=== PATIENT | female | born 1960 | race Two or more races ===

== ENCOUNTER 2020-01-17 10:51 | Outpatient (REF) | payer OTHER, SELFPAY ==
[2020-01-17 12:31] LABS: Creatinine Urine 66.28 mg/dL; Microalbum/Creatinine Ratio Ur 120.7 ug/mg cr
== END 2020-01-17 10:52 | disposition home or self-care (01) ==
LOC: HO.LAB 10:51
PROVIDERS: PCP Internal Medicine; Visit Provider Nurse Practitioner Gerontology
DX: E11.42 Type 2 diabetes mellitus with diabetic polyneuropathy (principal)
CPT/HCPCS: 82043

== ENCOUNTER 2020-02-20 14:23 | Outpatient (REF) | payer OTHER, SELFPAY ==
[2020-02-21 09:47] LABS: BV Int Neg Control Negative (Negative); BV Int Pos Control Positive (Positive)
== END 2020-02-20 14:24 | disposition home or self-care (01) ==
LOC: HO.LAB 14:23
PROVIDERS: Visit Provider Obstetrics & Gynecology
DX: B37.3 Candidiasis of vulva and vagina (principal)
CPT/HCPCS: 87480; 87510; 87660; 99212

== ENCOUNTER → 2020-03-05 13:14 | Outpatient (BNVA) | payer OTHER, SELFPAY | PROVIDERS: PCP Internal Medicine; Visit Provider Nurse Practitioner Gerontology | DX: E11.65 Type 2 diabetes mellitus with hyperglycemia (principal); E11.21 Type 2 diabetes mellitus with diabetic nephropathy; E11.42 Type 2 diabetes mellitus with diabetic polyneuropathy; Z79.4 Long term (current) use of insulin; I10 Essential (primary) hypertension; E78.5 Hyperlipidemia, unspecified; E66.09 Other obesity due to excess calories; Z68.29 Body mass index [BMI] 29.0-29.9, adult | CPT/HCPCS: 82947 ==

== ENCOUNTER → 2020-03-08 14:39 | Outpatient (BNVA) | payer OTHER, SELFPAY | PROVIDERS: PCP Internal Medicine; Visit Provider Obstetrics & Gynecology | DX: B37.3 Candidiasis of vulva and vagina (principal) | CPT/HCPCS: 99212 ==

== ENCOUNTER → 2020-04-10 07:39 | Outpatient (BNVA) | payer OTHER, SELFPAY | PROVIDERS: PCP Internal Medicine; Visit Provider Nurse Practitioner Gerontology ==

== ENCOUNTER 2020-05-25 11:49 | Outpatient (REF) | payer OTHER, SELFPAY ==
--- NOTE | ~2020-05-25 | MM_ITS ---
EXAMINATION: MM SCREENING DIGITAL BREAST TOMOSYNTHESIS, BILATERAL CLINICAL INFORMATION: Screening. Asymptomatic. The lifetime risk of breast cancer based on the Tyrer-Cuzick Model is 4.9%. COMPARISON: Mammography: August 10, 2018 and studies dating back to June 05, 2014 TECHNIQUE: Digital breast tomosynthesis is performed in both the craniocaudal and mediolateral oblique views along with computer-aided detection (CAD). Synthesized 2D images are generated from the tomosynthesis. FINDINGS: There are scattered areas of fibroglandular density (ACR BI-RADS breast composition Category b). There are no significant masses, abnormal calcifications, or other abnormalities. MM/MM tomosynthesis screening BI IMPRESSION: There are no significant changes from prior study. ASSESSMENT: BI-RADS 1: Negative RECOMMENDATION: Routine annual mammography screening. This patient's information was entered into a reminder system with a target due date for their next mammogram.
== END 2020-05-25 11:50 | disposition home or self-care (01) ==
LOC: HO.MAMMO 11:49
PROVIDERS: PCP Internal Medicine; Visit Provider Internal Medicine
DX: Z12.31 Encounter for screening mammogram for malignant neoplasm of breast (principal)
CPT/HCPCS: 77063; 77067

== ENCOUNTER 2020-06-05 10:18 | Outpatient (REF) | payer OTHER, SELFPAY ==
[2020-06-05 10:54] LABS: MANUAL DIFF FLAG NO
[2020-06-05 10:57] LABS: Basophils Percent Auto 0.3 % (0-2); Eosinophils Absolute Auto 0.3 X10*3/uL (0.0-0.4); Eosinophils Percent Auto 2.8 % (0-4); Hematocrit 41.8 % (37-47); Hemoglobin 14.4 g/dl (12.0-16.0); Imm Gran Abs Auto 0.04 X10*3/uL (0.00-0.03); Imm Gran Pct Auto 0.4 % (0.0-0.4); Lymphocytes Absolute Auto 2.5 X10*3/uL (1.2-4.9); Lymphocytes Percent Auto 24.3 % (20-40); Mean Corpuscular HGB Conc 34.4 g/dl (31.0-35.0); Mean Corpuscular Hemoglobin 30.3 pg (27.0-33.0); Mean Platelet Volume 9.9 fL (9.4-12.3); Monocytes Absolute Auto 0.4 X10*3/uL (0.1-1.2); Monocytes Percent Auto 4.2 % (2-11); Neutrophils Absolute Auto 6.9 X10*3/uL (2.0-8.3); Platelet Count 228 X10*3/uL (160-400); Red Blood Count 4.75 X10*6/uL (4.20-5.50); Red Cell Distribution Width 13.3 % (11.0-16.0); White Blood Count 10.1 X10*3/uL (4.8-10.8)
[2020-06-05 11:37] LABS: Glucose Urine UA >=1000 MG/DL (NEG); Leukocyte Esterase Urine NEG (NEG); Nitrite Urine NEG (NEG); Urine Blood NEG (NEG); Urine Ketones NEG (NEG); Urine Protein NEG (NEG-TRACE)
[2020-06-05 11:41] LABS: Alanine Aminotransferase 19 U/L (0-31); Albumin Level 4.2 g/dL (3.5-5.0); Alkaline Phosphatase 93 U/L (39-117); Anion Gap 12 (12-20); Aspartate Amino Transferase 12 U/L (5-31); Bilirubin Total 0.4 mg/dL (0.0-1.0); Blood Urea Nitrogen 12 mg/dL (9-16); Carbon Dioxide 27 mmol/L (22-29); Chloride 106 mmol/L (96-108); Cholesterol 185 mg/dL; Estimated Glomerular Filt Rate > 60; Glucose Fasting 214 mg/dL (60-99); HDL Cholesterol 36 mg/dL; LDL Cholesterol Calculated 85 mg/dl; Potassium 4.1 mmol/L (3.3-5.1); Sodium 141 mmol/L (135-145); Total Protein 7.3 g/dL (6.5-8.0); Triglycerides 321 mg/dL
[2020-06-05 11:44] LABS: Appearance Urine CLEAR; Color Urine YELLOW
[2020-06-05 11:49] LABS: Free T4 (Free Thyroxine) 0.91 ng/dL (0.71-1.85); Thyroid Stimulating Hormone 1.25 uIU/mL (0.32-4.0)
[2020-06-05 12:06] LABS: Creatinine Urine 65.57 mg/dL; Microalbum/Creatinine Ratio Ur 45.7 ug/mg cr
[2020-06-05 12:21] LABS: Bacteria Urine TRACE /LPF; RBC Urine 0 /HPF (0); Squamous Epithelial Cell Urine 2+ /LPF
== END 2020-06-05 10:19 | disposition home or self-care (01) ==
LOC: HO.LAB 10:18
PROVIDERS: PCP Internal Medicine; Visit Provider Internal Medicine
DX: Z00.00 Encounter for general adult medical examination without abnormal findings (principal); E78.5 Hyperlipidemia, unspecified; E11.42 Type 2 diabetes mellitus with diabetic polyneuropathy; I10 Essential (primary) hypertension; K21.9 Gastro-esophageal reflux disease without esophagitis; E03.9 Hypothyroidism, unspecified; E66.9 Obesity, unspecified; E78.00 Pure hypercholesterolemia, unspecified
CPT/HCPCS: 36415; 80053; 80061; 81001; 81003; 82043; 84439; 84443; 85025

== ENCOUNTER 2020-06-11 10:38 | Outpatient (REF) | payer OTHER, SELFPAY ==
--- NOTE | ~2020-06-11 | XR_ITS ---
EXAMINATION: XR HAND, LEFT CLINICAL INFORMATION: Left hand ganglion. COMPARISON: None. TECHNIQUE: PA, lateral, and oblique views of the left hand. FINDINGS: No acute fracture or dislocation. Mild joint space narrowing with small marginal osteophytes at the radiocarpal, 1st carpometacarpal, and interphalangeal joints. No osseous erosion. No abnormal soft tissue calcification. XR/XR hand LT min 3V IMPRESSION: Mild scattered degenerative arthritis at the radiocarpal, 1st carpal metacarpal, and interphalangeal joints.
[2020-06-11 12:18] LABS: Glucose Urine UA >=1000 MG/DL (NEG); Leukocyte Esterase Urine NEG (NEG); Nitrite Urine NEG (NEG); PH 5.5 (5.0-8.0); Specific Gravity - Urine 1.015 (1.005-1.025); Urine Blood NEG (NEG); Urine Ketones NEG (NEG); Urine Protein NEG (NEG-TRACE)
[2020-06-11 12:23] LABS: Appearance Urine CLEAR; Color Urine STRAW
[2020-06-11 12:39] LABS: RBC Urine 0 /HPF (0); Renal Epithelial Cells Urine TRACE /LPF; Squamous Epithelial Cell Urine TRACE /LPF; WBC Urine 0-2 /HPF (0-4)
== END 2020-06-11 10:39 | disposition home or self-care (01) ==
LOC: HO.LAB 10:38
PROVIDERS: PCP Internal Medicine; Visit Provider Internal Medicine
DX: M79.642 Pain in left hand (principal); M67.442 Ganglion, left hand; I10 Essential (primary) hypertension; E11.42 Type 2 diabetes mellitus with diabetic polyneuropathy
CPT/HCPCS: 73130; 81001; 81003

== ENCOUNTER → 2020-07-26 12:56 | Outpatient (BNVA) | payer OTHER, SELFPAY | PROVIDERS: PCP Internal Medicine; Visit Provider Nurse Practitioner Gerontology | DX: E11.65 Type 2 diabetes mellitus with hyperglycemia (principal); E11.42 Type 2 diabetes mellitus with diabetic polyneuropathy; E11.21 Type 2 diabetes mellitus with diabetic nephropathy; I10 Essential (primary) hypertension; E78.5 Hyperlipidemia, unspecified; E66.09 Other obesity due to excess calories; Z68.32 Body mass index [BMI] 32.0-32.9, adult; Z79.4 Long term (current) use of insulin | CPT/HCPCS: 82947; 99212 ==

== ENCOUNTER → 2020-09-07 12:44 | Outpatient (BNVA) | payer OTHER, SELFPAY | PROVIDERS: PCP Internal Medicine; Visit Provider Nurse Practitioner Gerontology ==

== ENCOUNTER 2020-10-09 13:33 | Emergency (ER) | payer OTHER, SELFPAY | END 2020-10-09 18:42 | disposition left against medical advice (07) | PROVIDERS: Emergency Provider Emergency Medicine Emergency Medical Services; PCP Internal Medicine | DX: R42 Dizziness and giddiness (principal); R51.9 Headache, unspecified ==

== ENCOUNTER 2020-11-13 14:59 | Outpatient (REF) | payer OTHER, SELFPAY ==
[2020-11-14 08:50] LABS: BV Int Neg Control Negative (Negative); BV Int Pos Control Positive (Positive)
== END 2020-11-13 15:00 | disposition home or self-care (01) ==
LOC: HO.LAB 14:59
PROVIDERS: PCP Nurse Practitioner Family; Visit Provider Obstetrics & Gynecology
DX: L29.2 Pruritus vulvae (principal); N90.4 Leukoplakia of vulva
CPT/HCPCS: 87480; 87510; 87660; 99212

== ENCOUNTER 2020-12-26 13:03 | Outpatient (REF) | payer OTHER, SELFPAY | END 2020-12-26 13:04 | disposition home or self-care (01) | LOC: HO.LAB 13:03 | PROVIDERS: PCP Internal Medicine; Visit Provider Obstetrics & Gynecology | DX: N90.4 Leukoplakia of vulva (principal) | CPT/HCPCS: 56605; 88305; 88312; 99212 ==

== ENCOUNTER → 2021-01-09 14:48 | Outpatient (BNVA) | payer OTHER, SELFPAY | PROVIDERS: PCP Internal Medicine; Visit Provider Obstetrics & Gynecology | DX: N90.4 Leukoplakia of vulva (principal) | CPT/HCPCS: 99212 ==

== ENCOUNTER → 2021-02-27 13:12 | Outpatient (BNVA) | payer OTHER, SELFPAY | PROVIDERS: PCP Internal Medicine; Visit Provider Obstetrics & Gynecology | DX: N90.4 Leukoplakia of vulva (principal) | CPT/HCPCS: 99212 ==

== ENCOUNTER 2021-03-19 09:43 | Outpatient (REF) | payer OTHER, SELFPAY ==
--- NOTE | ~2021-03-19 | XR_ITS ---
EXAMINATION: XR LUMBOSACRAL SPINE CLINICAL INFORMATION: Lower back pain radiating to hips. COMPARISON: CT abdomen and pelvis noncontrast 08/10/2018 TECHNIQUE: Three views of the lumbosacral spine. FINDINGS: There are 5 nonrib-bearing lumbar vertebrae with normal lumbar lordosis. Mild superior endplate depression is present at L2, new finding from CT 08/10/2018. Again, there are degenerative disc changes L4-L5 with mild disc narrowing and anterior vertebral spurring. There is no lumbar vertebral spondylolisthesis or destructive process. There is old stable bone island left side vertebral body L3 and involving the medial and lower mid left ilium similar to CT study. The SI joints are unremarkable. PSA to call report. XR/XR lumbar spine 2-3V IMPRESSION: 1. Mild L2 superior endplate depression new from CT 08/10/2018. 2. Old degenerative disc changes L4-L5.
--- NOTE | ~2021-03-19 | XR_ITS ---
EXAMINATION: XR BILATERAL HIPS WITH AP PELVIS CLINICAL INFORMATION: Low back pain radiating to both hips. Pain right hip. COMPARISON: Lumbar spine 03/19/2021, CT abdomen and pelvis noncontrast 08/10/2018 TECHNIQUE: AP view of the pelvis is performed. Each hip is also imaged in AP and frog-lateral projections. There are total of 5 views. FINDINGS: There is no fracture or dislocation or destructive process. Mild L4-L5 degenerative disc changes with disc narrowing is again noted. There is mild narrowing bilateral superior medial hip joints without erosive change or subchondral sclerosis or visible chondrocalcinosis. There is bilateral whiskering from the lateral iliac crests and ischial tuberosities. Some minor whiskering also present at the greater trochanters. Finding may be related to mild diffuse idiopathic skeletal hyperostosis. There is old stable bone islands involving the medial and lower mid left ilium similar to CT 2019. XR/XR hips LAURIE min 3V IMPRESSION: 1. Borderline/mild narrowing bilateral superior medial hip joints. No erosive change or chondrocalcinosis. 2. Degenerative disc changes L4-L5. Old bone islands left pelvis.
== END 2021-03-19 09:44 | disposition home or self-care (01) ==
LOC: HO.XRAY 09:43
PROVIDERS: PCP Internal Medicine; Visit Provider Internal Medicine
DX: M25.551 Pain in right hip (principal); M25.552 Pain in left hip; M54.50 Low back pain, unspecified; Z91.81 History of falling
CPT/HCPCS: 72100; 73522

== ENCOUNTER 2021-05-10 08:34 | Outpatient (REF) | payer OTHER, SELFPAY ==
[2021-05-10 08:59] LABS: MANUAL DIFF FLAG NO
[2021-05-10 09:14] LABS: Basophils Percent Auto 0.5 % (0-2); Eosinophils Absolute Auto 0.3 X10*3/uL (0.0-0.4); Eosinophils Percent Auto 3.5 % (0-4); Hematocrit 42.5 % (37.0-47.0); Hemoglobin 13.8 g/dl (12.0-16.0); Imm Gran Abs Auto 0.02 X10*3/uL (0.00-0.03); Imm Gran Pct Auto 0.2 % (0.0-0.4); Lymphocytes Absolute Auto 2.2 X10*3/uL (1.2-4.9); Lymphocytes Percent Auto 27.4 % (20-40); Mean Corpuscular HGB Conc 32.5 g/dl (31.0-35.0); Mean Corpuscular Hemoglobin 28.9 pg (27.0-33.0); Mean Corpuscular Volume 89.1 fL (80.0-98.0); Mean Platelet Volume 9.9 fL (9.4-12.3); Monocytes Absolute Auto 0.4 X10*3/uL (0.1-1.2); Neutrophils Absolute Auto 5.2 x10*3/uL (2.0-8.3); Neutrophils Percent Auto 63.4 % (45-73); Platelet Count 235 X10*3/uL (160-400); Red Blood Count 4.77 X10*6/uL (4.20-5.50); Red Cell Distribution Width 13.5 % (11.0-16.0); White Blood Count 8.2 X10*3/uL (4.8-10.8)
[2021-05-10 09:23] LABS: Estimated Average Glucose 171 mg/dL; Hemoglobin A1c % 7.6 %
[2021-05-10 09:39] LABS: Alanine Aminotransferase 17 U/L (0-31); Albumin Level 4.2 g/dL (3.5-5.0); Alkaline Phosphatase 97 U/L (39-117); Anion Gap 12 (12-20); Aspartate Amino Transferase 11 U/L (5-31); Bilirubin Total 0.5 mg/dL (0.0-1.0); Blood Urea Nitrogen 16 mg/dL (9-16); Calcium 9.8 mg/dL (8.4-10.2); Carbon Dioxide 27 mmol/L (22-29); Chloride 103 mmol/L (96-108); Cholesterol 197 mg/dL; Estimated Glomerular Filt Rate > 60; Glucose Fasting 178 mg/dL (60-99); HDL Cholesterol 33 mg/dL; LDL Cholesterol Calculated 105 mg/dl; Potassium 4.2 mmol/L (3.3-5.1); Sodium 138 mmol/L (135-145); Total Protein 7.8 g/dL (6.5-8.0); Triglycerides 297 mg/dL
[2021-05-10 10:00] LABS: Free T4 (Free Thyroxine) 1.06 ng/dL (0.71-1.85); Thyroid Stimulating Hormone 2.75 uIU/mL (0.32-4.0); Vitamin D 25-OH Total 22.6 ng/mL (>30)
[2021-05-10 10:09] LABS: Appearance Urine CLEAR; Color Urine YELLOW; Glucose Urine UA >=1000 MG/DL (NEG); Leukocyte Esterase Urine NEG (NEG); Nitrite Urine NEG (NEG); Urine Blood NEG (NEG); Urine Ketones NEG (NEG); Urine Protein NEG (NEG-TRACE)
[2021-05-10 10:34] LABS: Creatinine Urine 62.78 mg/dL; Microalbum/Creatinine Ratio Ur 41.4 ug/mg cr
[2021-05-10 11:03] LABS: Squamous Epithelial Cell Urine 1+ /LPF
[2021-05-10 11:04] LABS: RBC Urine 0 /HPF (0); WBC Urine 0-2 /HPF (0-4)
== END 2021-05-10 08:35 | disposition home or self-care (01) ==
LOC: HO.LAB 08:34
PROVIDERS: PCP Internal Medicine; Visit Provider Internal Medicine
DX: E78.00 Pure hypercholesterolemia, unspecified (principal); E03.9 Hypothyroidism, unspecified; I10 Essential (primary) hypertension; E11.9 Type 2 diabetes mellitus without complications; E55.9 Vitamin D deficiency, unspecified
CPT/HCPCS: 36415; 80053; 80061; 81001; 81003; 82043; 82306; 83036; 84439; 84443; 85025

== ENCOUNTER 2021-05-28 13:18 | Outpatient (REF) | payer OTHER, SELFPAY ==
--- NOTE | ~2021-05-28 | MM_ITS ---
EXAMINATION: MM SCREENING DIGITAL BREAST TOMOSYNTHESIS, BILATERAL CLINICAL INFORMATION: Screening. Asymptomatic. The lifetime risk of breast cancer based on the Tyrer-Cuzick Model is 5%. COMPARISON: Mammography: 05/25/2020, 08/10/2018, 06/13/2015 TECHNIQUE: Digital breast tomosynthesis is performed in both the craniocaudal and mediolateral oblique views along with computer-aided detection (CAD). Synthesized 2D images are generated from the tomosynthesis. FINDINGS: There are scattered areas of fibroglandular density (ACR BI-RADS breast composition Category b). There are no significant masses, abnormal calcifications, or other abnormalities. Parenchymal pattern is similar to prior studies. There is no developing density or architectural abnormality. The axilla and skin contours are unremarkable. No significant changes. MM/MM tomosynthesis screening BI IMPRESSION: No mammographic evidence of malignancy. ASSESSMENT: BI-RADS 1: Negative RECOMMENDATION: Routine annual mammography screening. This patient's information was entered into a reminder system with a target due date for their next mammogram.
== END 2021-05-28 13:19 | disposition home or self-care (01) ==
LOC: HO.MAMMO 13:18
PROVIDERS: Visit Provider Internal Medicine
DX: Z12.31 Encounter for screening mammogram for malignant neoplasm of breast (principal)
CPT/HCPCS: 77063; 77067

== ENCOUNTER → 2021-06-06 14:03 | Outpatient (REF) | payer OTHER, SELFPAY ==
--- NOTE | 2021-06-06 14:13 | ECG_ITS ---
Test Reason : TACHYCARDIA Blood Pressure : / mmHG Vent. Rate : 094 BPM Atrial Rate : 094 BPM P-R Int : 136 ms QRS Dur : 080 ms QT Int : 342 ms P-R-T Axes : 053 000 022 degrees QTc Int : 427 ms Normal sinus rhythm Normal ECG When compared with ECG of 17-NOV-2017 09:54, No significant change was found Referred By: Genaro Chu Electronically Signed By:DONTAE PAINTER MD
== END ==
LOC: HO.CARD 14:03
PROVIDERS: PCP Internal Medicine; Visit Provider Internal Medicine
DX: R00.0 Tachycardia, unspecified (principal)
CPT/HCPCS: 93005

== ENCOUNTER → 2021-06-12 12:57 | Outpatient (BNVA) | payer OTHER, SELFPAY | PROVIDERS: PCP Internal Medicine; Visit Provider Orthopaedic Surgery | DX: M65.332 Trigger finger, left middle finger (principal); M65.341 Trigger finger, right ring finger; R20.0 Anesthesia of skin; R20.2 Paresthesia of skin | CPT/HCPCS: 99202; J1100 ==

== ENCOUNTER → 2021-06-13 13:53 | Outpatient (BNVA) | payer OTHER, SELFPAY | PROVIDERS: PCP Internal Medicine; Visit Provider Nurse Practitioner Gerontology | DX: E11.65 Type 2 diabetes mellitus with hyperglycemia (principal); E11.42 Type 2 diabetes mellitus with diabetic polyneuropathy; E11.21 Type 2 diabetes mellitus with diabetic nephropathy; I10 Essential (primary) hypertension; E78.5 Hyperlipidemia, unspecified; E66.09 Other obesity due to excess calories; Z68.32 Body mass index [BMI] 32.0-32.9, adult; E55.9 Vitamin D deficiency, unspecified; Z79.4 Long term (current) use of insulin; Z79.899 Other long term (current) drug therapy | CPT/HCPCS: 82947; 99212 ==

== ENCOUNTER 2021-06-20 10:46 | Day surgery (SDC) | payer OTHER, SELFPAY ==
--- NOTE | 2021-06-20 10:31 | W.PM.OPN ---
Operative Note Operative Note Date of Service: 06/20/21 Narrative: Operative Note Preop diagnosis: 1. left middle finger Trigger finger Postop diagnosis: 1. left middle finger Trigger finger Procedure: 1. left middle finger A1 celsa release Surgeon: Lea Mullins MD Anesthesia: local block using 1% lidocaine with epinephrine Findings: No locking or catching after A1 celsa release EBL: Less than 5 mL Tourniquet time: None Specimens: None Complications: None Disposition: Brought to recovery room in stable condition Plan: Follow-up for 10-14 days for wound check and suture removal Indications: The patient is 61 years old, with a left middle finger trigger finger that has been unresponsive to nonoperative management. The risks and benefits of operative treatment including but not limited to risk of damage to blood vessels, nerves, tendons, infection, persistent pain, persistent symptoms, recurrence or possible need for additional surgery were discussed with the patient and the patient wishes to proceed with surgery. Procedure: Once consent was obtained a local block was performed in the preop area using a combination of 1% lidocaine with epinephrine. The patient was then brought back to the operating suite and placed on the operative table in supine position. A tourniquet was applied to the proximal aspect of the left upper extremity and the limb was prepped and draped in a standard surgical fashion. Once assured that we had a good block, a 1.5 cm oblique incision was made centered over the A1 celsa of the left middle finger . The incision was made through the skin to the subcutaneous tissues using a #15 blade. Careful dissection was made down to the level of the A1 celsa using tenotomy scissors, with care being taken to protect the nearby neurovascular structures. A longitudinal incision was made in the A1 celsa 1st using a #15 blade, then using tenotomy scissors under direct visualization. The A1 celsa was noted to be thickened. Following our A1 celsa release, we no longer saw any locking or catching of the digit with flexion and extension. Once satisfied with our A1 celsa release the wound was copiously irrigated with normal saline and hemostasis was obtained with a brief period of local pressure. The skin edges were reapproximated with some 5.0 nylon suture material and a sterile dressing was applied. The patient appears to have tolerated the procedure well and with no complications. All digits were well vascularized at the conclusion of the case.
[2021-06-20 11:05] VITALS: BP 123/78; PULSE 90; RESP 16; TEMP 36.3; O2SAT 95
[2021-06-20 11:11] VITALS: BMI 29.4
[2021-06-20 14:50] VITALS: PULSE 98; RESP 18; TEMP 36.9; O2SAT 94
--- NOTE | 2021-06-20 14:55 | MHC.SHP ---
Pre-Procedural Eval Section A Date of Service: 06/20/21 The patient is an INPATIENT: No Changes since office visit: No Cold of Flu in the past 2 weeks, No New Medical Problems, No Changes in Medication and No Patient answered all questions The History & Physical has been completed within 30 days and I have reviewed it.: Yes Section B Chief Complaint: Trigger finger, left middle finger Allergies: Allergies Allergy/AdvReac Type Severity Reaction Status Date / Time Iodinated Contrast Media Allergy Intermediate RASH Verified 06/12/21 13:31 [IV CONTRAST] iopromide [From ULTRAVIST] Allergy Mild ITCHING Verified 06/12/21 13:31 Plan I have reviewed the history and physical and performed a pertinent physical examination on my patient. No changes have occurred unless specified.
== END 2021-06-20 15:21 | disposition home or self-care (01) ==
PROVIDERS: PCP Internal Medicine; Visit Provider Orthopaedic Surgery
PROC: (CPT 26055; principal; 2021-06-20 13:50)
DX: M65.332 Trigger finger, left middle finger (principal); R20.0 Anesthesia of skin; M72.0 Palmar fascial fibromatosis [Dupuytren]; F32.9 Major depressive disorder, single episode, unspecified; I10 Essential (primary) hypertension; E11.21 Type 2 diabetes mellitus with diabetic nephropathy; E11.42 Type 2 diabetes mellitus with diabetic polyneuropathy; E11.65 Type 2 diabetes mellitus with hyperglycemia; Z79.4 Long term (current) use of insulin; Z91.040 Latex allergy status
CPT/HCPCS: 26055; J0171

== ENCOUNTER 2021-06-24 08:53 | Outpatient (REF) | payer OTHER, SELFPAY ==
[2021-06-24 09:15] LABS: MANUAL DIFF FLAG NO
[2021-06-24 09:46] LABS: Basophils Percent Auto 0.4 % (0-2); Eosinophils Absolute Auto 0.3 X10*3/uL (0.0-0.4); Eosinophils Percent Auto 3.1 % (0-4); Hematocrit 42.4 % (37.0-47.0); Hemoglobin 14.5 g/dl (12.0-16.0); Imm Gran Abs Auto 0.04 X10*3/uL (0.00-0.03); Imm Gran Pct Auto 0.5 % (0.0-0.4); Lymphocytes Absolute Auto 2.3 X10*3/uL (1.2-4.9); Lymphocytes Percent Auto 28.1 % (20-40); Mean Corpuscular HGB Conc 34.2 g/dl (31.0-35.0); Mean Corpuscular Hemoglobin 29.8 pg (27.0-33.0); Mean Corpuscular Volume 87.1 fL (80.0-98.0); Mean Platelet Volume 9.9 fL (9.4-12.3); Monocytes Absolute Auto 0.4 X10*3/uL (0.1-1.2); Neutrophils Absolute Auto 5.1 x10*3/uL (2.0-8.3); Neutrophils Percent Auto 62.9 % (45-73); Platelet Count 216 X10*3/uL (160-400); Red Blood Count 4.87 X10*6/uL (4.20-5.50); Red Cell Distribution Width 13.2 % (11.0-16.0); White Blood Count 8.2 X10*3/uL (4.8-10.8)
[2021-06-24 10:03] LABS: Estimated Average Glucose 206 mg/dL; Hemoglobin A1c % 8.8 %
[2021-06-24 10:09] LABS: Alanine Aminotransferase 23 U/L (0-31); Albumin Level 4.2 g/dL (3.5-5.0); Alkaline Phosphatase 107 U/L (39-117); Anion Gap 13 (12-20); Aspartate Amino Transferase 18 U/L (5-31); Bilirubin Total 0.5 mg/dL (0.0-1.0); Blood Urea Nitrogen 16 mg/dL (9-16); Calcium 9.7 mg/dL (8.4-10.2); Carbon Dioxide 27 mmol/L (22-29); Chloride 102 mmol/L (96-108); Cholesterol 178 mg/dL; Estimated Glomerular Filt Rate > 60; Glucose Fasting 237 mg/dL (60-99); HDL Cholesterol 36 mg/dL; Potassium 4.2 mmol/L (3.3-5.1); Sodium 138 mmol/L (135-145); Total Protein 7.9 g/dL (6.5-8.0); Triglycerides 473 mg/dL
[2021-06-24 10:32] LABS: Free T4 (Free Thyroxine) 0.89 ng/dL (0.71-1.85); Thyroid Stimulating Hormone 2.06 uIU/mL (0.32-4.0)
[2021-06-24 11:09] LABS: Appearance Urine CLEAR; Color Urine YELLOW; Glucose Urine UA >=1000 MG/DL (NEG); Leukocyte Esterase Urine NEG (NEG); Nitrite Urine NEG (NEG); Urine Blood NEG (NEG); Urine Ketones NEG (NEG); Urine Protein NEG (NEG-TRACE)
[2021-06-24 11:23] LABS: Squamous Epithelial Cell Urine 3+ /LPF
[2021-06-24 11:26] LABS: Bacteria Urine TRACE /LPF; RBC Urine 0 /HPF (0)
== END 2021-06-24 08:54 | disposition home or self-care (01) ==
LOC: HO.LAB 08:53
PROVIDERS: PCP Internal Medicine; Visit Provider Internal Medicine
DX: E03.9 Hypothyroidism, unspecified (principal); E66.9 Obesity, unspecified; E78.5 Hyperlipidemia, unspecified; E11.42 Type 2 diabetes mellitus with diabetic polyneuropathy; I10 Essential (primary) hypertension; K21.9 Gastro-esophageal reflux disease without esophagitis
CPT/HCPCS: 36415; 80053; 80061; 81001; 83036; 84439; 84443; 85025

== ENCOUNTER → 2021-07-03 14:33 | Outpatient (BNVA) | payer OTHER, SELFPAY | PROVIDERS: PCP Internal Medicine; Visit Provider Orthopaedic Surgery | DX: Z09 Encounter for follow-up examination after completed treatment for conditions other than malignant neoplasm (principal); Z87.39 Personal history of other diseases of the musculoskeletal system and connective tissue | CPT/HCPCS: 99212 ==

== ENCOUNTER → 2021-08-07 12:38 | Outpatient (REF) | payer OTHER, SELFPAY ==
--- NOTE | 2021-08-07 12:41 | CA_ITS ---
Transthoracic Echocardiogram Patient (Last, First, Middle): Brielle Bella, Gender: Female Date of : 1960 Age: 61 Procedure Date: 08/07/2021 Procedure Type: Transthoracic Echocardiogram Location: OP Height: 157.48 cm Weight: 84.37 kg BSA: 1.85 m2 Heart Rate: bpm BP: 170 / 86 mmHg Partner Integration Planner: YR/TO Referring MD: Genaro Chu MD Symptoms: R06.00 - Dyspnea, unspecified Study Quality: Fair ECG Rhythm: Sinus Conclusions: - The left ventricular systolic function is normal. The calculated ejection fraction is 60% by biplane method. - No obvious valvular pathology seen on this study. Findings Left Ventricle Normal left ventricular cavity size. There is mildly increased left ventricular wall thickness. The left ventricular systolic function is normal. The calculated ejection fraction is 60% by biplane method. There is no evidence of regional wall motion abnormalities. Diastolic function is normal for age. Right Ventricle Normal right ventricular cavity size and systolic function. Atria Both atria are normal in size. Aortic Valve The aortic valve structure and function is likely normal. There is no aortic valve stenosis. There is no aortic valve regurgitation. Mitral Valve The mitral valve appears normal. There is no mitral valve regurgitation. There is no mitral valve stenosis. Pulmonic Valve The pulmonic valve is likely normal. Tricuspid Valve There is trace tricuspid valve regurgitation. The pulmonary artery systolic pressure is normal. Great Vessels The asc aorta is normal in size. Venous The inferior vena cava is normal in size and collapses greater than 50% with inspiration. Pericardium/Pleural There is no evidence of pericardial effusion. Prior Study Comparison No prior study available for comparison. Recommendations, Care & Conclusions No obvious valvular pathology seen on this study. Measurements 2D Linear Measurements IVSd: 1.25 0.6-0.9/0.6-1.0 cm LVIDd: 3.05 3.9-5.3/4.2-5.9 cm LVIDd Index: 1.65 2.4-3.2/2.2-3.1 cm/m2 LVIDs: 2.12 2.0-3.6 cm LVPWd: 1.11 0.7-1.1 cm LA Diam: 3.20 2.7-3.8/3.0-4.0 cm LAIDs Index: 1.73 1.5-2.3 cm/m2 LV Mass: 135.17 67-162/88-224 g LV Mass Index: 73.06 43-95/49-115 g/m2 LVOT Diam: 2.00 3.0+(-)1.3 cm 2D Systolic Function EF 4C: 56.80 >55% EF 2C: 63.40 >55% EF BiP: 59.70 >55% Mitral Valve MV Pk E: 0.64 MV PK A: 0.92 MV Decel Time: 135.00 E/A: 0.70 E'Lateral: 8.59 E'Medial: 9.57 E/E' Med: 6.70 E/E' Lat: 7.40 PHT: 40.00 MVA PHT: 5.50 Decel Dale: 4.73 Aortic Valve AoV Pk Maynor: 1.59 AoV Mn Maynor: 1.10 AoV VTI: 0.31 AoV Pk Grad: 10.00 Aov Mn Grad: 5.00 DARWIN Cont.VTI: 2.19 LVOT LVOT Pk Maynor: 1.07 LVOT Mn Maynor: 0.68 LVOT VTI: 0.21 LVOT Pk Grad: 5.00 LVOT Mn Grad: 2.00 LVOT Diam: 2.00 LVOT Area: 3.14 Diastolic Function MV Pk E: 0.64 MV Pk A: 0.92 E/A: 0.70 E'Medial: 9.57 E/E' Med: 6.70 E' Laterial: 8.59 E/E' Lat: 7.40 Right Ventricle TAPSE (mm): 24.30 TVS' Maynor: 12.20 Tricuspid Valve TR Pk Maynor: 2.50 TR Pk Grad: 25.00 RA Press: 8.00 RVSP: 33.00 Great Vessels Aorta Sinus of Valsalva: 2.58 2.0-3.[address] Ridge: 2.21 1.7-3.4 cm Ao Asc: 3.00 2.1-3.4 cm Ao Arch: 2.70 Updated in Other Vendor System with Status of Final Robinson Stearns MD electronically signed on 08/10/2021 11:44:08 AM with status of Final
== END ==
LOC: HO.CARD 12:38
PROVIDERS: PCP Internal Medicine; Visit Provider Internal Medicine
DX: R00.0 Tachycardia, unspecified (principal); R06.00 Dyspnea, unspecified
CPT/HCPCS: 93306

== ENCOUNTER 2021-08-13 10:11 | Outpatient (REF) | payer OTHER, SELFPAY ==
[2021-08-13 10:30] LABS: MANUAL DIFF FLAG NO
[2021-08-13 11:54] LABS: Basophils Percent Auto 0.4 % (0-2); Eosinophils Absolute Auto 0.3 X10*3/uL (0.0-0.4); Eosinophils Percent Auto 3.7 % (0-4); Hematocrit 42.2 % (37.0-47.0); Hemoglobin 14.2 g/dl (12.0-16.0); Imm Gran Abs Auto 0.04 X10*3/uL (0.00-0.03); Imm Gran Pct Auto 0.5 % (0.0-0.4); Lymphocytes Absolute Auto 2.3 X10*3/uL (1.2-4.9); Lymphocytes Percent Auto 26.7 % (20-40); Mean Corpuscular HGB Conc 33.6 g/dl (31.0-35.0); Mean Corpuscular Hemoglobin 29.6 pg (27.0-33.0); Mean Corpuscular Volume 87.9 fL (80.0-98.0); Mean Platelet Volume 10.3 fL (9.4-12.3); Monocytes Absolute Auto 0.5 X10*3/uL (0.1-1.2); Monocytes Percent Auto 5.4 % (2-11); Neutrophils Absolute Auto 5.4 x10*3/uL (2.0-8.3); Neutrophils Percent Auto 63.3 % (45-73); Platelet Count 229 X10*3/uL (160-400); Red Cell Distribution Width 13.7 % (11.0-16.0); White Blood Count 8.5 X10*3/uL (4.8-10.8)
[2021-08-13 12:03] LABS: Alanine Aminotransferase 20 U/L (0-31); Albumin Level 4.2 g/dL (3.5-5.0); Alkaline Phosphatase 98 U/L (39-117); Anion Gap 13 (12-20); Aspartate Amino Transferase 14 U/L (5-31); Bilirubin Total 0.5 mg/dL (0.0-1.0); Blood Urea Nitrogen 13 mg/dL (9-16); Calcium 9.5 mg/dL (8.4-10.2); Carbon Dioxide 25 mmol/L (22-29); Chloride 104 mmol/L (96-108); Cholesterol 165 mg/dL; Estimated Glomerular Filt Rate > 60; Glucose Fasting 186 mg/dL (60-99); HDL Cholesterol 35 mg/dL; LDL Cholesterol Calculated 53 mg/dl; Potassium 4.4 mmol/L (3.3-5.1); Sodium 138 mmol/L (135-145); Total Protein 7.9 g/dL (6.5-8.0); Triglycerides 385 mg/dL
[2021-08-13 12:15] LABS: Free T4 (Free Thyroxine) 0.94 ng/dL (0.71-1.85); Thyroid Stimulating Hormone 2.28 uIU/mL (0.32-4.0); Vitamin D 25-OH Total 21.8 ng/mL (>30)
[2021-08-13 12:16] LABS: Appearance Urine HAZY; Color Urine YELLOW; Glucose Urine UA >=1000 MG/DL (NEG); Leukocyte Esterase Urine NEG (NEG); Nitrite Urine NEG (NEG); Urine Blood NEG (NEG); Urine Ketones NEG (NEG); Urine Protein NEG (NEG-TRACE)
[2021-08-13 12:43] LABS: Creatinine Urine 79.49 mg/dL; Microalbum/Creatinine Ratio Ur 36.4 ug/mg cr
[2021-08-13 12:55] LABS: RBC Urine 0 /HPF (0); Renal Epithelial Cells Urine TRACE /LPF; Squamous Epithelial Cell Urine 1+ /LPF; WBC Urine 0-2 /HPF (0-4)
[2021-08-13 13:06] LABS: Estimated Average Glucose 197 mg/dL; Hemoglobin A1c % 8.5 %
== END 2021-08-13 10:12 | disposition home or self-care (01) ==
LOC: HO.LAB 10:11
PROVIDERS: PCP Internal Medicine; Visit Provider Internal Medicine
DX: E11.9 Type 2 diabetes mellitus without complications (principal); E78.00 Pure hypercholesterolemia, unspecified; E03.9 Hypothyroidism, unspecified; I10 Essential (primary) hypertension; E55.9 Vitamin D deficiency, unspecified
CPT/HCPCS: 36415; 80053; 80061; 81001; 81003; 82043; 82306; 83036; 84439; 84443; 85025

== ENCOUNTER → 2021-08-29 14:31 | Outpatient (BNVA) | payer OTHER, SELFPAY | PROVIDERS: PCP Internal Medicine; Visit Provider Physician Assistant | DX: K21.9 Gastro-esophageal reflux disease without esophagitis (principal); E11.42 Type 2 diabetes mellitus with diabetic polyneuropathy; R68.81 Early satiety; R10.13 Epigastric pain; Z78.9 Other specified health status; Z79.899 Other long term (current) drug therapy | CPT/HCPCS: 99202; 99212 ==

== ENCOUNTER 2021-10-17 10:05 | Emergency (ER) | payer OTHER, SELFPAY ==
--- NOTE | ~2021-10-17 | XR_ITS ---
EXAMINATION: XR CHEST CLINICAL INFORMATION: Cough COMPARISON: 03/29/2018 and selective priors TECHNIQUE: AP portable upright view of the chest was obtained. FINDINGS: Minimal streaky atelectasis at the left base. No effusion. No pneumothorax. Lung volumes within normal limits. Chronic mild central increase in reticular lung markings. Suspect chronic airways disease. Heart and mediastinum within normal limits. No edema. Gasless upper abdomen. Degenerative spine disease. XR/XR chest 1V IMPRESSION: Central increase in lung markings likely chronic airways disease. Cannot exclude acute on chronic airways disease.
[2021-10-17 10:53] VITALS: BP 163/82; PULSE 97; RESP 18; TEMP 36.9; O2SAT 97; BMI 33.1
[2021-10-17 11:38] LABS: IDNOW Serial# 16C4AD1C
[2021-10-17 11:39] LABS: COVID-19 Test Negative (Negative)
--- NOTE | 2021-10-17 12:22 | ED.URI ---
HPI - URI/Sore Throat General Chief Complaint: Upper Respiratory Symptoms Stated Complaint: Cough, Ear pain Time Seen by Provider: 10/17/21 11:44 Source: patient Mode of arrival: ambulatory History of Present Illness HPI Narrative: 61-year-old female with past medical history of anxiety, depression, diabetes, HTN, gastritis, GERD, hypothyroid, HLD, diabetes, presenting to the ED complaining of dry cough, subjective fever, sore throat, and right ear pain x6 days. Admits son recently tested positive for COVID-19. Admits took home test which was negative. Reports mild SOB. Denies CP, recent travel, pedal edema MD elicited complaint: fever, cough, sore throat, rhinorrhea and nasal congestion Onset (ago): day(s) Related Data Home Medications Medication Instructions Recorded Confirmed pen needle, diabetic 29 gauge x #100 ea 01/19/20 08/14/21 1/2 Previous Rx's Medication Instructions Recorded omeprazole 40 mg capsule,delayed 40 mg PO QAM 90 days #90 caps 03/11/20 release pen needle, diabetic 32 gauge x #125 ea 04/10/20 (BD Ultra-Fine Jordana Pen Needle) clotrimazole-betamethasone 1 1 appl topical BID 5 days #45 grams 11/13/20 %-0.05 % topical cream betamethasone valerate 0.1 % 1 appl topical BEDTIME #45 grams 02/27/21 topical cream lorazepam 0.5 mg tablet 0.5 mg PO DAILY PRN anxiety 30 04/25/21 days #21 tabs trazodone 50 mg tablet 50 mg PO BEDTIME PRN sleep 30 days 05/28/21 #30 tabs atorvastatin 80 mg tablet 80 mg PO BEDTIME #90 tabs 06/13/21 blood sugar diagnostic (FreeStyle #100 ea 06/13/21 Lite Strips) cholecalciferol (vitamin D3) 50 50 mcg PO DAILY #90 caps 06/13/21 mcg (2,000 unit) capsule lancets 28 gauge (FreeStyle #100 ea 06/13/21 Lancets) semaglutide 1 mg/dose (4 mg/3 mL) 1 mg (0.75 mL) subcut QWEEK #3 mL 06/13/21 subcutaneous pen injector (Ozempic) hydrocodone 5 mg-acetaminophen 325 1 tab PO Q4-6H PRN pain #5 tabs 06/20/21 mg tablet clonidine HCl 0.1 mg tablet 0.1 mg PO BID PRN for anxiety 30 07/30/21 days #60 tabs lisinopril 20 1 tab PO DAILY 90 days #90 tabs 07/30/21 mg-hydrochlorothiazide 12.5 mg tablet levothyroxine 50 mcg tablet 50 mcg PO QAM #30 tabs 08/05/21 nabumetone 500 mg tablet 500 mg PO BID PRN low back pain 15 08/05/21 days #30 tabs insulin glargine 100 unit/mL (3 40 unit (0.4 mL) subcut DAILY #15 08/14/21 mL) subcutaneous pen (Lantus mL Solostar U-100 Insulin) empagliflozin 25 mg tablet 25 mg PO DAILY #90 tabs 09/03/21 (Jardiance) pantoprazole 40 mg tablet,delayed 40 mg PO DAILY 30 days #30 tabs 09/03/21 release sertraline 50 mg tablet 50 mg PO DAILY 30 days #30 tabs 09/25/21 insulin lispro 100 unit/mL 6 - 8 unit (0.06 - 0.08 mL) subcut 10/03/21 subcutaneous pen (Humalog KwikPen DAILY 30 days #15 mL (U-100) Insulin) mirtazapine 7.5 mg tablet 7.5 mg PO BEDTIME 30 days #30 tabs 10/04/21 tizanidine 4 mg tablet 4 mg PO Q8H PRN low back pain 10 10/04/21 days #30 tabs albuterol sulfate 90 mcg/actuation 2 puff inhalation Q4-6H PRN 10/17/21 aerosol inhaler shortness of breath or wheezing #6.7 grams amoxicillin 875 mg-potassium 1 tab PO BID 7 days #14 tabs 10/17/21 clavulanate 125 mg tablet benzonatate 100 mg capsule 100 mg PO TID PRN cough #14 caps 10/17/21 fluticasone propionate 50 2 spray intranasal DAILY #16 grams 10/17/21 mcg/actuation nasal spray,suspension (Flonase Allergy Relief) Allergies Allergy/AdvReac Type Severity Reaction Status Date / Time Iodinated Contrast Media Allergy Intermediate RASH Verified 10/17/21 10:45 [IV CONTRAST] iopromide [From ULTRAVIST] Allergy Mild ITCHING Verified 10/17/21 10:45 Review of Systems Review of Systems: Constitutional: +subj Fever, No Chills ENT/Mouth: No Ear Pain, + Nasal Congestion, No Sinus Pain, No Hoarseness, + sore throat, + Rhinorrhea, No Swallowing Difficulty Cardiovascular: No Chest Pain, + SOB Respiratory: + Cough, No Sputum, No Wheezing Gastrointestinal: No Nausea, No Vomiting, No Diarrhea, No Constipation, No Abdominal pain Genitourinary: No Dysuria, No Urinary Frequency, No Hematuria, No Urgency, No Flank Pain Musculoskeletal: No joint pain, + Myalgias, No Joint Swelling Skin: No Skin Lesions, No rash Neuro: No Weakness, No Numbness, No Paresthesias Yes all other systems are reviewed and are negative Constitutional: Constitutional: Reports as per [facility] Past Medical History Attestation statement: The following information was validated with the patient. Medical History Gastritis GERD (gastroesophageal reflux disease) Surgical History History of herniated intervertebral disc Hx of tubal ligation Family History Family History Father Throat cancer Mother Diabetes mellitus CVD (cardiovascular disease) Social History Social History Household Members: None Housing: Apartment Alcohol intake: never Patient Tobacco Use Status: Former Tobacco user e-Cigarette/Vaping Use: Never Used Second Hand Smoke Exposure: No Advance Directives: No Advance Directives Information Provided: Yes service: No Current occupational status: disabled Sexual orientation: Straight/Heterosexual Gender identity: Female Cognitive needs: No Hearing needs: No Vision needs: Yes Physical Exam Vital Signs: Vital Signs: Last Vital Signs Temp 98.4 F 10/17/21 10:53 Pulse 97 10/17/21 10:53 Resp 18 10/17/21 10:53 BP 163/82 H 10/17/21 10:53 Pulse Ox 97 10/17/21 10:53 O2 Del Method 10/17/21 10:53 BMI result Body Mass Index 33.1 Const: General: cooperative, healthy appearing and no acute distress Orientation/consciousness: patient oriented x3 Limitations: no limitations HEENT: Head: Yes normal to inspection and Yes atraumatic Ears: hearing grossly normal bilaterally, TM's normal bilaterally and mastoids normal General nose exam: Normal external nose present Face and sinus: Yes normal facial exam Throat: No peritonsillar mass, Yes posterior oropharynx abnormal (+ bilateral tonsillar swelling/erythema and exudate), No uvula laterally displaced and No uvular edema Eyes: General: appearance normal, both eyes and all related structures EOM: EOMs intact bilaterally Neck: Neck: Yes normal visual inspection and Yes no meningeal signs Resp: Effort & Inspection: normal respiratory effort and no respiratory distress Auscultation: clear to auscultation bilaterally, no crackles, no rales and no rhonchi Cardio: Rate: regular rate Heart sounds: S1 normal heart sound present and S2 normal heart sound present Skin: Rashes: no rashes Wounds: no wounds Neuro: General: patient oriented x3, tone normal and no meningeal signs Gait exam (Neuro): Normal gait present Extrem: General: Yes normal to inspection Course Course Course Narrative: Will treat for strep pharyngitis due to clinical findings -COVID-19 negative XR chest 1V IMPRESSION: Central increase in lung markings likely chronic airways disease. Cannot exclude acute on chronic airways disease. ? Results discussed with patient With veterans' counselor including worrisome signs and symptoms and strict return precautions, and when to return to the emergency department. They verbalized understanding and feel safe for discharge at this time. MDM - URI/Sore Throat MDM Narrative Medical decision making narrative: 61-year-old female with past medical history of anxiety, depression, diabetes, HTN, gastritis, GERD, hypothyroid, HLD, diabetes, presenting to the ED complaining of dry cough, subjective fever, sore throat, and right ear pain x6 days. On exam vital signs stable, NAD, +appreciable nasal congestion on exam and tonsillar swelling with exudates consistent with strep pharyngitis. Concern for viral illness. No evidence of [employer]. Also concern for bronchitis versus pneumonia Plan: COVID-19 testing, CXR Differential Diagnosis Differential diagnosis: Likely upper respiratory infection, viral infection, bronchitis and pharyngitis Medical Records Attestation: I reviewed the patient's medical records. Lab Data Attestation: I reviewed the patient's lab results. Labs: Lab Results 10/17/21 Range/Units 11:09 COVID-19 ([facility]) Negative (Negative) COVID-19 Clin Com See Note Discharge Plan Discharge Clinical Impression: Acute streptococcal pharyngitis, Acute viral syndrome Patient Disposition: Home, Self-Care Instructions: Strep Throat (ED), Viral Syndrome (ED) Additional Instructions: Your x-ray shows chronic airway disease. You Clinically have strep throat, Augmentin is an antibiotic please take as prescribed. In addition use Flonase which is a nasal decongestion, take Tylenol and Motrin, Tessalon Perles for cough. Use albuterol inhaler as needed for shortness of breath/wheezing Follow-up with her doctor. If symptoms persist or worsen return to the emergency department. He tested negative for COVID-19 today Mixon radiograf?a muestra cesar enfermedad cr?nithin de las v?as respiratorias. Cl?nicamente tiene faringitis estreptoc?cica, Augmentin es un antibi?keri, t?hong seg?n lo prescrito. Adem?s use Flonase que es un descongestionante nasal, tome Tylenol y Motrin, Tessalon Perles para la tos. Use el inhalador de albuterol seg?n sea necesario para la dificultad para respirar/sibilancias Seguimiento con mixon m?dico. Si los s?ntomas persisten o empeoran, regrese al departamento de emergencias. Isac negativo a la prueba de COVID-19 [place] Prescriptions: New benzonatate 100 mg capsule 100 mg PO TID PRN (Reason: cough) Qty: 14 0RF albuterol sulfate 90 mcg/actuation HFA aerosol inhaler 2 puff inhalation Q4-6H PRN (Reason: shortness of breath or wheezing) Qty: 6.7 0RF fluticasone propionate [Flonase Allergy Relief] 50 mcg/actuation spray,suspension 2 spray intranasal DAILY Qty: 16 0RF Rx Instructions: administer into each nostril amoxicillin-pot clavulanate 875-125 mg tablet 1 tab PO BID 7 Days Qty: 14 0RF No Action lorazepam 0.5 mg tablet 0.5 mg PO DAILY PRN (Reason: anxiety) 30 Days Qty: 21 0RF Rx Instructions: Take only NEEDED trazodone 50 mg tablet 50 mg PO BEDTIME PRN (Reason: sleep) 30 Days Qty: 30 1RF clonidine HCl 0.1 mg tablet 0.1 mg PO BID PRN (Reason: for anxiety) 30 Days Qty: 60 5RF lisinopril-hydrochlorothiazide 20-12.5 mg tablet 1 tab PO DAILY 90 Days Qty: 90 3RF nabumetone 500 mg tablet 500 mg PO BID PRN (Reason: low back pain) 15 Days Qty: 30 1RF Rx Instructions: Take with food levothyroxine 50 mcg tablet 50 mcg PO QAM Qty: 30 3RF Jardiance 25 mg tablet 25 mg PO DAILY Qty: 90 2RF pantoprazole 40 mg tablet,delayed release (DR/EC) 40 mg PO DAILY 30 Days Qty: 30 11RF sertraline 50 mg tablet 50 mg PO DAILY 30 Days Qty: 30 2RF insulin lispro [Humalog KwikPen Insulin] 100 unit/mL insulin pen 6 - 8 unit subcut DAILY 30 Days Qty: 15 5RF Rx Instructions: with largest meal of day tizanidine 4 mg tablet 4 mg PO Q8H PRN (Reason: low back pain) 10 Days Qty: 30 1RF mirtazapine 7.5 mg tablet 7.5 mg PO BEDTIME 30 Days Qty: 30 3RF hydrocodone-acetaminophen 5-325 mg tablet 1 tab PO Q4-6H PRN (Reason: pain) Qty: 5 0RF omeprazole 40 mg capsule,delayed release(DR/EC) 40 mg PO QAM 90 Days Qty: 90 1RF Lantus Solostar U-100 Insulin 100 unit/mL (3 mL) insulin pen 40 unit subcut DAILY Qty: 15 8RF (DME) pen needle, diabetic [BD Ultra-Fine Jordana Pen Needle] 32 gauge x needle See Rx Instructions .ROUTE .MEDSUPPLY Qty: 125 6RF Rx Instructions: As directed four times a day clotrimazole-betamethasone 1-0.05 % cream 1 appl topical BID 5 Days Qty: 45 0RF (DME) pen needle, diabetic 29 gauge x 1/2 needle See Rx Instructions .ROUTE .MEDSUPPLY Qty: 100 Rx Instructions: As directed Ozempic 1 mg/dose (4 mg/3 mL) pen injector 1 mg subcut QWEEK Qty: 3 8RF cholecalciferol (vitamin D3) 50 mcg (2,000 unit) capsule 50 mcg PO DAILY Qty: 90 3RF atorvastatin 80 mg tablet 80 mg PO BEDTIME Qty: 90 3RF (DME) FreeStyle Lite Strips Strip See Rx Instructions .ROUTE .MEDSUPPLY Qty: 100 11RF Rx Instructions: As directed three times a day (DME) lancets [FreeStyle Lancets] 28 gauge misc See Rx Instructions .ROUTE .MEDSUPPLY Qty: 100 11RF Rx Instructions: Three times a day betamethasone valerate 0.1 % cream 1 appl topical BEDTIME Qty: 45 0RF Rx Instructions: Use daily twice a day for 5 days, then 2 to 3 times a week as needed Referrals: Genaro Chu MD [Primary Care Provider] - 3 days Print Language: Amharic
[2021-10-17 12:30] LABS: Strep A Nucleic Acid Negative (Negative)
== END 2021-10-17 12:53 | disposition home or self-care (01) ==
PROVIDERS: Physician Assistant; Emergency Provider Emergency Medicine Emergency Medical Services; PCP Internal Medicine
DX: B34.9 Viral infection, unspecified (principal); J02.0 Streptococcal pharyngitis; Z20.822 Contact with and (suspected) exposure to COVID-19; E11.9 Type 2 diabetes mellitus without complications; I10 Essential (primary) hypertension; E78.5 Hyperlipidemia, unspecified; Z79.4 Long term (current) use of insulin
CPT/HCPCS: 36415; 71045; 87635; 87651; 99283

== ENCOUNTER 2021-10-29 07:52 | Outpatient (REF) | payer OTHER, SELFPAY ==
--- NOTE | ~2021-10-29 | US_ITS ---
EXAMINATION: US ABDOMEN COMPLETE CLINICAL INFORMATION: Epigastric pain. COMPARISON: CT abdomen and pelvis 08/10/2018. MRI abdomen 12/09/2013. TECHNIQUE: Real-time imaging of the abdominal viscera. FINDINGS: PANCREAS: Normal. ABDOMINAL AORTA: The proximal, mid, and distal segments are normal in caliber. INFERIOR VENA CAVA: Visualized portions are normal. LIVER: The liver is enlarged. Liver echotexture is increased probably representing fatty infiltration. The liver contour is normal. No focal hepatic lesion. There is no intrahepatic biliary duct dilatation seen. GALLBLADDER: Surgically absent. COMMON BILE DUCT: Normal in caliber measuring 0.4 cm in diameter. RIGHT KIDNEY: Normal. No hydronephrosis. No renal calculi or focal parenchymal lesions. The kidney measures 14.1 cm in maximum dimension. LEFT KIDNEY: Normal. No hydronephrosis. No renal calculi or focal parenchymal lesions. The kidney measures 12.4 cm in maximum dimension. SPLEEN: Upper normal size. The spleen measures 13.4 cm in maximum dimension. FREE FLUID: None. US/US abdomen complete IMPRESSION: Enlarged echogenic liver probably representing fatty infiltration.
== END 2021-10-29 07:53 | disposition home or self-care (01) ==
LOC: HO.US 07:52
PROVIDERS: Visit Provider Physician Assistant
DX: R10.13 Epigastric pain (principal)
CPT/HCPCS: 76700

== ENCOUNTER 2021-12-05 09:48 | Outpatient (REF) | payer OTHER, SELFPAY ==
[2021-12-05 10:20] LABS: MANUAL DIFF FLAG NO
[2021-12-05 10:45] LABS: Basophils Percent Auto 0.4 % (0-2); Eosinophils Absolute Auto 0.3 X10*3/uL (0.0-0.4); Eosinophils Percent Auto 3.7 % (0-4); Hematocrit 42.3 % (37.0-47.0); Hemoglobin 14.5 g/dl (12.0-16.0); Imm Gran Abs Auto 0.04 X10*3/uL (0.00-0.03); Imm Gran Pct Auto 0.5 % (0.0-0.4); Lymphocytes Absolute Auto 2.5 X10*3/uL (1.2-4.9); Lymphocytes Percent Auto 32.7 % (20-40); Mean Corpuscular HGB Conc 34.3 g/dl (31.0-35.0); Mean Corpuscular Volume 87.4 fL (80.0-98.0); Monocytes Absolute Auto 0.4 X10*3/uL (0.1-1.2); Monocytes Percent Auto 4.7 % (2-11); Neutrophils Absolute Auto 4.4 x10*3/uL (2.0-8.3); Platelet Count 214 X10*3/uL (160-400); Red Blood Count 4.84 X10*6/uL (4.20-5.50); Red Cell Distribution Width 13.4 % (11.0-16.0); White Blood Count 7.5 X10*3/uL (4.8-10.8)
[2021-12-05 10:53] LABS: Estimated Average Glucose 272 mg/dL; Hemoglobin A1c % 11.1 %
[2021-12-05 11:21] LABS: Alanine Aminotransferase 20 U/L (0-31); Albumin Level 4.3 g/dL (3.5-5.0); Alkaline Phosphatase 135 U/L (39-117); Anion Gap 15 (12-20); Aspartate Amino Transferase 14 U/L (5-31); Bilirubin Total 0.3 mg/dL (0.0-1.0); Blood Urea Nitrogen 21 mg/dL (9-16); Calcium 9.8 mg/dL (8.4-10.2); Carbon Dioxide 25 mmol/L (22-29); Chloride 101 mmol/L (96-108); Cholesterol 249 mg/dL; Estimated Glomerular Filt Rate > 60; Glucose Fasting 323 mg/dL (60-99); HDL Cholesterol 29 mg/dL; Potassium 4.4 mmol/L (3.3-5.1); Sodium 137 mmol/L (135-145); Total Protein 8.7 g/dL (6.5-8.0)
[2021-12-05 11:43] LABS: Free T4 (Free Thyroxine) 1.05 ng/dL (0.71-1.85); Thyroid Stimulating Hormone 2.58 uIU/mL (0.32-4.0); Vitamin D 25-OH Total 16.5 ng/mL (>30)
[2021-12-05 11:47] LABS: Triglycerides 1567 mg/dL
[2021-12-05 13:05] LABS: Appearance Urine Clear; Color Urine Yellow; Glucose Urine UA >=1000 mg/dL (Negative); Leukocyte Esterase Urine Negative (Negative); Nitrite Urine Negative (Negative); PH 5.5 (5.0-9.0); UMIC TRIGGER UACC YES; Urine Blood Negative (Negative); Urine Ketones Trace mg/dL (Negative); Urine Protein Negative (Neg-Trace)
[2021-12-05 13:27] LABS: Bacteria Urine None Seen (None Seen); Hyaline Casts Urine 0-2 /LPF (0-2); RBC Urine 0-2 /HPF (0-2); Squamous Epithelial Cell Urine 0-2 /HPF (0-2); WBC Urine 0-5 /HPF (0-5)
[2021-12-05 13:29] LABS: Specific Gravity - Urine >= 1.030 (1.005-1.025)
[2021-12-05 13:37] LABS: Creatinine Urine 29.12 mg/dL; Microalbum/Creatinine Ratio Ur 65.2 ug/mg cr
== END 2021-12-05 09:49 | disposition home or self-care (01) ==
LOC: HO.LAB 09:48
PROVIDERS: PCP Internal Medicine; Visit Provider Internal Medicine
DX: E78.00 Pure hypercholesterolemia, unspecified (principal); E11.9 Type 2 diabetes mellitus without complications; E55.9 Vitamin D deficiency, unspecified; E03.9 Hypothyroidism, unspecified; I10 Essential (primary) hypertension
CPT/HCPCS: 36415; 80053; 80061; 81001; 81003; 82043; 82306; 83036; 84439; 84443; 85025

== ENCOUNTER → 2021-12-19 08:12 | Outpatient (REF) | payer OTHER, SELFPAY ==
--- NOTE | ~2021-12-19 | NM_ITS ---
EXAMINATION: AL RADIONUCLIDE SOLID FOOD GASTRIC EMPTYING 4-HOUR STUDY CLINICAL INFORMATION: Gastroesophageal reflux disease, without esophagitis. COMPARISON: None TECHNIQUE: A standard meal consisting of 4 oz of Egg Beaters brand tagged with 770 microcuries Tc-99m Sulfur Colloid, 8 oz water and 1/4 slice of toast (patient refused to eat standard 2 slices) with jelly was administered orally to the patient. Images were obtained using a dual head gamma camera in the anterior and posterior projections over of the stomach immediately post ingestion and at hourly intervals up to 4 hours post ingestion. The anterior and posterior counts at each time interval were averaged using the geometric mean and expressed as percentage of the immediate post ingestion counts. FINDINGS: There is good visualization of activity in the stomach immediately post ingestion. As the study progresses, there is good clearance of activity from the stomach and visualization of progressively increasing small bowel activity. By the end of the study, there is almost no retention noted in the stomach. Retention in the stomach at each time interval was: 1 hour 12% (normal 37%-90%) 2 hours 6% (normal 30%-60%) 3 hours 4% 4 hours images were not obtained since only 4% was left at 3 hours imaging. NM/NM gastric emptying study IMPRESSION: Rapid gastric emptying, of indeterminate significance. Study is slightly technically limited since the patient refused to a standard meal.
== END ==
LOC: HO.NUCMED 08:12
PROVIDERS: PCP Internal Medicine; Visit Provider Physician Assistant
DX: K21.9 Gastro-esophageal reflux disease without esophagitis (principal); E11.42 Type 2 diabetes mellitus with diabetic polyneuropathy; R68.81 Early satiety
CPT/HCPCS: 78264; A9541

== ENCOUNTER 2022-04-22 10:54 | Outpatient (REF) | payer OTHER, SELFPAY ==
[2022-04-22 11:18] LABS: MANUAL DIFF FLAG NO
[2022-04-22 11:47] LABS: Basophils Percent Auto 0.4 % (0-2); Eosinophils Absolute Auto 0.3 X10*3/uL (0.0-0.4); Hematocrit 42.5 % (37.0-47.0); Hemoglobin 14.3 g/dl (12.0-16.0); Imm Gran Abs Auto 0.03 X10*3/uL (0.00-0.03); Imm Gran Pct Auto 0.3 % (0.0-0.4); Lymphocytes Absolute Auto 2.3 X10*3/uL (1.2-4.9); Lymphocytes Percent Auto 21.5 % (20-40); Mean Corpuscular HGB Conc 33.6 g/dl (31.0-35.0); Mean Corpuscular Hemoglobin 29.5 pg (27.0-33.0); Mean Corpuscular Volume 87.6 fL (80.0-98.0); Mean Platelet Volume 9.7 fL (9.4-12.3); Monocytes Absolute Auto 0.5 X10*3/uL (0.1-1.2); Monocytes Percent Auto 4.8 % (2-11); Neutrophils Absolute Auto 7.5 x10*3/uL (2.0-8.3); Platelet Count 221 X10*3/uL (160-400); Red Blood Count 4.85 X10*6/uL (4.20-5.50); Red Cell Distribution Width 13.5 % (11.0-16.0); White Blood Count 10.7 X10*3/uL (4.8-10.8)
[2022-04-22 12:01] LABS: Appearance Urine Clear; Color Urine Yellow; Glucose Urine UA >=1000 mg/dL (Negative); Leukocyte Esterase Urine Negative (Negative); Nitrite Urine Negative (Negative); PH 5.5 (5.0-9.0); Specific Gravity - Urine >= 1.030 (1.005-1.025); UMIC TRIGGER UACC YES; Urine Blood Negative (Negative); Urine Ketones Negative (Negative); Urine Protein Negative (Neg-Trace)
[2022-04-22 12:06] LABS: Bacteria Urine None Seen (None Seen); Hyaline Casts Urine 0-2 /LPF (0-2); RBC Urine 0-2 /HPF (0-2); Squamous Epithelial Cell Urine 0-2 /HPF (0-2); WBC Urine 0-5 /HPF (0-5)
[2022-04-22 12:18] LABS: Estimated Average Glucose 243 mg/dL; Hemoglobin A1c % 10.1 %
[2022-04-22 12:33] LABS: Alanine Aminotransferase 21 U/L (0-31); Alkaline Phosphatase 84 U/L (39-117); Anion Gap 14 (12-20); Aspartate Amino Transferase 12 U/L (5-31); Bilirubin Total 0.5 mg/dL (0.0-1.0); Blood Urea Nitrogen 15 mg/dL (9-16); Calcium 9.2 mg/dL (8.4-10.2); Carbon Dioxide 23 mmol/L (22-29); Chloride 105 mmol/L (96-108); Cholesterol 175 mg/dL; Estimated Glomerular Filt Rate > 60; Glucose Fasting 187 mg/dL (60-99); HDL Cholesterol 32 mg/dL; Sodium 138 mmol/L (135-145); Total Protein 7.1 g/dL (6.5-8.0); Triglycerides 406 mg/dL
[2022-04-22 12:37] LABS: Creatinine Urine 60.99 mg/dL; Microalbum/Creatinine Ratio Ur 21.3 ug/mg cr
[2022-04-22 12:51] LABS: TSH reflex Free T4 1.59 uIU/mL (0.32-4.0); Vitamin D 25-OH Total 18.8 ng/mL (>30)
== END 2022-04-22 10:55 | disposition home or self-care (01) ==
LOC: HO.LAB 10:54
PROVIDERS: PCP Internal Medicine; Visit Provider Internal Medicine
DX: E11.9 Type 2 diabetes mellitus without complications (principal); R30.0 Dysuria; E55.9 Vitamin D deficiency, unspecified; E78.00 Pure hypercholesterolemia, unspecified; I10 Essential (primary) hypertension
CPT/HCPCS: 36415; 80053; 80061; 81001; 81003; 82043; 82306; 83036; 84443; 85025

== ENCOUNTER 2022-06-13 11:45 | Outpatient (REF) | payer OTHER, SELFPAY ==
--- NOTE | ~2022-06-13 | MM_ITS ---
EXAMINATION: MM SCREENING DIGITAL BREAST TOMOSYNTHESIS, BILATERAL CLINICAL INFORMATION: Screening. Asymptomatic. The lifetime risk of breast cancer based on the Tyrer-Cuzick Model is 6.8%. COMPARISON: Mammography: May 28, 2021 and studies dating back to June 05, 2014 TECHNIQUE: Digital breast tomosynthesis is performed in both the craniocaudal and mediolateral oblique views along with computer-aided detection (CAD). Synthesized 2D images are generated from the tomosynthesis. FINDINGS: There are scattered areas of fibroglandular density (ACR BI-RADS breast composition Category b). There are no significant masses, abnormal calcifications, or other abnormalities. MM/MM tomosynthesis screening BI IMPRESSION: No significant change in ASSESSMENT: BI-RADS 1: Negative RECOMMENDATION: Routine annual mammography screening. This patient's information was entered into a reminder system with a target due date for their next mammogram.
--- NOTE | ~2022-06-13 | XR_ITS ---
EXAMINATION: XR SHOULDER, LEFT CLINICAL INFORMATION: Reason for Exam M25.512 - Pain in left shoulder COMPARISON: Shoulder radiographs 04/12/2014 TECHNIQUE: Four views of the shoulder. FINDINGS: No acute fracture or dislocation. Advanced degenerative changes of the shoulder involving the acromioclavicular joint with complete loss of joint space and degenerative spurring, slightly progressed.. Soft tissues are unremarkable. XR/XR shoulder LT min 2V IMPRESSION: * Advanced degenerative changes of the shoulder, slightly progressed.
[2022-06-13 12:27] LABS: MANUAL DIFF FLAG NO
[2022-06-13 13:54] LABS: Basophils Absolute Auto 0.1 X10*3/uL (0.0-0.2); Basophils Percent Auto 0.6 % (0-2); Eosinophils Absolute Auto 0.4 X10*3/uL (0.0-0.4); Eosinophils Percent Auto 3.4 % (0-4); Hematocrit 43.9 % (37.0-47.0); Hemoglobin 14.9 g/dl (12.0-16.0); Imm Gran Abs Auto 0.05 X10*3/uL (0.00-0.03); Imm Gran Pct Auto 0.5 % (0.0-0.4); Lymphocytes Absolute Auto 2.7 X10*3/uL (1.2-4.9); Lymphocytes Percent Auto 26.6 % (20-40); Mean Corpuscular HGB Conc 33.9 g/dl (31.0-35.0); Mean Corpuscular Hemoglobin 29.5 pg (27.0-33.0); Mean Corpuscular Volume 86.9 fL (80.0-98.0); Monocytes Absolute Auto 0.5 X10*3/uL (0.1-1.2); Monocytes Percent Auto 4.7 % (2-11); Neutrophils Absolute Auto 6.6 x10*3/uL (2.0-8.3); Neutrophils Percent Auto 64.2 % (45-73); Platelet Count 237 X10*3/uL (160-400); Red Blood Count 5.05 X10*6/uL (4.20-5.50); Red Cell Distribution Width 13.4 % (11.0-16.0); White Blood Count 10.3 X10*3/uL (4.8-10.8)
[2022-06-13 14:32] LABS: Alanine Aminotransferase 17 U/L (0-31); Albumin Level 4.5 g/dL (3.5-5.0); Alkaline Phosphatase 112 U/L (39-117); Anion Gap 14 (12-20); Aspartate Amino Transferase 11 U/L (5-31); Bilirubin Total 0.4 mg/dL (0.0-1.0); Blood Urea Nitrogen 20 mg/dL (9-16); Calcium 10.1 mg/dL (8.4-10.2); Carbon Dioxide 27 mmol/L (22-29); Chloride 105 mmol/L (96-108); Estimated Glomerular Filt Rate > 60; Glucose Random 187 mg/dL (60-115); Lipase 103 U/L (8-78); Potassium 4.3 mmol/L (3.3-5.1); Sodium 142 mmol/L (135-145); Total Protein 7.9 g/dL (6.5-8.0)
== END 2022-06-13 11:46 | disposition home or self-care (01) ==
LOC: HO.MAMMO 11:45
PROVIDERS: PCP Internal Medicine; Visit Provider Internal Medicine
DX: Z12.31 Encounter for screening mammogram for malignant neoplasm of breast (principal); M25.512 Pain in left shoulder; K85.90 Acute pancreatitis without necrosis or infection, unspecified; I10 Essential (primary) hypertension
CPT/HCPCS: 36415; 73030; 77063; 77067; 80053; 83690; 85025

== ENCOUNTER → 2022-06-26 13:38 | Outpatient (BNVA) | payer OTHER, SELFPAY | PROVIDERS: PCP Internal Medicine; Visit Provider Internal Medicine Endocrinology, Diabetes & Metabolism | DX: E11.65 Type 2 diabetes mellitus with hyperglycemia (principal); Z79.4 Long term (current) use of insulin | CPT/HCPCS: 82947; 99212 ==

== ENCOUNTER 2022-08-04 09:37 | Outpatient (REF) | payer OTHER, SELFPAY ==
[2022-08-04 09:50] LABS: MANUAL DIFF FLAG NO
[2022-08-04 10:05] LABS: Basophils Percent Auto 0.5 % (0-2); Eosinophils Absolute Auto 0.2 X10*3/uL (0.0-0.4); Hematocrit 43.6 % (37.0-47.0); Hemoglobin 14.5 g/dl (12.0-16.0); Imm Gran Abs Auto 0.02 X10*3/uL (0.00-0.03); Imm Gran Pct Auto 0.2 % (0.0-0.4); Lymphocytes Absolute Auto 1.9 X10*3/uL (1.2-4.9); Lymphocytes Percent Auto 23.4 % (20-40); Mean Corpuscular HGB Conc 33.3 g/dl (31.0-35.0); Mean Corpuscular Hemoglobin 29.2 pg (27.0-33.0); Mean Corpuscular Volume 87.9 fL (80.0-98.0); Mean Platelet Volume 10.1 fL (9.4-12.3); Monocytes Absolute Auto 0.4 X10*3/uL (0.1-1.2); Monocytes Percent Auto 5.4 % (2-11); Neutrophils Absolute Auto 5.5 x10*3/uL (2.0-8.3); Neutrophils Percent Auto 67.5 % (45-73); Platelet Count 197 X10*3/uL (160-400); Red Blood Count 4.96 X10*6/uL (4.20-5.50); Red Cell Distribution Width 13.7 % (11.0-16.0); White Blood Count 8.1 X10*3/uL (4.8-10.8)
[2022-08-04 10:07] LABS: Appearance Urine Clear; Color Urine Yellow; Glucose Urine UA >=1000 mg/dL (Negative); Leukocyte Esterase Urine Negative (Negative); Nitrite Urine Negative (Negative); PH 5.5 (5.0-9.0); Specific Gravity - Urine >= 1.030 (1.005-1.025); UMIC TRIGGER UACC YES; Urine Blood Negative (Negative); Urine Ketones Negative (Negative); Urine Protein 30 (1+) mg/dL (Neg-Trace)
[2022-08-04 10:11] LABS: Bacteria Urine None Seen (None Seen); Hyaline Casts Urine 0-2 /LPF (0-2); RBC Urine 0-2 /HPF (0-2); Squamous Epithelial Cell Urine 0-2 /HPF (0-2); WBC Urine 0-5 /HPF (0-5)
[2022-08-04 10:13] LABS: Estimated Average Glucose 220 mg/dL; Hemoglobin A1c % 9.3 %
[2022-08-04 10:42] LABS: Microalbum/Creatinine Ratio Ur 226.7 ug/mg cr
[2022-08-04 10:51] LABS: Alanine Aminotransferase 20 U/L (0-31); Albumin Level 4.2 g/dL (3.5-5.0); Alkaline Phosphatase 96 U/L (39-117); Anion Gap 13 (12-20); Aspartate Amino Transferase 14 U/L (5-31); Bilirubin Total 0.6 mg/dL (0.0-1.0); Blood Urea Nitrogen 15 mg/dL (9-16); Calcium 9.6 mg/dL (8.4-10.2); Carbon Dioxide 27 mmol/L (22-29); Chloride 108 mmol/L (96-108); Cholesterol 167 mg/dL; Estimated Glomerular Filt Rate > 60; Glucose Fasting 252 mg/dL (60-99); HDL Cholesterol 32 mg/dL; LDL Cholesterol Calculated 61 mg/dl; Potassium 4.6 mmol/L (3.3-5.1); Sodium 143 mmol/L (135-145); Total Protein 7.6 g/dL (6.5-8.0); Triglycerides 373 mg/dL
[2022-08-04 11:07] LABS: Free T4 (Free Thyroxine) 0.98 ng/dL (0.71-1.85); Thyroid Stimulating Hormone 2.35 uIU/mL (0.32-4.0); Vitamin D 25-OH Total 26.6 ng/mL (>30)
== END 2022-08-04 09:38 | disposition home or self-care (01) ==
LOC: HO.LAB 09:37
PROVIDERS: PCP Internal Medicine; Visit Provider Internal Medicine
DX: E11.9 Type 2 diabetes mellitus without complications (principal); E55.9 Vitamin D deficiency, unspecified; E03.9 Hypothyroidism, unspecified; I10 Essential (primary) hypertension; E78.00 Pure hypercholesterolemia, unspecified
CPT/HCPCS: 36415; 80053; 80061; 81001; 81003; 82043; 82306; 83036; 84439; 84443; 85025

== ENCOUNTER 2022-08-10 17:54 | Emergency (ER) | payer OTHER, SELFPAY ==
[2022-08-10 17:57] VITALS: BP 148/58; PULSE 90; RESP 18; TEMP 36.7; O2SAT 99; BMI 30.6
--- NOTE | 2022-08-10 17:59 | ED_ITS ---
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 Patient also reports some pain around the eye and behind the eye. Patient has blurry vision bilaterally at baseline is supposed to wear corrective lenses. She does feel that her right eye may be more blurry than her left eye. She denies any itching, irritation of the eye. She denies any injury or trauma. Related Data Home Medications Medication Instructions Recorded Confirmed pen needle, diabetic 29 gauge x #100 ea 01/19/20 08/06/22 1/2 Previous Rx's Medication Instructions Recorded clotrimazole-betamethasone 1 1 appl topical BID 5 days #45 grams 11/13/20 %-0.05 % topical cream betamethasone valerate 0.1 % 1 appl topical BEDTIME #45 grams 02/27/21 topical cream lorazepam 0.5 mg tablet 0.5 mg PO DAILY PRN anxiety 30 04/25/21 days #21 tabs trazodone 50 mg tablet 50 mg PO BEDTIME PRN sleep 30 days 05/28/21 #30 tabs blood sugar diagnostic (FreeStyle #100 ea 06/13/21 Lite Strips) cholecalciferol (vitamin D3) 50 50 mcg PO DAILY #90 caps 06/13/21 mcg (2,000 unit) capsule lancets 28 gauge (FreeStyle #100 ea 06/13/21 Lancets) hydrocodone 5 mg-acetaminophen 325 1 tab PO Q4-6H PRN pain #5 tabs 06/20/21 mg tablet sertraline 50 mg tablet 50 mg PO DAILY 30 days #30 tabs 09/25/21 albuterol sulfate 90 mcg/actuation 2 puff inhalation Q4-6H PRN 10/17/21 aerosol inhaler shortness of breath or wheezing #6.7 grams fluticasone propionate 50 2 spray intranasal DAILY #16 grams 10/17/21 mcg/actuation nasal spray,suspension (Flonase Allergy Relief) tizanidine 4 mg tablet 4 mg PO Q8H PRN low back pain 10 12/02/21 days #30 tabs atorvastatin 80 mg tablet 80 mg PO BEDTIME #90 tabs 01/01/22 Ventolin HFA 90 mcg/actuation 2 puff inhalation Q6H PRN 01/27/22 aerosol inhaler (albuterol sulfate) shortness of breath or wheezing 30 days #18 grams pen needle, diabetic 32 gauge x #125 ea 01/27/22 (BD Ultra-Fine Jordana Pen Needle) clonidine HCl 0.1 mg tablet 0.1 mg PO BID PRN for anxiety 30 03/06/22 days #60 tabs lisinopril 20 1 tab PO DAILY 90 days #90 tabs 04/23/22 mg-hydrochlorothiazide 12.5 mg tablet mirtazapine 7.5 mg tablet 7.5 mg PO BEDTIME 30 days #30 tabs 05/02/22 empagliflozin 25 mg tablet 25 mg PO DAILY #90 tabs 06/03/22 (Jardiance) flash glucose scanning reader #1 ea 06/26/22 (FreeStyle Simón 2 [place]) flash glucose sensor (FreeStyle #2 ea 06/26/22 Simón 2 Sensor kit) levothyroxine 50 mcg tablet 50 mcg PO QAM #30 tabs 08/05/22 pantoprazole 40 mg tablet,delayed 40 mg PO DAILY 30 days #30 tabs 08/05/22 release fluconazole 100 mg tablet 100 mg PO DAILY 3 days #3 tabs 08/06/22 nabumetone 500 mg tablet 500 mg PO BID PRN low back pain 15 08/06/22 days #30 tabs ofloxacin 0.3 % eye drops (Ocuflox) 2 drp ophthalmic (eye) QID #10 mL 08/10/22 insulin lispro 100 unit/mL See Rx Instructions subcut DAILY 08/18/22 subcutaneous pen (Humalog KwikPen 30 days #3.6 mL (U-100) Insulin) Lantus Solostar U-100 Insulin 100 44 unit (0.44 mL) subcut DAILY 90 08/19/22 unit/mL (3 mL) subcutaneous pen days #40 mL (insulin glargine) Allergies Allergy/AdvReac Type Severity Reaction Status Date / Time Iodinated Contrast Media Allergy Intermediate RASH Verified 08/06/22 13:21 [IV CONTRAST] iopromide [From ULTRAVIST] Allergy Mild ITCHING Verified 08/06/22 13:21 Review of Systems Review of Systems: Yes all other systems are reviewed and are negative Constitutional: Constitutional: Reports no additional constitutional complaints, Denies body ache(s), Denies chills, Denies fever(s), Reports headache(s) and Denies weakness Eyes: Eyes: Reports no additional eye complaints, Reports blurry vision, Denies change in vision, Reports eye discharge, Denies irritation, Denies itchy eyes, Reports eye pain and Reports requires corrective lenses ENT: Reports system reviewed and no additional complaints, except as documented, Denies dizziness, Reports headache(s), Denies nasal congestion, Denies nasal discharge and Denies neck pain Cardiovascular: Cardiovascular: Reports no additional cardiovascular complaints, Denies chest pain, Denies leg edema and Denies dyspnea Respiratory: Respiratory: Reports no additional respiratory complaints, Denies cough and Denies dyspnea Gastrointestinal: Gastrointestinal: Reports no additional gastrointestinal complaints, Denies abdominal pain, Denies diarrhea, Denies nausea and Denies vomiting Genitourinary: Genitourinary: Reports no additional female genitourinary complaints and Denies urinary incontinence Musculoskeletal: Musculoskeletal: Reports no additional musculoskeletal complaints, Denies back pain, Denies arthralgias, Denies joint swelling, Denies neck pain, Denies numbness and Denies tingling Integumentary/Breasts: Skin/Breast: Reports system reviewed and no additional complaints, except as docu and Denies rash Neurologic: Reports system reviewed and no additional complaints, except as documented, Denies dizziness, Reports headache(s), Denies numbness, Denies tingling and Denies weakness Allergic/Immunologic: Allergic/Immunologic: Denies itchy eyes PMFSH Past Medical History Attestation statement: The following information was validated with the patient. Source: old records reviewed and nursing notes reviewed Medical History Acute right eye pain Anxiety Conjunctivitis, right eye Depression Diabetes mellitus Essential hypertension Ganglion cyst of tendon sheath of left hand Gastritis GERD (gastroesophageal reflux disease) GERD without esophagitis Hyperlipidemia LDL goal <100 Hypothyroidism Lumbar degenerative disc disease Obesity (BMI 30-39.9) Obesity due to excess calories Primary osteoarthritis of hips, bilateral Pure hypercholesterolemia Recurrent epigastric abdominal pain Type 2 diabetes mellitus with diabetic nephropathy Type 2 diabetes mellitus with diabetic polyneuropathy Type 2 diabetes mellitus with hyperglycemia, with long-term current use of insulin Surgical History History of herniated intervertebral disc Hx of tubal ligation Family History Family History Father Throat cancer Mother Diabetes mellitus CVD (cardiovascular disease) Social History Social History Household Members: None Housing: Apartment Alcohol intake: never Patient Tobacco Use Status: Former Tobacco user e-Cigarette/Vaping Use: Never Used Second Hand Smoke Exposure: No service: No Current occupational status: disabled Sexual orientation: Straight/Heterosexual Gender identity: Female Cognitive needs: No Hearing needs: No Vision needs: Yes Physical Exam ED Vital Signs: Vital Signs - 24 hr 08/10/22 17:57 Temperature 98.0 F Pulse Rate 90 Respiratory Rate 18 Blood Pressure 148/58 H Pulse Oximetry 99 Oxygen Delivery Method Room Air BMI result Body Mass Index 30.6 Const General: cooperative, healthy appearing, comfortable and no acute distress Orientation/consciousness: patient oriented x3 Limitations: no limitations HENMT Head: Yes normal to inspection Ears: hearing grossly normal bilaterally and TM's normal bilaterally Face and sinus: Yes normal facial exam Throat: Yes posterior oropharynx normal, Yes tonsils normal and Yes uvula mi dline Eyes Other: Right eye IOP 16 Left eye IOP 25 See charted visual acuity General: appearance normal, both eyes and all related structures Visual Mahmood: normal visual mahmood by confrontation Alignment and Position: alignment normal Periorbital: periorbital findings normal Eyelids: Yes eyelids normal Conjunctivae: conjunctival abnormal (injection right) Sclerae: scleral abnormal (scleral edema right ) Corneas: corneas normal and fluorescein used (no fb or abrasion ) Pupils: Equal, round and reactive pupils present EOM: EOMs intact bilaterally and no movement deficit Direct Ophthalmoscopy: normal light reflex and no photophobia Neck Neck: Yes normal visual inspection, Yes full ROM and Yes no lymphadenopathy Chest Chest palpation & inspection: normal inspection of the chest Resp Effort & Inspection: normal respiratory effort Auscultation: clear to auscultation bilaterally Cardio Rate: regular rate Rhythm: regular rhythm Peripheral pulses: Peripheral pulses 2+ throughout GI Inspection: Yes normal to inspection Palpation (GI): Soft to palpation and nontender Back/Spine/Pelvis Thoracic/Lumbar Spine: thoracic and lumbar spine normal to inspection Skin General skin exam: no rashes or lesions noted Neuro General: patient oriented x3 and moves all extremities Cranial nerves: Yes Equal, round and reactive pupils present, Yes Bilaterally intact EOM present and Yes Nystagmus not present Cognition (Neuro): normal cognition Gait exam (Neuro): Normal gait present Course Course Course Narrative: RME: 62 yold female presents to the ED Right eye redness, pain, clear liquid for couple of days. patient denies any recent trauma to the eyes. WIll be evaluated in [facility] Medications Administered Discontinued Medications Generic Name Dose Route Start Last Admin Trade Name Reginaldo PRN Reason Stop Dose Admin Fluorescein Sodium 1 strip 08/10/22 22:05 08/10/22 22:28 Fluorescein Sodium Strip EYE-RIGHT 08/10/22 22:06 1 strip ONCE ONE Administration Tetracaine HCl 1 drop 08/10/22 22:05 08/10/22 22:28 Tetracaine Hcl/Pf 0.5% Oph [place]ila 4 Ml Drops EYE-RIGHT 08/10/22 22:06 1 drop ONCE ONE Administration Medical Decision Making Medical Decision Making [facility] Narrative: 62-year-old female here with complaints of right eye redness, tearing, pain which began yesterday when she woke up. Patient is also concerned that she may have some worsened blurry vision on the right side. She is also complaining of pain around the eye and behind the eye. She denies any injury or trauma On exam patient has right conjunctival injection, scleral edema. Perrla. EOM is normal with no movement deficit. Visual acuity done by nursing is 20/30 the right eye, 20/40 left eye. Pressure right eye is normal, mildly elevated left. No temporal artery tenderness. Normal neuro exam. Likely conjunctivitis. Patient treated with ofloxacin drops. Recommend she follow-up with her galley cook Dr. Mccarty were Differential Diagnosis Differential Diagnoses: The differential diagnosis associated with the presentation includes No visual deficit, EOM pain or movement deficits, proctosis, pupillary deficit to suggest orbital cellulitis No temporal artery tenderness, neurological deficit to suggest GCA Also considered periorbital cellulitis, corneal foreign body, corneal abrasion, acute glaucoma Independent Historian Clinical information obtained from an independent historian. History obtained from or confirmed by: Other (Daughter) Discharge Plan Discharge Clinical Impression: Bacterial conjunctivitis Patient Disposition: Home, Self-Care Instructions: Conjunctivitis (ED) Prescriptions: New ofloxacin [Ocuflox] 0.3 % drops 2 drp ophthalmic (eye) QID Qty: 10 0RF No Action lorazepam 0.5 mg tablet 0.5 mg PO DAILY PRN (Reason: anxiety) 30 Days Qty: 21 0RF Rx Instructions: Take only NEEDED trazodone 50 mg tablet 50 mg PO BEDTIME PRN (Reason: sleep) 30 Days Qty: 30 1RF sertraline 50 mg tablet 50 mg PO DAILY 30 Days Qty: 30 2RF tizanidine 4 mg tablet 4 mg PO Q8H PRN (Reason: low back pain) 10 Days Qty: 30 1RF atorvastatin 80 mg tablet 80 mg PO BEDTIME Qty: 90 3RF clonidine HCl 0.1 mg tablet 0.1 mg PO BID PRN (Reason: for anxiety) 30 Days Qty: 60 5RF mirtazapine 7.5 mg tablet 7.5 mg PO BEDTIME 30 Days Qty: 30 3RF Jardiance 25 mg tablet 25 mg PO DAILY Qty: 90 2RF pantoprazole 40 mg tablet,delayed release (DR/EC) 40 mg PO DAILY 30 Days Qty: 30 11RF levothyroxine 50 mcg tablet 50 mcg PO QAM Qty: 30 3RF insulin lispro [Humalog KwikPen Insulin] 100 unit/mL insulin pen See Rx Instructions subcut DAILY 30 Days Qty: 3.6 5RF Rx Instructions: 12 units for breakfast , 16 u nits for lunch and dinner subcutaneously daily; with largest meal of day insulin glargine [Lantus Solostar U-100 Insulin] 100 unit/mL (3 mL) insulin pen 44 unit subcut DAILY 90 Days Qty: 40 1RF hydrocodone-acetaminophen 5-325 mg tablet 1 tab PO Q4-6H PRN (Reason: pain) Qty: 5 0RF albuterol sulfate 90 mcg/actuation HFA aerosol inhaler 2 puff inhalation Q4-6H PRN (Reason: shortness of breath or wheezing) Qty: 6.7 0RF fluticasone propionate [Flonase Allergy Relief] 50 mcg/actuation spray,suspension 2 spray intranasal DAILY Qty: 16 0RF Rx Instructions: administer into each nostril lisinopril-hydrochlorothiazide 20-12.5 mg tablet 1 tab PO DAILY 90 Days Qty: 90 3RF (DME) pen needle, diabetic [BD Ultra-Fine Jordana Pen Needle] 32 gauge x 5/32 needle See Rx Instructions .ROUTE .MEDSUPPLY Qty: 125 3RF Rx Instructions: As directed four times a day albuterol sulfate [Ventolin HFA] 90 mcg/actuation HFA aerosol inhaler 2 puff inhalation Q6H PRN (Reason: shortness of breath or wheezing) 30 Days Qty: 18 1RF nabumetone 500 mg tablet 500 mg PO BID PRN (Reason: low back pain) 15 Days Qty: 30 2RF Rx Instructions: Take with food fluconazole 100 mg tablet 100 mg PO DAILY 3 Days Qty: 3 0RF clotrimazole-betamethasone 1-0.05 % cream 1 appl topical BID 5 Days Qty: 45 0RF (DME) pen needle, diabetic 29 gauge x 1/2 needle See Rx Instructions .ROUTE .MEDSUPPLY Qty: 100 Rx Instructions: As directed cholecalciferol (vitamin D3) 50 mcg (2,000 unit) capsule 50 mcg PO DAILY Qty: 90 3RF (DME) FreeStyle Lite Strips Strip See Rx Instructions .ROUTE .MEDSUPPLY Qty: 100 11RF Rx Instructions: As directed three times a day (DME) lancets [FreeStyle Lancets] 28 gauge misc See Rx Instructions .ROUTE .MEDSUPPLY Qty: 100 11RF Rx Instructions: Three times a day (DME) FreeStyle Simón 2 Sensor Kit See Rx Instructions .Route Qty: 2 5RF Rx Instructions: As directed change every 14 days (DME) FreeStyle Simón 2 [place] Misc See Rx Instructions .Route Qty: 1 0RF Rx Instructions: As directed betamethasone valerate 0.1 % cream 1 appl topical BEDTIME Qty: 45 0RF Rx Instructions: Use daily twice a day for 5 days, then 2 to 3 times a week as needed Referrals: Genaro Chu MD [Primary Care Provider] - 1 week Ravin Bedoya [Physician] - 10 days Interventions: ED Discharge Assessment Last Done: 08/10/22 23:30 Discharge Date/Time: 08/10/22 23:30
[2022-08-10] MEDS: Tetracaine HCl/PF 0.5% Oph Sol 4 ML DROPS 1 DROP EYE-RIGHT (22:28)
[2022-08-10] MEDS: Fluorescein Sodium STRIP 1 STRIP EYE-RIGHT (22:28)
== END 2022-08-10 23:30 | disposition home or self-care (01) ==
PROVIDERS: Emergency Provider Internal Medicine; PCP Internal Medicine
DX: H10.31 Unspecified acute conjunctivitis, right eye (principal); I10 Essential (primary) hypertension; F41.1 Generalized anxiety disorder; Z79.899 Other long term (current) drug therapy
CPT/HCPCS: 99282; 99283

== ENCOUNTER → 2022-08-14 10:39 | Outpatient (BNVA) | payer OTHER, SELFPAY | PROVIDERS: PCP Internal Medicine; Visit Provider Registered Nurse Diabetes Educator | DX: E11.65 Type 2 diabetes mellitus with hyperglycemia (principal); Z79.4 Long term (current) use of insulin | CPT/HCPCS: 99211 ==

== ENCOUNTER 2022-09-04 09:04 | Emergency (ER) | payer OTHER, SELFPAY ==
[2022-09-04 09:12] VITALS: BP 146/70; PULSE 88; RESP 20; TEMP 36.9; O2SAT 95; BMI 31.4
--- NOTE | 2022-09-04 09:31 | ED.GENADULT ---
HPI - General Adult General Chief complaint: Skin/Abscess/Foreign Body Stated complaint: L side facial pain Time Seen by Provider: 09/04/22 09:20 History of Present Illness HPI narrative: patient complains on the left side of her face next to the nose and in left upper lip, pain began yesterday there was no injury, she denies a toothache, she denies any eye pain or vision change, she has had no runny nose, her nose was congested yesterday and a little bit today, she has no headache no fever no chills, she can open and close her mouth, no sore throat no headaches Related Data Home Medications Medication Instructions Recorded Confirmed pen needle, diabetic 29 gauge x #100 ea 01/19/20 11/12/22/ Previous Rx's Medication Instructions Recorded lorazepam 0.5 mg tablet 0.5 mg PO DAILY PRN anxiety 30 04/25/21 days #21 tabs trazodone 50 mg tablet 50 mg PO BEDTIME PRN sleep 30 days 05/28/21 #30 tabs blood sugar diagnostic (FreeStyle #100 ea 06/13/21 Lite Strips) cholecalciferol (vitamin D3) 50 50 mcg PO DAILY #90 caps 06/13/21 mcg (2,000 unit) capsule lancets 28 gauge (FreeStyle #100 ea 06/13/21 Lancets) sertraline 50 mg tablet 50 mg PO DAILY 30 days #30 tabs 09/25/21 albuterol sulfate 90 mcg/actuation 2 puff inhalation Q4-6H PRN 10/17/21 aerosol inhaler shortness of breath or wheezing #6.7 grams fluticasone propionate 50 2 spray intranasal DAILY #16 grams 10/17/21 mcg/actuation nasal spray,suspension (Flonase Allergy Relief) tizanidine 4 mg tablet 4 mg PO Q8H PRN low back pain 10 12/02/21 days #30 tabs atorvastatin 80 mg tablet 80 mg PO BEDTIME #90 tabs 01/01/22 Ventolin HFA 90 mcg/actuation 2 puff inhalation Q6H PRN 01/27/22 aerosol inhaler (albuterol sulfate) shortness of breath or wheezing 30 days #18 grams lisinopril 20 1 tab PO DAILY 90 days #90 tabs 04/23/22 mg-hydrochlorothiazide 12.5 mg tablet empagliflozin 25 mg tablet 25 mg PO DAILY #90 tabs 06/03/22 (Jardiance) flash glucose scanning reader #1 ea 06/26/22 (FreeStyle Simón 2 Williams) flash glucose sensor (FreeStyle #2 ea 06/26/22 Simón 2 Sensor kit) pantoprazole 40 mg tablet,delayed 40 mg PO DAILY 30 days #30 tabs 08/05/22 release fluconazole 100 mg tablet 100 mg PO DAILY 3 days #3 tabs 08/06/22 acetaminophen 300 mg-codeine 30 mg 1 tab PO Q6H PRN pain #14 tabs 09/04/22 tablet doxycycline hyclate 100 mg capsule 100 mg PO BID 7 days #14 caps 09/04/22 levothyroxine 50 mcg tablet 50 mcg PO QAM #90 tabs 10/02/22 mirtazapine 7.5 mg tablet 7.5 mg PO BEDTIME 30 days #30 tabs 10/03/22 methylcellulose (laxative) 500 mg 500 mg PO TID 30 days #90 tabs 10/23/22 tablet (Citrucel) peg-electrolyte solution 420 gram 240 ml PO ONCE PRN laxative effect 10/23/22 oral solution 1 day #4,000 mL Lantus Solostar U-100 Insulin 100 44 unit (0.44 mL) subcut DAILY 90 11/05/22 unit/mL (3 mL) subcutaneous pen days #40 mL (insulin glargine) insulin lispro 100 unit/mL See Rx Instructions subcut DAILY 11/05/22 subcutaneous pen (Humalog KwikPen 30 days #3.6 mL (U-100) Insulin) pen needle, diabetic 32 gauge x #125 ea 11/05/2232 (BD Ultra-Fine Jordana Pen Needle) clonidine HCl 0.1 mg tablet 0.1 mg PO BID PRN for anxiety 30 11/21/22 days #60 tabs Allergies Allergy/AdvReac Type Severity Reaction Status Date / Time Iodinated Contrast Media Allergy Intermediate RASH Verified 11/12/22 14:18 [IV CONTRAST] iopromide [From ULTRAVIST] Allergy Mild ITCHING Verified 11/12/22 14:18 [facility] Past Medical History Source: nursing notes reviewed Medical History Chest discomfort Primary osteoarthritis of hips, bilateral Lumbar degenerative disc disease Pure hypercholesterolemia Conjunctivitis, right eye Acute right eye pain Recurrent epigastric abdominal pain Anxiety Obesity (BMI 30-39.9) GERD without esophagitis Ganglion cyst of tendon sheath of left hand Obesity due to excess calories Gastritis GERD (gastroesophageal reflux disease) Depression Hypothyroidism Type 2 diabetes mellitus with hyperglycemia, with long-term current use of insulin Type 2 diabetes mellitus with diabetic polyneuropathy Type 2 diabetes mellitus with diabetic nephropathy Essential hypertension Hyperlipidemia LDL goal <100 Diabetes mellitus Surgical History Hx of tubal ligation History of herniated intervertebral disc Family History Family History Father Throat cancer Mother Diabetes mellitus CVD (cardiovascular disease) Maternal Aunt Breast cancer Social History Social History Household Members: None Housing: Apartment Alcohol intake: never Patient Tobacco Use Status: Former Tobacco user e-Cigarette/Vaping Use: Never Used Second Hand Smoke Exposure: No service: No Current occupational status: disabled Sexual orientation: Straight/Heterosexual Gender identity: Female Cognitive needs: No Hearing needs: No Vision needs: Yes Physical Exam ED Vital Signs: Vital Signs - 24 hr 09/04/22 09:12 Temperature 98.5 F Pulse Rate 88 Respiratory Rate 20 Blood Pressure 146/70 H Pulse Oximetry 95 Oxygen Delivery Method Room Air BMI result Body Mass Index 31.4 general appearance no acute distress The ears are clear without redness of tympanic membrane, no narrowing of canals Eyes pupils equal round reactive to light extraocular motions are intact The nose is not congested, there is no obvious abscess on the nose, no obvious cellulitis on the nose Facial exam lateral to the nose and just above the lip there is an area of redness and induration no fluctuance, mildly swollen that is tender to the touch Mandible is fully mobile, , there was no obvious dental abscess or decay in the area The pharynx is clear without redness swelling or exudate, no impairment of breathing or swallowing voice is normal Neck is supple Respiratory no distress Extremities full range of motion x4 Skin no other rash Course Course Course Narrative: patient with cellulitis of the face lateral to the nose and just above the left upper lip, it was indurated but no fluctuance is treated with Augmentin and doxycycline for cellulitis Medications Administered Discontinued Medications Generic Name Dose Route Start Last Admin Trade Name Freq PRN Reason Stop Dose Admin Acetaminophen/Codeine Phosphate 1 tab 09/04/22 09:31 09/04/22 09:40 Acetaminophen With Codeine # 3 Tablet PO 09/04/22 09:32 1 tab ONCE ONE Administration Amoxicillin/Clavulanate Potassium 875 mg 09/04/22 09:31 09/04/22 09:40 Amoxicillin/Potassium Clav 875 Mg Tablet PO 09/04/22 09:32 875 mg ONCE ONE Administration Ibuprofen 600 mg 09/04/22 09:31 09/04/22 09:40 Ibuprofen 600 Mg Tablet PO 09/04/22 09:32 600 mg ONCE ONE Administration Discharge Plan Discharge Clinical Impression: Cellulitis Patient Disposition: Home, Self-Care Additional Instructions: I believe you of an infection of the skin on her face We are treating with 2 antibiotics Augmentin and doxycycline Return to the ER in 2-3 days for recheck Most important for spreading redness, worse pain and swelling, fever, uncontrolled pain, any worse condition or any concerns return to the ER any time Prescriptions: New doxycycline hyclate 100 mg capsule 100 mg PO BID 7 Days Qty: 14 0RF acetaminophen-codeine 300-30 mg tablet 1 tab PO Q6H PRN (Reason: pain) Qty: 14 0RF No Action lorazepam 0.5 mg tablet 0.5 mg PO DAILY PRN (Reason: anxiety) 30 Days Qty: 21 0RF Rx Instructions: Take only NEEDED trazodone 50 mg tablet 50 mg PO BEDTIME PRN (Reason: sleep) 30 Days Qty: 30 1RF sertraline 50 mg tablet 50 mg PO DAILY 30 Days Qty: 30 2RF tizanidine 4 mg tablet 4 mg PO Q8H PRN (Reason: low back pain) 10 Days Qty: 30 1RF atorvastatin 80 mg tablet 80 mg PO BEDTIME Qty: 90 3RF Jardiance 25 mg tablet 25 mg PO DAILY Qty: 90 2RF pantoprazole 40 mg tablet,delayed release (DR/EC) 40 mg PO DAILY 30 Days Qty: 30 11RF levothyroxine 50 mcg tablet 50 mcg PO QAM Qty: 90 0RF mirtazapine 7.5 mg tablet 7.5 mg PO BEDTIME 30 Days Qty: 30 3RF (DME) pen needle, diabetic [BD Ultra-Fine Jordana Pen Needle] 32 gauge x 5/32 needle See Rx Instructions .ROUTE .MEDSUPPLY Qty: 125 3RF Rx Instructions: As directed four times a day insulin glargine [Lantus Solostar U-100 Insulin] 100 unit/mL (3 mL) insulin pen 44 unit subcut DAILY 90 Days Qty: 40 1RF insulin lispro [Humalog KwikPen Insulin] 100 unit/mL insulin pen See Rx Instructions subcut DAILY 30 Days Qty: 3.6 5RF Rx Instructions: 12 units for breakfast , 16 u nits for lunch and dinner subcutaneously daily; with largest meal of day clonidine HCl 0.1 mg tablet 0.1 mg PO BID PRN (Reason: for anxiety) 30 Days Qty: 60 5RF albuterol sulfate 90 mcg/actuation HFA aerosol inhaler 2 puff inhalation Q4-6H PRN (Reason: shortness of breath or wheezing) Qty: 6.7 0RF fluticasone propionate [Flonase Allergy Relief] 50 mcg/actuation spray,suspension 2 spray intranasal DAILY Qty: 16 0RF Rx Instructions: administer into each nostril lisinopril-hydrochlorothiazide 20-12.5 mg tablet 1 tab PO DAILY 90 Days Qty: 90 3RF albuterol sulfate [Ventolin HFA] 90 mcg/actuation HFA aerosol inhaler 2 puff inhalation Q6H PRN (Reason: shortness of breath or wheezing) 30 Days Qty: 18 1RF fluconazole 100 mg tablet 100 mg PO DAILY 3 Days Qty: 3 0RF (DME) pen needle, diabetic 29 gauge x 1/2 needle See Rx Instructions .ROUTE .MEDSUPPLY Qty: 100 Rx Instructions: As directed cholecalciferol (vitamin D3) 50 mcg (2,000 unit) capsule 50 mcg PO DAILY Qty: 90 3RF (DME) FreeStyle Lite Strips Strip See Rx Instructions .ROUTE .MEDSUPPLY Qty: 100 11RF Rx Instructions: As directed three times a day (DME) lancets [FreeStyle Lancets] 28 gauge misc See Rx Instructions .ROUTE .MEDSUPPLY Qty: 100 11RF Rx Instructions: Three times a day (DME) FreeStyle Simón 2 Sensor Kit See Rx Instructions .Route Qty: 2 5RF Rx Instructions: As directed change every 14 days (DME) FreeStyle Simón 2 Williams Misc See Rx Instructions .Route Qty: 1 0RF Rx Instructions: As directed peg-electrolyte soln 420 gram recon soln 240 ml PO ONCE PRN (Reason: laxative effect) 1 Days Qty: 4000 0RF Rx Instructions: Start at 6:00pm the evening before procedure, drink one 8oz glass every 15 minutes until complete Citrucel 500 mg tablet 500 mg PO TID 30 Days Qty: 90 5RF Interventions: ED Discharge Assessment Last Done: 09/04/22 09:56 Discharge Date/Time: 09/04/22 09:58
== END 2022-09-04 09:58 | disposition home or self-care (01) ==
PROVIDERS: Emergency Provider Emergency Medicine Emergency Medical Services; PCP Internal Medicine
DX: L03.211 Cellulitis of face (principal); R51.9 Headache, unspecified; E11.9 Type 2 diabetes mellitus without complications; I10 Essential (primary) hypertension; E78.00 Pure hypercholesterolemia, unspecified; Z87.891 Personal history of nicotine dependence
CPT/HCPCS: 99283

== ENCOUNTER 2022-09-24 14:03 | Outpatient (REF) | payer OTHER, SELFPAY ==
[2022-09-30 21:14] LABS: HPV mRNA E6/E7 rflx Not Detected (Not Detected)
== END 2022-09-24 14:04 | disposition home or self-care (01) ==
LOC: HO.LNP 14:03
PROVIDERS: PCP Internal Medicine; Visit Provider Obstetrics & Gynecology
DX: Z01.419 Encounter for gynecological examination (general) (routine) without abnormal findings (principal); Z11.51 Encounter for screening for human papillomavirus (HPV); N90.4 Leukoplakia of vulva
CPT/HCPCS: 87624; 88142

== ENCOUNTER 2022-09-24 14:03 | Outpatient (AMB) | payer OTHER, SELFPAY ==
[2022-09-24 14:08] VITALS: BP 160/72; BMI 30.5
--- NOTE | 2022-09-24 14:08 | MHC.OFFVIS ---
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 No complaints. Last Pap/HPV was in 06/14, negative Last Mammogram was BI-RADS 1 in 06/22 No previous screening Colonoscopy PFSH Medical History Acute right eye pain Anxiety Conjunctivitis, right eye Depression Diabetes mellitus Essential hypertension Ganglion cyst of tendon sheath of left hand Gastritis GERD (gastroesophageal reflux disease) GERD without esophagitis Hyperlipidemia LDL goal <100 Hypothyroidism Lumbar degenerative disc disease Obesity (BMI 30-39.9) Obesity due to excess calories Primary osteoarthritis of hips, bilateral Pure hypercholesterolemia Recurrent epigastric abdominal pain Type 2 diabetes mellitus with diabetic nephropathy Type 2 diabetes mellitus with diabetic polyneuropathy Type 2 diabetes mellitus with hyperglycemia, with long-term current use of insulin Surgical History History of herniated intervertebral disc Hx of tubal ligation Family History Father Throat cancer Mother Diabetes mellitus CVD (cardiovascular disease) Maternal Aunt Breast cancer Social History Household Members: None Housing: Apartment Alcohol intake: never Patient Tobacco Use Status: Former Tobacco user e-Cigarette/Vaping Use: Never Used Second Hand Smoke Exposure: No service: No Current occupational status: disabled Sexual orientation: Straight/Heterosexual Gender identity: Female Cognitive needs: No Hearing needs: No Vision needs: Yes Female Reproductive History Menstrual Age of Menarche: 12 control method: permanent sterilization Total pregnancies: 6 Full term: 4 Number of Living Children: 4 Date of last pap smear: 06/07/14 (negative) Date of Mammogram: 06/13/22 Review of Systems Const All systems reviewed & are unremarkable except as noted in HPI and below Card Reports as per HPI Resp Reports as per HPI GI Reports as per HPI and Reports no additional complaints Reports as per HPI Physical Exam Vital Signs: Last Vital Signs BP 160/72 H 09/24/22 14:08 BMI result Body Mass Index 30.5 Const General: cooperative, healthy appearing and comfortable Chest Chest palpation & inspection: normal inspection of the chest and normal palpation of entire chest wall Breast/axilla inspection: normal inspection of the breasts and normal inspection of the axillae Breast/axilla palpation: normal palpation of the breasts, normal palpation of the axillae and no axillary lymphadenopathy Resp Effort & Inspection: normal respiratory effort Auscultation: clear to auscultation bilaterally Percussion: percussion normal Cardio Palpation: normal PMI Rate: regular rate Rhythm: regular rhythm Heart sounds: no murmurs and no rubs Peripheral pulses: Peripheral pulses 2+ throughout GI Inspection: Yes normal to inspection Palpation (GI): Soft to palpation, nontender, no guarding, not rigid and No hepatosplenomegaly present Percussion: Yes normal to percussion Auscultation: normal bowel sounds Rectal Exam - Female: deferred General: Yes bladder normal to palpation External Female Exam: normal external appearance (Bilateral leukoplakia) and No lesion Speculum Exam - Vagina: normal appearance of the vagina, normal palpation, normal vaginal discharge and not erythematous Speculum Exam - Cervix: normal appearance of the cervix and normal palpation Bimanual exam- vagina & uterus: normal bimanual exam, normal palpation, uterine size normal, bladder normal to palpation, consistency normal and normal palpation Bimanual Exam- Adnexa, other: normal adnexae, no masses and no tenderness Assessment & Plan Assessment & Plan (1) Well woman exam: Code(s): Z01.419 - Encounter for gynecological examination (general) (routine) without abnormal findings Plan: Co testing done. Counseled the patient about the recommended dietary allowance of 1200 mg of Calcium & 600 IU of vitamin D. Instruction given to the patient to schedule next screening Mammogram in 06/23 , the patient was referred to GI for screening colonoscopy . The patient was instructed to perform monthly self-breast exams and schedule annual exam in a year; all questions answered and the patient verbalized understanding. 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 Instructions given the patient to schedule vulvar biopsy and all questions answered, the patient verbalized understanding Orders: Referrals Gastroenterology Referral Z12.11 - Encounter for screening for malignant neoplasm of colon Coding Level of Care Code Est Pt Prev Care 40-64y(26165) Diagnoses Well woman exam Z01.419 Vulvar leukoplakia N90.4
== END 2022-09-24 14:40 | disposition home or self-care (01) ==
LOC: HO.HWS 14:04
PROVIDERS: PCP Internal Medicine; Visit Provider Obstetrics & Gynecology
DX: Z01.419 Encounter for gynecological examination (general) (routine) without abnormal findings (principal); N90.4 Leukoplakia of vulva
CPT/HCPCS: 88142; 99396

== ENCOUNTER 2022-10-01 10:50 | Outpatient (AMB) | payer OTHER, SELFPAY ==
--- NOTE | 2022-10-01 10:56 | A.OFFVIS_ITS ---
Intake Vital Signs 10/01/22 10:58 Height 5 ft 3 in Weight 173 lb 1.006 oz BMI 30.7 BP 122/80 Blood Pressure Location Rt brachial Position Sitting Pulse 82 Intake Visit Reasons: f/u Type 2 DM Intake Note: Patient present today to follow up on Type 2 Diabetes Mellitus. Patient receives DME supplies through: Pharmacy Last Diabetic Eye exam: August 2022 Last Podiatry Visit: None Random Glucose: 272 mg/dl HgA1C: 9.3% 08/04/22 Energy Conservation Technician Required: Yes Energy Conservation Technician Language: Patent Prosecution Paralegal Name: Grace Coley, YOSELYN/BEN SCHWARZ Accompanied by: Self / Same As Patient Allergies Iodinated Contrast Media [IV CONTRAST] Allergy (Intermediate, Verified 10/01/22 11:02) RASH iopromide [From ULTRAVIST] Allergy (Mild, Verified 10/01/22 11:02) ITCHING HPI HPI Comments History of Present Illness Details Patient is 62 yo female with DM type 2 diagnosed around 2014 who presents for visit for management of diabetes. Past medical history: HTN, HLD, hypothyroidism, GERD Micro and macrovascular complications: +nephropathy, Diabetes medications:Lantus to 44 units, Humalog 12 units for breakfast and dinner and 16 units for lunch, + 2 units for blood sugars over 200. , Jardiance 25mg Symptoms reported: +numbness, tingling, in lower extremities at night Symptoms: tingling and numbness at night Hypoglycemia: denies Hyperglycemia: + urinary frequency, + nocturia (3-4x/night) , +polydypsia, Blood glucose monitoring: In the past 2 weeks she is checking 1 today. Average glucose is 294 with range of 249--354 100% hyperglycemia and 12% range with no hypoechoic Exercise: is active within her home keeping busy, walks doing errands Eye exam: last exam 1 mo ago Had an episode of pancreatitis Laboratory Tests 05/10/21 05/10/21 05/10/21 08:58 08:58 08:59 Creatinine 0.65 Estimated GFR > 60 Hemoglobin A1c % 7.6 Triglycerides 297 Cholesterol 197 LDL Cholesterol, C alc 105 HDL Cholesterol 33 25-OH Vitamin D To wendy 22.6 TSH 2.75 Free T4 1.06 Microalb/Creat Rat io 41.4 PFSH Medical History Acute right eye pain Anxiety Conjunctivitis, right eye Depression Diabetes mellitus Essential hypertension Ganglion cyst of tendon sheath of left hand Gastritis GERD (gastroesophageal reflux disease) GERD without esophagitis Hyperlipidemia LDL goal <100 Hypothyroidism Lumbar degenerative disc disease Obesity (BMI 30-39.9) Obesity due to excess calories Primary osteoarthritis of hips, bilateral Pure hypercholesterolemia Recurrent epigastric abdominal pain Type 2 diabetes mellitus with diabetic nephropathy Type 2 diabetes mellitus with diabetic polyneuropathy Type 2 diabetes mellitus with hyperglycemia, with long-term current use of insulin Surgical History History of herniated intervertebral disc Hx of tubal ligation Family History Father Throat cancer Mother Diabetes mellitus CVD (cardiovascular disease) Maternal Aunt Breast cancer Social History Household Members: None Housing: Apartment Alcohol intake: never Patient Tobacco Use Status: Former Tobacco user e-Cigarette/Vaping Use: Never Used Second Hand Smoke Exposure: No service: No Current occupational status: disabled Sexual orientation: Straight/Heterosexual Gender identity: Female Cognitive needs: No Hearing needs: No Vision needs: Yes Female Reproductive History Menstrual Age of Menarche: 12 Physical Exam Vital Signs: Last Vital Signs Pulse 82 10/01/22 10:58 BP 122/80 10/01/22 10:58 BMI result Body Mass Index 30.7 Absence of Cushingoid features. Absence of acromegalic features. Neck exam reveals nl size thyroid about 15 gms. No thyroid nodules palpable. No carotid bruits present. Lungs CTA. Heart S1 S2, Reg R/R. No M/R/ G. Skin exam reveals absence of vitiligo or acanthosis nigricans. Abdominal exam reveals Soft NT/ND with NA BS. No organomegaly present. Neck Other: . Extrem Other: Visual exam of foot performed. No ulcerations or open lesions. No onchomycosis, no callouses.Pulses 2 + distally Sensation decreased to monofilament exam. Vibratory sensation sensed is decreased with 128 Hz tuning fork Assessment & Plan Assessment & Plan (1) Type 2 diabetes mellitus with hyperglycemia, with long-term current use of insulin: Code(s): E11.65 - Type 2 diabetes mellitus with hyperglycemia; Z79.4 - long term care social worker (current) use of insulin Plan: This 62-year-old female with a history of type 2 diabetes being treated with Jardiance and basal-bolus insulin poor glycemic control and known microvascular complications namely neuropathy and CKD. Plan is that the patient check her point cares pre and post meals. She has Simón 2 and we will initiate the next couple of days Cannot make any changes to the insulin regimen because of limited data . With the use of an borderer, explained the relationship between poor glycemic control and development and progression of complication . I also took the liberty referring her to video network engineer Orders: Referrals Podiatry Referral E11.65 - Type 2 diabetes mellitus with hyperglycemia, Z79.4 - detention (current) use of insulin Coding Level of Care Code Est Pt Level 4 (68104) Diagnoses Type 2 diabetes mellitus with hyperglycemia, with long-term current use of insulin E11.65; Z79.4
[2022-10-01 10:58] VITALS: BP 122/80; PULSE 82; BMI 30.7
[2022-10-01 12:51] LABS: Glucose, Whole Blood 272 mg/dL (60-115)
== END 2022-10-01 11:16 | disposition home or self-care (01) ==
PROVIDERS: PCP Internal Medicine; Visit Provider Internal Medicine Endocrinology, Diabetes & Metabolism
DX: E11.65 Type 2 diabetes mellitus with hyperglycemia (principal); Z79.4 Long term (current) use of insulin
CPT/HCPCS: 99214

== ENCOUNTER → 2022-10-01 10:50 | Outpatient (BNVA) | payer OTHER, SELFPAY | PROVIDERS: Visit Provider Internal Medicine Endocrinology, Diabetes & Metabolism | DX: E11.65 Type 2 diabetes mellitus with hyperglycemia (principal); Z79.4 Long term (current) use of insulin | CPT/HCPCS: 82947; 99212 ==

== ENCOUNTER 2022-10-16 13:19 | Outpatient (AMB) | payer OTHER, SELFPAY ==
--- NOTE | 2022-10-16 13:22 | A.OFFVIS_ITS ---
Intake Intake Visit Reasons: Simón sensor Allergies Iodinated Contrast Media [IV CONTRAST] Allergy (Intermediate, Verified 10/01/22 11:02) RASH iopromide [From ULTRAVIST] Allergy (Mild, Verified 10/01/22 11:02) ITCHING HPI Comprehensive Diabetes Asmnt Most Recent Diabetes Results: Microalb/Creat Ratio 226.7 ug/mg cr 08/04/22 Cholesterol 167 mg/dL 08/04/22 HDL Cholesterol 32 mg/dL 08/04/22 Triglycerides 373 mg/dL 08/04/22 Creatinine 0.68 mg/dL (0.5-1.4) 08/04/22 Blood Urea Nitrogen 15 mg/dL (9-16) 08/04/22 Sodium 143 mmol/L (135-145) 08/04/22 Potassium 4.6 mmol/L (3.3-5.1) 08/04/22 Chloride 108 mmol/L (96-108) 08/04/22 Carbon Dioxide 27 mmol/L (22-29) 08/04/22 Calcium 9.6 mg/dL (8.4-10.2) 08/04/22 AST 14 U/L (5-31) 08/04/22 ALT 20 U/L (0-31) 08/04/22 Total Protein 7.6 g/dL (6.5-8.0) 08/04/22 Albumin 4.2 g/dL (3.5-5.0) 08/04/22 [facility] Medical History Acute right eye pain Anxiety Conjunctivitis, right eye Depression Diabetes mellitus Essential hypertension Ganglion cyst of tendon sheath of left hand Gastritis GERD (gastroesophageal reflux disease) GERD without esophagitis Hyperlipidemia LDL goal <100 Hypothyroidism Lumbar degenerative disc disease Obesity (BMI 30-39.9) Obesity due to excess calories Primary osteoarthritis of hips, bilateral Pure hypercholesterolemia Recurrent epigastric abdominal pain Type 2 diabetes mellitus with diabetic nephropathy Type 2 diabetes mellitus with diabetic polyneuropathy Type 2 diabetes mellitus with hyperglycemia, with long-term current use of insulin Surgical History History of herniated intervertebral disc Hx of tubal ligation Family History Father Throat cancer Mother Diabetes mellitus CVD (cardiovascular disease) Maternal Aunt Breast cancer Social History Household Members: None Housing: Apartment Alcohol intake: never Patient Tobacco Use Status: Former Tobacco user e-Cigarette/Vaping Use: Never Used Second Hand Smoke Exposure: No service: No Current occupational status: disabled Sexual orientation: Straight/Heterosexual Gender identity: Female Cognitive needs: No Hearing needs: No Vision needs: Yes Female Reproductive History Menstrual Age of Menarche: 12 Assessment & Plan Assessment & Plan (1) Type 2 diabetes mellitus with diabetic polyneuropathy: Code(s): E11.42 - Type 2 diabetes mellitus with diabetic polyneuropathy Qualifiers: Diabetes mellitus penitentiary insulin use: without penitentiary use Qualified Code(s): E11.42 - Type 2 diabetes mellitus with diabetic polyneuropathy Plan Patient has Marfan not compatible with Simón maryjane Called [facility] Pharmacy on [facility] to find out why they did not provide patient with reader Pharmacy is closed this time for lunch Patient Instructions: Reschedule appointment for next week after we find out why reader was not provided to patient Coding Level of Care Code Est Pt Level 1 (82005) Diagnoses Type 2 diabetes mellitus with diabetic polyneuropathy E11.42 Diabetes mellitus technician terminal and repeater insulin use: without technician terminal and repeater use
== END 2022-10-16 14:23 | disposition home or self-care (01) ==
PROVIDERS: PCP Internal Medicine; Visit Provider Registered Nurse Diabetes Educator
DX: E11.42 Type 2 diabetes mellitus with diabetic polyneuropathy (principal)

== ENCOUNTER → 2022-10-16 13:19 | Outpatient (BNVA) | payer OTHER, SELFPAY | PROVIDERS: PCP Internal Medicine; Visit Provider Registered Nurse Diabetes Educator | DX: E11.42 Type 2 diabetes mellitus with diabetic polyneuropathy (principal) | CPT/HCPCS: 99211 ==

== ENCOUNTER 2022-10-23 15:09 | Outpatient (AMB) | payer OTHER, SELFPAY ==
--- NOTE | 2022-10-23 15:17 | A.OFFVIS_ITS ---
Intake Intake Visit Reasons: Abdominal pain Allergies Iodinated Contrast Media [IV CONTRAST] Allergy (Intermediate, Verified 10/01/22 11:02) RASH iopromide [From ULTRAVIST] Allergy (Mild, Verified 10/01/22 11:02) ITCHING Medication List - Last Reconciled 10/23/22 by Aimee Mcnulty PA-C acetaminophen-codeine 300-30 mg 1 tab PO Q6H PRN albuterol sulfate 90 mcg/actuation 2 puffs inhalation Q4-6H PRN atorvastatin 80 mg PO BEDTIME blood sugar diagnostic (FreeStyle Lite Strips) As directed three times a day cholecalciferol (vitamin D3) 50 mcg PO DAILY clonidine HCl 0.1 mg PO BID PRN 30 days doxycycline hyclate 100 mg PO BID 7 days empagliflozin (Jardiance) 25 mg PO DAILY flash glucose scanning reader ([employer] Simón 2 [place]) As directed flash glucose sensor (FreeStyle Simón 2 Sensor kit) As directed change every 14 days fluconazole 100 mg PO DAILY 3 days fluticasone propionate 50 mcg/actuation (Flonase Allergy Relief) 2 sprays intranasal DAILY insulin lispro (Humalog KwikPen (U-100) Insulin) 12 units for breakfast , 16 u nits for lunch and dinner subcutaneously daily; with largest meal of day 30 days lancets (FreeStyle Lancets) Three times a day Lantus Solostar U-100 Insulin (insulin glargine) 44 units (0.44 mL) subcut DAILY 90 days NS levothyroxine 50 mcg PO QAM lisinopril-hydrochlorothiazide 20-12.5 mg 1 tab PO DAILY 90 days lorazepam 0.5 mg PO DAILY PRN 30 days mirtazapine 7.5 mg PO BEDTIME 30 days pantoprazole 40 mg PO DAILY 30 days pen needle, diabetic (BD Ultra-Fine Jordana Pen Needle) As directed four times a day pen needle, diabetic As directed sertraline 50 mg PO DAILY 30 days tizanidine 4 mg PO Q8H PRN 10 days trazodone 50 mg PO BEDTIME PRN 30 days Ventolin HFA 90 mcg/actuation (albuterol sulfate) 2 puffs inhalation Q6H PRN 30 days NS HPI HPI Comments History of Present Illness Details A 62 y/o female seen 1 year ago she was scheduled for EGD/ colonoscopy- she never followed through [facility]- [facility]- she says glucose is unstable-she has had difficulty managing her diabetes Appetite is good, early satiety some nausea no vomiting Bowel somewhat slow at times, other times loose No vomiting, hematemesis, hematochezia fever chills PFSH Medical History Acute right eye pain Anxiety Conjunctivitis, right eye Depression Diabetes mellitus Essential hypertension Ganglion cyst of tendon sheath of left hand Gastritis GERD (gastroesophageal reflux disease) GERD without esophagitis Hyperlipidemia LDL goal <100 Hypothyroidism Lumbar degenerative disc disease Obesity (BMI 30-39.9) Obesity due to excess calories Primary osteoarthritis of hips, bilateral Pure hypercholesterolemia Recurrent epigastric abdominal pain Type 2 diabetes mellitus with diabetic nephropathy Type 2 diabetes mellitus with diabetic polyneuropathy Type 2 diabetes mellitus with hyperglycemia, with long-term current use of insulin Surgical History History of herniated intervertebral disc Hx of tubal ligation Family History Father Throat cancer Mother Diabetes mellitus CVD (cardiovascular disease) Maternal Aunt Breast cancer Social History Household Members: None Housing: Apartment Alcohol intake: never Patient Tobacco Use Status: Former Tobacco user e-Cigarette/Vaping Use: Never Used Second Hand Smoke Exposure: No service: No Current occupational status: disabled Sexual orientation: Straight/Heterosexual Gender identity: Female Cognitive needs: No Hearing needs: No Vision needs: Yes Female Reproductive History Menstrual Age of Menarche: 12 Review of Systems Const All systems reviewed & are unremarkable except as noted in HPI and below Card Denies chest pain and Denies dyspnea Resp Denies dyspnea GI Reports abdominal pain, Reports heartburn, Reports loose stools, Reports nausea and Denies vomiting Physical Exam Const General: cooperative, comfortable and no acute distress Nutritional Appearance: overweight Orientation/consciousness: patient oriented x3 Limitations: language barrier Resp Effort & Inspection: normal respiratory effort Auscultation: clear to auscultation bilaterally, no rales, no rhonchi and no wheezes Cardio Rate: regular rate Rhythm: regular rhythm Heart sounds: S1 normal heart sound present and S2 normal heart sound present GI Palpation (GI): Soft to palpation and nontender Auscultation: normal bowel sounds Neuro General: patient oriented x3 Extrem General: Yes full ROM Psych Speech and movement: Clear speech present Affect: Labile affect present Attitude: cooperative Assessment & Plan Assessment & Plan (1) GERD without esophagitis: Comment: UGI series done in October 2019 revealed (+) mild reflux disease without hiatal hernia Code(s): K21.9 - Gastro-esophageal reflux disease without esophagitis (2) Early satiety: Comment: gastroparesis Code(s): R68.81 - Early satiety Plan: small portions (3) Loose stools: Comment: Diabetes not well controlled likely please role Code(s): R19.5 - Other fecal abnormalities Plan: Fiber supplement Plan small portions EGD/ colon citrucel Call with concerns Orders: Orders EGD/[place] [facility] - GI Use Only 10/23/22 R19.5 - Other fecal abnormalities, R68.81 - Early satiety Medications: New peg-electrolyte soln 420 gram Start at 6:00pm the evening before procedure, drink one 8oz glass every 15 minutes until complete 240 mL PO ONCE 1 day PRN 4,000 mL 0RF laxative effect methylcellulose (laxative) (Citrucel) 500 mg PO TID 30 days 90 tabs 5RF Patient Instructions: [age]-year-old diabetic female acid reflux, early satiety, consistent bowel routine due for screening colonoscopy- Discussed procedures, risks, need for escorted due to anesthesia Reviewed medications-half dose insulin evening before no medications and a of procedure Coding Level of Care Code Est Pt Level 3 (66531) Diagnoses GERD without esophagitis K21.9 Early satiety R68.81 Loose stools R19.5 Time Spent (min) 30 Comment educational sign language interpreter
== END 2022-10-23 15:58 | disposition home or self-care (01) ==
PROVIDERS: PCP Internal Medicine; Visit Provider Physician Assistant
DX: K21.9 Gastro-esophageal reflux disease without esophagitis (principal); R68.81 Early satiety; R19.5 Other fecal abnormalities
CPT/HCPCS: 99213

== ENCOUNTER → 2022-10-23 15:09 | Outpatient (BNVA) | payer OTHER, SELFPAY | PROVIDERS: PCP Internal Medicine; Visit Provider Physician Assistant | DX: K21.9 Gastro-esophageal reflux disease without esophagitis (principal); R68.81 Early satiety; R19.5 Other fecal abnormalities | CPT/HCPCS: 99212 ==

== ENCOUNTER 2022-11-12 08:49 | Outpatient (REF) | payer OTHER, SELFPAY ==
[2022-11-12 09:11] LABS: MANUAL DIFF FLAG NO
[2022-11-12 09:26] LABS: Basophils Percent Auto 0.4 % (0-2); Eosinophils Absolute Auto 0.3 X10*3/uL (0.0-0.4); Eosinophils Percent Auto 3.8 % (0-4); Hemoglobin 14.7 g/dl (12.0-16.0); Imm Gran Abs Auto 0.03 X10*3/uL (0.00-0.03); Imm Gran Pct Auto 0.4 % (0.0-0.4); Lymphocytes Absolute Auto 2.3 X10*3/uL (1.2-4.9); Lymphocytes Percent Auto 28.3 % (20-40); Mean Corpuscular HGB Conc 34.2 g/dl (31.0-35.0); Mean Corpuscular Hemoglobin 29.6 pg (27.0-33.0); Mean Corpuscular Volume 86.5 fL (80.0-98.0); Mean Platelet Volume 9.9 fL (9.4-12.3); Monocytes Absolute Auto 0.4 X10*3/uL (0.1-1.2); Monocytes Percent Auto 5.2 % (2-11); Neutrophils Absolute Auto 5.1 x10*3/uL (2.0-8.3); Neutrophils Percent Auto 61.9 % (45-73); Platelet Count 212 X10*3/uL (160-400); Red Blood Count 4.97 X10*6/uL (4.20-5.50); Red Cell Distribution Width 13.5 % (11.0-16.0); White Blood Count 8.2 X10*3/uL (4.8-10.8)
[2022-11-12 09:32] LABS: Estimated Average Glucose 240 mg/dL
[2022-11-12 10:02] LABS: Alanine Aminotransferase 16 U/L (0-31); Albumin Level 4.3 g/dL (3.5-5.0); Alkaline Phosphatase 103 U/L (39-117); Anion Gap 13 (12-20); Aspartate Amino Transferase 17 U/L (5-31); Bilirubin Total 0.2 mg/dL (0.0-1.0); Blood Urea Nitrogen 16 mg/dL (9-16); Carbon Dioxide 25 mmol/L (22-29); Chloride 105 mmol/L (96-108); Cholesterol 218 mg/dL (<200); Estimated Glomerular Filt Rate > 60; Glucose Fasting 293 mg/dL (60-99); HDL Cholesterol 32 mg/dL (>40); Lipase 53 U/L (8-78); Potassium 4.3 mmol/L (3.3-5.1); Sodium 139 mmol/L (135-145); Total Protein 8.5 g/dL (6.5-8.0); Triglycerides 1106 mg/dL (<150)
[2022-11-12 10:22] LABS: TSH reflex Free T4 4.89 uIU/mL (0.32-4.0); Vitamin D 25-OH Total 24.6 ng/mL (>30)
[2022-11-12 10:26] LABS: Folate 16.5 ng/mL (> or = 4.0); Vitamin B12 803 pg/mL (200-900)
[2022-11-12 10:28] LABS: Appearance Urine Clear; Color Urine Yellow; Glucose Urine UA >=1000 mg/dL (Negative); Leukocyte Esterase Urine Negative (Negative); Nitrite Urine Negative (Negative); PH 5.5 (5.0-9.0); Specific Gravity - Urine >= 1.030 (1.005-1.025); UMIC TRIGGER UACC YES; Urine Blood Negative (Negative); Urine Ketones Negative (Negative); Urine Protein Negative (Neg-Trace)
[2022-11-12 10:34] LABS: Bacteria Urine None Seen (None Seen); Hyaline Casts Urine 0-2 /LPF (0-2); RBC Urine 0-2 /HPF (0-2); Squamous Epithelial Cell Urine 0-2 /HPF (0-2); WBC Urine 0-5 /HPF (0-5)
[2022-11-12 11:06] LABS: Creatinine Urine 34.52 mg/dL; Microalbum/Creatinine Ratio Ur 78.2 ug/mg cr (<30)
== END 2022-11-12 08:50 | disposition home or self-care (01) ==
LOC: HO.LAB 08:49
PROVIDERS: PCP Internal Medicine; Visit Provider Internal Medicine
DX: E78.00 Pure hypercholesterolemia, unspecified (principal); E11.9 Type 2 diabetes mellitus without complications; R10.9 Unspecified abdominal pain; E53.8 Deficiency of other specified B group vitamins; E55.9 Vitamin D deficiency, unspecified; I10 Essential (primary) hypertension
CPT/HCPCS: 36415; 80053; 80061; 81001; 82043; 82306; 82570; 82607; 82746; 83036; 83690; 84439; 84443; 85025

== ENCOUNTER 2022-11-12 13:36 | Outpatient (AMB) | payer OTHER, SELFPAY ==
[2022-11-12 13:42] VITALS: BP 128/62; BMI 30.6
--- NOTE | 2022-11-12 13:42 | A.OFFPC_ITS ---
Vital Signs 11/12/22 13:42 Height 5 ft 3 in Weight 173 lb BMI 30.6 BP 128/62 Blood Pressure Location Lt brachial Position Sitting Intake Visit Reasons: DM, OA, hyperlipidemia Intake Note: Patient here for a follow up DM, OA, Hyperlipidemia Injection Molding Process Technician Required: Yes Injection Molding Process Technician Language: Danish Accompanied by: Self / Same As Patient Allergies Iodinated Contrast Media [IV CONTRAST] Allergy (Intermediate, Verified 11/12/22 14:18) RASH iopromide [From ULTRAVIST] Allergy (Mild, Verified 11/12/22 14:18) ITCHING Medication List - Last Reconciled 11/12/22 by Genaro Chu MD acetaminophen-codeine 300-30 mg 1 tab PO Q6H PRN albuterol sulfate 90 mcg/actuation 2 puffs inhalation Q4-6H PRN atorvastatin 80 mg PO BEDTIME blood sugar diagnostic (FreeStyle Lite Strips) As directed three times a day cholecalciferol (vitamin D3) 50 mcg PO DAILY clonidine HCl 0.1 mg PO BID PRN 30 days doxycycline hyclate 100 mg PO BID 7 days empagliflozin (Jardiance) 25 mg PO DAILY flash glucose scanning reader ([employer] Simón 2 [place]) As directed flash glucose sensor (FreeStyle Simón 2 Sensor kit) As directed change every 14 days fluconazole 100 mg PO DAILY 3 days fluticasone propionate 50 mcg/actuation (Flonase Allergy Relief) 2 sprays intranasal DAILY insulin lispro (Humalog KwikPen (U-100) Insulin) 12 units for breakfast , 16 u nits for lunch and dinner subcutaneously daily; with largest meal of day 30 days lancets (FreeStyle Lancets) Three times a day Lantus Solostar U-100 Insulin (insulin glargine) 44 units (0.44 mL) subcut DAILY 90 days NS levothyroxine 50 mcg PO QAM lisinopril-hydrochlorothiazide 20-12.5 mg 1 tab PO DAILY 90 days lorazepam 0.5 mg PO DAILY PRN 30 days methylcellulose (laxative) (Citrucel) 500 mg PO TID 30 days mirtazapine 7.5 mg PO BEDTIME 30 days pantoprazole 40 mg PO DAILY 30 days peg-electrolyte soln 420 gram 240 mL PO ONCE PRN 1 day pen needle, diabetic (BD Ultra-Fine Jordana Pen Needle) As directed four times a day pen needle, diabetic As directed sertraline 50 mg PO DAILY 30 days tizanidine 4 mg PO Q8H PRN 10 days trazodone 50 mg PO BEDTIME PRN 30 days Ventolin HFA 90 mcg/actuation (albuterol sulfate) 2 puffs inhalation Q6H PRN 30 days NS Tobacco use date assessed: 08/06/22 Dental Screening Dental Screen Date: 11/12/22 Did you have a dental visit in the last 12 months?: No Did you have a dental problem in the last 6 months where you did not have access to dental care?: No Was dental information given to patient?: Patient has dentist HPI DM, OA, hyperlipidemia HPI Details Patient comes in today for her follow up visit States that she has been experiencing on and off chest discomfort (describes it as a sensation of heaviness over her chest at times) lately Notes some chest congestion at times and is not sure if her chest abd breathing symptoms are related and she could be coming down with a cold Has tried using her Albuterol inhaler, which she feels helped somewhat but only briefly She relates (+) fatigue lately; denies any headaches or dizziness Denies any chest pains other that the aforementioned chest discomfort No nausea/vomiting, no abdominal pain No change in bowel habits noted Was seen by Dr. Ray last month for her diabetes follow up and plan was to start her on a CGM so she can monitor and track her pre and postprandial blood sugars better but states that she has not yet received her supplies States that they just recently sent her 2 boxes of the same items and she had to return them to get this corrected States that at this time, other than continuing on what she is currently taking for her meds, she does not really know what else she is supposed to do to help get her diabetes back under control Had her follow up labs done earlier today - to discuss her results [facility] Medical History Chest discomfort Primary osteoarthritis of hips, bilateral Lumbar degenerative disc disease Pure hypercholesterolemia Conjunctivitis, right eye Acute right eye pain Recurrent epigastric abdominal pain Anxiety Obesity (BMI 30-39.9) GERD without esophagitis Ganglion cyst of tendon sheath of left hand Obesity due to excess calories Gastritis GERD (gastroesophageal reflux disease) Depression Hypothyroidism Type 2 diabetes mellitus with hyperglycemia, with long-term current use of insulin Type 2 diabetes mellitus with diabetic polyneuropathy Type 2 diabetes mellitus with diabetic nephropathy Essential hypertension Hyperlipidemia LDL goal <100 Diabetes mellitus Surgical History Hx of tubal ligation History of herniated intervertebral disc Family History Father Throat cancer Mother Diabetes mellitus CVD (cardiovascular disease) Maternal Aunt Breast cancer Social History Household Members: None Housing: Apartment Alcohol intake: never Patient Tobacco Use Status: Former Tobacco user e-Cigarette/Vaping Use: Never Used Second Hand Smoke Exposure: No service: No Current occupational status: disabled Sexual orientation: Straight/Heterosexual Gender identity: Female Cognitive needs: No Hearing needs: No Vision needs: Yes Female Reproductive History Menstrual Age of Menarche: 12 Questionnaire Thrive Questionnaire Date Thrive assessed: 08/06/22 CARO-7 AMB Questionnaire CARO-7 Date CARO - 7 assessed: 08/06/22 Source: Developed by Drs. Teofilo Loredo, Radha Knight, Keagan Guzman and colleagues, with an educational alecia from [employer]. Review of Systems Const Reports fatigue, Denies fever(s) and Denies headache(s) ENT Denies dysphagia, Denies dizziness, Denies otalgia, Denies headache(s), Denies odynophagia and Denies sore throat Card Denies chest pain (but reports (+) chest pressure at times lately), Reports palpitations (when anxiety occurs) and Reports dyspnea on exertion (mild, lately) Resp Denies chest congestion, Denies cough, Reports dyspnea on exertion (mild, lately) and Denies wheezing GI Reports abdominal pain (on and off, mostly over epigastric and RUQ area), Denies constipation, Denies dysphagia, Denies heartburn, Denies diarrhea, Denies nausea, Denies odynophagia and Denies vomiting Denies difficulty voiding, Denies nocturia and Denies dysuria Musc Reports arthralgias (left shoulder) Neuro Denies dizziness and Denies headache(s) Psych Reports anxiety Endo Reports fatigue and Reports palpitations (when anxiety occurs) Aller/Immun Denies wheezing Physical exam (Primary Care) Vital Signs: Last Vital Signs BP 128/62 11/12/22 13:42 BMI result Body Mass Index 30.6 Tobacco/Smoking Status: Tobacco use Status Tobacco use date assessed 08/06/22 11/12/22 13:45 Patient Tobacco Use Status Former Tobacco user 11/12/22 13:45 e-Cigarette/Vaping Use Never Used 11/12/22 13:45 Thrive Assessment: Date of Thrive Assessment Date Thrive assessed 08/06/22 11/12/22 13:45 Const General: no acute distress and alert HENMT Ears: TM's normal bilaterally and EAC's normal Throat: Yes posterior oropharynx normal and Yes tonsils normal (no TP congestion) Neck Neck: Yes no lymphadenopathy and Yes supple Resp Auscultation: clear to auscultation bilaterally, no rales and no wheezes Cardio Rate: regular rate Rhythm: regular rhythm Heart sounds: no murmurs GI Palpation (GI): Soft to palpation and nontender Auscultation: normal bowel sounds Extrem General: Yes no clubbing, cyanosis or edema Left upper extremity: shoulder/upper arm Details: tenderness and normal ROM (with slight limitation raising her arm due to pain); no swelling Assessment and Plan Assessment & Plan (1) Chest discomfort: Code(s): R07.89 - Other chest pain Plan: Patient is cautioned that with her current uncontrolled diabetes, we are concerned about her chest symptoms and that they may indicate some underlying coronary issues Will send her for cardiac testing EDURADA for further evaluation Will also refer her to cardiology EDUARDA for further evaluation and management (2) Type 2 diabetes mellitus with hyperglycemia, with long-term current use of insulin: Code(s): E11.65 - Type 2 diabetes mellitus with hyperglycemia; 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 Ray She was supposed to get a CGM placed to help her trach her blood sugar better but she currently still does not have one in place As she appears completely lost when I asked her about her diet today, will go ahead and refer her to manager rfid to see if they can help her get some better insight on how to go about changing her diet to help her better control her diabetes (3) Pure hypercholesterolemia: Code(s): E78.00 - Pure hypercholesterolemia, unspecified Plan: Results of her labs done earlier today reviewed and discussed with patient - her serum triglyceride level has increased significantly from previous and is now again >1000 mg/dl, most likely in relation to her uncontroled DM Reinforced low cholesterol diet Continue Atorvastatin 80 mg QD for now; have considered starting her additionally on Fibrates but will have her get checked out by cardiology first for her recent chest symptoms Will recheck her labs and fasting lipids in 3 months for follow-up (4) Essential hypertension: Code(s): I10 - Essential (primary) hypertension Plan: Reinforced low-sodium diet -? goal is systolic BP of 120 mm or less Continue Lisinopril-Hydrochlorothiazide 20-12.5 mg QD (5) Hypothyroidism: Code(s): E03.9 - Hypothyroidism, unspecified Qualifiers: Hypothyroidism type: acquired Qualified Code(s): E03.9 - Hypothyroidism, unspecified Plan: Continue Levothyroxine 50 mcg QD although patient states that she has not taken her thyroid Rx in the past week - unclear as to WHY she is not taking it Have advised her to get BACK on her Levothyroxine daily Will recheck her TFTs in 3 months for follow up (6) Tachycardia: Code(s): R00.0 - Tachycardia, unspecified Plan: Occurring off and on - is most likely related to or triggered by her anxiety but with her uncontrolled DM, should still check these out further for possible cardiac issues - she will be sent for cardiac stress testing and cardiology dex luation EKG and echocardiogram done last year both came out normal (7) Dizziness: Code(s): R42 - Dizziness and giddiness Plan: Unknown etiology; may be possibly due to some inner ear issue She was referred to ENT previously for further evaluation and management - has not been seen yet (8) Dupuytren's contracture of both hands: Code(s): M72.0 - Palmar fascial fibromatosis [Dupuytren] Plan: S/P trigger finger release of the left middle finger a few months ago, with significant improvement of symptoms Follow up with orthopedics as scheduled (9) GERD without esophagitis: Comment: UGI series done in October 2019 revealed (+) mild reflux disease without hiatal hernia Code(s): K21.9 - Gastro-esophageal reflux disease without esophagitis Plan: Dietary restrictions reinforced Continue Pantoprazole 40 mg QD (10) Abdominal pain: Comment: Vague, somewhat difficult to assess Code(s): R10.9 - Unspecified abdominal pain Qualifiers: Abdominal location: epigastric Qualified Code(s): R10.13 - Epigastric pain Plan: Resolved lately Abdominal US done a few months ago and gastric emptying time done last month both came out grossly normal Patient reportedly had a bout of pancreatitis a few months ago Follow up with GI as scheduled (11) Lumbar degenerative disc disease: Code(s): M51.36 - Other intervertebral disc degeneration, lumbar region Plan: Lumbar spine x-rays done in March 2021 showed (+) old mild degenerative changes over L4-L5 and L5-S1; there is also a mild L2 superior endplate depression that appears to be new (when compared to views from abdominal and pelvic CT done on 08/10/2018) X-rays of the lumbar spine done back in 09/2013 revealed (+) mild degenerative osteoarthritis of the lumbosacral spine with minimal disc space narrowing seen at L4-L5 and L5-S1 Continue TIzanidine 4 mg TID PRN Reinforced activity in weightlifting restrictions If low back pain gets worse, will consider getting an MRI of the lumbar spine for further evaluation and/ or refer to neurosurgery (12) Primary osteoarthritis of hips, bilateral: Code(s): M16.0 - Bilateral primary osteoarthritis of hip Plan: X-rays of both hips done in March 2021 revealed (+) borderline/mild narrowing of bilateral superior medial hip joints. No erosive change or chondrocalcinosis are noted Previous hip x-rays done back on 10/20/2013 came out normal bilaterally Continue Nabumetone 500 mg BID PRN with food for pain Consider referral to physical therapy or orthopedics if her hip symptoms get worse (13) Primary osteoarthritis, left shoulder: Code(s): M19.012 - Primary osteoarthritis, left shoulder Plan: X-rays of the left shoulder done a couple of months ago revealed (+) advanced OA changes Follow up with orthopedics as scheduled Continue Nabumetone 500 mg BID with food PRN for severe pain (14) Anxiety: Code(s): F41.9 - Anxiety disorder, unspecified Plan: Continue Clonidine 0.1 mg BID PRN and Lorazepam PRN Is also on Sertraline 50 mg QD (15) Depression: Code(s): F32.9 - Major depressive disorder, single episode, unspecified Qualifiers: Depression Type: major depressive disorder Major depression recurrence: recurrent Active/Remission status: currently active Major depression episode severity: unspecified Qualified Code(s): F33.9 - Major depressive disorder, recurrent, unspecified Plan: Continue Sertraline 50 mg QD and Mirtazapine 7.5 mg Q HS Follow up with psychiatry as scheduled (16) Obesity (BMI 30-39.9): Code(s): E66.9 - Obesity, unspecified Plan: Reinforced diet/exercise as tolerated/lose weight Plan Follow up in 3 months Orders: Orders CA lexiscan stress w parth Today R07.89 - Other chest pain Complete Blood Count Auto Diff 3 Months I10 - Essential (primary) hypertension Lipid Panel 3 Months E78.00 - Pure hypercholesterolemia, unspecified UA CC w/rflx Micro + Cult 3 Months R30.0 - Dysuria Vitamin D 25-OH Total 3 Months E55.9 - Vitamin D deficiency, unspecified Comprehensive [place]. Panel Fast 3 Months E78.00 - Pure hypercholesterolemia, unspecified Hemoglobin A1c 3 Months E11.9 - Type 2 diabetes mellitus without complications Microalbumin, Random (w Creat) 3 Months E11.9 - Type 2 diabetes mellitus without complications Free T4 (Free Thyroxine) 3 Months E03.9 - Hypothyroidism, unspecified Vitamin B12 and Folate 3 Months E53.8 - Deficiency of other specified B group vitamins Thyroid Stimulating Hormone 3 Months E03.9 - Hypothyroidism, unspecified Referrals Cardiology Referral R07.89 - Other chest pain Nutrition/Dietitian Referral E11.65 - Type 2 diabetes mellitus with hyperglycemia, 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.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 Coding Level of Care Code Est Pt Level 4 (18109) Diagnoses Chest discomfort R07.89 Type 2 diabetes mellitus with hyperglycemia, with long-term current use of insulin E11.65; Z79.4 Pure hypercholesterolemia E78.00 Essential hypertension I10 Acquired hypothyroidism E03.9 Hypothyroidism type: acquired Tachycardia R00.0 Dizziness R42 Dupuytren's contracture of both hands M72.0 GERD without esophagitis K21.9 Epigastric pain R10.13 Abdominal location: epigastric Lumbar degenerative disc disease M51.36 Primary osteoarthritis of hips, bilateral M16.0 Primary osteoarthritis, left shoulder M19.012 Anxiety F41.9 Episode of recurrent major depressive disorder, unspecified depression episode severity F33.9 Depression Type: major depressive disorder Major depression recurrence: recurrent Active/Remission status: currently active Major depression episode severity: unspecified Obesity (BMI 30-39.9) E66.9
== END 2022-11-12 14:20 | disposition home or self-care (01) ==
PROVIDERS: PCP Internal Medicine; Visit Provider Internal Medicine
DX: E11.65 Type 2 diabetes mellitus with hyperglycemia (principal); Z79.4 Long term (current) use of insulin; I10 Essential (primary) hypertension; E03.9 Hypothyroidism, unspecified; K21.9 Gastro-esophageal reflux disease without esophagitis; R07.89 Other chest pain; E78.00 Pure hypercholesterolemia, unspecified; R00.0 Tachycardia, unspecified; R42 Dizziness and giddiness; M72.0 Palmar fascial fibromatosis [Dupuytren]; R10.13 Epigastric pain
CPT/HCPCS: 99214

== ENCOUNTER 2022-11-13 13:54 | Outpatient (REF) | payer OTHER, SELFPAY | END 2022-11-13 13:55 | disposition home or self-care (01) | LOC: HO.LNP 13:54 | PROVIDERS: PCP Internal Medicine; Visit Provider Obstetrics & Gynecology | DX: N90.4 Leukoplakia of vulva (principal) | CPT/HCPCS: 56605; 56606; 88305; 88312 ==

== ENCOUNTER 2022-11-13 13:54 | Outpatient (AMB) | payer OTHER, SELFPAY ==
--- NOTE | 2022-11-13 14:07 | A.OFFVIS_ITS ---
Intake Vital Signs 11/13/22 14:09 Height 5 ft 3 in Weight 173 lb BMI 30.6 BP 126/74 Intake Visit Reasons: Vulva BX Allergies Iodinated Contrast Media [IV CONTRAST] Allergy (Intermediate, Verified 11/12/22 14:18) RASH iopromide [From ULTRAVIST] Allergy (Mild, Verified 11/12/22 14:18) ITCHING PFSH Medical History Chest discomfort Primary osteoarthritis of hips, bilateral Lumbar degenerative disc disease Pure hypercholesterolemia Conjunctivitis, right eye Acute right eye pain Recurrent epigastric abdominal pain Anxiety Obesity (BMI 30-39.9) GERD without esophagitis Ganglion cyst of tendon sheath of left hand Obesity due to excess calories Gastritis GERD (gastroesophageal reflux disease) Depression Hypothyroidism Type 2 diabetes mellitus with hyperglycemia, with long-term current use of insulin Type 2 diabetes mellitus with diabetic polyneuropathy Type 2 diabetes mellitus with diabetic nephropathy Essential hypertension Hyperlipidemia LDL goal <100 Diabetes mellitus Surgical History Hx of tubal ligation History of herniated intervertebral disc Family History Father Throat cancer Mother Diabetes mellitus CVD (cardiovascular disease) Maternal Aunt Breast cancer Social History Household Members: None Housing: Apartment Alcohol intake: never Patient Tobacco Use Status: Former Tobacco user e-Cigarette/Vaping Use: Never Used Second Hand Smoke Exposure: No service: No Current occupational status: disabled Sexual orientation: Straight/Heterosexual Gender identity: Female Cognitive needs: No Hearing needs: No Vision needs: Yes Female Reproductive History Menstrual Age of Menarche: 12 Physical Exam Vital Signs: Last Vital Signs BP 126/74 11/13/22 14:09 BMI result Body Mass Index 30.6 Office Procedures [facility] Biopsy Before the procedure was started d/w patient the procedure, alternatives ( do nothing, medical rx), & all the risks associated with the procedure ( bleeding , infection, vulvar scarring, painful intercourse, injury to vessels, possible need for transfusion with all its risks) then patient signed the consent. 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 3 cc of lidocaine was used for anesthesia at the Right and left posterior fourchette leukoplakia areas ; using punch biopsy and pickup the Right and left posterior fourchette leukoplakia were biopsied. Pressure was used for hemostasis. The patient tolerated the procedure well. Discharge Instructions: The patient was instructed to schedule an appointment in 2 weeks for follow-up and to call if temp>100.4, area of the biopsy redness or pain, nausea/vomiting. This note was generated with a voice recognition program. Some errors may have been overlooked during the review of this note. Sometimes these errors may affect the content or meaning of a given sentence. 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
[2022-11-13 14:09] VITALS: BP 126/74; BMI 30.6
== END 2022-11-13 14:45 | disposition home or self-care (01) ==
LOC: HO.HWS 13:54
PROVIDERS: PCP Internal Medicine; Visit Provider Obstetrics & Gynecology
DX: N90.4 Leukoplakia of vulva (principal)
CPT/HCPCS: 56605; 56606

== ENCOUNTER 2022-12-23 10:47 | Outpatient (AMB) | payer OTHER, SELFPAY ==
[2022-12-23 11:10] VITALS: BMI 31.2
--- NOTE | 2022-12-23 11:10 | A.OFFVIS_ITS ---
Intake VS Expanded 12/23/22 11:10 12/30/22 21:28 Height 5 ft 3 in 5 ft 3 in Weight 176 lb 5.917 oz 176 lb BMI 31.2 31.2 Intake Visit Reasons: Type 2 diabetes mellitus with hyperglycemia Allergies Iodinated Contrast Media [IV CONTRAST] Allergy (Intermediate, Verified 11/12/22 14:18) RASH iopromide [From ULTRAVIST] Allergy (Mild, Verified 11/12/22 14:18) ITCHING HPI Nutrition Presentation Details Pt presents for MNT for T2DM with hyperglycemia. Pt was referred by PCP, Dr. 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 Pt expresses interest in making diet modifications and working towards BG control. ETOH/Smoking- denies fruits/d: 0-1/ has > 2 serving of fruit juices ve-1/d dairy: 2-3 serving/d starches > 20 serving/d protein : 6-12 oz/d fluids: water/juice/soda/coffee , > 40 oz/d pastries/: 2 + fried foods: 4-5 x/wks CLY-Ddffoki-Rz.Jeor Equation Height 5 ft 3 in Weight 176 lb Resting Metabolic Rate 1331.61 Calculated Activity Level Sedentary Calories Needed to Maintain Weight 1597.93 Diagnosis Nutrition problem #1 food nutri know defi As related to (etiology) #1 diagnosis and physical inactivity As evidenced by (sign/symptom) #1 knowledge deficit of diet Monitoring/Goals Nutrition problem monitoring HgbA1c (A1c at 10% on 10/2022), level of knowledge/skill and total CHO intake Nutrition goal/outcome list 3 CHO foods (Reduction of A1c by 1% in 3months) Learning/Education Readiness to learn good Stages of change contemplation Educational materials provided Yes (Low sugar beverages/snacks, healthy plate method ) Most Recent Diabetes Results: Microalb/Creat Ratio 78.2 ug/mg cr (<30) H 11/12/22 Cholesterol 218 mg/dL (<200) H 11/12/22 HDL Cholesterol 32 mg/dL (>40) L 11/12/22 Triglycerides 1106 mg/dL (<150) H 11/12/22 Creatinine 0.74 mg/dL (0.5-1.4) 11/12/22 Blood Urea Nitrogen 16 mg/dL (9-16) 11/12/22 Sodium 139 mmol/L (135-145) 11/12/22 Potassium 4.3 mmol/L (3.3-5.1) 11/12/22 Chloride 105 mmol/L (96-108) 11/12/22 Carbon Dioxide 25 mmol/L (22-29) 11/12/22 Calcium 10.0 mg/dL (8.4-10.2) 11/12/22 AST 17 U/L (5-31) 11/12/22 ALT 16 U/L (0-31) 11/12/22 Total Protein 8.5 g/dL (6.5-8.0) H 11/12/22 Albumin 4.3 g/dL (3.5-5.0) 11/12/22 [facility] Medical History Chest discomfort Primary osteoarthritis of hips, bilateral Lumbar degenerative disc disease Pure hypercholesterolemia Conjunctivitis, right eye Acute right eye pain Recurrent epigastric abdominal pain Anxiety Obesity (BMI 30-39.9) GERD without esophagitis Ganglion cyst of tendon sheath of left hand Obesity due to excess calories Gastritis GERD (gastroesophageal reflux disease) Depression Hypothyroidism Type 2 diabetes mellitus with hyperglycemia, with long-term current use of insulin Type 2 diabetes mellitus with diabetic polyneuropathy Type 2 diabetes mellitus with diabetic nephropathy Essential hypertension Hyperlipidemia LDL goal <100 Diabetes mellitus Surgical History Hx of tubal ligation History of herniated intervertebral disc Family History Father Throat cancer Mother Diabetes mellitus CVD (cardiovascular disease) Maternal Aunt Breast cancer Social History Household Members: None Housing: Apartment Alcohol intake: never Patient Tobacco Use Status: Former Tobacco user e-Cigarette/Vaping Use: Never Used Second Hand Smoke Exposure: No service: No Current occupational status: disabled Sexual orientation: Straight/Heterosexual Gender identity: Female Cognitive needs: No Hearing needs: No Vision needs: Yes Female Reproductive History Menstrual Age of Menarche: 12 Assessment & Plan Assessment & Plan (1) Type 2 diabetes mellitus with hyperglycemia, with long-term current use of insulin: Code(s): E11.65 - Type 2 diabetes mellitus with hyperglycemia; 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 Plan: wt: 80 kg Est kcal needs as per MSJ: 1600 (40% carb, 30% protein/fat) Est fluid needs as per 25-30 ml/d: 2000- 2400 Est prot per day as per 1 g/kg bw: 80 Recommend fiber intake : 8-10 g per day and gradually increase to 25-28 g per day for women and 35-38 g for men or as tolerated Recommend sodium intake per day : less than 2000 mg Educated patient on: ( R = reviewed V = verbalizes understanding N/R = needs review N/A = not applicable * Reviewed relationship of carbohydrate/sugars to blood sugar level: R * Food sources of carbohydrate, adequate serving sizes and its role in various health conditions: R * Differences between complex carbohydrates a simple carbohydrates, role of fiber in diet: R * Differences between types of fats and role in diet (mono on saturated fat fatty acids, saturated fatty acids, trans fats): NR * Food sources of sodium in salt and healthy modifications for heart health in kidney health: N R * Vitamins and minerals: NR * Healthy plate method concept: R V * Physical activity: Benefits a precaution: R * Hypoglycemia protocol (rule of 15): NR * Dietary prevention of Hyperglycemia: R * Hydration with water, no sugar added beverages: R, V Patient Instructions: Isabell agua con las comidas y meriendas, no consuma bebidas que contengan azucar- sydnee la lista de bebidas que puede consumir Escoja meriendas con 0-20 gramos de carbohidratos - siga la lista de meriendas que puede escoger, limite a 2 meriendas al berenice Drink water with meals/snacks, do not choose sugar containing beverages fo now - see list of no sugar containing options Choose snacks with 0-20 g of carbohydrates- see the list with possible optios. Limit to 2 snacks a day Coding Level of Care Code Nutr Indiv Intake (74529) Diagnoses Type 2 diabetes mellitus with hyperglycemia, with long-term current use of insulin E11.65; Z79.4 Time Spent (min) 30
[2022-12-30 21:28] VITALS: BMI 31.2
== END 2022-12-23 11:42 | disposition home or self-care (01) ==
PROVIDERS: PCP Internal Medicine; Visit Provider Dietitian, Registered
DX: E11.65 Type 2 diabetes mellitus with hyperglycemia (principal); Z79.4 Long term (current) use of insulin

== ENCOUNTER → 2022-12-23 10:47 | Outpatient (BNVA) | payer OTHER, SELFPAY | PROVIDERS: PCP Internal Medicine; Visit Provider Dietitian, Registered | DX: E11.65 Type 2 diabetes mellitus with hyperglycemia (principal); E11.42 Type 2 diabetes mellitus with diabetic polyneuropathy; E11.21 Type 2 diabetes mellitus with diabetic nephropathy; E66.9 Obesity, unspecified; Z68.31 Body mass index [BMI] 31.0-31.9, adult; Z79.4 Long term (current) use of insulin; Z91.118 Patient's noncompliance with dietary regimen for other reason; Z91.148 Patient's other noncompliance with medication regimen for other reason; Z71.3 Dietary counseling and surveillance | CPT/HCPCS: 97802 ==

== ENCOUNTER 2023-01-07 13:06 | Outpatient (AMB) | payer OTHER, SELFPAY ==
--- NOTE | 2023-01-07 13:06 | A.OFFVIS_ITS ---
Intake Intake Visit Reasons: Biopsy follow up/DO NOT RS Bioinformatics Analyst Required: Yes Bioinformatics Analyst Language: Funeral Service Manager Name: Kayleen TOPETE Information Interpreted: non-clinical & clinical Accompanied by: Self / Same As Patient Allergies Iodinated Contrast Media [IV CONTRAST] Allergy (Intermediate, Verified 01/07/23 13:07) RASH iopromide [From ULTRAVIST] Allergy (Mild, Verified 01/07/23 13:07) ITCHING Post menopausal: Yes HPI HPI Comments History of Present Illness Details The patient scheduled tele health visit up after vulvar biopsies. The pathology showed the following: A. Vulva, right posterior fourchette, biopsy: Superficial fragments of squamous mucosa with hyperplasia, parakeratosis and mild spongiotic dermatitis; negative for fungal organisms and dysplasia. B. Vulva, left posterior fourchette, biopsy: Squamous mucosa with mild subacute spongiotic dermatitis and mild chronic inflammation; negative for fungal organisms and dysplasia. COMMENT: The presence of mild spongiotic dermatitis is non-specific. This reaction pattern may be seen with chronic irritation, eczematous changes, topical irritants, occult/adjacent fungal infection, or other etiologies. Clinical correlation is suggested [facility] Medical History Chest discomfort Primary osteoarthritis of hips, bilateral Lumbar degenerative disc disease Pure hypercholesterolemia Conjunctivitis, right eye Acute right eye pain Recurrent epigastric abdominal pain Anxiety Obesity (BMI 30-39.9) GERD without esophagitis Ganglion cyst of tendon sheath of left hand Obesity due to excess calories Gastritis GERD (gastroesophageal reflux disease) Depression Hypothyroidism Type 2 diabetes mellitus with hyperglycemia, with long-term current use of insulin Type 2 diabetes mellitus with diabetic polyneuropathy Type 2 diabetes mellitus with diabetic nephropathy Essential hypertension Hyperlipidemia LDL goal <100 Diabetes mellitus Surgical History Hx of tubal ligation History of herniated intervertebral disc Family History Father Throat cancer Mother Diabetes mellitus CVD (cardiovascular disease) Maternal Aunt Breast cancer Social History Household Members: None Housing: Apartment Alcohol intake: never Patient Tobacco Use Status: Former Tobacco user e-Cigarette/Vaping Use: Never Used Second Hand Smoke Exposure: No service: No Current occupational status: disabled Sexual orientation: Straight/Heterosexual Gender identity: Female Cognitive needs: No Hearing needs: No Vision needs: Yes Female Reproductive History Menstrual Age of Menarche: 12 Review of Systems Const All systems reviewed & are unremarkable except as noted in HPI and below Reports as per HPI and Reports no additional complaints GI Reports no additional complaints Reports no additional complaints Assessment & Plan Assessment & Plan (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 Recommended hydrocortisone 1% [id number] as needed. Instructions given the patient to call in case of persistence of her symptoms, evidence of hard areas or open sores that are nonhealing. All questions answered, the patient verbalized understanding. I spent a total of 20 minutes reviewing the chart, talking to the patient via phone and documenting in the medical record. Telehealth Telehealth Location of provider rendering services: practice address Location of patient: address on file Patient Identification confirmed using: Name, : Yes Telehealth method: voice only Patient verbally consented to treatment: Yes Patient verbally consented to billing insurance company: Yes Patient informed of any privacy concerns related to visit: Yes Coding Level of Care Code Tele Est Pt Level 1 (35144) Diagnoses Vulvar leukoplakia N90.4
== END 2023-01-07 15:36 | disposition home or self-care (01) ==
LOC: HO.HWS 13:06
PROVIDERS: PCP Internal Medicine; Visit Provider Obstetrics & Gynecology
DX: N90.4 Leukoplakia of vulva (principal)
CPT/HCPCS: 99211

== ENCOUNTER → 2023-01-07 13:06 | Outpatient (BNVA) | payer OTHER, SELFPAY | PROVIDERS: PCP Internal Medicine; Visit Provider Obstetrics & Gynecology ==

== ENCOUNTER 2023-01-13 13:39 | Outpatient (AMB) | payer OTHER, SELFPAY ==
--- NOTE | 2023-01-13 13:59 | A.OFFVIS_ITS ---
Intake Intake Visit Reasons: Simón set up-CONFIRMED Allergies Iodinated Contrast Media [IV CONTRAST] Allergy (Intermediate, Verified 01/07/23 13:07) RASH iopromide [From ULTRAVIST] Allergy (Mild, Verified 01/07/23 13:07) ITCHING HPI Comprehensive Diabetes Asmnt Most Recent Diabetes Results: Microalb/Creat Ratio 78.2 ug/mg cr (<30) H 11/12/22 Cholesterol 218 mg/dL (<200) H 11/12/22 HDL Cholesterol 32 mg/dL (>40) L 11/12/22 Triglycerides 1106 mg/dL (<150) H 11/12/22 Creatinine 0.74 mg/dL (0.5-1.4) 11/12/22 Blood Urea Nitrogen 16 mg/dL (9-16) 11/12/22 Sodium 139 mmol/L (135-145) 11/12/22 Potassium 4.3 mmol/L (3.3-5.1) 11/12/22 Chloride 105 mmol/L (96-108) 11/12/22 Carbon Dioxide 25 mmol/L (22-29) 11/12/22 Calcium 10.0 mg/dL (8.4-10.2) 11/12/22 AST 17 U/L (5-31) 11/12/22 ALT 16 U/L (0-31) 11/12/22 Total Protein 8.5 g/dL (6.5-8.0) H 11/12/22 Albumin 4.3 g/dL (3.5-5.0) 11/12/22 [facility] Medical History Chest discomfort Primary osteoarthritis of hips, bilateral Lumbar degenerative disc disease Pure hypercholesterolemia Conjunctivitis, right eye Acute right eye pain Recurrent epigastric abdominal pain Anxiety Obesity (BMI 30-39.9) GERD without esophagitis Ganglion cyst of tendon sheath of left hand Obesity due to excess calories Gastritis GERD (gastroesophageal reflux disease) Depression Hypothyroidism Type 2 diabetes mellitus with hyperglycemia, with long-term current use of insulin Type 2 diabetes mellitus with diabetic polyneuropathy Type 2 diabetes mellitus with diabetic nephropathy Essential hypertension Hyperlipidemia LDL goal <100 Diabetes mellitus Surgical History Hx of tubal ligation History of herniated intervertebral disc Family History Father Throat cancer Mother Diabetes mellitus CVD (cardiovascular disease) Maternal Aunt Breast cancer Social History Household Members: None Housing: Apartment Alcohol intake: never Patient Tobacco Use Status: Former Tobacco user e-Cigarette/Vaping Use: Never Used Second Hand Smoke Exposure: No service: No Current occupational status: disabled Sexual orientation: Straight/Heterosexual Gender identity: Female Cognitive needs: No Hearing needs: No Vision needs: Yes Female Reproductive History Menstrual Age of Menarche: 12 Assessment & Plan Assessment & Plan (1) Type 2 diabetes mellitus with hyperglycemia, with long-term current use of insulin: Code(s): E11.65 - Type 2 diabetes mellitus with hyperglycemia; 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 Discussed lag time between finger stick and sensor data.? Instructed patient she should always keep blood glucometer for backup testing if needed Reviewed delay of CGM from fingersticks Reminded pt that if symptoms do not match sensor still needs to check fingersticks. Patient Instructions: Instrucciones para el paciente: CGM proporciona informaci?n sobre el control de la glucosa en symone a lo tamiko del d?a, incluidas la hiperglucemia y la hipoglucemia. Contin?e controlando la glucosa en symone seg?n las instrucciones. Siga las pautas de nutrici?n proporcionadas. Informe cualquier molestia de inmediato al proveedor de atenci?n m?dica. Mantente wicho hidratado. Puede ba?arse, ducharse, nadar y hacer ejercicio mientras usa el sensor de glucosa. No sumerja el sensor de glucosa en agua du rante m?s de 30 minutos. Retire el sensor para cesar resonancia magn?leatha o cesar tomograf?a computarizada. Evite la m?quina de meseret X en los aeropuertos: retire el sensor o solicite la varita Coding Level of Care Code Est Pt Level 1 (79482) Diagnoses Type 2 diabetes mellitus with hyperglycemia, with long-term current use of insulin E11.65; Z79.4
== END 2023-01-13 14:02 | disposition home or self-care (01) ==
PROVIDERS: PCP Internal Medicine; Visit Provider Registered Nurse Diabetes Educator
DX: E11.65 Type 2 diabetes mellitus with hyperglycemia (principal); Z79.4 Long term (current) use of insulin

== ENCOUNTER → 2023-01-13 13:39 | Outpatient (BNVA) | payer OTHER, SELFPAY | PROVIDERS: PCP Internal Medicine; Visit Provider Registered Nurse Diabetes Educator | DX: E11.65 Type 2 diabetes mellitus with hyperglycemia (principal); Z79.4 Long term (current) use of insulin | CPT/HCPCS: 99211 ==

== ENCOUNTER 2023-02-02 14:20 | Emergency (ER) | payer OTHER, SELFPAY ==
--- NOTE | 2023-02-02 14:41 | ED.GENADULT ---
HPI - General Adult General Chief complaint: Abdominal Pain Stated complaint: diarrhea vomiting Source: patient Mode of arrival: ambulatory Limitations: no limitations History of Present Illness HPI narrative: Patient is a 62 year old assigned female at with a history of DM, GERD, and depression presenting to the emergency department today with upper abdominal pain, nausea, vomiting, diarrhea, and intermittent dizziness. Patient states that starting this morning she began to have upper abdominal pain with nausea, vomiting, diarrhea, and intermittent dizziness. Patient denies any lightheadedness, fever, chills, blurry vision, double vision, loss of vision, chest pain, difficulty breathing, shortness of breath, back pain, night sweats, pain with urination, increased urinary frequency, increased urinary urgency, blood in her urine or stool, syncope or a near syncopal episode, recent trauma or falls, bowel incontinence, bladder incontinence, bowel retention, bladder retention, or any other complaints at this time. Onset (ago): hour(s) Location: abdomen Radiation: non-radiation Severity: mild Severity scale (1-10): 4 Quality: dull Pain Consistency: intermittent Relieving factors: none Exacerbating factors: none Associated symptoms: nausea/vomiting Treatments prior to arrival: none Related Data Home Medications Medication Instructions Recorded Confirmed pen needle, diabetic 29 gauge x #100 ea 01/19/20 11/12/2203/03 Previous Rx's Medication Instructions Recorded lorazepam 0.5 mg tablet 0.5 mg PO DAILY PRN anxiety 30 04/25/21 days #21 tabs trazodone 50 mg tablet 50 mg PO BEDTIME PRN sleep 30 days 05/28/21 #30 tabs blood sugar diagnostic (FreeStyle #100 ea 06/13/21 Lite Strips) cholecalciferol (vitamin D3) 50 50 mcg PO DAILY #90 caps 06/13/21 mcg (2,000 unit) capsule lancets 28 gauge (FreeStyle #100 ea 06/13/21 Lancets) sertraline 50 mg tablet 50 mg PO DAILY 30 days #30 tabs 09/25/21 albuterol sulfate 90 mcg/actuation 2 puff inhalation Q4-6H PRN 10/17/21 aerosol inhaler shortness of breath or wheezing #6.7 grams fluticasone propionate 50 2 spray intranasal DAILY #16 grams 10/17/21 mcg/actuation nasal spray,suspension (Flonase Allergy Relief) tizanidine 4 mg tablet 4 mg PO Q8H PRN low back pain 10 12/02/21 days #30 tabs Ventolin HFA 90 mcg/actuation 2 puff inhalation Q6H PRN 01/27/22 aerosol inhaler (albuterol sulfate) shortness of breath or wheezing 30 days #18 grams lisinopril 20 1 tab PO DAILY 90 days #90 tabs 04/23/22 mg-hydrochlorothiazide 12.5 mg tablet empagliflozin 25 mg tablet 25 mg PO DAILY #90 tabs 06/03/22 (Jardiance) flash glucose scanning reader #1 ea 06/26/22 (FreeStyle Simón 2 [place]) flash glucose sensor (FreeStyle #2 ea 06/26/22 Simón 2 Sensor kit) pantoprazole 40 mg tablet,delayed 40 mg PO DAILY 30 days #30 tabs 08/05/22 release fluconazole 100 mg tablet 100 mg PO DAILY 3 days #3 tabs 08/06/22 acetaminophen 300 mg-codeine 30 mg 1 tab PO Q6H PRN pain #14 tabs 09/04/22 tablet doxycycline hyclate 100 mg capsule 100 mg PO BID 7 days #14 caps 09/04/22 methylcellulose (laxative) 500 mg 500 mg PO TID 30 days #90 tabs 10/23/22 tablet (Citrucel) peg-electrolyte solution 420 gram 240 ml PO ONCE PRN laxative effect 10/23/22 oral solution 1 day #4,000 mL Lantus Solostar U-100 Insulin 100 44 unit (0.44 mL) subcut DAILY 90 11/05/22 unit/mL (3 mL) subcutaneous pen days #40 mL (insulin glargine) insulin lispro 100 unit/mL See Rx Instructions subcut DAILY 11/05/22 subcutaneous pen (Humalog KwikPen 30 days #3.6 mL (U-100) Insulin) pen needle, diabetic 32 gauge x #125 ea 11/05/22 (BD Ultra-Fine Jordana Pen Needle) clonidine HCl 0.1 mg tablet 0.1 mg PO BID PRN for anxiety 30 11/21/22 days #60 tabs atorvastatin 80 mg tablet 80 mg PO BEDTIME #90 tabs 01/01/23 levothyroxine 50 mcg tablet 50 mcg PO QAM #90 tabs 01/01/23 mirtazapine 7.5 mg tablet 7.5 mg PO BEDTIME 30 days #30 tabs 01/30/23 Allergies Allergy/AdvReac Type Severity Reaction Status Date / Time Iodinated Contrast Media Allergy Intermediate RASH Verified 02/02/23 14:42 [IV CONTRAST] iopromide [From ULTRAVIST] Allergy Mild ITCHING Verified 02/02/23 14:42 Review of Systems Constitutional: Constitutional: Reports no additional constitutional complaints, Denies chills, Denies fever(s) and Denies night sweats Eyes: Eyes: Reports no additional eye complaints, Denies blurry vision, Denies change in vision, Denies diplopia, Denies eye discharge, Denies loss of vision and Denies eye pain ENT: Reports dizziness Cardiovascular: Cardiovascular: Reports no additional cardiovascular complaints, Denies chest pain, Denies lightheadedness, Denies Loss of Consciousness and Denies dyspnea Respiratory: Respiratory: Reports no additional respiratory complaints and Denies dyspnea Gastrointestinal: Gastrointestinal: Reports no additional gastrointestinal complaints, Reports abdominal pain, Denies melena, Denies hematochezia, Denies change in bowel habits, Denies change in stool character, Reports diarrhea, Reports nausea and Reports vomiting Genitourinary: Genitourinary: Denies hematuria, Denies urinary frequency, Denies dysuria, Denies urinary incontinence, Denies urinary hesitancy and Denies urinary urgency Musculoskeletal: Musculoskeletal: Reports no additional musculoskeletal complaints, Denies numbness and Denies tingling Neurologic: Reports dizziness, Denies loss of vision, Denies numbness and Denies tingling Psychiatric: Psychiatric: Reports no additional psychiatric complaints Endocrine: Endocrine: Reports no additional endocrine complaints Hematologic/Lymphatic: Hematologic/Lymphatic: Reports no additional hematologic/lymphatic complaints Allergic/Immunologic: Allergic/Immunologic: Reports no additional allergic/immunologic complaints FOR[facility]LY [facility] Past Medical History Attestation statement: The following information was validated with the patient. Source: old records reviewed and nursing notes reviewed Medical History Chest discomfort Loose stools Well woman exam Vaginal irritation Left shoulder pain Pancreatitis Dizziness Hordeolum externum left lower eyelid Respiratory tract infection Cough Poor historian Tachycardia Abdominal pain Recurrent nonproductive cough Status post fall Hip pain, bilateral Low back pain Vulvar leukoplakia Vulvar itching Conjunctivitis, right eye Acute right eye pain Recurrent epigastric abdominal pain Obesity (BMI 30-39.9) Annual physical exam Screening mammogram, encounter for Vulvovaginitis juani albicans Obesity due to excess calories Type 2 diabetes mellitus with diabetic nephropathy Hyperlipidemia LDL goal <100 Diabetes mellitus Primary osteoarthritis of hips, bilateral Lumbar degenerative disc disease Pure hypercholesterolemia Anxiety GERD without esophagitis Ganglion cyst of tendon sheath of left hand Gastritis GERD (gastroesophageal reflux disease) Depression Hypothyroidism Type 2 diabetes mellitus with hyperglycemia, with long-term current use of insulin Type 2 diabetes mellitus with diabetic polyneuropathy Essential hypertension Surgical History Hx of tubal ligation History of herniated intervertebral disc Family History Family History Father Throat cancer Mother Diabetes mellitus CVD (cardiovascular disease) Maternal Aunt Breast cancer Social History Social History Household Members: None Housing: Apartment Alcohol intake: never Patient Tobacco Use Status: Former Tobacco user e-Cigarette/Vaping Use: Never Used Second Hand Smoke Exposure: No Advance Directives: No Advance Directives Information Provided: No service: No Current occupational status: disabled Sexual orientation: Straight/Heterosexual Gender identity: Female Cognitive needs: No Hearing needs: No Vision needs: Yes Physical Exam ED Vital Signs: Vital Signs - 24 hr 02/02/23 14:43 Temperature 97.2 F Pulse Rate 125 H Respiratory Rate 20 Blood Pressure 152/80 H Pulse Oximetry 95 Oxygen Delivery Method Room Air BMI result Body Mass Index 33.1 Const General: cooperative, no acute distress, alert and awake Nutritional Appearance: well nourished Orientation/consciousness: patient oriented x3 Limitations: no limitations HENMT Head: Yes normal to inspection and Yes atraumatic Ears: hearing grossly normal bilaterally and external ears normal General nose exam: Normal external nose present, no nasal discharge noted and no epistaxis Face and sinus: Yes normal facial exam, No abrasion and No laceration Mouth: Normal oral and palatal mucosa present, no drooling and no muffled voice Eyes General: appearance normal, both eyes and all related structures Periorbital: periorbital findings normal Eyelids: Yes eyelids normal Conjunctivae: conjunctivae normal Pupils: Equal, round and reactive pupils present EOM: EOMs intact bilaterally Neck Neck: Yes normal visual inspection, Yes full ROM and Yes no lymphadenopathy Chest Chest palpation & inspection: normal inspection of the chest Resp Effort & Inspection: normal respiratory effort and able to speak in complete sentences GI Inspection: Yes normal to inspection Neuro General: patient oriented x3 and moves all extremities Cranial nerves: Yes Equal, round and reactive pupils present Cognition (Neuro): normal cognition Motor exam (neuro): 5/5 motor strength present throughout Sensory Exam: Normal double simultaneous stimulation for sensation Coordination: [id number] test normal Extrem General: Yes normal to inspection, Yes full ROM and Yes capillary refill normal Psych Appearance: grossly normal Mental Status: mental status grossly normal Affect: normal affect Attitude: cooperative Thought process: Normal thought process present Thought content: Normal thought content present Insight: Good insight present (Psych) Course Course Course Narrative: RME performed by Conchita Schwarz PA-C. Patient is a 62 year old assigned female at presenting to the emergency department with nausea, vomiting, and diarrhea. Labs and swabs ordered. Patient placed back in the waiting room pending room availability and results. Medical Decision Making Medical Decision Making MDM Narrative: Patient is a 62 year old assigned female at with a history of depression, GERD, and DM presenting to the emergency department today with abdominal pain, nausea, vomiting, diarrhea, and intermittent dizziness. Patient's limited physical exam performed in triage was unremarkable. Patient's blood work showed an elevated WBC count of 16.5 but was otherwise unremarkable. Patient left the department before completing treatment. Patient left the department before myself or any of the other emergency department clinicians could review or explain physical exam findings, lab results, need or lack there of for further testing or imaging, treatment plans, or treatment options. Differential Diagnosis Differential Diagnoses: The differential diagnosis associated with the presentation includes URI Viral illness Gastroenteritis Enteritis Admission/Observation Consideration of admission/observation: Escalation of care including admission/observation considered Patient left the department before completing treatment and before an admission decision could be made. Lab Data My interpretation of these results are in the MDM Rationale portion of this note. 02/02/23 16:13 02/02/23 16:13 Labs: Lab Results 02/02/23 Range/Units 16:13 WBC 16.5 H (4.8-10.8) X10*3/uL RBC 5.80 H (4.20-5.50) X10*6/uL Hgb 17.0 H (12.0-16.0) g/dl Hct 51.5 H (37.0-47.0) % MCV 88.8 (80.0-98.0) fL MCH 29.3 (27.0-33.0) pg MCHC 33.0 (31.0-35.0) g/dl RDW 13.9 (11.0-16.0) % Plt Count 256 (160-400) X10*3/uL MPV 9.8 (9.4-12.3) fL Immature Gran % (Auto) 0.5 H (0.0-0.4) % Neut % (Auto) 93.8 H (45-73) % Lymph % (Auto) 2.9 L (20-40) % [place] % (Auto) 2.4 (2-11) % Eos % (Auto) 0.2 (0-4) % Baso % (Auto) 0.2 (0-2) % Lymph # (Auto) 0.5 L (1.2-4.9) X10*3/uL [place] # (Auto) 0.4 (0.1-1.2) X10*3/uL Eos # (Auto) 0.0 (0.0-0.4) X10*3/uL Baso # (Auto) 0.0 (0.0-0.2) X10*3/uL Abs Immat Gran (auto) 0.08 H (0.00-0.03) X10*3/uL Absolute Neuts (auto) 15.4 H (2.0-8.3) x10*3/uL Absolute Nucleated RBC 0.000 (0.0-0.012) X10*3/uL Nucleated RBC % (auto) 0.0 (0.0-0.2) /100WBC Smear Tech's Comments VERIFIED Sodium 145 (135-145) mmol/L Potassium 4.4 (3.3-5.1) mmol/L Chloride 109 H (96-108) mmol/L Carbon Dioxide 24 (22-29) mmol/L Anion Gap 16 (12-20) BUN 27 H (9-16) mg/dL Creatinine 0.81 (0.5-1.4) mg/dL Estim Creat Clear Calc 74.3 Estimated GFR > 60 Random Glucose 349 H (60-115) mg/dL Calcium 9.8 (8.4-10.2) mg/dL Magnesium 2.0 (1.6-2.6) mg/dL Total Bilirubin 0.5 (0.0-1.0) mg/dL AST 22 (5-31) U/L ALT 29 (0-31) U/L Alkaline Phosphatase 111 (39-117) U/L Troponin I High Sens < 2.7 (<3.5-17.0) ng/L Total Protein 8.9 H (6.5-8.0) g/dL Albumin 4.6 (3.5-5.0) g/dL Influenza Type A (PCR) NEGATIVE (Negative) Influenza Type B (PCR) NEGATIVE (Negative) RSV RNA Qual (PCR) NEGATIVE (Negative) SARS-CoV-2 RNA (RT-PCR) NEGATIVE (Negative) Discharge Plan Discharge Clinical Impression: Dizziness, Abdominal pain Patient Disposition: Left W/O Completing Treatment Prescriptions: No Action lorazepam 0.5 mg tablet 0.5 mg PO DAILY PRN (Reason: anxiety) 30 Days Qty: 21 0RF Rx Instructions: Take only NEEDED trazodone 50 mg tablet 50 mg PO BEDTIME PRN (Reason: sleep) 30 Days Qty: 30 1RF sertraline 50 mg tablet 50 mg PO DAILY 30 Days Qty: 30 2RF tizanidine 4 mg tablet 4 mg PO Q8H PRN (Reason: low back pain) 10 Days Qty: 30 1RF Jardiance 25 mg tablet 25 mg PO DAILY Qty: 90 2RF pantoprazole 40 mg tablet,delayed release (DR/EC) 40 mg PO DAILY 30 Days Qty: 30 11RF (DME) pen needle, diabetic [BD Ultra-Fine Jordana Pen Needle] 32 gauge x 5/32 needle See Rx Instructions .ROUTE .MEDSUPPLY Qty: 125 3RF Rx Instructions: As directed four times a day insulin glargine [Lantus Solostar U-100 Insulin] 100 unit/mL (3 mL) insulin pen 44 unit subcut DAILY 90 Days Qty: 40 1RF insulin lispro [Humalog KwikPen Insulin] 100 unit/mL insulin pen See Rx Instructions subcut DAILY 30 Days Qty: 3.6 5RF Rx Instructions: 12 units for breakfast , 16 u nits for lunch and dinner subcutaneously daily; with largest meal of day clonidine HCl 0.1 mg tablet 0.1 mg PO BID PRN (Reason: for anxiety) 30 Days Qty: 60 5RF levothyroxine 50 mcg tablet 50 mcg PO QAM Qty: 90 0RF atorvastatin 80 mg tablet 80 mg PO BEDTIME Qty: 90 3RF mirtazapine 7.5 mg tablet 7.5 mg PO BEDTIME 30 Days Qty: 30 3RF albuterol sulfate 90 mcg/actuation HFA aerosol inhaler 2 puff inhalation Q4-6H PRN (Reason: shortness of breath or wheezing) Qty: 6.7 0RF fluticasone propionate [Flonase Allergy Relief] 50 mcg/actuation spray,suspension 2 spray intranasal DAILY Qty: 16 0RF Rx Instructions: administer into each nostril doxycycline hyclate 100 mg capsule 100 mg PO BID 7 Days Qty: 14 0RF acetaminophen-codeine 300-30 mg tablet 1 tab PO Q6H PRN (Reason: pain) Qty: 14 0RF lisinopril-hydrochlorothiazide 20-12.5 mg tablet 1 tab PO DAILY 90 Days Qty: 90 3RF albuterol sulfate [Ventolin HFA] 90 mcg/actuation HFA aerosol inhaler 2 puff inhalation Q6H PRN (Reason: shortness of breath or wheezing) 30 Days Qty: 18 1RF fluconazole 100 mg tablet 100 mg PO DAILY 3 Days Qty: 3 0RF (DME) pen needle, diabetic 29 gauge x 1/2 needle See Rx Instructions .ROUTE .MEDSUPPLY Qty: 100 Rx Instructions: As directed cholecalciferol (vitamin D3) 50 mcg (2,000 unit) capsule 50 mcg PO DAILY Qty: 90 3RF (DME) FreeStyle Lite Strips Strip See Rx Instructions .ROUTE .MEDSUPPLY Qty: 100 11RF Rx Instructions: As directed three times a day (DME) lancets [FreeStyle Lancets] 28 gauge misc See Rx Instructions .ROUTE .MEDSUPPLY Qty: 100 11RF Rx Instructions: Three times a day (DME) FreeStyle Simón 2 Sensor Kit See Rx Instructions .Route Qty: 2 5RF Rx Instructions: As directed change every 14 days (DME) FreeStyle Simón 2 [place] Misc See Rx Instructions .Route Qty: 1 0RF Rx Instructions: As directed peg-electrolyte soln 420 gram recon soln 240 ml PO ONCE PRN (Reason: laxative effect) 1 Days Qty: 4000 0RF Rx Instructions: Start at 6:00pm the evening before procedure, drink one 8oz glass every 15 minutes until complete Citrucel 500 mg tablet 500 mg PO TID 30 Days Qty: 90 5RF Discharge Date/Time: 02/02/23 19:59
[2023-02-02 14:43] VITALS: BP 152/80; PULSE 125; RESP 20; TEMP 36.2; O2SAT 95; BMI 33.1
[2023-02-02 16:35] LABS: Basophils Percent Auto 0.2 % (0-2); Eosinophils Percent Auto 0.2 % (0-4); Hematocrit 51.5 % (37.0-47.0); Imm Gran Abs Auto 0.08 X10*3/uL (0.00-0.03); Imm Gran Pct Auto 0.5 % (0.0-0.4); Lymphocytes Absolute Auto 0.5 X10*3/uL (1.2-4.9); Lymphocytes Percent Auto 2.9 % (20-40); MANUAL DIFF FLAG SCAN; Mean Corpuscular Hemoglobin 29.3 pg (27.0-33.0); Mean Corpuscular Volume 88.8 fL (80.0-98.0); Mean Platelet Volume 9.8 fL (9.4-12.3); Monocytes Absolute Auto 0.4 X10*3/uL (0.1-1.2); Monocytes Percent Auto 2.4 % (2-11); Neutrophils Absolute Auto 15.4 x10*3/uL (2.0-8.3); Neutrophils Percent Auto 93.8 % (45-73); Platelet Count 256 X10*3/uL (160-400); Red Cell Distribution Width 13.9 % (11.0-16.0); SCAN SMEAR FLAG 1; White Blood Count 16.5 X10*3/uL (4.8-10.8)
[2023-02-02 16:41] LABS: Alanine Aminotransferase 29 U/L (0-31); Albumin Level 4.6 g/dL (3.5-5.0); Alkaline Phosphatase 111 U/L (39-117); Anion Gap 16 (12-20); Aspartate Amino Transferase 22 U/L (5-31); Bilirubin Total 0.5 mg/dL (0.0-1.0); Blood Urea Nitrogen 27 mg/dL (9-16); Calcium 9.8 mg/dL (8.4-10.2); Carbon Dioxide 24 mmol/L (22-29); Chloride 109 mmol/L (96-108); Creatinine Clr Calc Pharmacy 74.3; Estimated Glomerular Filt Rate > 60; Glucose Random 349 mg/dL (60-115); Potassium 4.4 mmol/L (3.3-5.1); Sodium 145 mmol/L (135-145); Total Protein 8.9 g/dL (6.5-8.0)
[2023-02-02 16:55] LABS: Troponin-I High Sensitivity < 2.7 ng/L (<3.5-17.0)
[2023-02-02 16:59] LABS: SLIDE REVIEW VERIFIED
[2023-02-02 17:33] LABS: Influenza A PCR NEGATIVE (Negative); Influenza B PCR NEGATIVE (Negative); Resp Syncy Virus RNA Qual PCR NEGATIVE (Negative); SARS COV2 PCR INHOUSE NEGATIVE (Negative)
== END 2023-02-02 19:59 | disposition left against medical advice (07) ==
LOC: HO.ED 19:54
PROVIDERS: Physician Assistant Medical; Emergency Provider Emergency Medicine; PCP Internal Medicine
DX: R42 Dizziness and giddiness (principal); R10.2 Pelvic and perineal pain; R11.2 Nausea with vomiting, unspecified; Z20.822 Contact with and (suspected) exposure to COVID-19; Z20.828 Contact with and (suspected) exposure to other viral communicable diseases; Z79.899 Other long term (current) drug therapy
CPT/HCPCS: 0241U; 80053; 83735; 84484; 85025; 99281; 99283

== ENCOUNTER 2023-02-12 12:22 | Outpatient (AMB) | payer OTHER, SELFPAY ==
--- NOTE | 2023-02-12 12:43 | A.OFFVIS_ITS ---
Intake Intake Visit Reasons: DM-CONFIRMED Marketing Development Representative Required: Yes Marketing Development Representative Language: Director Of Regulatory Affairs Name: [facility] Information Interpreted: non-clinical & clinical Allergies Iodinated Contrast Media [IV CONTRAST] Allergy (Intermediate, Verified 02/02/23 14:42) RASH iopromide [From ULTRAVIST] Allergy (Mild, Verified 02/02/23 14:42) ITCHING HPI Comprehensive Diabetes Asmnt Most Recent Diabetes Results: Creatinine 0.81 mg/dL (0.5-1.4) 02/02/23 Blood Urea Nitrogen 27 mg/dL (9-16) H 02/02/23 Sodium 145 mmol/L (135-145) 02/02/23 Potassium 4.4 mmol/L (3.3-5.1) 02/02/23 Chloride 109 mmol/L (96-108) H 02/02/23 Carbon Dioxide 24 mmol/L (22-29) 02/02/23 Calcium 9.8 mg/dL (8.4-10.2) 02/02/23 AST 22 U/L (5-31) 02/02/23 ALT 29 U/L (0-31) 02/02/23 Total Protein 8.9 g/dL (6.5-8.0) H 02/02/23 Albumin 4.6 g/dL (3.5-5.0) 02/02/23 [facility] Medical History Chest discomfort Loose stools Well woman exam Vaginal irritation Left shoulder pain Pancreatitis Dizziness Hordeolum externum left lower eyelid Respiratory tract infection Cough Poor historian Tachycardia Abdominal pain Recurrent nonproductive cough Status post fall Hip pain, bilateral Low back pain Vulvar leukoplakia Vulvar itching Conjunctivitis, right eye Acute right eye pain Recurrent epigastric abdominal pain Obesity (BMI 30-39.9) Annual physical exam Screening mammogram, encounter for Vulvovaginitis juani albicans Obesity due to excess calories Type 2 diabetes mellitus with diabetic nephropathy Hyperlipidemia LDL goal <100 Diabetes mellitus Primary osteoarthritis of hips, bilateral Lumbar degenerative disc disease Pure hypercholesterolemia Anxiety GERD without esophagitis Ganglion cyst of tendon sheath of left hand Gastritis GERD (gastroesophageal reflux disease) Depression Hypothyroidism Type 2 diabetes mellitus with hyperglycemia, with long-term current use of insulin Type 2 diabetes mellitus with diabetic polyneuropathy Essential hypertension Surgical History Hx of tubal ligation History of herniated intervertebral disc Family History Father Throat cancer Mother Diabetes mellitus CVD (cardiovascular disease) Maternal Aunt Breast cancer Social History Household Members: None Housing: Apartment Alcohol intake: never Patient Tobacco Use Status: Former Tobacco user e-Cigarette/Vaping Use: Never Used Second Hand Smoke Exposure: No service: No Current occupational status: disabled Sexual orientation: Straight/Heterosexual Gender identity: Female Cognitive needs: No Hearing needs: No Vision needs: Yes Female Reproductive History Menstrual Age of Menarche: 12 Assessment & Plan Assessment & Plan (1) Type 2 diabetes mellitus with hyperglycemia, with long-term current use of insulin: Code(s): E11.65 - Type 2 diabetes mellitus with hyperglycemia; 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 She tried to put in the 2nd Simón sensor that she received but she said that she did it incorrectly. 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
== END 2023-02-12 12:45 | disposition home or self-care (01) ==
PROVIDERS: PCP Internal Medicine; Visit Provider Registered Nurse Diabetes Educator
DX: E11.65 Type 2 diabetes mellitus with hyperglycemia (principal); Z79.4 Long term (current) use of insulin

== ENCOUNTER → 2023-02-12 12:22 | Outpatient (BNVA) | payer OTHER, SELFPAY | PROVIDERS: PCP Internal Medicine; Visit Provider Registered Nurse Diabetes Educator | DX: E11.65 Type 2 diabetes mellitus with hyperglycemia (principal); Z79.4 Long term (current) use of insulin | CPT/HCPCS: 99211 ==

== ENCOUNTER 2023-02-17 13:48 | Outpatient (AMB) | payer OTHER, SELFPAY ==
--- NOTE | 2023-02-17 14:02 | MHC.OFFVIS ---
Intake Vital Signs 02/17/23 14:03 Height 5 ft 3 in Weight 187 lb 6.287 oz BMI 33.2 BP 132/74 Blood Pressure Location Lt brachial Position Sitting Pulse 110 H Intake Visit Reasons: Wx-[id number] pain Intake Note: New patient c/o palpitations and fatigue Redeye Gunner Required: Yes Redeye Gunner Name: Mitch nova Allergies Iodinated Contrast Media [IV CONTRAST] Allergy (Intermediate, Verified 02/02/23 14:42) RASH iopromide [From ULTRAVIST] Allergy (Mild, Verified 02/02/23 14:42) ITCHING Medication List - Last Reconciled 02/17/23 by Albaro Miller MD acetaminophen-codeine 300-30 mg 1 tab PO Q6H PRN atorvastatin 80 mg PO BEDTIME blood sugar diagnostic (FreeStyle Lite Strips) As directed three times a day cholecalciferol (vitamin D3) 50 mcg PO DAILY clonidine HCl 0.1 mg PO BID PRN 30 days doxycycline hyclate 100 mg PO BID empagliflozin (Jardiance) 25 mg PO DAILY flash glucose scanning reader (TrialBeeStyle Simón 2 Moro) As directed flash glucose sensor (FreeStyle Simón 2 Sensor kit) As directed change every 14 days fluconazole 100 mg PO DAILY 3 days insulin lispro (Humalog KwikPen (U-100) Insulin) 12 units for breakfast , 16 u nits for lunch and dinner subcutaneously daily; with largest meal of day 30 days lancets (FreeStyle Lancets) Three times a day Lantus Solostar U-100 Insulin (insulin glargine) 44 units (0.44 mL) subcut DAILY 90 days NS levothyroxine 50 mcg PO QAM lisinopril-hydrochlorothiazide 20-12.5 mg 1 tab PO DAILY 90 days lorazepam 0.5 mg PO DAILY PRN 30 days methylcellulose (laxative) (Citrucel) 500 mg PO TID 30 days mirtazapine 7.5 mg PO BEDTIME 30 days pantoprazole 40 mg PO DAILY 30 days peg-electrolyte soln 420 gram 240 mL PO ONCE PRN 1 day pen needle, diabetic (BD Ultra-Fine Jordana Pen Needle) As directed four times a day pen needle, diabetic As directed sertraline 50 mg PO DAILY 30 days tizanidine 4 mg PO Q8H PRN 10 days HPI HPI Comments History of Present Illness Details Brielle was referred here for chest pain and tachycardia. Patient speaks mostly Vietnamese in history was obtained with help of cnc milling machine operator in the room via iPad. Patient for the last few weeks been having right-sided parasternal chest discomfort which is worse with taking deep breath associated with shortness of breath. Symptoms can happen with exercise and can also happen with rest. Patient says symptoms can last for up to 30 minutes. Patient also has symptoms exertional shortness of breath. Also notices when she does anything around the house heart is racing. This has been going on for some time. She says she has multiple cardiovascular risk factors include uncontrolled diabetes, also has hypertension which is controlled and hyperlipidemia. She takes all her medications but does not exercise on a regular basis. She has never had any prior cardiac issues. Her last TSH was in fact elevated. She does not smoke or drink alcohol. Denies any drug abuse. Denies any ujrd-mhh-smremcp medications. Denies any lightheadedness, syncope. [facility] Medical History Chest discomfort Loose stools Well woman exam Vaginal irritation Left shoulder pain Pancreatitis Dizziness Hordeolum externum left lower eyelid Respiratory tract infection Cough Poor historian Tachycardia Abdominal pain Recurrent nonproductive cough Status post fall Hip pain, bilateral Low back pain Vulvar leukoplakia Vulvar itching Conjunctivitis, right eye Acute right eye pain Recurrent epigastric abdominal pain Obesity (BMI 30-39.9) Annual physical exam Screening mammogram, encounter for Vulvovaginitis juani albicans Obesity due to excess calories Type 2 diabetes mellitus with diabetic nephropathy Hyperlipidemia LDL goal <100 Diabetes mellitus Primary osteoarthritis of hips, bilateral Lumbar degenerative disc disease Pure hypercholesterolemia Anxiety GERD without esophagitis Ganglion cyst of tendon sheath of left hand Gastritis GERD (gastroesophageal reflux disease) Depression Hypothyroidism Type 2 diabetes mellitus with hyperglycemia, with long-term current use of insulin Type 2 diabetes mellitus with diabetic polyneuropathy Essential hypertension Surgical History Hx of tubal ligation History of herniated intervertebral disc Family History Father Throat cancer Mother Diabetes mellitus CVD (cardiovascular disease) Maternal Aunt Breast cancer Social History Household Members: None Housing: Apartment Alcohol intake: never Patient Tobacco Use Status: Former Tobacco user e-Cigarette/Vaping Use: Never Used Second Hand Smoke Exposure: No service: No Current occupational status: disabled Sexual orientation: Straight/Heterosexual Gender identity: Female Cognitive needs: No Hearing needs: No Vision needs: Yes Female Reproductive History Menstrual Age of Menarche: 12 Review of Systems Const Denies chills, Denies fatigue, Denies fever(s), Denies frequent falls, Denies weakness, Denies weight gain and Denies weight loss Eyes Denies loss of vision ENT Denies dizziness Card Denies chest pain, Denies leg edema, Denies lightheadedness, Denies palpitations, Denies dyspnea, Denies dyspnea on exertion, Denies orthopnea and Denies other (loss of consciousness) Resp Denies cough, Denies dyspnea, Denies dyspnea on exertion and Denies wheezing GI Denies hematochezia and Denies change in stool character Denies urinary frequency and Denies dysuria Musc Denies abnormal gait, Denies muscle weakness, Denies numbness, Denies radiating pain into limb and Denies tingling Skin/Breast Denies nail changes and Denies rash Neuro Denies abnormal gait, Denies dizziness, Denies frequent falls, Denies loss of vision, Denies memory loss, Denies numbness, Denies tingling and Denies weakness Psych Denies depression and Denies memory loss Endo Denies fatigue and Denies palpitations Gustabo/Lymph Reports easy bruising and Reports other (anemia) Aller/Immun Denies wheezing Physical Exam Vital Signs: Last Vital Signs Pulse 110 H 02/17/23 14:03 BP 132/74 02/17/23 14:03 BMI result Body Mass Index 33.2 Const General: cooperative, comfortable, no acute distress, alert and awake Nutritional Appearance: obese Orientation/consciousness: patient oriented x3 Limitations: no limitations HEENT Head: Yes normocephalic and Yes atraumatic Neck Neck: Yes trachea midline, Yes supple and Yes no JVD Resp Effort & Inspection: normal respiratory effort Auscultation: clear to auscultation bilaterally Cardio Jugular venous distension: no JVD Rate: tachycardic Rhythm: regular rhythm Heart sounds: S1 normal heart sound present, S2 normal heart sound present, no click, no gallops, no murmurs and no rubs GI Auscultation: normal bowel sounds Skin General skin exam: no rashes or lesions noted Neuro General: patient oriented x3 and no focal motor deficits Extrem General: Yes no clubbing, cyanosis or edema Office Procedures EKG Details: EKG shows sinus tachycardia with poor R-wave progression most likely due to lead placement otherwise no significant ST T wave abnormalities [id number], Complete Assessment & Plan Assessment & Plan (1) Atypical chest pain: Code(s): R07.89 - Other chest pain Plan: Patient with symptoms of parasternal chest discomfort with atypical features. She has multiple risk factors for obstructive coronary artery disease. Would suggest a vasodilating myocardial perfusion imaging to further assess for the same. Will also suggest echocardiogram to assess LV systolic and diastolic function to evaluate for valvular abnormality. This test will be scheduled in near future. (2) Sinus tachycardia: Code(s): R00.0 - Tachycardia, unspecified Plan: EKG today shows sinus tachycardia. She has no evidence of hypertensive Cardizem are anemia to explain her sinus tachycardia. Could be related to anxiety, or inappropriate sinus tachycardia related to autonomic dysfunction from diabetes. Also relative hypovolemia can contribute to her sinus tachycardia. Advised to increase her water intake to at least 2 L a day. Will obtain Holter monitor to further assess for sinus tachycardia. If she remains persistently tachycardic will consider addition of beta-blockers to her regimen. Will follow up in the clinic in 4-6 weeks time, sooner p.r.n.. Thank you for allowing me to partake in the care Medications: Changed From doxycycline hyclate 100 mg PO BID 7 days 14 caps 0RF To doxycycline hyclate 100 mg PO BID Coding Level of Care Code New Pt Level 4 (74751) Diagnoses Atypical chest pain R07.89 Sinus tachycardia R00.0 CPT Codes EKG - CPT: 79029-[id number], Complete ([id number])
[2023-02-17 14:03] VITALS: BP 132/74; PULSE 110; BMI 33.2
== END 2023-02-17 14:33 | disposition home or self-care (01) ==
PROVIDERS: PCP Internal Medicine; Visit Provider Internal Medicine Cardiovascular Disease
DX: R07.89 Other chest pain (principal); R00.0 Tachycardia, unspecified
CPT/HCPCS: 93010; 99204

== ENCOUNTER → 2023-02-17 13:48 | Outpatient (BNVA) | payer OTHER, SELFPAY | PROVIDERS: PCP Internal Medicine; Visit Provider Internal Medicine Cardiovascular Disease | DX: R07.89 Other chest pain (principal); R00.0 Tachycardia, unspecified | CPT/HCPCS: 93005; 99202 ==

== ENCOUNTER → 2023-03-10 13:03 | Outpatient (REF) | payer OTHER, SELFPAY ==
--- NOTE | 2023-03-10 13:06 | CA_ITS ---
Transthoracic Echocardiogram Patient (Last, First, Middle): Brielle Bella, Gender: Female Date of : 1960 Age: 62 Procedure Date: 03/10/2023 Procedure Type: Transthoracic Echocardiogram Location: OP Height: 157.48 cm Weight: 84.37 kg BSA: 1.85 m2 Heart Rate: 87 bpm BP: 122 / 66 mmHg Supply Chain Specialist: Referring MD: Albaro Miller MD Letter Sorting Machine Operator: Albaro Miller MD Symptoms: R07.89 - Other chest pain Study Quality: Adequate ECG Rhythm: Sinus Conclusions: - 1. Normal LV ejection fraction of 60 65% 2. Normal cardiac valvular Dopplers 3. Normal RV systolic pressure 4. No gross pericardial effusion Findings Left Ventricle Normal left ventricular size, thickness, and systolic function. The visually estimated ejection fraction is between 60-65%. Spectral Doppler is indicative of an impaired relaxation filling pattern. E/E prime ratio is between 8 and 15 consistent with indeterminate filling pressures. Right Ventricle Normal right ventricular cavity size and systolic function. Atria The left atrium is normal in size. There is no evidence of interatrial shunt. The right atrium is normal in size. Aortic Valve The aortic valve structure and function is likely normal. There is no aortic valve stenosis. There is no aortic valve regurgitation. Mitral Valve Likely normal mitral valve structure and function. There is trace mitral valve regurgitation. There is no mitral valve stenosis. Pulmonic Valve The pulmonic valve is likely normal. There is trace pulmonic valve regurgitation. Tricuspid Valve Normal tricuspid valve structure. There is trace tricuspid valve regurgitation. The right ventricular systolic pressure is normal. The right ventricular systolic pressure is 22 mmHg. Normal right atrial pressure. There is no evidence of pulmonary hypertension. Great Vessels All visible segments of the aorta are normal in size. The pulmonary artery was not well visualized. There is no dilatation of the ascending aorta measuring 2.90 cm. Venous The inferior vena cava is normal in size and collapses greater than 50% with inspiration. Pericardium/Pleural There is no evidence of pericardial effusion. Measurements 2D Linear Measurements IVSd: 1.12 0.6-0.9/0.6-1.0 cm LVIDd: 4.37 3.9-5.3/4.2-5.9 cm LVIDd Index: 2.36 2.4-3.2/2.2-3.1 cm/m2 LVIDs: 2.76 2.0-3.6 cm LVPWd: 1.11 0.7-1.1 cm Ao Root: 2.80 2.1-3.5 cm LA Diam: 3.30 2.7-3.8/3.0-4.0 cm LAIDs Index: 1.78 1.5-2.3 cm/m2 LV Mass: 212.20 67-162/88-224 g LV Mass Index: 114.70 43-95/49-115 g/m2 LVOT Diam: 1.90 3.0+(-)1.3 cm Mitral Valve MV Pk E: 0.63 MV PK A: 0.89 MV Decel Time: 154.00 E/A: 0.70 E'Lateral: 5.77 E'Medial: 5.87 E/E' Med: 10.70 E/E' Lat: 10.90 PHT: 45.00 MVA PHT: 4.89 Decel [place]: 4.08 Aortic Valve AoV Pk Maynor: 1.67 AoV Mn Maynor: 1.07 AoV VTI: 0.31 AoV Pk Grad: 11.00 Aov Mn Grad: 6.00 DARWIN Cont.VTI: 1.78 LVOT LVOT Pk Maynor: 0.95 LVOT Mn Maynor: 0.63 LVOT VTI: 0.19 LVOT Pk Grad: 4.00 LVOT Mn Grad: 2.00 LVOT Diam: 1.90 LVOT Area: 2.84 Diastolic Function MV Pk E: 0.63 MV Pk A: 0.89 E/A: 0.70 E'Medial: 5.87 E/E' Med: 10.70 E' Laterial: 5.77 E/E' Lat: 10.90 Right Ventricle TAPSE (mm): 25.00 TVS' Maynor: 13.00 Tricuspid Valve TR Pk Maynor: 2.16 TR Pk Grad: 19.00 RA Press: 3.00 RVSP: 22.00 Great Vessels Aorta Ao Root-2D: 2.80 2.0-3.7 cm Ao Asc: 2.90 2.1-3.4 cm Pulmonary Valve PV Pk Maynor: 1.02 Peak PV Grad: 4.00 Updated in Other Vendor System with Status of Final Albaro Miller MD electronically signed on 03/11/2023 4:40:13 PM with status of Final
--- NOTE | 2023-03-10 13:11 | HM_ITS ---
* Total monitoring time 2 days. * Underlying rhythm is sinus with an average rate of 88/Min. Range 62 to 129/Min. * Sinus tachycardia seen 22% of the time. * No significant ectopy or tachyarrhythmias. * No significant pauses or AV blocks. * No patient markers or diary events. MTDD
== END ==
LOC: HO.CARD 13:03
PROVIDERS: PCP Internal Medicine; Visit Provider Internal Medicine Cardiovascular Disease
DX: R00.0 Tachycardia, unspecified (principal); R07.89 Other chest pain
CPT/HCPCS: 93225; 93306

== ENCOUNTER → 2023-03-10 13:06 | Outpatient (BNV) | payer OTHER, SELFPAY | PROVIDERS: PCP Internal Medicine; Visit Provider Internal Medicine Cardiovascular Disease | DX: R00.0 Tachycardia, unspecified (principal) | CPT/HCPCS: 93227; 93306 ==

== ENCOUNTER 2023-03-30 14:23 | Outpatient (AMB) | payer OTHER, SELFPAY ==
--- NOTE | 2023-03-30 14:49 | MHC.AMDMED ---
Intake Intake Visit Reasons: DM/CONFIRMED Allergies Iodinated Contrast Media [IV CONTRAST] Allergy (Intermediate, Verified 02/02/23 14:42) RASH iopromide [From ULTRAVIST] Allergy (Mild, Verified 02/02/23 14:42) ITCHING HPI Comprehensive Diabetes Asmnt Most Recent Diabetes Results: Creatinine 0.81 mg/dL (0.5-1.4) 02/02/23 Blood Urea Nitrogen 27 mg/dL (9-16) H 02/02/23 Sodium 145 mmol/L (135-145) 02/02/23 Potassium 4.4 mmol/L (3.3-5.1) 02/02/23 Chloride 109 mmol/L (96-108) H 02/02/23 Carbon Dioxide 24 mmol/L (22-29) 02/02/23 Calcium 9.8 mg/dL (8.4-10.2) 02/02/23 AST 22 U/L (5-31) 02/02/23 ALT 29 U/L (0-31) 02/02/23 Total Protein 8.9 g/dL (6.5-8.0) H 02/02/23 Albumin 4.6 g/dL (3.5-5.0) 02/02/23 [facility] Medical History Chest discomfort Loose stools Well woman exam Vaginal irritation Left shoulder pain Pancreatitis Dizziness Hordeolum externum left lower eyelid Respiratory tract infection Cough Poor historian Tachycardia Abdominal pain Recurrent nonproductive cough Status post fall Hip pain, bilateral Low back pain Vulvar leukoplakia Vulvar itching Conjunctivitis, right eye Acute right eye pain Recurrent epigastric abdominal pain Obesity (BMI 30-39.9) Annual physical exam Screening mammogram, encounter for Vulvovaginitis juani albicans Obesity due to excess calories Type 2 diabetes mellitus with diabetic nephropathy Hyperlipidemia LDL goal <100 Diabetes mellitus Primary osteoarthritis of hips, bilateral Lumbar degenerative disc disease Pure hypercholesterolemia Anxiety GERD without esophagitis Ganglion cyst of tendon sheath of left hand Gastritis GERD (gastroesophageal reflux disease) Depression Hypothyroidism Type 2 diabetes mellitus with hyperglycemia, with long-term current use of insulin Type 2 diabetes mellitus with diabetic polyneuropathy Essential hypertension Surgical History Hx of tubal ligation History of herniated intervertebral disc Family History Father Throat cancer Mother Diabetes mellitus CVD (cardiovascular disease) Maternal Aunt Breast cancer Social History Household Members: None Housing: Apartment Alcohol intake: never Patient Tobacco Use Status: Former Tobacco user e-Cigarette/Vaping Use: Never Used Second Hand Smoke Exposure: No service: No Current occupational status: disabled Sexual orientation: Straight/Heterosexual Gender identity: Female Cognitive needs: No Hearing needs: No Vision needs: Yes Female Reproductive History Menstrual Age of Menarche: 12 Assessment & Plan Assessment & Plan (1) Type 2 diabetes mellitus with hyperglycemia, with long-term current use of insulin: Code(s): E11.65 - Type 2 diabetes mellitus with hyperglycemia; Z79.4 - supervisor intermediates (current) use of insulin Plan: Patient at visit to set up an insert Simón 2 sensor Instructed patient sensors water proof you can shower, or swim do not submerge sensor in water for over 30 minutes Is sensor falls off cannot put back in you need to replace sensor, customer service number given to patient for sensor replacement Sensor placed on the back of left arm Patient left visit with sensor in warmup Reviewed how to interpret trend arrows Reminded patient that to check finger sticks if symptoms do not match sensor reading. Discussed lag time between finger stick and sensor data.? Instructed patient she should always keep blood glucometer for backup testing if needed Reviewed delay of CGM from fingersticks Reminded pt that if symptoms do not match sensor still needs to check fingersticks. Patient Instructions: Instrucciones para el paciente: CGM proporciona informaci?n sobre el control de la glucosa en symone a lo tamiko del d?a, incluidas la hiperglucemia y la hipoglucemia. Contin?e controlando la glucosa en symone seg?n las instrucciones. Siga las pautas de nutrici?n proporcionadas. Informe cualquier molestia de inmediato al proveedor de atenci?n m?dica. Mantente wicho hidratado. Puede ba?arse, ducharse, nadar y hacer ejercicio mientras usa el sensor de glucosa. No sumerja el sensor de glucosa en agua ariela m?s de 30 minutos. Retire el sensor para cesar resonancia magn?leatha o cesar tomograf?a computarizada. Evite la m?quina de meseret X en los aeropuertos: retire el sensor o solicite la varita Coding Level of Care Code Est Pt Level 1 (55834) Diagnoses Type 2 diabetes mellitus with hyperglycemia, with long-term current use of insulin E11.65; Z79.4
== END 2023-03-30 15:00 | disposition home or self-care (01) ==
PROVIDERS: PCP Internal Medicine; Visit Provider Registered Nurse Diabetes Educator
DX: E11.65 Type 2 diabetes mellitus with hyperglycemia (principal); Z79.4 Long term (current) use of insulin

== ENCOUNTER → 2023-03-30 14:23 | Outpatient (BNVA) | payer OTHER, SELFPAY | PROVIDERS: PCP Internal Medicine; Visit Provider Registered Nurse Diabetes Educator | DX: E11.65 Type 2 diabetes mellitus with hyperglycemia (principal); Z79.4 Long term (current) use of insulin | CPT/HCPCS: 99211 ==

== ENCOUNTER → 2023-04-08 08:12 | Outpatient (REF) | payer OTHER, SELFPAY ==
--- NOTE | ~2023-04-08 | NM_ITS ---
EXERCISE MYOCARDIAL PERFUSION STUDY INDICATION: Chest pain, assess for coronary disease and ischemia TECHNIQUE: The patient was brought in for an exercise perfusion study on 04/08/2023. Patient performed exercise as per Juan Antonio protocol and was injected 30 mCi of sestamibi once target heart rate was achieved. Images were obtained using the SPECT gamma camera interlaced with the gating device. Images were obtained in supine position. Resting perfusion study was performed on 04/09/2023. Patient was administered 30 mCi of sestamibi intravenously at rest. Images were then obtained in supine position. Images were processed with the software and compared side to side in short axis, horizontal long axis and vertical long axis views. Total DLP 110mGy-cm. FINDINGS: Raw images were reviewed. The stress perfusion study showed no significant perfusion abnormality. Both uncorrected as well as CT attenuation corrected images were reviewed. The gated study shows normal LV systolic function with calculated LVEF of 57%. LV cavity is normal in size. The gated study shows normal wall thickening and contraction of segments. Resting study shows no significant perfusion abnormality. Gating at rest reveals normal wall motion with ejection fraction at 46%, but visually appears normal The findings are consistent with no clear evidence of any ischemia or infarction. NM/NM parth perf SPECT rest & str IMPRESSION: 1. Myocardial perfusion imaging study shows normal myocardial perfusion. 2. Gated LVEF is 57% during stress and 46% during rest, but visually appears normal in both sets of images. 3. Transient ischemic dilatation not present. EKG component of the test reported separately.
--- NOTE | 2023-04-08 08:16 | CA_ITS ---
Acquisition Time: 2023-04-08 09:44:23 Total Exercise Time: 00:06:00 Test Indications: R07.89 - Other chest pain Medications: Protocol: LORI Max HR: 157 BPM 99% of Pred: 158 BPM Max BP: 142/082 mmHG Max Work Load: 6.4 METS Exericse stress test exercise 6 min of Lori protocol (stage 2 manually increased to 2.4 MPH, 11% grade) achieving 99% MPHR, with mild SOB, no chest discomfort, without arrhythmias, with normotensive resposne to exericse, without EKG changes. Nuclear images pending. Test reviewed with Dr. Mcnamara. Resting rate 93 bpm. Test was orginally started in lexiscan but switched due to a sip of coffee this morning Referred By: Albaro Miller Overread By: Maryann Zamora
== END ==
LOC: HO.CARD 08:12
PROVIDERS: PCP Internal Medicine; Visit Provider Internal Medicine Cardiovascular Disease
DX: R07.89 Other chest pain (principal)
CPT/HCPCS: 78452; 93017; A9500

== ENCOUNTER → 2023-04-08 08:16 | Outpatient (BNV) | payer OTHER, SELFPAY | PROVIDERS: PCP Internal Medicine; Visit Provider Nurse Practitioner | DX: R07.89 Other chest pain (principal); R06.02 Shortness of breath | CPT/HCPCS: 78452; 93016; 93018 ==

== ENCOUNTER 2023-04-17 13:33 | Outpatient (AMB) | payer OTHER, SELFPAY ==
[2023-04-17 13:35] VITALS: BP 124/72; PULSE 116; BMI 31.2
--- NOTE | 2023-04-17 13:35 | MHC.OFFVIS ---
Intake Vital Signs 04/17/23 13:35 Height 5 ft 3 in Weight 176 lb 5.917 oz BMI 31.2 BP 124/72 Blood Pressure Location Lt brachial Position Sitting Pulse 116 H Pulse Source Monitor Intake Visit Reasons: f/u after testing Retread Supervisor Required: Yes Retread Supervisor Language: Screen Cleaner Name: rohini an [id number] Oil Seal Assembler: Oil Seal Assembler Present Allergies Iodinated Contrast Media [IV CONTRAST] Allergy (Intermediate, Verified 04/17/23 13:37) RASH iopromide [From ULTRAVIST] Allergy (Mild, Verified 04/17/23 13:37) ITCHING Medication List - Last Reconciled 04/17/23 by WINIFRED Bravo acetaminophen-codeine 300-30 mg 1 tab PO Q6H PRN atorvastatin 80 mg PO BEDTIME blood sugar diagnostic (FreeStyle Lite Strips) As directed three times a day cholecalciferol (vitamin D3) 50 mcg PO DAILY clonidine HCl 0.1 mg PO BID PRN 30 days doxycycline hyclate 100 mg PO BID empagliflozin (Jardiance) 25 mg PO DAILY flash glucose scanning reader (MyWantsStyle Simón 2 [place]) As directed flash glucose sensor (FreeStyle Simón 2 Sensor kit) As directed change every 14 days insulin lispro (Humalog KwikPen (U-100) Insulin) 12 units for breakfast , 16 u nits for lunch and dinner subcutaneously daily; with largest meal of day 30 days lancets (FreeStyle Lancets) Three times a day Lantus Solostar U-100 Insulin (insulin glargine) 44 units (0.44 mL) subcut DAILY 90 days NS levothyroxine 50 mcg PO QAM lisinopril-hydrochlorothiazide 20-12.5 mg 1 tab PO DAILY 90 days lorazepam 0.5 mg PO DAILY PRN 30 days mirtazapine 7.5 mg PO BEDTIME 30 days pantoprazole 40 mg PO DAILY 30 days peg-electrolyte soln 420 gram 240 mL PO ONCE PRN 1 day pen needle, diabetic (BD Ultra-Fine Jordana Pen Needle) As directed four times a day pen needle, diabetic As directed sertraline 50 mg PO DAILY 30 days HPI f/u after testing HPI Details Brielle is a 62-year-old female past medical history of hypertension, hyperlipidemia, diabetes, with reports of palpitations, chest discomfort who recently underwent a nuclear stress test, echocardiogram and Holter monitor and now presents for follow-up. Today she reports that she continues to have issues with tachycardia. She can feel her heart beat fast most days. This can occur randomly without any known trigger. She admits to drinking at least 2 caffeinated beverages daily. She does get a localized area of chest discomfort just to the right of the lower sternal border. She describes it as a sharp pain which occurs randomly and with a deep breath. This discomfort is not worsened or brought on by physical activity. No shortness of breath, PND, orthopnea or edema. No lightheadedness, presyncope, syncope, falls. She says her diabetes is not well controlled. She maintains good hydration. Takes all meds as directed. Family member present. Certified reduction furnace operator used. [facility] Medical History Chest discomfort Loose stools Well woman exam Vaginal irritation Left shoulder pain Pancreatitis Dizziness Hordeolum externum left lower eyelid Respiratory tract infection Cough Poor historian Tachycardia Abdominal pain Recurrent nonproductive cough Status post fall Hip pain, bilateral Low back pain Vulvar leukoplakia Vulvar itching Conjunctivitis, right eye Acute right eye pain Recurrent epigastric abdominal pain Obesity (BMI 30-39.9) Annual physical exam Screening mammogram, encounter for Vulvovaginitis juani albicans Obesity due to excess calories Type 2 diabetes mellitus with diabetic nephropathy Hyperlipidemia LDL goal <100 Diabetes mellitus Primary osteoarthritis of hips, bilateral Lumbar degenerative disc disease Pure hypercholesterolemia Anxiety GERD without esophagitis Ganglion cyst of tendon sheath of left hand Gastritis GERD (gastroesophageal reflux disease) Depression Hypothyroidism Type 2 diabetes mellitus with hyperglycemia, with long-term current use of insulin Type 2 diabetes mellitus with diabetic polyneuropathy Essential hypertension Surgical History Hx of tubal ligation History of herniated intervertebral disc Family History Father Throat cancer Mother Diabetes mellitus CVD (cardiovascular disease) Maternal Aunt Breast cancer Social History Household Members: None Housing: Apartment Alcohol intake: never Patient Tobacco Use Status: Former Tobacco user e-Cigarette/Vaping Use: Never Used Second Hand Smoke Exposure: No service: No Current occupational status: disabled Sexual orientation: Straight/Heterosexual Gender identity: Female Cognitive needs: No Hearing needs: No Vision needs: Yes Female Reproductive History Menstrual Age of Menarche: 12 Review of Systems Const All systems reviewed & are unremarkable except as noted in HPI and below ENT Denies dizziness Card Reports chest pain, Denies chest pain at rest, Denies chest pain with activity, Reports rapid heart rate, Denies pedal edema, Denies edema, Denies leg edema, Denies lightheadedness, Reports palpitations, Denies dyspnea, Denies dyspnea on exertion and Denies orthopnea Resp Denies cough, Denies dyspnea and Denies dyspnea on exertion GI Denies hematochezia and Denies change in stool character Musc Denies abnormal gait, Denies limited range of motion, Denies muscle cramps, Denies muscle weakness, Denies numbness, Denies radiating pain into limb, Denies stiffness and Denies tingling Neuro Denies abnormal gait, Denies dizziness, Denies numbness and Denies tingling Endo Reports palpitations Physical Exam Vital Signs: Last Vital Signs Pulse 116 H 04/17/23 13:35 BP 124/72 04/17/23 13:35 BMI result Body Mass Index 31.2 Const General: cooperative, healthy appearing, comfortable and no acute distress Orientation/consciousness: patient oriented x3 Neck Neck: Yes normal visual inspection and Yes no JVD Resp Effort & Inspection: normal respiratory effort Auscultation: clear to auscultation bilaterally, no crackles, no rales, no rhonchi and no wheezes Cardio Jugular venous distension: no JVD Rate: regular rate Rhythm: regular rhythm Heart sounds: S1 normal heart sound present, S2 normal heart sound present, no gallops, no murmurs and no rubs Neuro General: patient oriented x3 Extrem General: Yes normal to inspection, No no pedal edema and No calf tenderness Psych Appearance: grossly normal Mental Status: mental status grossly normal Speech and movement: Normal speech and movement present Office Procedures EKG Details: Today, read by me, sinus tachycardia, nonspecific T-wave abnormality, rate 116, QTC 442 milliseconds [id number], Complete Assessment & Plan Assessment & Plan (1) Sinus tachycardia: Code(s): R00.0 - Tachycardia, unspecified Plan: Reports of rapid heart palpitations, occurring randomly. Holter monitor done 03/10/2023 for 2 days showing sinus rhythm with average heart rate 88, sinus tachycardia 22% of the time. Echocardiogram done 03/10/2023, EF 60-65%, no valve abnormalities. EKG done today showing sinus tachycardia, rate 116. She does admit to drinking caffeine beverages at least 2 times daily. She also tells me that her blood sugars are not well controlled. Instructed on reduction in stimulants, caffeine. The importance of good blood pressure control and maintaining good hydration reviewed with her. Reviewed benefits of good rest and routine exercise. Will start on metoprolol XL 25 mg daily to help reduce heart palpitations. Cardiology follow-up in 3 months, sooner if needed (2) Atypical chest pain: Code(s): R07.89 - Other chest pain Plan: Report of a localized pain in her anterior chest just right to the sternal border, worse with deep inspiration. Atypical for angina. Nuclear stress test done 04/08/2023 showed normal myocardial perfusion imaging. Echo showed normal EF and no regional wall motion abnormalities. Offered reassurance that this is noncardiac. Informed her she does have multiple cardiac risk factors and the need for good cardiac risk factor modification is essential. Signs and symptoms of angina reviewed. Emergency care if ever needed for symptoms. (3) Essential hypertension: Code(s): I10 - Essential (primary) hypertension Plan: Well controlled at this time. Adding low-dose metoprolol. If blood pressure becomes too low then the hydrochlorothiazide portion of her lisinopril/hydrochlorothiazide combination pill can be stopped. Plan Time spent on chart review, documentation, interview and assessment Medications: New metoprolol succinate ER 25 mg PO DAILY 30 tabs 5RF Coding Level of Care Code Est Pt Level 4 (39622) Diagnoses Sinus tachycardia R00.0 Atypical chest pain R07.89 Essential hypertension I10 CPT Codes EKG - CPT: 98488-[id number], Complete ([id number]) Time Spent (min) 28
== END 2023-04-17 14:15 | disposition home or self-care (01) ==
PROVIDERS: PCP Internal Medicine; Visit Provider Nurse Practitioner Family
DX: R00.0 Tachycardia, unspecified (principal); R07.89 Other chest pain; I10 Essential (primary) hypertension
CPT/HCPCS: 93010; 99214

== ENCOUNTER → 2023-04-17 13:33 | Outpatient (BNVA) | payer OTHER, SELFPAY | PROVIDERS: PCP Internal Medicine; Visit Provider Nurse Practitioner Family | DX: R00.0 Tachycardia, unspecified (principal); R07.89 Other chest pain; I10 Essential (primary) hypertension | CPT/HCPCS: 93005; 99212 ==

== ENCOUNTER 2023-06-19 11:26 | Outpatient (REF) | payer OTHER, SELFPAY | END 2023-06-19 11:27 | disposition home or self-care (01) | LOC: HO.MAMMO 11:26 | PROVIDERS: PCP Internal Medicine; Visit Provider Internal Medicine | DX: Z12.31 Encounter for screening mammogram for malignant neoplasm of breast (principal) | CPT/HCPCS: 77063; 77067 ==

== ENCOUNTER → 2023-06-19 11:30 | Outpatient (BNV) | payer OTHER, SELFPAY | PROVIDERS: PCP Internal Medicine; Visit Provider Radiology Diagnostic Radiology | DX: Z12.31 Encounter for screening mammogram for malignant neoplasm of breast (principal) | CPT/HCPCS: 77063; 77067 ==

== ENCOUNTER 2023-07-20 13:33 | Outpatient (AMB) | payer OTHER, SELFPAY ==
--- NOTE | 2023-07-20 13:36 | A.OFFVIS_ITS ---
Vital Signs 07/20/23 13:37 Height 5 ft 3 in Weight 174 lb 2.643 oz BMI 30.8 BP 134/72 Blood Pressure Location Lt brachial Position Sitting Pulse 116 H Pulse Source Monitor Intake Visit Reasons: 3 mth fu Sandwich Artist Required: Yes Sandwich Artist Language: Steam Pressure Chamber Operator Name: rohini schulz [id number] Allergies Iodinated Contrast Media [IV CONTRAST] Allergy (Intermediate, Verified 04/17/23 13:37) RASH iopromide [From ULTRAVIST] Allergy (Mild, Verified 04/17/23 13:37) ITCHING Medication List - Last Reconciled 07/20/23 by WINIFRED Bravo acetaminophen-codeine 300-30 mg 1 tab PO Q6H PRN atorvastatin 80 mg PO BEDTIME blood sugar diagnostic (FreeStyle Lite Strips) As directed three times a day cholecalciferol (vitamin D3) 50 mcg PO DAILY clonidine HCl 0.1 mg PO BID PRN 30 days doxycycline hyclate 100 mg PO BID empagliflozin (Jardiance) 25 mg PO DAILY flash glucose scanning reader (Media ChaperoneStyle Simón 2 [place]) As directed flash glucose sensor (FreeStyle Simón 2 Sensor kit) As directed change every 14 days insulin lispro (Humalog KwikPen (U-100) Insulin) 12 units for breakfast , 16 u nits for lunch and dinner subcutaneously daily; with largest meal of day 30 days lancets (FreeStyle Lancets) Three times a day Lantus Solostar U-100 Insulin (insulin glargine) 44 units (0.44 mL) subcut DAILY 90 days NS levothyroxine 50 mcg PO QAM lisinopril-hydrochlorothiazide 20-12.5 mg 1 tab PO DAILY 90 days lorazepam 0.5 mg PO DAILY PRN 30 days metoprolol succinate ER 25 mg PO DAILY mirtazapine 7.5 mg PO BEDTIME 30 days peg-electrolyte soln 420 gram 240 mL PO ONCE PRN 1 day pen needle, diabetic (BD Ultra-Fine Jordana Pen Needle) As directed four times a day pen needle, diabetic As directed sertraline 50 mg PO DAILY 30 days HPI HPI 3 mth fu: Details: Brielle is a 63-year-old female past medical history of hypertension, hyperlipidemia, diabetes, who has been evaluated for reports of palpitations, chest discomfort. On last visit low-dose metoprolol was added and she now presents for follow-up. Today she reports that she continues to have issues with tachycardia. She can feel her heart beat fast most days. She does not believe the metoprolol has helped. She still drinks at least 2 caffeinated beverages daily. She does get a localized area of chest discomfort just to the right of the lower sternal border. She describes it as a sharp pain which occurs randomly and with a deep breath. This discomfort is not worsened or brought on by physical activity. She has significant discomfort in her right shoulder with limited range of motion. She has not had any injury to this area. She has not had PCP or ortho evaluation. No shortness of breath, PND, orthopnea or edema. No lightheadedness, presyncope, syncope, falls. She says her diabetes is still not well controlled. She maintains good hydration. Takes all meds as directed. Daughter present. Certified manager of transportation used. [facility] Medical History Chest discomfort Loose stools Well woman exam Vaginal irritation Left shoulder pain Pancreatitis Dizziness Hordeolum externum left lower eyelid Respiratory tract infection Cough Poor historian Tachycardia Abdominal pain Recurrent nonproductive cough Status post fall Hip pain, bilateral Low back pain Vulvar leukoplakia Vulvar itching Conjunctivitis, right eye Acute right eye pain Recurrent epigastric abdominal pain Obesity (BMI 30-39.9) Annual physical exam Screening mammogram, encounter for Vulvovaginitis juani albicans Obesity due to excess calories Type 2 diabetes mellitus with diabetic nephropathy Hyperlipidemia LDL goal <100 Diabetes mellitus Primary osteoarthritis of hips, bilateral Lumbar degenerative disc disease Pure hypercholesterolemia Anxiety GERD without esophagitis Ganglion cyst of tendon sheath of left hand Gastritis GERD (gastroesophageal reflux disease) Depression Hypothyroidism Type 2 diabetes mellitus with hyperglycemia, with long-term current use of insulin Type 2 diabetes mellitus with diabetic polyneuropathy Essential hypertension Surgical History Hx of tubal ligation History of herniated intervertebral disc Family History Father Throat cancer Mother Diabetes mellitus CVD (cardiovascular disease) Maternal Aunt Breast cancer Social History Household Members: None Housing: Apartment Alcohol intake: never Patient Tobacco Use Status: Former Tobacco user e-Cigarette/Vaping Use: Never Used Second Hand Smoke Exposure: No service: No Current occupational status: disabled Sexual orientation: Straight/Heterosexual Gender identity: Female Cognitive needs: No Hearing needs: No Vision needs: Yes Female Reproductive History Menstrual Age of Menarche: 12 Review of Systems Const All systems reviewed & are unremarkable except as noted in HPI and below Reports fatigue ENT Denies dizziness Card Reports chest pain, Denies chest pain at rest, Denies chest pain with activity, Reports rapid heart rate, Denies pedal edema, Denies edema, Denies leg edema, Denies lightheadedness, Denies palpitations, Denies dyspnea, Reports dyspnea on exertion and Denies orthopnea Resp Denies cough, Denies dyspnea and Reports dyspnea on exertion GI Denies hematochezia and Denies change in stool character Musc Denies abnormal gait, Denies limited range of motion, Denies muscle cramps, Denies muscle weakness, Denies numbness, Denies radiating pain into limb, Denies stiffness and Denies tingling Neuro Denies abnormal gait, Denies dizziness, Denies numbness and Denies tingling Endo Reports fatigue and Denies palpitations Physical Exam Vital Signs: Last Vital Signs Pulse 116 H 07/20/23 13:37 BP 134/72 07/20/23 13:37 BMI result Body Mass Index 30.8 Const General: cooperative, healthy appearing, comfortable and no acute distress Orientation/consciousness: patient oriented x3 Neck Neck: Yes normal visual inspection and Yes no JVD Resp Effort & Inspection: normal respiratory effort Auscultation: clear to auscultation bilaterally, no crackles, no rales, no rhonchi and no wheezes Cardio Jugular venous distension: no JVD Rate: tachycardic Rhythm: regular rhythm Heart sounds: S1 normal heart sound present, S2 normal heart sound present, no gallops, no murmurs and no rubs Neuro General: patient oriented x3 Extrem General: Yes normal to inspection, No no pedal edema and No calf tenderness Psych Appearance: grossly normal Mental Status: mental status grossly normal Speech and movement: Normal speech and movement present Office Procedures EKG Details: today, read by me, Sinus tachycardia, can't exclude anterior infarct vs body habitus, rate 116 [id number], Complete Assessment & Plan Assessment & Plan (1) Sinus tachycardia: Code(s): R00.0 - Tachycardia, unspecified Category: Medical Plan: Reports of rapid heart palpitations, occurring randomly. Holter monitor done 03/10/2023 for 2 days showing sinus rhythm with average heart rate 88, sinus tachycardia 22% of the time. Echocardiogram done 03/10/2023, EF 60-65%, no valve abnormalities. EKG done on last visit showed sinus tachycardia, rate 116. She does admit to drinking caffeine beverages at least 2 times daily. She also tells me that her blood sugars are not well controlled. She was Instructed on reduction in stimulants, caffeine. On last visit metoprolol XL 25 mg daily was ordered. She tells me the metoprolol has not helped. EKG done today again showing sinus tachycardia, rate 116. Will increase metoprolol XL up to 50 mg daily. Reviewed benefits of good hydration, rest and routine exercise. Will recheck Holter monitor in a few weeks. Cardiology follow-up in 3 months, sooner if needed (2) Atypical chest pain: Code(s): R07.89 - Other chest pain Category: Medical Plan: Report of a localized pain in her anterior chest just right to the sternal border, worse with deep inspiration. Atypical for angina. She also has significant discomfort in her right shoulder which may contribute to her chest wall discomfort. Nuclear stress test done 04/08/2023 showed normal myocardial perfusion imaging. Echo showed normal EF and no regional wall motion abnormalities. Offered reassurance that this is noncardiac. Informed her she does have multiple cardiac risk factors and the need for good cardiac risk factor modification is essential. Signs and symptoms of angina reviewed. Emergency care if ever needed for symptoms. (3) Essential hypertension: Code(s): I10 - Essential (primary) hypertension Category: Medical Plan: Normal range at this visit. She tells me that home blood pressures have been elevated. She finds her systolic ranging 140-180. She used her home cuff in the office today and blood pressure came out to be 151/79. I rechecked with a manual blood pressure cuff and found her actual blood pressure to be 132/62. Informed her that her home blood pressure cuff is reading her blood pressure more elevated then it actually is. Will be increasing her metoprolol as above. Her current blood pressure readings will allow this. Plan Time spent on chart review, documentation, interview and assessment Orders: Orders ECG 3 day holter monitor 3 Weeks R00.0 - Tachycardia, unspecified Medications: New metoprolol succinate ER 50 mg PO DAILY 30 tabs 5RF Discontinued metoprolol succinate ER Discontinued Reason: Doctor's Order 25 mg PO DAILY 30 tabs 5RF Coding Level of Care Code Est Pt Level 4 (25715) Diagnoses Sinus tachycardia R00.0 Atypical chest pain R07.89 Essential hypertension I10 CPT Codes EKG - CPT: [id number], Complete ([id number]) Time Spent (min) 28
[2023-07-20 13:37] VITALS: BP 134/72; PULSE 116; BMI 30.8
== END 2023-07-20 14:25 | disposition home or self-care (01) ==
PROVIDERS: PCP Internal Medicine; Visit Provider Nurse Practitioner Family
DX: R00.0 Tachycardia, unspecified (principal); R07.89 Other chest pain; I10 Essential (primary) hypertension
CPT/HCPCS: 93010; 99214

== ENCOUNTER → 2023-07-20 13:33 | Outpatient (BNVA) | payer OTHER, SELFPAY | PROVIDERS: PCP Internal Medicine; Visit Provider Nurse Practitioner Family | DX: R00.0 Tachycardia, unspecified (principal); R07.89 Other chest pain; I10 Essential (primary) hypertension | CPT/HCPCS: 93005; 99212 ==

== ENCOUNTER → 2023-07-20 14:46 | Outpatient (BNV) | payer OTHER, SELFPAY ==
--- NOTE | 2023-07-20 14:46 | A.OFFVIS_ITS ---
Intake Intake Visit Reasons: Amb Documentation Nurse Practitioner Required: Yes Nurse Practitioner Language: Needle Felt Making Machine Operator Name: Catherine [facility] Accompanied by: Self / Same As Patient Allergies Iodinated Contrast Media [IV CONTRAST] Allergy (Intermediate, Verified 04/17/23 13:37) RASH iopromide [From ULTRAVIST] Allergy (Mild, Verified 04/17/23 13:37) ITCHING HPI Comprehensive Diabetes Asmnt Most Recent Diabetes Results: Hemoglobin A1c 8.2 % 06/17/19 Microalb/Creat Ratio 78.2 ug/mg cr (<30) H 11/12/22 Cholesterol 218 mg/dL (<200) H 11/12/22 HDL Cholesterol 32 mg/dL (>40) L 11/12/22 Triglycerides 1106 mg/dL (<150) H 11/12/22 Creatinine 0.81 mg/dL (0.5-1.4) 02/02/23 Blood Urea Nitrogen 27 mg/dL (9-16) H 02/02/23 Sodium 145 mmol/L (135-145) 02/02/23 Potassium 4.4 mmol/L (3.3-5.1) 02/02/23 Chloride 109 mmol/L (96-108) H 02/02/23 Carbon Dioxide 24 mmol/L (22-29) 02/02/23 Calcium 9.8 mg/dL (8.4-10.2) 02/02/23 AST 22 U/L (5-31) 02/02/23 ALT 29 U/L (0-31) 02/02/23 Total Protein 8.9 g/dL (6.5-8.0) H 02/02/23 Albumin 4.6 g/dL (3.5-5.0) 02/02/23 [facility] Medical History Chest discomfort Loose stools Well woman exam Vaginal irritation Left shoulder pain Pancreatitis Dizziness Hordeolum externum left lower eyelid Respiratory tract infection Cough Poor historian Tachycardia Abdominal pain Recurrent nonproductive cough Status post fall Hip pain, bilateral Low back pain Vulvar leukoplakia Vulvar itching Conjunctivitis, right eye Acute right eye pain Recurrent epigastric abdominal pain Obesity (BMI 30-39.9) Annual physical exam Screening mammogram, encounter for Vulvovaginitis juani albicans Obesity due to excess calories Type 2 diabetes mellitus with diabetic nephropathy Hyperlipidemia LDL goal <100 Diabetes mellitus Primary osteoarthritis of hips, bilateral Lumbar degenerative disc disease Pure hypercholesterolemia Anxiety GERD without esophagitis Ganglion cyst of tendon sheath of left hand Gastritis GERD (gastroesophageal reflux disease) Depression Hypothyroidism Type 2 diabetes mellitus with hyperglycemia, with long-term current use of insulin Type 2 diabetes mellitus with diabetic polyneuropathy Essential hypertension Surgical History Hx of tubal ligation History of herniated intervertebral disc Family History Father Throat cancer Mother Diabetes mellitus CVD (cardiovascular disease) Maternal Aunt Breast cancer Social History Household Members: None Housing: Apartment Alcohol intake: never Patient Tobacco Use Status: Former Tobacco user e-Cigarette/Vaping Use: Never Used Second Hand Smoke Exposure: No service: No Current occupational status: disabled Sexual orientation: Straight/Heterosexual Gender identity: Female Cognitive needs: No Hearing needs: No Vision needs: Yes Female Reproductive History Menstrual Age of Menarche: 12 Assessment & Plan Assessment & Plan (1) Type 2 diabetes mellitus with hyperglycemia, with long-term current use of insulin: Code(s): E11.65 - Type 2 diabetes mellitus with hyperglycemia; Z79.4 - termite renewal inspector (c urrent) use of insulin Plan: Learning objectives: The patient was provided with verbal and written education on the following topics as outlined below. Assess patient education level/literacy/barriers Patient questions/concerns, patient's last A1c in October 2022 10%, patient has not been [facility] since last September. Patient missed last appointment with early childhood special educator in May 2023. Patient did not bring meter or sensor to today's visit, she has been unable to orange picking supervisor Simón sensors at the pharmacy this may be related to she has not been seen at clinic for over 6 months. Requested refills for all patient's diabetes supplies and medications from Dr. Ray with the exception of Simón sensors patient will be seeing PA after that visit she will be eligible for Simón 2 sensors The patient met all learning objectives and was able to verbalize understanding and provide teach back of education topics discussed . The patient was provided with the opportunity to ask questions and all questions were answered. Topics covered in today?s session included: Insulin/Injectables (If applicable) * Storage/care of insulin?? * Injection sites? * Site rotation? * Onset, peak, duration * Drawing up insulin? * Injecting insulin/other injectables? * Sharps disposal Continuous blood glucose monitoring (if applicable) * Monitoring and knowing your A1C. * What can make blood glucose go up and down and preventing high and low blood glucose. * Review of blood sugar targets in expected goal range and outside of expected goal range. * Using blood sugar results in decision making process in managing diabetes. ?Patient was receptive to information provided and participated in the discussion. Asked?appropriate questions and demonstrated good understanding of the topics discussed.? ? Educational Materials: The patient was provided with the following written educational materials: Target Goal handout New Smart Goal: Patient will bring meter to every [facility] Patient Response to instructions: Comprehension of Instructions: fair Readiness to make changes:? Contemplation How confident they feel about making changes: Fair Patient Instructions: Patient instructed bring meter to every visit Patient will follow-up with Diabetes Education in 3 weeks Coding Level of Care Code Est Pt Level 1 (51091) Diagnoses Type 2 diabetes mellitus with hyperglycemia, with long-term current use of insulin E11.65; Z79.4
== END ==
PROVIDERS: PCP Internal Medicine; Visit Provider Registered Nurse Diabetes Educator
DX: E11.65 Type 2 diabetes mellitus with hyperglycemia (principal); Z79.4 Long term (current) use of insulin
CPT/HCPCS: 99211

== ENCOUNTER 2023-07-24 13:32 | Outpatient (AMB) | payer OTHER, SELFPAY ==
--- NOTE | 2023-07-24 13:33 | A.OFFVIS_ITS ---
Vital Signs 07/24/23 13:39 Height 5 ft 3 in Weight 176 lb 9.444 oz BMI 31.3 BP 138/68 Blood Pressure Location Rt brachial Position Sitting Pulse 85 Pulse Source Pulse Oximeter Intake Visit Reasons: Type 2 DM-confirmed Intake Note: Patient present today to follow up on Type 2 Diabetes Mellitus. Patient receives DME supplies through: Pharmacy, needs new script Last Diabetic Eye exam: More than 1 year Last Podiatry Visit: Does not see a Rn Clinical Documentation Random Glucose: 220 mg/dl HgA1C: 10.6% Paralegal Required: Yes Paralegal Language: Mechanic General Operational Test Name: Cecelia, Medical Staff Information Interpreted: non-clinical & clinical Accompanied by: Self / Same As Patient Allergies Iodinated Contrast Media [IV CONTRAST] Allergy (Intermediate, Verified 07/24/23 13:41) RASH iopromide [From ULTRAVIST] Allergy (Mild, Verified 07/24/23 13:41) ITCHING Medication List - Last Reconciled 07/24/23 by Sultana Williamson PA-C acetaminophen-codeine 300-30 mg 1 tab PO Q6H PRN atorvastatin 80 mg PO BEDTIME blood sugar diagnostic (FreeStyle Lite Strips) As directed three times a day cholecalciferol (vitamin D3) 50 mcg PO DAILY clonidine HCl 0.1 mg PO BID PRN 30 days empagliflozin (Jardiance) 25 mg PO DAILY flash glucose scanning reader (FreeStyle Simón 2 [place]) As directed flash glucose sensor (FreeStyle Simón 2 Sensor kit) As directed change every 14 days insulin lispro (Humalog KwikPen (U-100) Insulin) 12 units for breakfast , 16 u nits for lunch and dinner subcutaneously daily; with largest meal of day 30 days lancets (FreeStyle Lancets) Three times a day Lantus Solostar U-100 Insulin (insulin glargine) 44 units (0.44 mL) subcut DAILY 90 days NS levothyroxine 50 mcg PO QAM lisinopril-hydrochlorothiazide 20-12.5 mg 1 tab PO DAILY 90 days lorazepam 0.5 mg PO DAILY PRN 30 days metoprolol succinate ER 50 mg PO DAILY mirtazapine 7.5 mg PO BEDTIME 30 days peg-electrolyte soln 420 gram 240 mL PO ONCE PRN 1 day pen needle, diabetic (BD Ultra-Fine Jordana Pen Needle) As directed four times a day pen needle, diabetic As directed sertraline 50 mg PO DAILY 30 days HPI HPI Type 2 DM-confirmed: Details: Patient is a 63-year-old female with a significant past medical history of anxiety, depression, hypothyroidism, hyperlipidemia, hypertension and type 2 diabetes presenting today for diabetic follow-up. Endo: DM-her last A1c was 10.6. She is on Jardiance 25 mg, Humalog 12 units for breakfast, 16 units for lunch and dinner, Lantus 44 units. Her blood sugars in the morning are around 250. A few hours after lunch they are around 300. She has tried ozempic but caused pancreatitis. Metformin caused GI upset. Her last eye exam was. Last foot exam was over a year ago. She is supposed to be using her CGM but ran out of sensors. Hypoglycemic events- never, Hyperglycemic events- regularly. On an CARROLL-inhibitor. She does have peripheral neuropathy related to her diabetes worst in her right foot than her left. Does not follow with podiatry. Hypothyroid-she is on levothyroxine 50 mcg. Last TSH was WNL. CV: Blood pressure today in the office is 138/68. She is on hydrochlorothiazide/lisinopril, metoprolol. Remains on Lipitor 80 mg. [facility] Medical History Chest discomfort Loose stools Well woman exam Vaginal irritation Left shoulder pain Pancreatitis Dizziness Hordeolum externum left lower eyelid Respiratory tract infection Cough Poor historian Tachycardia Abdominal pain Recurrent nonproductive cough Status post fall Hip pain, bilateral Low back pain Vulvar leukoplakia Vulvar itching Conjunctivitis, right eye Acute right eye pain Recurrent epigastric abdominal pain Obesity (BMI 30-39.9) Annual physical exam Screening mammogram, encounter for Vulvovaginitis juani albicans Obesity due to excess calories Type 2 diabetes mellitus with diabetic nephropathy Hyperlipidemia LDL goal <100 Diabetes mellitus Primary osteoarthritis of hips, bilateral Lumbar degenerative disc disease Pure hypercholesterolemia Anxiety GERD without esophagitis Ganglion cyst of tendon sheath of left hand Gastritis GERD (gastroesophageal reflux disease) Depression Hypothyroidism Type 2 diabetes mellitus with hyperglycemia, with long-term current use of insulin Type 2 diabetes mellitus with diabetic polyneuropathy Essential hypertension Surgical History Hx of tubal ligation History of herniated intervertebral disc Family History Father Throat cancer Mother Diabetes mellitus CVD (cardiovascular disease) Maternal Aunt Breast cancer Social History Household Members: None Housing: Apartment Alcohol intake: never Patient Tobacco Use Status: Former Tobacco user e-Cigarette/Vaping Use: Never Used Second Hand Smoke Exposure: No service: No Current occupational status: disabled Sexual orientation: Straight/Heterosexual Gender identity: Female Cognitive needs: No Hearing needs: No Vision needs: Yes Female Reproductive History Menstrual Age of Menarche: 12 Physical Exam Vital Signs: Last Vital Signs Pulse 85 07/24/23 13:39 BP 138/68 07/24/23 13:39 BMI result Body Mass Index 31.3 Const Orientation/consciousness: patient oriented x3 HEENT Ears: hearing grossly normal bilaterally Neck Thyroid: Thyroid normal Lymphatic: no lymphadenopathy noted Resp Auscultation: clear to auscultation bilaterally Cardio Rate: regular rate Rhythm: regular rhythm Heart sounds: S1 normal heart sound present and S2 normal heart sound present Skin General skin exam: no rashes or lesions noted Neuro General: patient oriented x3, gait normal and no focal motor deficits Extrem Other: DP pulses 2+ bilaterally. Reports diminished sensation to light touch the right toes. Unable to feel vibratory sensation on the right until midfoot. Vibratory sensation diminished on the left as well but present. Skin intact. Results AMB Hemoglobin A1c AMB Hemoglobin A1c 10.6 % Last Edit by YOSELYN López on 07/24/23 13:56 Results Reviewed Results Reviewed: Laboratory Last Values Glucose (Clinic) 220 mg/dL (60-115) H 07/24/23 13:46 Hgb A1c (Clinic) 10.6 % (4.0-6.0) H 07/24/23 13:49 Laboratory Tests 08/04/22 08/04/22 08/04/22 09:48 09:48 09:48 WBC 8.1 Hgb 14.5 Hct 43.6 Plt Count 197 Sodium 143 Potassium 4.6 Creatinine 0.68 Estimated GFR > 60 Fasting Glucose 252 H Hemoglobin A1c % Calcium 9.6 AST 14 ALT 20 Triglycerides 373 Cholesterol 167 LDL Cholesterol, Calc 61 HDL Cholesterol 32 25-OH Vitamin D Total 26.6 TSH 2.35 Free T4 0.98 Urine pH 5.5 Ur Specific [place] >= 1.030 H Urine Protein 30 (1+) H Urine Glucose (UA) >=1000 H Urine Blood Negative Microalb/Creat Ratio 08/04/22 08/04/22 09:48 09:48 WBC Hgb Hct Plt Count Sodium Potassium Creatinine Estimated GFR Fasting Glucose Hemoglobin A1c % 9.3 Calcium AST ALT Triglycerides Cholesterol LDL Cholesterol, Calc HDL Cholesterol 25-OH Vitamin D Total TSH Free T4 Urine pH Ur Specific [place] Urine Protein Urine Glucose (UA) Urine Blood Microalb/Creat Ratio 226.7 Assessment & Plan Assessment & Plan (1) Essential hypertension: Code(s): I10 - Essential (primary) hypertension Category: Medical Plan: continue current treatment plan (2) Type 2 diabetes mellitus with diabetic polyneuropathy: Code(s): E11.42 - Type 2 diabetes mellitus with diabetic polyneuropathy Category: Medical Qualifiers: Diabetes mellitus rodent exterminator insulin use: without residential use Qualified Code(s): E11.42 - Type 2 diabetes mellitus with diabetic polyneuropathy Plan: will start gabapentin 300 mg. (3) Type 2 diabetes mellitus with hyperglycemia, with long-term current use of insulin: Code(s): E11.65 - Type 2 diabetes mellitus with hyperglycemia; Z79.4 - long term care phlebotomist (current) use of insulin Category: Medical Plan: increase lantus to 50 units. increased humalog to 14 units and 20 units for lunch and dinner. sensors refilled (4) Hypothyroidism: Code(s): E03.9 - Hypothyroidism, unspecified Category: Medical Qualifiers: Hypothyroidism type: acquired Qualified Code(s): E03.9 - Hypothyroidism, unspecified Plan: last tsh wnl. will recheck (5) Pure hypercholesterolemia: Code(s): E78.00 - Pure hypercholesterolemia, unspecified Category: Medical Plan: lipids and lfts ordered. continue atorvastatin. Orders: Orders AMB Hemoglobin A1c Today E11.65 - Type 2 diabetes mellitus with hyperglycemia, Z79.4 - shelter (current) use of insulin Hemoglobin A1c Today E03.9 - Hypothyroidism, unspecified, E11.42 - Type 2 diabetes mellitus with diabetic polyneuropathy, E11.65 - Type 2 diabetes mellitus with hyperglycemia, E78.00 - Pure hypercholesterolemia, unspecified, I10 - Essential (primary) hypertension, Z79.4 - long term care phlebotomist (current) use of insulin Thyroid Stimulating Hormone Today E03.9 - Hypothyroidism, unspecified, E11.42 - Type 2 diabetes mellitus with diabetic polyneuropathy, E11.65 - Type 2 diabetes mellitus with hyperglycemia, E78.00 - Pure hypercholesterolemia, unspecified, I10 - Essential (primary) hypertension, Z79.4 - long term care phlebotomist (current) use of insulin Comprehensive [place]. Panel Fast Today E03.9 - Hypothyroidism, unspecified, E11.42 - Type 2 diabetes mellitus with diabetic polyneuropathy, E11.65 - Type 2 diabetes mellitus with hyperglycemia, E78.00 - Pure hypercholesterolemia, unspecified, I10 - Essential (primary) hypertension, Z79.4 - shelter (current) use of insulin Lipid Panel Today E03.9 - Hypothyroidism, unspecified, E11.42 - Type 2 diabetes mellitus with diabetic polyneuropathy, E11.65 - Type 2 diabetes mellitus with hyperglycemia, E78.00 - Pure hypercholesterolemia, unspecified, I10 - Essential (primary) hypertension, Z79.4 - shelter (current) use of insulin Microalbumin, Random (w Creat) Today E03.9 - Hypothyroidism, unspecified, E11.42 - Type 2 diabetes mellitus with diabetic polyneuropathy, E11.65 - Type 2 diabetes mellitus with hyperglycemia, E78.00 - Pure hypercholesterolemia, unspecified, I10 - Essential (primary) hypertension, Z79.4 - shelter (current) use of insulin Medications: New gabapentin 300 mg PO BEDTIME 90 caps 3RF Changed From Lantus Solostar U-100 Insulin (insulin glargine) 44 units (0.44 mL) subcut DAILY 90 days 40 mL 1RF NS E11.65 - Type 2 diabetes mellitus with hyperglycemia, Z79.4 - shelter (current) use of insulin To Lantus Solostar U-100 Insulin (insulin glargine) 50 units (0.5 mL) subcut DAILY 45 mL 1RF 90 days NS E11.65 - Type 2 diabetes mellitus with hyperglycemia, Z79.4 - long term care phlebotomist (current) use of insulin From insulin lispro (Humalog KwikPen (U-100) Insulin) 12 units for breakfast , 16 u nits for lunch and dinner subcutaneously daily; with largest meal of day 30 days 3.6 mL 5RF E11.65 - Type 2 diabetes mellitus with hyperglycemia, Z79.4 - long term care phlebotomist (current) use of insulin To insulin lispro (Humalog KwikPen (U-100) Insulin) 14 units for breakfast , 20 units for lunch and dinner subcutaneously daily; with largest meal of day 3.6 mL 5RF 30 days E11.65 - Type 2 diabetes mellitus with hyperglycemia, Z79.4 - long term care phlebotomist (current) use of insulin Refilled flash glucose sensor (FreeStyle Simón 2 Sensor kit) As directed change every 14 days 2 ea 5RF Coding Level of Care Code Est Pt Level 4 (75606) Complex EM visit Add On G2211 Diagnoses Essential hypertension I10 Type 2 diabetes mellitus with diabetic polyneuropathy, without long-term current use of insulin E11.42 Diabetes mellitus residential insulin use: without rodent exterminator use Type 2 diabetes mellitus with hyperglycemia, with long-term current use of insulin E11.65; Z79.4 Acquired hypothyroidism E03.9 Hypothyroidism type: acquired Pure hypercholesterolemia E78.00
[2023-07-24 13:39] VITALS: BP 138/68; PULSE 85; BMI 31.3
[2023-07-24 13:50] LABS: Glucose, Whole Blood 220 mg/dL (60-115)
== END 2023-07-24 14:33 | disposition home or self-care (01) ==
PROVIDERS: PCP Internal Medicine; Visit Provider Physician Assistant
DX: I10 Essential (primary) hypertension (principal); E11.42 Type 2 diabetes mellitus with diabetic polyneuropathy; E11.65 Type 2 diabetes mellitus with hyperglycemia; Z79.4 Long term (current) use of insulin; E03.9 Hypothyroidism, unspecified; E78.00 Pure hypercholesterolemia, unspecified
CPT/HCPCS: 99214; G2211

== ENCOUNTER → 2023-07-24 13:32 | Outpatient (BNVA) | payer OTHER, SELFPAY | PROVIDERS: PCP Internal Medicine; Visit Provider Physician Assistant | DX: E11.42 Type 2 diabetes mellitus with diabetic polyneuropathy (principal); E11.65 Type 2 diabetes mellitus with hyperglycemia; E03.9 Hypothyroidism, unspecified; E78.00 Pure hypercholesterolemia, unspecified; I10 Essential (primary) hypertension; Z79.4 Long term (current) use of insulin | CPT/HCPCS: 82947; 83036; 99212 ==

== ENCOUNTER 2023-07-30 14:41 | Outpatient (AMB) | payer OTHER, SELFPAY ==
[2023-07-30 14:44] VITALS: BP 130/82; PULSE 104; O2SAT 94; BMI 31.2
--- NOTE | 2023-07-30 14:44 | A.OFFPC_ITS ---
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 per policy Accompanied by: Self / Same As Patient Allergies Iodinated Contrast Media [IV CONTRAST] Allergy (Intermediate, Verified 08/28/23 11:00) RASH iopromide [From ULTRAVIST] Allergy (Mild, Verified 08/28/23 11:00) ITCHING Medication List - Last Reconciled 07/30/23 by Genaro Chu MD acetaminophen-codeine 300-30 mg 1 tab PO Q6H PRN atorvastatin 80 mg PO BEDTIME blood sugar diagnostic (FreeStyle Lite Strips) As directed three times a day cholecalciferol (vitamin D3) 50 mcg PO DAILY clonidine HCl 0.1 mg PO BID PRN 30 days empagliflozin (Jardiance) 25 mg PO DAILY flash glucose scanning reader (GoldenSUNStyle Simón 2 [place]) As directed flash glucose sensor (FreeStyle Simón 2 Sensor kit) As directed change every 14 days gabapentin 300 mg PO BEDTIME insulin lispro (Humalog KwikPen (U-100) Insulin) 14 units for breakfast , 20 units for lunch and dinner subcutaneously daily; with largest meal of day 30 days lancets (FreeStyle Lancets) Three times a day Lantus Solostar U-100 Insulin (insulin glargine) 50 units (0.5 mL) subcut DAILY 90 days NS levothyroxine 50 mcg PO QAM lisinopril-hydrochlorothiazide 20-12.5 mg 1 tab PO DAILY 90 days lorazepam 0.5 mg PO DAILY PRN 30 days metoprolol succinate ER 50 mg PO DAILY mirtazapine 7.5 mg PO BEDTIME 30 days peg-electrolyte soln 420 gram 240 mL PO ONCE PRN 1 day pen needle, diabetic (BD Ultra-Fine Jordana Pen Needle) As directed four times a day pen needle, diabetic As directed sertraline 50 mg PO DAILY 30 days Tobacco use date assessed: 07/30/23 Dental Screening Dental Screen Date: 07/30/23 Did you have a dental visit in the last 12 months?: Yes Did you have a dental problem in the last 6 months where you did not have access to dental care?: No Was dental information given to patient?: Patient has dentist HPI Med Follow Up- NEEDS A1C HPI Details Patient comes in today for her follow up visit - has not been back since October 2022 States that she has been experiencing increasing pain and stiffness of the index fingers on both of her hands lately and that she sometimes has trouble extending her index fingers all the way She denies any recent injury or trauma to her fingers States that she feels okay otherwise She denies any headaches or dizziness Denies any chest pains, no shortness of breath No nausea / vomiting, no abdominal pain No change in bowel habits noted [facility] Medical History Chest discomfort Loose stools Well woman exam Vaginal irritation Left shoulder pain Pancreatitis Dizziness Hordeolum externum left lower eyelid Respiratory tract infection Cough Poor historian Tachycardia Abdominal pain Recurrent nonproductive cough Status post fall Hip pain, bilateral Low back pain Vulvar leukoplakia Vulvar itching Conjunctivitis, right eye Acute right eye pain Recurrent epigastric abdominal pain Obesity (BMI 30-39.9) Annual physical exam Screening mammogram, encounter for Vulvovaginitis juani albicans Obesity due to excess calories Type 2 diabetes mellitus with diabetic nephropathy Hyperlipidemia LDL goal <100 Diabetes mellitus Primary osteoarthritis of hips, bilateral Lumbar degenerative disc disease Pure hypercholesterolemia Anxiety GERD without esophagitis Ganglion cyst of tendon sheath of left hand Gastritis GERD (gastroesophageal reflux disease) Depression Hypothyroidism Type 2 diabetes mellitus with hyperglycemia, with long-term current use of insulin Type 2 diabetes mellitus with diabetic polyneuropathy Essential hypertension Surgical History Hx of tubal ligation History of herniated intervertebral disc Family History Father Throat cancer Mother Diabetes mellitus CVD (cardiovascular disease) Maternal Aunt Breast cancer Social History Household Members: None Housing: Apartment Alcohol intake: never Patient Tobacco Use Status: Former Tobacco user e-Cigarette/Vaping Use: Never Used Second Hand Smoke Exposure: No service: No Current occupational status: disabled Sexual orientation: Straight/Heterosexual Gender identity: Female Cognitive needs: No Hearing needs: No Vision needs: Yes Female Reproductive History Menstrual Age of Menarche: 12 Questionnaire PHQ-9 Over the last 2 weeks, how often have you been bothered by any of the following problems? 1. Little interest or pleasure in doing things: several days 2. Feeling down, depressed, or hopeless: several days 3. Trouble falling or staying asleep, or sleeping too much: several days 4. Feeling tired or having little energy: not at all 5. Poor appetite or overeating: not at all 6. Feeling bad about yourself - or that you are a failure or have let yourself or your family down: not at all 7. Trouble concentrating on things, such as reading the newspaper or watching television: not at all 8. Moving or speaking so slowly that other people could have noticed. Or the opposite - being so fidgety or restless that you have been moving around a lot more than usual: not at all 9. Thoughts that you would be better off or of hurting yourself in some way: not at all Total score: 3 Depression Screening Interpretation: Positive Depression Screening Follow-up: Existing condition and In treatment Depression Screening Done: Yes 53801 - PHQ-9 Billing: Yes Source: Developed by Drs. Teofilo Loredo, Radha Knight, Keagan Guzman and colleagues, with an educational alecia from [employer]. Thrive Questionnaire Date Thrive assessed: 07/30/23 I am a: Patient What is your living situation today?: I have a steady place to live Within the past 12 months, did the food you bought not last and you didn't have the money to get more?: Never true Within the past 12 months, did you worry whether your food would run out before you got money to buy more?: Never true Do you have trouble paying for medicines?: No Do you have trouble getting transportation to medical appointments?: No Do you have trouble paying your heating and electricity bill?: No Do you have trouble taking care of your child, family member or friend?: No Do you have trouble with day-to-day activities such as bathing, preparing meals, shopping, managing finances, etc.?: No Are you currently unemployed and looking for a job?: No Are you interested in more education?: No Please select the resources that you would like help with: None Currently or been in a relationship where the following occur: no concerns reported THRIVE Score: 0 AUDIT C Alcohol Use Questionnaire (AUDIT-C) 1. How often do you have a drink containing alcohol?: Never 3. How often do you have six or more drinks on one occasion?: Never Total Score: 0 Score Reviewed/Action Taken: Yes CARO-7 AMB Questionnaire CARO-7 Date CARO - 7 assessed: 07/30/23 Feeling nervous, anxious, or on edge: 0 = Not at all Not being able to stop or control worryin = Not at all Worrying too much about different things: 0 = Not at all Trouble relaxin = Not at all Being so restless that it is hard to sit still: 0 = Not at all Becoming easily annoyed or irritable: 0 = Not at all Feeling afraid as if something awful might happen: 0 = Not at all Total CARO-7 score (0-4 normal; 5-9 mild; 10-14 moderate; 15-21 severe): 0 Source: Developed by Drs. Teofilo Loredo, Radha Knight, Keagan Guzman and colleagues, with an educational alecia from [employer]. Review of Systems Const Reports fatigue, Denies fever(s) and Denies headache(s) ENT Denies dysphagia, Denies dizziness, Denies otalgia, Denies headache(s), Denies o dynophagia and Denies sore throat Card Denies chest pain, Reports palpitations (when anxiety occurs) and Reports dyspnea on exertion (mild, lately) Resp Denies chest congestion, Denies cough, Reports dyspnea on exertion (mild, lately) and Denies wheezing GI Denies abdominal pain, Denies constipation, Denies dysphagia, Denies heartburn, Denies diarrhea, Denies nausea, Denies odynophagia and Denies vomiting Denies difficulty voiding, Denies nocturia, Denies dysuria and Denies urinary urgency Musc Reports as per HPI and Reports arthralgias (left shoulder) Neuro Denies dizziness and Denies headache(s) Psych Reports anxiety Endo Reports fatigue and Reports palpitations (when anxiety occurs) Aller/Immun Denies wheezing Physical exam (Primary Care) Vital Signs: Last Vital Signs Pulse 104 H 07/30/23 14:44 BP 130/82 07/30/23 14:44 Pulse Ox 94 07/30/23 14:44 Oxygen Delivery Method Room Air 07/30/23 14:44 BMI result Body Mass Index 31.2 Tobacco/Smoking Status: Tobacco use Status Tobacco use date assessed 07/30/23 07/30/23 14:46 Patient Tobacco Use Status Former Tobacco user 07/30/23 14:46 e-Cigarette/Vaping Use Never Used 07/30/23 14:46 PHQ-9: PHQ-9 Score PHQ-9: Total score 3 07/31/23 00:41 Depression Screening Interpretation: Positive Depression Screening Follow-up: Existing condition and In treatment Thrive Assessment: Date of Thrive Assessment Date Thrive assessed 07/30/23 07/30/23 14:46 Currently or been in a relationship where the following occur: no concerns reported Const General: no acute distress and alert HENMT Ears: TM's normal bilaterally and EAC's normal Throat: Yes posterior oropharynx normal and Yes tonsils normal (no TP congestion) Neck Neck: Yes no lymphadenopathy and Yes supple Resp Auscultation: clear to auscultation bilaterally, no rales and no wheezes Cardio Rate: regular rate Rhythm: regular rhythm Heart sounds: no murmurs GI Palpation (GI): Soft to palpation and nontender Auscultation: normal bowel sounds General: Yes no CVA tenderness Back/Spine/Pelvis Back: no CVA tenderness Thoracic/Lumbar Spine: No lumbar spinal tenderness Skin Rashes: no rashes Extrem Other: (+) tenderness and stiffness of the index fingers on both of her hands; she is unable to fully extend her index fingers General: Yes no clubbing, cyanosis or edema Left upper extremity: shoulder/upper arm Details: tenderness and normal ROM (with slight limitation raising her arm due to pain); no swelling Assessment and Plan Assessment & Plan (1) Type 2 diabetes mellitus with hyperglycemia, with long-term current use of insulin: Code(s): E11.65 - Type 2 diabetes mellitus with hyperglycemia; 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 Ray (2) Pure hypercholesterolemia: Code(s): E78.00 - Pure hypercholesterolemia, unspecified Plan: She has not had any follow up labs done recently as she has not been back in a few months - will send her for some follow-up labs EDUARDA Reinforced low cholesterol diet Continue Atorvastatin 80 mg QD Will recheck her labs and fasting lipids in 3 months for follow-up (3) Essential hypertension: Code(s): I10 - Essential (primary) hypertension Plan: Reinforced low-sodium diet -? goal is systolic BP of 120 mm or less Continue Lisinopril-Hydrochlorothiazide 20-12.5 mg QD (4) Hypothyroidism: Code(s): E03.9 - Hypothyroidism, unspecified Qualifiers: Hypothyroidism type: acquired Qualified Code(s): E03.9 - Hypothyroidism, unspecified Plan: Continue Levothyroxine 50 mcg QD although patient states that she has not taken her thyroid Rx in the past week - unclear as to WHY she is not taking it Have advised her to get BACK on her Levothyroxine daily Will recheck her TFTs in 3 months for follow up (5) Tachycardia: Code(s): R00.0 - Tachycardia, unspecified Plan: Occurring off and on - is most likely related to or triggered by her anxiety but with her uncontrolled DM, should still check these out further for possible cardiac issues - she will be sent for cardiac stress testing and cardiology evaluation EKG and echocardiogram done last year both came out normal (6) Dizziness: Code(s): R42 - Dizziness and giddiness Plan: Unknown etiology; may be possibly due to some inner ear issue She was referred to ENT previously for further evaluation and management - has not been seen yet (7) Dupuytren's contracture of both hands: Code(s): M72.0 - Palmar fascial fibromatosis [Dupuytren] Plan: S/P trigger finger release of the left middle finger a few months ago, with significant improvement of symptoms Follow up with orthopedics as scheduled (8) Trigger finger of all digits of both hands: Code(s): M65.321 - Trigger finger, right index finger; M65.311 - Trigger thumb, right thumb; M65.312 - Trigger thumb, left thumb; M65.322 - Trigger finger, left index finger; M65.331 - Trigger finger, right middle finger Plan: Will patient to orthopedics for further evaluation and management (9) Arthralgia: Code(s): M25.50 - Pain in unspecified joint Qualifiers: Joint pain location: unspecified Qualified Code(s): M25.50 - Pain in unspecified joint Plan: Involving the left knee and right shoulder lately Discussed with patient that these are most likely due to osteoarthritis Will send her for x-rays of the left knee and of the right shoulder for further evaluation (10) GERD without esophagitis: Comment: UGI series done in October 2019 revealed (+) mild reflux disease without hiatal hernia Code(s): K21.9 - Gastro-esophageal reflux disease without esophagitis Plan: Dietary restrictions reinforced Continue Pantoprazole 40 mg QD (11) Abdominal pain: Comment: Vague, somewhat difficult to assess Code(s): R10.9 - Unspecified abdominal pain Qualifiers: Abdominal location: epigastric Qualified Code(s): R10.13 - Epigastric pain Plan: Resolved lately Abdominal US done a few months ago and gastric emptying time done last month both came out grossly normal Patient reportedly had a bout of pancreatitis last year Follow up with GI as scheduled (12) Lumbar degenerative disc disease: Code(s): M51.36 - Other intervertebral disc degeneration, lumbar region Plan: Lumbar spine x-rays done in March 2021 showed (+) old mild degenerative changes over L4-L5 and L5-S1; there is also a mild L2 superior endplate depression that appears to be new (when compared to views from abdominal and pelvic CT done on 08/10/2018) X-rays of the lumbar spine done back in 09/2013 revealed (+) mild degenerative osteoarthritis of the lumbosacral spine with minimal disc space narrowing seen at L4-L5 and L5-S1 Continue TIzanidine 4 mg TID PRN Reinforced activity in weightlifting restrictions If low back pain gets worse, will consider getting an MRI of the lumbar spine for further evaluation and/ or refer to neurosurgery (13) Primary osteoarthritis of hips, bilateral: Code(s): M16.0 - Bilateral primary osteoarthritis of hip Plan: X-rays of both hips done in March 2021 revealed (+) borderline/mild narrowing of bilateral superior medial hip joints. No erosive change or chondrocalcinosis are noted Previous hip x-rays done back on 10/20/2013 came out normal bilaterally Continue Nabumetone 500 mg BID PRN with food for pain Consider referral to physical therapy or orthopedics if her hip symptoms get worse (14) Primary osteoarthritis, left shoulder: Code(s): M19.012 - Primary osteoarthritis, left shoulder Plan: X-rays of the left shoulder done a couple of months ago revealed (+) advanced OA changes Follow up with orthopedics as scheduled Continue Nabumetone 500 mg BID with food PRN for severe pain (15) Anxiety: Code(s): F41.9 - Anxiety disorder, unspecified Plan: Continue Clonidine 0.1 mg BID PRN and Lorazepam PRN Is also on Sertraline 50 mg QD (16) Depression: Code(s): F32.9 - Major depressive disorder, single episode, unspecified Qualifiers: Depression Type: major depressive disorder Major depression recurrence: recurrent Active/Remission status: currently active Major depression episode severity: unspecified Qualified Code(s): F33.9 - Major depressive disorder, recurrent, unspecified Plan: Continue Sertraline 50 mg QD and Mirtazapine 7.5 mg Q HS Follow up with psychiatry as scheduled (17) Obesity (BMI 30-39.9): Code(s): E66.9 - Obesity, unspecified Plan: Reinforced diet/exercise as tolerated/lose weight Plan Follow up in 4 months Orders: Orders Microalbumin, Random (w Creat) 08/03/23 E11.9 - Type 2 diabetes mellitus without complications UA CC w/rflx Micro + Cult 08/03/23 R30.0 - Dysuria Vitamin D 25-OH Total 08/03/23 E55.9 - Vitamin D deficiency, unspecified XR shoulder RT min 2V 08/03/23 M25.511 - Pain in right shoulder Complete Blood Count Auto Diff 08/03/23 D64.9 - Anemia, unspecified Comprehensive [place]. Panel Fast 08/03/23 E78.00 - Pure hypercholesterolemia, unspecified Lipid Panel 08/03/23 E78.00 - Pure hypercholesterolemia, unspecified TSH reflex Free T4 08/03/23 E78.00 - Pure hypercholesterolemia, unspecified Vitamin B12 and Folate 08/03/23 E53.8 - Deficiency of other specified B group vitamins XR knee LT 4V 08/03/23 M25.562 - Pain in left knee Referrals Orthopedics Referral M65.321 - Trigger finger, right index finger, M65.311 - Trigger thumb, right thumb, M65.312 - Trigger thumb, left thumb, M65.322 - Trigger finger, left index finger, M65.331 - Trigger finger, right middle finger Coding Level of Care Code Est Pt Level 4 (68657) Diagnoses Type 2 diabetes mellitus with hyperglycemia, with long-term current use of insulin E11.65; Z79.4 Pure hypercholesterolemia E78.00 Essential hypertension I10 Acquired hypothyroidism E03.9 Hypothyroidism type: acquired Tachycardia R00.0 Dizziness R42 Dupuytren's contracture of both hands M72.0 Trigger finger of all digits of both hands M65.321; M65.311; M65.312; M65.322; M65.331 Arthralgia, unspecified joint M25.50 Joint pain location: unspecified GERD without esophagitis K21.9 Epigastric pain R10.13 Abdominal location: epigastric Lumbar degenerative disc disease M51.36 Primary osteoarthritis of hips, bilateral M16.0 Primary osteoarthritis, left shoulder M19.012 Anxiety F41.9 Episode of recurrent major depressive disorder, unspecified depression episode severity F33.9 Depression Type: major depressive disorder Major depression recurrence: recurrent Active/Remission status: currently active Major depression episode severity: unspecified Obesity (BMI 30-39.9) E66.9
== END 2023-07-30 15:21 | disposition home or self-care (01) ==
PROVIDERS: PCP Internal Medicine; Visit Provider Internal Medicine
DX: E11.65 Type 2 diabetes mellitus with hyperglycemia (principal); Z79.4 Long term (current) use of insulin; F33.9 Major depressive disorder, recurrent, unspecified; E78.00 Pure hypercholesterolemia, unspecified; I10 Essential (primary) hypertension; K21.9 Gastro-esophageal reflux disease without esophagitis; R00.0 Tachycardia, unspecified; R42 Dizziness and giddiness; M72.0 Palmar fascial fibromatosis [Dupuytren]; M65.321 Trigger finger, right index finger; M65.311 Trigger thumb, right thumb
CPT/HCPCS: 99214

== ENCOUNTER 2023-08-03 09:22 | Outpatient (REF) | payer OTHER, SELFPAY ==
--- NOTE | ~2023-08-03 | XR_ITS ---
EXAMINATION: XR SHOULDER, RIGHT CLINICAL INFORMATION: Pain in the right shoulder COMPARISON: None available. TECHNIQUE: AP external rotation, Grashey, scapular Y, and axillary views of the right shoulder. FINDINGS: There is moderate osteoarthritis of acromioclavicular joint. There is moderate osteoarthritis of glenohumeral joint. The surrounding bone and soft tissues are unremarkable. XR/XR shoulder RT min 2V IMPRESSION: Osteoarthritis of the right shoulder.
--- NOTE | ~2023-08-03 | XR_ITS ---
EXAMINATION: XR KNEE, LEFT CLINICAL INFORMATION: Pain in the left knee COMPARISON: None available. TECHNIQUE: Four views of the left knee. FINDINGS: Tiny marginal osteophytes about the medial compartment without joint space narrowing indicative of minimal osteoarthritis. The remaining bones and joints are unremarkable.. There is no effusion. Arterial calcification noted. XR/XR knee LT 4V IMPRESSION: 1. Minimal osteoarthritis of the left knee. 2. Calcific atherosclerotic disease.
[2023-08-03 09:45] LABS: MANUAL DIFF FLAG NO
[2023-08-03 10:10] LABS: Basophils Percent Auto 0.6 % (0-2); Eosinophils Absolute Auto 0.3 X10*3/uL (0.0-0.4); Eosinophils Percent Auto 3.8 % (0-4); Hematocrit 39.5 % (37.0-47.0); Hemoglobin 13.5 g/dl (12.0-16.0); Imm Gran Abs Auto 0.03 X10*3/uL (0.00-0.03); Imm Gran Pct Auto 0.4 % (0.0-0.4); Lymphocytes Absolute Auto 2.2 X10*3/uL (1.2-4.9); Lymphocytes Percent Auto 31.1 % (20-40); Mean Corpuscular HGB Conc 34.2 g/dl (31.0-35.0); Mean Corpuscular Volume 87.8 fL (80.0-98.0); Mean Platelet Volume 9.8 fL (9.4-12.3); Monocytes Absolute Auto 0.4 X10*3/uL (0.1-1.2); Monocytes Percent Auto 5.7 % (2-11); Neutrophils Absolute Auto 4.1 x10*3/uL (2.0-8.3); Neutrophils Percent Auto 58.4 % (45-73); Platelet Count 193 X10*3/uL (160-400); Red Cell Distribution Width 13.8 % (11.0-16.0); White Blood Count 7.1 X10*3/uL (4.8-10.8)
[2023-08-03 10:14] LABS: Estimated Average Glucose 255 mg/dL; Hemoglobin A1c % 10.5 % (<6.0)
[2023-08-03 10:20] LABS: Appearance Urine Clear; Color Urine Yellow; Glucose Urine UA >=1000 mg/dL (Negative); Leukocyte Esterase Urine Trace (Negative); Nitrite Urine Negative (Negative); PH 5.5 (5.0-9.0); Specific Gravity - Urine >= 1.030 (1.005-1.025); UMIC TRIGGER UACC YES; Urine Blood Negative (Negative); Urine Ketones Negative (Negative); Urine Protein Trace mg/dL (Neg-Trace)
[2023-08-03 10:48] LABS: Creatinine Urine 111.44 mg/dL; Microalbum/Creatinine Ratio Ur 68.1 ug/mg cr (<30)
[2023-08-03 11:03] LABS: Bacteria Urine None Seen (None Seen); Hyaline Casts Urine 0-2 /LPF (0-2); RBC Urine 0-2 /HPF (0-2); UACC Culture Trigger YES
[2023-08-03 11:15] LABS: Alanine Aminotransferase 17 U/L (0-31); Albumin Level 3.8 g/dL (3.5-5.0); Alkaline Phosphatase 79 U/L (39-117); Anion Gap 11 (12-20); Aspartate Amino Transferase 11 U/L (5-31); Bilirubin Total 0.4 mg/dL (0.0-1.0); Blood Urea Nitrogen 11 mg/dL (9-16); Calcium 9.2 mg/dL (8.4-10.2); Carbon Dioxide 25 mmol/L (22-29); Chloride 106 mmol/L (96-108); Cholesterol 148 mg/dL (<200); Estimated Glomerular Filt Rate > 60; Glucose Fasting 246 mg/dL (60-99); HDL Cholesterol 32 mg/dL (>40); LDL Cholesterol Calculated 59 mg/dL (<100); Potassium 4.1 mmol/L (3.3-5.1); Sodium 138 mmol/L (135-145); Total Protein 7.2 g/dL (6.5-8.0); Triglycerides 288 mg/dL (<150)
[2023-08-03 11:19] LABS: Free T4 (Free Thyroxine) 0.97 ng/dL (0.71-1.85); TSH reflex Free T4 1.99 uIU/mL (0.32-4.0); Thyroid Stimulating Hormone 1.99 uIU/mL (0.32-4.0); Vitamin D 25-OH Total 24.2 ng/mL (>30)
[2023-08-03 11:46] LABS: Folate 13.6 ng/mL (> or = 4.0); Vitamin B12 570 pg/mL (200-900)
== END 2023-08-03 09:23 | disposition home or self-care (01) ==
LOC: HO.XRAY 09:22
PROVIDERS: Absent Provider Physician Assistant; PCP Internal Medicine; Visit Provider Internal Medicine
DX: E78.00 Pure hypercholesterolemia, unspecified (principal); E55.9 Vitamin D deficiency, unspecified; E03.9 Hypothyroidism, unspecified; D64.9 Anemia, unspecified; E53.8 Deficiency of other specified B group vitamins; E11.9 Type 2 diabetes mellitus without complications; M25.511 Pain in right shoulder; M25.562 Pain in left knee
CPT/HCPCS: 36415; 73030; 73564; 80053; 80061; 81001; 81003; 82043; 82306; 82570; 82607; 82746; 83036; 84439; 84443; 85025; 87086

== ENCOUNTER → 2023-08-10 14:01 | Outpatient (BNVA) | payer OTHER, SELFPAY | PROVIDERS: PCP Internal Medicine; Visit Provider Registered Nurse Diabetes Educator | DX: E11.9 Type 2 diabetes mellitus without complications (principal); Z79.4 Long term (current) use of insulin | CPT/HCPCS: 99211 ==

== ENCOUNTER 2023-08-24 13:42 | Outpatient (AMB) | payer OTHER, SELFPAY ==
--- NOTE | 2023-08-24 14:11 | A.OFFVIS_ITS ---
Intake Intake Visit Reasons: 30 min/CONFIRMED Food Counter Worker Required: Yes Food Counter Worker Language: Caul Fat Puller Services: Food Counter Worker Present Food Counter Worker Name: Evon [facility] Information Interpreted: non-clinical & clinical Accompanied by: Self / Same As Patient Allergies Iodinated Contrast Media [IV CONTRAST] Allergy (Intermediate, Verified 07/30/23 15:09) RASH iopromide [From ULTRAVIST] Allergy (Mild, Verified 07/30/23 15:09) ITCHING HPI Comprehensive Diabetes Asmnt Most Recent Diabetes Results: Microalb/Creat Ratio 68.1 ug/mg cr (<30) H 08/03/23 Cholesterol 148 mg/dL (<200) 08/03/23 HDL Cholesterol 32 mg/dL (>40) L 08/03/23 Triglycerides 288 mg/dL (<150) H 08/03/23 Creatinine 0.65 mg/dL (0.5-1.4) 08/03/23 Blood Urea Nitrogen 11 mg/dL (9-16) 08/03/23 Sodium 138 mmol/L (135-145) 08/03/23 Potassium 4.1 mmol/L (3.3-5.1) 08/03/23 Chloride 106 mmol/L (96-108) 08/03/23 Carbon Dioxide 25 mmol/L (22-29) 08/03/23 Calcium 9.2 mg/dL (8.4-10.2) 08/03/23 AST 11 U/L (5-31) 08/03/23 ALT 17 U/L (0-31) 08/03/23 Total Protein 7.2 g/dL (6.5-8.0) 08/03/23 Albumin 3.8 g/dL (3.5-5.0) 08/03/23 [facility] Medical History Chest discomfort Loose stools Well woman exam Vaginal irritation Left shoulder pain Pancreatitis Dizziness Hordeolum externum left lower eyelid Respiratory tract infection Cough Poor historian Tachycardia Abdominal pain Recurrent nonproductive cough Status post fall Hip pain, bilateral Low back pain Vulvar leukoplakia Vulvar itching Conjunctivitis, right eye Acute right eye pain Recurrent epigastric abdominal pain Obesity (BMI 30-39.9) Annual physical exam Screening mammogram, encounter for Vulvovaginitis juani albicans Obesity due to excess calories Type 2 diabetes mellitus with diabetic nephropathy Hyperlipidemia LDL goal <100 Diabetes mellitus Primary osteoarthritis of hips, bilateral Lumbar degenerative disc disease Pure hypercholesterolemia Anxiety GERD without esophagitis Ganglion cyst of tendon sheath of left hand Gastritis GERD (gastroesophageal reflux disease) Depression Hypothyroidism Type 2 diabetes mellitus with hyperglycemia, with long-term current use of insulin Type 2 diabetes mellitus with diabetic polyneuropathy Essential hypertension Surgical History Hx of tubal ligation History of herniated intervertebral disc Family History Father Throat cancer Mother Diabetes mellitus CVD (cardiovascular disease) Maternal Aunt Breast cancer Social History Household Members: None Housing: Apartment Alcohol intake: never Patient Tobacco Use Status: Former Tobacco user e-Cigarette/Vaping Use: Never Used Second Hand Smoke Exposure: No service: No Current occupational status: disabled Sexual orientation: Straight/Heterosexual Gender identity: Female Cognitive needs: No Hearing needs: No Vision needs: Yes Female Reproductive History Menstrual Age of Menarche: 12 Assessment & Plan Assessment & Plan (1) Type 2 diabetes mellitus with hyperglycemia, with long-term current use of insulin: Code(s): E11.65 - Type 2 diabetes mellitus with hyperglycemia; Z79.4 - terminologist (current) use of insulin Plan: Learning objectives: The patient was provided with verbal and written education on the following topics as outlined below. The patient met all learning objectives and was able to verbalize understanding and provide teach back of education topics discussed . The patient was provided with the opportunity to ask questions and all questions were answered. Patient Assessment Assess patient education level/literacy/barriers, patient can identify foods from carb lists that contain carbohydrate Patient questions/concerns, patient's last A1c on 08/03 2023 10.5%. Patient has recently restarted using freestyle Simón 2 Patient currently on Lantus 50 units daily Humalog 16 units before breakfast, 20 units before lunch and supper Jardiance 25 mg daily Patient's glucose running well above target, patient denies missing medication has not had any new medications added recently Message sent to provider regarding switching to more concentrated basal insulin such as Toujeo, in increase Humalog doses before meals. Patient was on Ozempic in the past it is unclear why she is no longer, she has upcoming visit with provider on 08/28/2023 Recommended to patient to increase Lantus to 60 units daily Increase Humalog to 20 units before breakfast, 24 units before lunch and supper Brief overview of Diabetes Management Monitoring blood sugar Following a meal plan Regular exercise Maintaining a healthy weight Taking medication as needed Members of the care team (PCP, RN, MA, RD, CDE, glass cut off tender) Blood glucose monitoring When/how often to test Target blood sugar ranges Patient is using freestyle Simón 2 Patient's average glucose for the past 10 days 333 mg/dL Patient above target 100% of the time Introduction to Nutrition Importance of healthy diet in managing DM Diet is personalized to individual preference Review patient?s regular diet/food preferences Who prepares meals/does food shopping/ Dining out?/ Barriers? How diet effects glucose Eating 3 balanced meals a day with small, healthy snacks between meals Review food groups Carbohydrates: What is a carbohydrate/Which food/food groups are considered carbohydrates Effect of carbohydrates on blood glucose Portion sizes Reading food labels Basic carb counting (if applicable per nursing assessment) Plate method Meal planning Recommendations: Follow plate method, consistent carbs and read nutritional labels. Smart Goal: Patient will identify foods that she is eating that contain carbohy drates Educational Materials: The patient was provided with the following written educational materials: Planning Healthy Meals, common [place] foods with carbohydrates, handout Patient Response to instructions: Comprehension of Instructions: Fair Readiness to make changes: Contemplation How confident they feel about making changes: Fair Portions of this note were created using voice recognition software, please excuse any words or phrases that may have been misinterpreted. Patient Instructions: Incluir actividad diaria regular. ADA recomienda 30 minutos de ejercicio 5 d?as a la semana. P?rdida de peso, hable con el PCP o el cardi?logo antes de comenzar un nuevo plan. Mida el nivel de az?car en la symone seg?n las indicaciones; Ayuno y comida m?s shelbie de 2hpp. Observe las tendencias en los resultados. Utilice los resultados y eval?e c?mo los alimentos, la actividad f?larry y los medicamentos afectan los resultados de az?car en la symone. Lleve el gluc?metro o CGM a la pr?xima visita. Conocer los medicamentos para la diabetes, blair acci?n, los efectos secundarios, la eficacia, la toxicidad, la dosis prescrita, el momento y la frecuencia de administraci?n apropiados, el efecto de las dosis olvidadas y retrasadas y las instrucciones de almacenamiento, viaje y seguridad. T?cnicas de resoluci?n de problemas para el seguimiento de episodios de hipo/hiperglucemia y tratamientos. Reducir los comportamientos de reducci?n de riesgos, dejar de fumar, ex?menes regulares de ojos, pies y dentales Coding Level of Care Code Est Pt Level 1 (90544) Diagnoses Type 2 diabetes mellitus with hyperglycemia, with long-term current use of insulin E11.65; Z79.4
== END 2023-08-24 14:12 | disposition home or self-care (01) ==
PROVIDERS: PCP Internal Medicine; Visit Provider Registered Nurse Diabetes Educator
DX: E11.65 Type 2 diabetes mellitus with hyperglycemia (principal); Z79.4 Long term (current) use of insulin

== ENCOUNTER → 2023-08-24 13:42 | Outpatient (BNVA) | payer OTHER, SELFPAY | PROVIDERS: PCP Internal Medicine; Visit Provider Registered Nurse Diabetes Educator | DX: E11.65 Type 2 diabetes mellitus with hyperglycemia (principal); Z79.4 Long term (current) use of insulin | CPT/HCPCS: 99211 ==

== ENCOUNTER 2023-08-28 10:46 | Outpatient (AMB) | payer OTHER, SELFPAY ==
--- NOTE | 2023-08-28 10:55 | A.OFFVIS_ITS ---
Vital Signs 08/28/23 10:59 Height 5 ft 3 in Weight 175 lb 7.807 oz BMI 31.1 BP 128/64 Blood Pressure Location Rt brachial Position Sitting Pulse 89 Pulse Source Pulse Oximeter Intake Visit Reasons: [id number] Intake Note: Patient present today to follow up on Type 2 Diabetes Mellitus. Last seen by Dr. Ray on 10/01/2022. Patient receives DME supplies through: Pharmacy Last Diabetic Eye exam: More than 1 year, due for exam Last Podiatry Visit: [facility] snot see a Cashier Payments Received Random Glucose: 224 mg/dl HgA1C: 10.5% 08/03/2023 After School Program Director Required: Yes After School Program Director Language: Senior Manager Name: Cecelia, Medical Staff LM Information Interpreted: non-clinical & clinical Accompanied by: Self / Same As Patient Allergies Iodinated Contrast Media [IV CONTRAST] Allergy (Intermediate, Verified 08/28/23 11:00) RASH iopromide [From ULTRAVIST] Allergy (Mild, Verified 08/28/23 11:00) ITCHING Medication List - Last Reconciled 08/28/23 by Sultana Williamson PA-C acetaminophen-codeine 300-30 mg 1 tab PO Q6H PRN atorvastatin 80 mg PO BEDTIME blood sugar diagnostic (FreeStyle Lite Strips) As directed three times a day cholecalciferol (vitamin D3) 50 mcg PO DAILY clonidine HCl 0.1 mg PO BID PRN 30 days empagliflozin (Jardiance) 25 mg PO DAILY flash glucose scanning reader (FreeStyle Simón 2 [place]) As directed flash glucose sensor (FreeStyle Simón 2 Sensor kit) As directed change every 14 days gabapentin 300 mg PO BEDTIME insulin lispro (Humalog KwikPen (U-100) Insulin) 20 units for breakfast , 24 units for lunch, 30 units for dinner subcutaneously daily lancets (FreeStyle Lancets) Three times a day levothyroxine 50 mcg PO QAM lisinopril-hydrochlorothiazide 20-12.5 mg 1 tab PO DAILY 90 days lorazepam 0.5 mg PO DAILY PRN 30 days metoprolol succinate ER 50 mg PO DAILY mirtazapine 7.5 mg PO BEDTIME 30 days peg-electrolyte soln 420 gram 240 mL PO ONCE PRN 1 day pen needle, diabetic (BD Ultra-Fine Jordana Pen Needle) As directed four times a day pen needle, diabetic As directed sertraline 50 mg PO DAILY 30 days HPI HPI [id number]: Details: Patient is a 63-year-old female with a significant past medical history of anxiety, depression, hypothyroidism, hyperlipidemia, hypertension and type 2 diabetes presenting today for diabetic follow-up. Endo: DM-her last A1c was 10.5. Her blood sugar today is 224. She is on Jardiance 25 mg, Humalog 12 units for breakfast, 24 units for lunch and dinner, Lantus 60 units. Her blood sugars in the morning are around 250. A few hours after lunch they are around 300. S he has tried ozempic but caused pancreatitis. Metformin caused GI upset. Her last eye exam was over a year ago. Last foot exam was over a year ago. She does have peripheral neuropathy related to her diabetes worst in her right foot than her left. Does not follow with podiatry. Her CGM download shows that she is using it 52% of the time. Average blood sugars 333. Variability of 16.1%. She is very high at 92% of the time and high 8% of the time. No hypoglycemic events. Hypothyroid-she is on levothyroxine 50 mcg. Last TSH was WNL. CV: Blood pressure today in the office is 128/64 She is on hydrochlorothiazide/lisinopril, metoprolol. Remains on Lipitor 80 mg. [facility] Medical History Chest discomfort Loose stools Well woman exam Vaginal irritation Left shoulder pain Pancreatitis Dizziness Hordeolum externum left lower eyelid Respiratory tract infection Cough Poor historian Tachycardia Abdominal pain Recurrent nonproductive cough Status post fall Hip pain, bilateral Low back pain Vulvar leukoplakia Vulvar itching Conjunctivitis, right eye Acute right eye pain Recurrent epigastric abdominal pain Obesity (BMI 30-39.9) Annual physical exam Screening mammogram, encounter for Vulvovaginitis juani albicans Obesity due to excess calories Type 2 diabetes mellitus with diabetic nephropathy Hyperlipidemia LDL goal <100 Diabetes mellitus Primary osteoarthritis of hips, bilateral Lumbar degenerative disc disease Pure hypercholesterolemia Anxiety GERD without esophagitis Ganglion cyst of tendon sheath of left hand Gastritis GERD (gastroesophageal reflux disease) Depression Hypothyroidism Type 2 diabetes mellitus with hyperglycemia, with long-term current use of insulin Type 2 diabetes mellitus with diabetic polyneuropathy Essential hypertension Surgical History Hx of tubal ligation History of herniated intervertebral disc Family History Father Throat cancer Mother Diabetes mellitus CVD (cardiovascular disease) Maternal Aunt Breast cancer Social History Household Members: None Housing: Apartment Alcohol intake: never Patient Tobacco Use Status: Former Tobacco user e-Cigarette/Vaping Use: Never Used Second Hand Smoke Exposure: No service: No Current occupational status: disabled Sexual orientation: Straight/Heterosexual Gender identity: Female Cognitive needs: No Hearing needs: No Vision needs: Yes Female Reproductive History Menstrual Age of Menarche: 12 Physical Exam Vital Signs: Last Vital Signs Pulse 89 08/28/23 10:59 BP 128/64 08/28/23 10:59 BMI result Body Mass Index 31.1 Const Orientation/consciousness: patient oriented x3 HEENT Ears: hearing grossly normal bilaterally Neck Thyroid: Thyroid normal Lymphatic: no lymphadenopathy noted Resp Auscultation: clear to auscultation bilaterally Cardio Rate: regular rate Rhythm: regular rhythm Heart sounds: S1 normal heart sound present and S2 normal heart sound present Skin General skin exam: no rashes or lesions noted Neuro General: patient oriented x3, gait normal and no focal motor deficits Extrem Other: DP pulses 2+ bilaterally. Reports diminished sensation to light touch the right toes. Unable to feel vibratory sensation on the right until midfoot. Vibratory sensation diminished on the left as well but present. Skin intact. Results Reviewed Results Reviewed: Laboratory Last Values Glucose (Clinic) 224 mg/dL (60-115) H 08/28/23 11:05 Laboratory Tests 08/03/23 08/03/23 09:38 09:43 Sodium 138 Potassium 4.1 Chloride 106 Carbon Dioxide 25 Anion Gap 11 L BUN 11 Creatinine 0.65 Estimated GFR > 60 Fasting Glucose 246 H Estimat Average Glucose 255 Hemoglobin A1c % 10.5 H Calcium 9.2 D Total Bilirubin 0.4 AST 11 ALT 17 Alkaline Phosphatase 79 Total Protein 7.2 Albumin 3.8 Triglycerides 288 H Cholesterol 148 LDL Cholesterol, Calc 59 HDL Cholesterol 32 L Urine Creatinine 111.44 Urine Microalbumin 76.0 Microalb/Creat Ratio 68.1 H Assessment & Plan Assessment & Plan (1) Type 2 diabetes mellitus with hyperglycemia, with long-term current use of insulin: Code(s): E11.65 - Type 2 diabetes mellitus with hyperglycemia; Z79.4 - jail (current) use of insulin Category: Medical Plan: Reviewed notes from Ginette who recommends switching from Lantus to Toujeo. We will start on 60 units of Toujeo. Increase Humalog to 20 units with breakfast, 24 units with lunch and 30 units with supper. Signs symptoms of hyper and hypoglycemia require emergent medical treatment were discussed. Rule/15 discussed. Glucose tabs order to use if needed. Advised to make an eye exam and airport ramp attendant exam (2) Type 2 diabetes mellitus with diabetic polyneuropathy: Code(s): E11.42 - Type 2 diabetes mellitus with diabetic polyneuropathy Category: Medical Qualifiers: Diabetes mellitus intermediate card tender insulin use: without intermediate card tender use Qualified Code(s): E11.42 - Type 2 diabetes mellitus with diabetic polyneuropathy Plan: Stable and unchanged. (3) Essential hypertension: Code(s): I10 - Essential (primary) hypertension Category: Medical Plan: WNL continue current regimen Medications: New insulin lispro (Humalog KwikPen (U-100) Insulin) 20 units for breakfast , 24 units for lunch, 30 units for dinner subcutaneously daily 15 mL 6RF E11.65 - Type 2 diabetes mellitus with hyperglycemia, Z79.4 - director long term care (current) use of insulin insulin glargine U-300 conc (Toujeo Max U-300 SoloStar) 60 units (0.2 mL) subcut DAILY 6 mL 2RF glucose (Dex4 Glucose) until symptoms of low blood sugar are controlled 16 grams (4 x 4 gram) PO Q15M PRN 100 tabs 0RF hypoglycemia Coding Level of Care Code Est Pt Level 4 (83561) Complex EM visit Add On G2211 Diagnoses Type 2 diabetes mellitus with hyperglycemia, with long-term current use of insulin E11.65; Z79.4 Type 2 diabetes mellitus with diabetic polyneuropathy, without long-term current use of insulin E11.42 Diabetes mellitus intermediate card tender insulin use: without intermediate card tender use Essential hypertension I10
[2023-08-28 10:59] VITALS: BP 128/64; PULSE 89; BMI 31.1
[2023-08-28 11:09] LABS: Glucose, Whole Blood 224 mg/dL (60-115)
== END 2023-08-28 11:41 | disposition home or self-care (01) ==
PROVIDERS: PCP Internal Medicine; Visit Provider Physician Assistant
DX: E11.65 Type 2 diabetes mellitus with hyperglycemia (principal); Z79.4 Long term (current) use of insulin; E11.42 Type 2 diabetes mellitus with diabetic polyneuropathy; I10 Essential (primary) hypertension
CPT/HCPCS: 99214; G2211

== ENCOUNTER → 2023-08-28 10:46 | Outpatient (BNVA) | payer OTHER, SELFPAY | PROVIDERS: PCP Internal Medicine; Visit Provider Physician Assistant | DX: E11.65 Type 2 diabetes mellitus with hyperglycemia (principal); E11.42 Type 2 diabetes mellitus with diabetic polyneuropathy; Z79.4 Long term (current) use of insulin; I10 Essential (primary) hypertension | CPT/HCPCS: 82947; 99212 ==

== ENCOUNTER 2023-09-18 11:31 | Outpatient (AMB) | payer OTHER, SELFPAY ==
--- NOTE | 2023-09-18 11:33 | A.OFFVIS_ITS ---
Vital Signs 09/18/23 11:34 Height 5 ft 3 in Weight 174 lb 2.643 oz BMI 30.8 BP 130/66 Blood Pressure Location Rt brachial Position Sitting Pulse 103 H Pulse Source Pulse Oximeter Intake Visit Reasons: Insulin Check/CONFIRMED Intake Note: Patient presents today for a follow-up on Type 2 Diabetes Mellitus: Last diabetic eye exam was on: DUE Last Podiatry Exam was on: DUE Most recent HbA1c: 10.6%, 07/24/2023 Random Glucose- 265mg/dL, Today High Pressure Kettle Operator Required: Yes High Pressure Kettle Operator Language: Vietnamese Accompanied by: Self / Same As Patient Allergies Iodinated Contrast Media [IV CONTRAST] Allergy (Intermediate, Verified 09/18/23 11:38) RASH iopromide [From ULTRAVIST] Allergy (Mild, Verified 09/18/23 11:38) ITCHING Medication List - Last Reconciled 09/18/23 by Sultana Williamson PA-C acetaminophen-codeine 300-30 mg 1 tab PO Q6H PRN atorvastatin 80 mg PO BEDTIME blood sugar diagnostic (FreeStyle Lite Strips) As directed three times a day cholecalciferol (vitamin D3) 50 mcg PO DAILY clonidine HCl 0.1 mg PO BID PRN 30 days empagliflozin (Jardiance) 25 mg PO DAILY flash glucose scanning reader (FreeStyle Simón 2 [place]) As directed flash glucose sensor (FreeStyle Simón 2 Sensor kit) As directed change every 14 days gabapentin 300 mg PO BEDTIME glucose (Dex4 Glucose) 16 grams (4 x 4 gram) PO Q15M PRN insulin glargine U-300 conc (Toujeo Max U-300 SoloStar) 60 units (0.2 mL) subcut DAILY insulin lispro (Humalog KwikPen (U-100) Insulin) 20 units for breakfast , 24 units for lunch, 30 units for dinner subcutaneously daily lancets (FreeStyle Lancets) Three times a day levothyroxine 50 mcg PO QAM lisinopril-hydrochlorothiazide 20-12.5 mg 1 tab PO DAILY 90 days lorazepam 0.5 mg PO DAILY PRN 30 days metoprolol succinate ER 50 mg PO DAILY mirtazapine 7.5 mg PO BEDTIME 30 days peg-electrolyte soln 420 gram 240 mL PO ONCE PRN 1 day pen needle, diabetic (BD Ultra-Fine Jordana Pen Needle) As directed four times a day pen needle, diabetic As directed sertraline 50 mg PO DAILY 30 days HPI HPI Insulin Check/CONFIRMED: Details: Patient is a 63-year-old female with a significant past medical history of anxiety, depression, hypothyroidism, hyperlipidemia, hypertension and type 2 diabetes presenting today for diabetic follow-up. conference interpreter # [id number] Endo: DM-her last A1c was 10.5. Her blood sugar today is 256. At our last visit i switched from lantus to toujeo and increased humalog. She is on Jardiance 25 mg, 60 units of Toujeo, Humalog to 20 units with breakfast, 24 units with lunch and 30 units with supper. he has tried ozempic but caused pancreatitis. Metformin caused GI upset. Her last eye exam was over a year ago. Last foot exam was over a year ago. She does have peripheral neuropathy related to her diabetes worst in her right foot than her left. Does not follow with podiatry. Her CGM download shows data for the last 4 days. She had her lowest reading of 171 in her highest reading of 380. Her average blood sugars 256. Hypothyroid-she is on levothyroxine 50 mcg. Last TSH was WNL. CV: Blood pressure today in the office is 130/66. She is on hydrochlorothiazide/lisinopril, metoprolol. Remains on Lipitor 80 mg. [facility] Medical History Chest discomfort Loose stools Well woman exam Vaginal irritation Left shoulder pain Pancreatitis Dizziness Hordeolum externum left lower eyelid Respiratory tract infection Cough Poor historian Tachycardia Abdominal pain Recurrent nonproductive cough Status post fall Hip pain, bilateral Low back pain Vulvar leukoplakia Vulvar itching Conjunctivitis, right eye Acute right eye pain Recurrent epigastric abdominal pain Obesity (BMI 30-39.9) Annual physical exam Screening mammogram, encounter for Vulvovaginitis juani albicans Obesity due to excess calories Type 2 diabetes mellitus with diabetic nephropathy Hyperlipidemia LDL goal <100 Diabetes mellitus Primary osteoarthritis of hips, bilateral Lumbar degenerative disc disease Pure hypercholesterolemia Anxiety GERD without esophagitis Ganglion cyst of tendon sheath of left hand Gastritis GERD (gastroesophageal reflux disease) Depression Hypothyroidism Type 2 diabetes mellitus with hyperglycemia, with long-term current use of insulin Type 2 diabetes mellitus with diabetic polyneuropathy Essential hypertension Surgical History Hx of tubal ligation History of herniated intervertebral disc Family History Father Throat cancer Mother Diabetes mellitus CVD (cardiovascular disease) Maternal Aunt Breast cancer Social History Household Members: None Housing: Apartment Alcohol intake: never Patient Tobacco Use Status: Former Tobacco user e-Cigarette/Vaping Use: Never Used Second Hand Smoke Exposure: No service: No Current occupational status: disabled Sexual orientation: Straight/Heterosexual Gender identity: Female Cognitive needs: No Hearing needs: No Vision needs: Yes Female Reproductive History Menstrual Age of Menarche: 12 Physical Exam Vital Signs: Last Vital Signs Pulse 103 H 09/18/23 11:34 BP 130/66 09/18/23 11:34 BMI result Body Mass Index 30.8 Const Orientation/consciousness: patient oriented x3 HEENT Ears: hearing grossly normal bilaterally Neck Thyroid: Thyroid normal Lymphatic: no lymphadenopathy noted Resp Auscultation: clear to auscultation bilaterally Cardio Rate: regular rate Rhythm: regular rhythm Heart sounds: S1 normal heart sound present and S2 normal heart sound present Skin General skin exam: no rashes or lesions noted Neuro General: patient oriented x3, gait normal and no focal motor deficits Extrem Other: DP pulses 2+ bilaterally. Reports diminished sensation to light touch the right toes. Unable to feel vibratory sensation on the right until midfoot. Vibratory sensation diminished on the left as well but present. Skin intact. Results Reviewed Results Reviewed: reviewed cgm Assessment & Plan Assessment & Plan (1) Type 2 diabetes mellitus with hyperglycemia, with long-term current use of i nsulin: Code(s): E11.65 - Type 2 diabetes mellitus with hyperglycemia; Z79.4 - FDC (current) use of insulin Category: Medical Plan: toujeo appears ineffective as well. we will switch to tresiba u-200. increased dosage to 70 units. she is only scanning 1-2 x a day and so we will switch to a freestyle Simón 3. When she gets this she will bring into the office and set up an appointment to have this set up for her. Follow-up in 2-3 weeks or sooner if needed. (2) Type 2 diabetes mellitus with diabetic polyneuropathy: Code(s): E11.42 - Type 2 diabetes mellitus with diabetic polyneuropathy Category: Medical Qualifiers: Diabetes mellitus retirement insulin use: without supervisor intermediates use Qualified Code(s): E11.42 - Type 2 diabetes mellitus with diabetic polyneuropathy Plan: Stable Medications: New insulin degludec (Tresiba FlexTouch U-200 insulin) 70 units (0.35 mL) subcut BEDTIME 9 mL 6RF blood-glucose sensor (FreeStyle Simón 3 Sensor device) Apply every 14 days As directed 2 ea 11RF E11.9 - Type 2 diabetes mellitus without complications, Z79.4 - termite exterminator helper (current) use of insulin blood-glucose meter,continuous (FreeStyle Simón 3 [place]) use As directed daily to monitor blood glucose 1 ea 0RF E11.42 - Type 2 diabetes mellitus with diabetic polyneuropathy, E11.65 - Type 2 diabetes mellitus with hyperglycemia, Z79.4 - FDC (current) use of insulin Discontinued insulin glargine U-300 conc (Toujeo Max U-300 SoloStar) Discontinued Reason: Doctor's Order 60 units (0.2 mL) subcut DAILY 6 mL 2RF flash glucose scanning reader (FreeStyle Simón 2 [place]) Discontinued Reason: Doctor's Order As directed 1 ea 0RF flash glucose sensor (FreeStyle Simón 2 Sensor kit) Discontinued Reason: Doctor's Order As directed change every 14 days 2 ea 5RF Coding Level of Care Code Est Pt Level 4 (84482) Diagnoses Type 2 diabetes mellitus with hyperglycemia, with long-term current use of insulin E11.65; Z79.4 Type 2 diabetes mellitus with diabetic polyneuropathy, without long-term current use of insulin E11.42 Diabetes mellitus supervisor intermediates insulin use: without retirement use
[2023-09-18 11:34] VITALS: BP 130/66; PULSE 103; BMI 30.8
[2023-09-18 11:42] LABS: Glucose, Whole Blood 265 mg/dL (60-115)
== END 2023-09-18 12:08 | disposition home or self-care (01) ==
PROVIDERS: PCP Internal Medicine; Visit Provider Physician Assistant
DX: E11.65 Type 2 diabetes mellitus with hyperglycemia (principal); Z79.4 Long term (current) use of insulin; E11.42 Type 2 diabetes mellitus with diabetic polyneuropathy
CPT/HCPCS: 99214

== ENCOUNTER → 2023-09-18 11:31 | Outpatient (BNVA) | payer OTHER, SELFPAY | PROVIDERS: PCP Internal Medicine; Visit Provider Physician Assistant | DX: E11.65 Type 2 diabetes mellitus with hyperglycemia (principal); E11.42 Type 2 diabetes mellitus with diabetic polyneuropathy; Z79.4 Long term (current) use of insulin | CPT/HCPCS: 82947; 99212 ==

== ENCOUNTER 2023-10-09 12:40 | Outpatient (AMB) | payer OTHER, SELFPAY ==
[2023-10-09 12:47] VITALS: BP 112/62; PULSE 82; BMI 31.1
--- NOTE | 2023-10-09 12:47 | A.OFFVIS_ITS ---
Vital Signs 10/09/23 12:47 Height 5 ft 3 in Weight 175 lb 11.335 oz BMI 31.1 BP 112/62 Blood Pressure Location Lt brachial Position Sitting Pulse 82 Pulse Source Pulse Oximeter Intake Visit Reasons: Insulin/CONFIRMED Intake Note: Patient presents today for D2MT follow up visit. Last Diabetic Eye exam: 2022 Last Podiatry Visit: Doesn't have one Random Glucose: 222 mg/dl HgA1c: 10.5% 08/03/23 Instructor Pilot Required: Yes Instructor Pilot Language: Appellate Court Clerk Services: Instructor Pilot Present Instructor Pilot Name: Obed Information Interpreted: non-clinical & clinical Accompanied by: Self / Same As Patient Allergies Iodinated Contrast Media [IV CONTRAST] Allergy (Intermediate, Verified 10/09/23 12:51) RASH iopromide [From ULTRAVIST] Allergy (Mild, Verified 10/09/23 12:51) ITCHING Medication List - Last Reconciled 10/09/23 by Sultana Williamson PA-C acetaminophen-codeine 300-30 mg 1 tab PO Q6H PRN atorvastatin 80 mg PO BEDTIME blood sugar diagnostic (FreeStyle Lite Strips) As directed three times a day blood-glucose meter,continuous (FreeStyle Simón 3 [place]) use As directed daily to monitor blood glucose blood-glucose sensor (FreeStyle Simón 3 Sensor device) Apply every 14 days As directed cholecalciferol (vitamin D3) 50 mcg PO DAILY clonidine HCl 0.1 mg PO BID PRN 30 days empagliflozin (Jardiance) 25 mg PO DAILY gabapentin 300 mg PO BEDTIME glucose (Dex4 Glucose) 16 grams (4 x 4 gram) PO Q15M PRN insulin degludec (Tresiba FlexTouch U-200 insulin) 70 units (0.35 mL) subcut BEDTIME insulin lispro (Humalog KwikPen (U-100) Insulin) 20 units for breakfast , 24 units for lunch, 30 units for dinner subcutaneously daily lancets (FreeStyle Lancets) Three times a day levothyroxine 50 mcg PO QAM lisinopril-hydrochlorothiazide 20-12.5 mg 1 tab PO DAILY 90 days lorazepam 0.5 mg PO DAILY PRN 30 days metoprolol succinate ER 50 mg PO DAILY mirtazapine 7.5 mg PO BEDTIME 30 days peg-electrolyte soln 420 gram 240 mL PO ONCE PRN 1 day pen needle, diabetic (BD Ultra-Fine Jordana Pen Needle) As directed four times a day pen needle, diabetic As directed sertraline 50 mg PO DAILY 30 days HPI HPI Insulin/CONFIRMED: Details: Patient is a 63-year-old female with a significant past medical history of anxiety, depression, hypothyroidism, hyperlipidemia, hypertension and type 2 diabetes presenting today for diabetic follow-up. Endo: DM-her last A1c was 10.5. Her blood sugar today is 222. At our last visit i switched from toujeo to tresiba and increased humalog. She is on Jardiance 25 mg, 70 units of tresiba , Humalog to 20 units with breakfast, 24 units with lunch and 30 units with supper. -states she recently just picked up the tresiba. -the Lantus and toujeo kept wearing off by late afternoon. - has tried ozempic but caused pancreatitis. Metformin caused GI upset. -She has been unable to use the sensor. She brought it in today and has states at home she tried putting one on but it feel off. She is hesistant to do this herself. Her last eye exam was over a year ago. Last foot exam was over a year ago. She does have peripheral neuropathy related to her diabetes worst in her right foot than her left. Does not follow with podiatry. Her CGM download shows data for the last 4 days. She had her lowest reading of 171 in her highest reading of 380. Her average blood sugars 256. Hypothyroid-she is on levothyroxine 50 mcg. Last TSH was WNL. CV: Blood pressure today in the office is 130/66. She is on hydrochlorothiazide/lisinopril, metoprolol. Remains on Lipitor 80 mg. [facility] Medical History Chest discomfort Loose stools Well woman exam Vaginal irritation Left shoulder pain Pancreatitis Dizziness Hordeolum externum left lower eyelid Respiratory tract infection Cough Poor historian Tachycardia Abdominal pain Recurrent nonproductive cough Status post fall Hip pain, bilateral Low back pain Vulvar leukoplakia Vulvar itching Conjunctivitis, right eye Acute right eye pain Recurrent epigastric abdominal pain Obesity (BMI 30-39.9) Annual physical exam Screening mammogram, encounter for Vulvovaginitis juani albicans Obesity due to excess calories Type 2 diabetes mellitus with diabetic nephropathy Hyperlipidemia LDL goal <100 Diabetes mellitus Primary osteoarthritis of hips, bilateral Lumbar degenerative disc disease Pure hypercholesterolemia Anxiety GERD without esophagitis Ganglion cyst of tendon sheath of left hand Gastritis GERD (gastroesophageal reflux disease) Depression Hypothyroidism Type 2 diabetes mellitus with hyperglycemia, with long-term current use of insulin Type 2 diabetes mellitus with diabetic polyneuropathy Essential hypertension Surgical History Hx of tubal ligation History of herniated intervertebral disc Family History Father Throat cancer Mother Diabetes mellitus CVD (cardiovascular disease) Maternal Aunt Breast cancer Social History Household Members: None Housing: Apartment Alcohol intake: never Patient Tobacco Use Status: Former Tobacco user e-Cigarette/Vaping Use: Never Used Second Hand Smoke Exposure: No service: No Current occupational status: disabled Sexual orientation: Straight/Heterosexual Gender identity: Female Cognitive needs: No Hearing needs: No Vision needs: Yes Female Reproductive History Menstrual Age of Menarche: 12 Physical Exam Vital Signs: Last Vital Signs Pulse 82 10/09/23 12:47 BP 112/62 10/09/23 12:47 BMI result Body Mass Index 31.1 Const Orientation/consciousness: patient oriented x3 HEENT Ears: hearing grossly normal bilaterally Neck Thyroid: Thyroid normal Lymphatic: no lymphadenopathy noted Resp Auscultation: clear to auscultation bilaterally Cardio Rate: regular rate Rhythm: regular rhythm Heart sounds: S1 normal heart sound present and S2 normal heart sound present Skin General skin exam: no rashes or lesions noted Neuro General: patient oriented x3, gait normal and no focal motor deficits Extrem Other: DP pulses 2+ bilaterally. Reports diminished sensation to light touch the right toes. Unable to feel vibratory sensation on the right until midfoot. Vibratory sensation diminished on the left as well but present. Skin intact. Results Reviewed Results Reviewed: Laboratory Last Values Glucose (Clinic) 222 mg/dL (60-115) H 10/09/23 12:53 Laboratory Tests 09/18/23 11:39 Glucose (Clinic) 265 H Assessment & Plan Assessment & Plan (1) Type 2 diabetes mellitus with hyperglycemia, with long-term current use of insulin: Code(s): E11.65 - Type 2 diabetes mellitus with hyperglycemia; Z79.4 - intermediate designer (current) use of insulin Category: Medical Plan: refilled meds applied sensor with her today. spent time teaching how to use and apply sensor. we will do a short term follow up in one month or sooner prn. (2) Essential hypertension: Code(s): I10 - Essential (primary) hypertension Category: Medical Plan: bp wnl today. continue current plan Medications: Changed From insulin degludec (Tresiba FlexTouch U-200 insulin) 70 units (0.35 mL) subcut BEDTIME 9 mL 6RF To insulin degludec (Tresiba FlexTouch U-200 insulin) 70 units (0.35 mL) subcut BEDTIME 30 days 10.5 mL 6RF Refilled insulin degludec (Tresiba FlexTouch U-200 insulin) 70 units (0.35 mL) subcut BEDTIME 9 mL 6RF Coding Level of Care Code Est Pt Level 4 (01212) Diagnoses Type 2 diabetes mellitus with hyperglycemia, with long-term current use of insulin E11.65; Z79.4 Essential hypertension I10
[2023-10-09 12:57] LABS: Glucose, Whole Blood 222 mg/dL (60-115)
== END 2023-10-09 13:20 | disposition home or self-care (01) ==
PROVIDERS: PCP Internal Medicine; Visit Provider Physician Assistant
DX: E11.65 Type 2 diabetes mellitus with hyperglycemia (principal); Z79.4 Long term (current) use of insulin; I10 Essential (primary) hypertension
CPT/HCPCS: 99214

== ENCOUNTER 2023-10-28 10:59 | Outpatient (REF) | payer OTHER, SELFPAY ==
[2023-10-28 11:20] LABS: MANUAL DIFF FLAG NO
[2023-10-28 11:46] LABS: Basophils Percent Auto 0.4 % (0-2); Eosinophils Absolute Auto 0.3 X10*3/uL (0.0-0.4); Eosinophils Percent Auto 3.6 % (0-4); Hematocrit 41.5 % (37.0-47.0); Hemoglobin 14.1 g/dl (12.0-16.0); Imm Gran Abs Auto 0.04 X10*3/uL (0.00-0.03); Imm Gran Pct Auto 0.5 % (0.0-0.4); Lymphocytes Absolute Auto 2.2 X10*3/uL (1.2-4.9); Lymphocytes Percent Auto 29.7 % (20-40); Mean Corpuscular Hemoglobin 29.3 pg (27.0-33.0); Mean Corpuscular Volume 86.1 fL (80.0-98.0); Mean Platelet Volume 9.9 fL (9.4-12.3); Monocytes Absolute Auto 0.4 X10*3/uL (0.1-1.2); Monocytes Percent Auto 5.4 % (2-11); Neutrophils Absolute Auto 4.5 x10*3/uL (2.0-8.3); Neutrophils Percent Auto 60.4 % (45-73); Platelet Count 197 X10*3/uL (160-400); Red Blood Count 4.82 X10*6/uL (4.20-5.50); Red Cell Distribution Width 13.3 % (11.0-16.0); White Blood Count 7.4 X10*3/uL (4.8-10.8)
[2023-10-28 12:06] LABS: Estimated Average Glucose 226 mg/dL; Hemoglobin A1c % 9.5 % (<6.0)
[2023-10-28 12:31] LABS: Alanine Aminotransferase 22 U/L (0-31); Alkaline Phosphatase 89 U/L (39-117); Anion Gap 11 (12-20); Aspartate Amino Transferase 10 U/L (5-31); Bilirubin Total 0.4 mg/dL (0.0-1.0); Blood Urea Nitrogen 14 mg/dL (9-16); Carbon Dioxide 28 mmol/L (22-29); Chloride 103 mmol/L (96-108); Cholesterol 164 mg/dL (<200); Estimated Glomerular Filt Rate > 60; Glucose Fasting 252 mg/dL (60-99); HDL Cholesterol 30 mg/dL (>40); Potassium 4.2 mmol/L (3.3-5.1); Sodium 138 mmol/L (135-145); Total Protein 7.7 g/dL (6.5-8.0); Triglycerides 511 mg/dL (<150)
[2023-10-28 12:48] LABS: Free T4 (Free Thyroxine) 0.82 ng/dL (0.71-1.85); Thyroid Stimulating Hormone 3.48 uIU/mL (0.32-4.0); Vitamin D 25-OH Total 22.3 ng/mL (>30)
[2023-10-28 12:56] LABS: Folate 8.7 ng/mL (> or = 4.0); Vitamin B12 469 pg/mL (200-900)
[2023-10-28 14:56] LABS: Creatinine Urine 77.81 mg/dL; Microalbum/Creatinine Ratio Ur 210.7 ug/mg cr (<30)
== END 2023-10-28 11:00 | disposition home or self-care (01) ==
LOC: HO.LAB 10:59
PROVIDERS: PCP Internal Medicine; Visit Provider Internal Medicine
DX: E78.00 Pure hypercholesterolemia, unspecified (principal); E55.9 Vitamin D deficiency, unspecified; E11.9 Type 2 diabetes mellitus without complications; I10 Essential (primary) hypertension; E03.9 Hypothyroidism, unspecified; E53.8 Deficiency of other specified B group vitamins; D64.9 Anemia, unspecified; R30.0 Dysuria
CPT/HCPCS: 36415; 80053; 80061; 81003; 82043; 82306; 82570; 82607; 82746; 83036; 84439; 84443; 85025

== ENCOUNTER 2023-10-29 12:02 | Outpatient (AMB) | payer OTHER, SELFPAY ==
[2023-10-29 12:03] VITALS: BP 152/70; BMI 31.7
--- NOTE | 2023-10-29 12:03 | A.OFFPC_ITS ---
Vital Signs 10/29/23 12:03 Height 5 ft 3 in Weight 179 lb BMI 31.7 BP 152/70 H Blood Pressure Location Lt brachial Position Sitting Intake Visit Reasons: 3M Med Follow Up Intake Note: Patient here for a 3 month follow up [employer] Field Agent Required: Yes Accompanied by: Self / Same As Patient Allergies Iodinated Contrast Media [IV CONTRAST] Allergy (Intermediate, Verified 10/29/23 22:10) RASH iopromide [From ULTRAVIST] Allergy (Mild, Verified 10/29/23 22:10) ITCHING semaglutide [From Ozempic] Adverse Reaction (Severe, Verified 10/30/23 00:16) pancreatitis Medication List - Last Reconciled 10/29/23 by Genaro Chu MD atorvastatin 80 mg PO BEDTIME blood sugar diagnostic (FreeStyle Lite Strips) As directed three times a day blood-glucose meter,continuous (FreeStyle Simón 3 [place]) use As directed daily to monitor blood glucose blood-glucose sensor (FreeStyle Simón 3 Sensor device) Apply every 14 days As directed clonidine HCl 0.1 mg PO BID PRN 30 days empagliflozin (Jardiance) 25 mg PO DAILY gabapentin 300 mg PO BEDTIME glucose (Dex4 Glucose) 16 grams (4 x 4 gram) PO Q15M PRN insulin degludec (Tresiba FlexTouch U-200 insulin) 70 units (0.35 mL) subcut BEDTIME 30 days insulin lispro (Humalog KwikPen (U-100) Insulin) 20 units for breakfast , 24 units for lunch, 30 units for dinner subcutaneously daily lancets (FreeStyle Lancets) Three times a day levothyroxine 50 mcg PO QAM lisinopril-hydrochlorothiazide 20-12.5 mg 1 tab PO DAILY 90 days lorazepam 0.5 mg PO DAILY PRN 30 days metoprolol succinate ER 50 mg PO DAILY mirtazapine 7.5 mg PO BEDTIME 30 days pen needle, diabetic (BD Ultra-Fine Jordana Pen Needle) As directed four times a day pen needle, diabetic As directed sertraline 50 mg PO DAILY 30 days Tobacco use date assessed: 07/30/23 Dental Screening Dental Screen Date: 10/29/23 Did you have a dental visit in the last 12 months?: No Did you have a dental problem in the last 6 months where you did not have access to dental care?: No Was dental information given to patient?: Patient has dentist HPI 3M Med Follow Up HPI Details Patient comes in today for her follow up visit States that she feels okay She denies any headaches or dizziness Denies any increased SOB; still has occasional sharp chest pains but these are not associated with activity or exertion States that her palpitations/tachycardia have been much better controlled since her Metoprolol dose was increased by cardiology a few months ago No nausea/vomiting, no abdominal pain No change in bowel habits noted Needs a couple of her Rx refilled She had her follow up labs done yesterday - to discuss her results [facility] Medical History (Updated 10/30/23 @ 00:26 by Genaro Chu MD) Vitamin D deficiency Loose stools Pancreatitis Poor historian Vulvar leukoplakia Vulvar itching Recurrent epigastric abdominal pain Obesity (BMI 30-39.9) Vulvovaginitis juani albicans Type 2 diabetes mellitus with diabetic nephropathy Hyperlipidemia LDL goal <100 Diabetes mellitus Primary osteoarthritis of hips, bilateral Lumbar degenerative disc disease Pure hypercholesterolemia Anxiety GERD without esophagitis Ganglion cyst of tendon sheath of left hand Gastritis GERD (gastroesophageal reflux disease) Depression Hypothyroidism Type 2 diabetes mellitus with hyperglycemia, with long-term current use of insulin Type 2 diabetes mellitus with diabetic polyneuropathy Essential hypertension Surgical History Hx of tubal ligation History of herniated intervertebral disc Family History Father Throat cancer Mother Diabetes mellitus CVD (cardiovascular disease) Maternal Aunt Breast cancer Social History Household Members: None Housing: Apartment Alcohol intake: never Patient Tobacco Use Status: Former Tobacco user e-Cigarette/Vaping Use: Never Used Second Hand Smoke Exposure: No service: No Current occupational status: disabled Sexual orientation: Straight/Heterosexual Gender identity: Female Cognitive needs: No Hearing needs: No Vision needs: Yes Female Reproductive History Menstrual Age of Menarche: 12 Questionnaire Thrive Questionnaire Date Thrive assessed: 07/30/23 CARO-7 AMB Questionnaire CARO-7 Date CARO - 7 assessed: 07/30/23 Source: Developed by Drs. Teofilo Loredo, Radha Knight, Keagan Guzman and colleagues, with an educational alecia from [employer]. Review of Systems Const Reports fatigue, Denies fever(s) and Denies headache(s) ENT Denies dysphagia, Denies dizziness, Denies otalgia, Denies headache(s), Denies neck pain, Denies odynophagia and Denies sore throat Card Denies chest pain, Reports palpitations (mostly when anxiety flares up) and Reports dyspnea on exertion (mild) Resp Denies chest congestion, Denies cough, Reports dyspnea on exertion (mild) and Denies wheezing GI Denies abdominal pain, Denies constipation, Denies dysphagia, Denies heartburn, Denies diarrhea, Denies nausea, Denies odynophagia and Denies vomiting Denies difficulty voiding, Denies nocturia, Denies dysuria and Denies urinary urgency Musc Reports back pain (over the lower back), Reports arthralgias (over both hips) and Denies neck pain Skin/Breast Denies rash Neuro Denies dizziness and Denies headache(s) Psych Reports anxiety Endo Reports fatigue and Reports palpitations (mostly when anxiety flares up) Aller/Immun Denies wheezing Physical exam (Primary Care) Vital Signs: Last Vital Signs BP 152/70 H 10/29/23 12:03 BMI result Body Mass Index 31.7 Tobacco/Smoking Status: Tobacco use Status Tobacco use date assessed 07/30/23 10/29/23 12:03 Patient Tobacco Use Status Former Tobacco user 10/29/23 12:03 e-Cigarette/Vaping Use Never Used 10/29/23 12:03 Thrive Assessment: Date of Thrive Assessment Date Thrive assessed 07/30/23 10/29/23 12:03 Const General: no acute distress and alert HENMT Ears: TM's normal bilaterally and EAC's normal Throat: Yes posterior oropharynx normal and Yes tonsils normal (no TP congestion) Neck Neck: Yes no lymphadenopathy and Yes supple Resp Auscultation: clear to auscultation bilaterally, no rales and no wheezes Cardio Rate: regular rate Rhythm: regular rhythm Heart sounds: no murmurs GI Palpation (GI): Soft to palpation and nontender Auscultation: normal bowel sounds General: Yes no CVA tenderness Back/Spine/Pelvis Back: no CVA tenderness Thoracic/Lumbar Spine: lumbar spinal tenderness Skin Rashes: no rashes Extrem General: Yes no clubbing, cyanosis or edema Right lower extremity: hip/thigh Details: tenderness Location: of the hip Left lower extremity: hip/thigh Details: tenderness Location: of the hip Results Reviewed Results Reviewed: Laboratory Tests 10/28/23 10/28/23 11:14 11:19 WBC 7.4 Hgb 14.1 Hct 41.5 Plt Count 197 Sodium 138 Potassium 4.2 Creatinine 0.68 Estimated GFR > 60 Fasting Glucose 252 H Hemoglobin A1c % 9.5 H Calcium 10.0 D AST 10 ALT 22 Triglycerides 511 H Cholesterol 164 LDL Cholesterol, Calc TNP HDL Cholesterol 30 L Vitamin B12 469 25-OH Vitamin D Total 22.3 L TSH 3.48 Free T4 0.82 Microalb/Creat Ratio 210.7 H Assessment and Plan Assessment & Plan (1) Type 2 diabetes mellitus with hyperglycemia, with long-term current use of insulin: Code(s): E11.65 - Type 2 diabetes mellitus with hyperglycemia; Z79.4 - [facility] (current) use of insulin Plan: Her HgbA1c is at 9.5% on her labs done yesterday (in-office HgbA1c was at 10.4% when previously checked at the endocrinology office back on 07/24/2023) - goal is <7.0% Reinforced diabetic diet She was previously on Lantus 40 units Q PM but this was switched to Toujeo - was at 70 units recently but this was again switched over to Tresiba 70 units QD at her last visit with endocrinology a few weeks ago She continues on Humalog 20 units with breakfast, 24 units with lunch and 30 units with dinner and Jardiance 25 mg QD She was also started on Ozempic 1 mg SQ Q week a few months ago but developed pancreatitis on Ozempic [place] [facility] [place] as scheduled (2) Pure hypercholesterolemia: Code(s): E78.00 - Pure hypercholesterolemia, unspecified Plan: Results of her labs done yesterday reviewed and discussed with patient Reinforced low cholesterol diet Continue Atorvastatin 80 mg QD Will recheck her labs and fasting lipids in 3 months for follow-up (3) Essential hypertension: Code(s): I10 - Essential (primary) hypertension Plan: Reinforced low-sodium diet -? goal is systolic BP of 120 mm or less Continue Lisinopril-Hydrochlorothiazide 20-12.5 mg QD (4) Hypothyroidism: Code(s): E03.9 - Hypothyroidism, unspecified Qualifiers: Hypothyroidism type: acquired Qualified Code(s): E03.9 - Hypothyroidism, unspecified Plan: Her TFTs were normal on her recent labs done yesterday Continue Levothyroxine 50 mcg QD Will recheck her TFTs in 3 months for follow up (5) Tachycardia: Code(s): R00.0 - Tachycardia, unspecified Plan: Occurring off and on but states that her symptoms have been occurring much less often than previous with her Metoprolol, especially when it was increased to 50 mg QD by cardiology a few months ago Holter monitor (2 day) done on 03/10/2023 showed sinus rhythm with average heart rate of 88 bpm, with sinus tachycardia occurring around 22% of the time Echocardiogram done on 03/10/2023 revealed (+) normal EF of 60-65%, with no valvular abnormalities EKG done at last cardiology visit reportedly showed (+) sinus tachycardia, with rate of around 116 bpm Follow up with cardiology as scheduled - has appointment coming up later this afternoon (6) Atypical chest pain: Code(s): R07.89 - Other chest pain Plan: Patient has been reassured that her chest pains are likely non-cardiac Nuclear stress test done on 04/08/2023 showed normal myocardial perfusion imaging Echo showed normal EF and no regional wall motion abnormalities (7) GERD without esophagitis: Comment: UGI series done in October 2019 revealed (+) mild reflux disease without hiatal hernia Code(s): K21.9 - Gastro-esophageal reflux disease without esophagitis Plan: Dietary restrictions reinforced Continue Pantoprazole 40 mg QD (8) Vitamin D deficiency: Code(s): E55.9 - Vitamin D deficiency, unspecified Plan: She is advised that her Vitamin D level remains low on her recent labs Will start her on Vitamin D3 2000 units QD (9) Trigger finger of all digits of both hands: Code(s): M65.321 - Trigger finger, right index finger; M65.311 - Trigger thumb, right thumb; M65.312 - Trigger thumb, left thumb; M65.322 - Trigger finger, left index finger; M65.331 - Trigger finger, right middle finger Plan: S/P trigger finger release of the left middle finger a few months ago, with significant improvement of symptoms Follow up with orthopedics as scheduled (10) Lumbar degenerative disc disease: Code(s): M51.36 - Other intervertebral disc degeneration, lumbar region Plan: Lumbar spine x-rays done in March 2021 showed (+) old mild degenerative changes over L4-L5 and L5-S1; there was also a mild L2 superior endplate depression that appeared to be new (when compared to views from abdominal and pelvic CT done on 08/10/2018) X-rays of the lumbar spine done back in 09/2013 revealed (+) mild degenerative osteoarthritis of the lumbosacral spine with minimal disc space narrowing seen at L4-L5 and L5-S1 Continue TIzanidine 4 mg TID PRN Reinforced activity in weightlifting restrictions If her low back pain gets worse, will consider getting an MRI of the lumbar spine for further evaluation and/ or refer to neurosurgery (11) Primary osteoarthritis of hips, bilateral: Code(s): M16.0 - Bilateral primary osteoarthritis of hip Plan: X-rays of both hips done in March 2021 revealed (+) borderline/mild narrowing of bilateral superior medial hip joints. No erosive change or chondrocalcinosis are noted Previous hip x-rays done back on 10/20/2013 came out normal bilaterally Continue Nabumetone 500 mg BID PRN with food for pain Will consider referral to physical therapy or orthopedics if her hip symptoms get worse (12) Primary osteoarthritis, left shoulder: Code(s): M19.012 - Primary osteoarthritis, left shoulder Plan: X-rays of the left shoulder done a few months ago revealed (+) advanced OA changes Continue Nabumetone 500 mg BID with food PRN for severe pain Follow up with orthopedics as scheduled (13) Anxiety: Code(s): F41.9 - Anxiety disorder, unspecified Plan: Continue Clonidine 0.1 mg BID PRN and Lorazepam PRN Is also on Sertraline 50 mg QD (14) Depression: Code(s): F32.9 - Major depressive disorder, single episode, unspecified Qualifiers: Depression Type: major depressive disorder Major depression recurrence: recurrent Active/Remission status: currently active Major depression episode severity: unspecified Qualified Code(s): F33.9 - Major depressive disorder, recurrent, unspecified Plan: Continue Sertraline 50 mg QD and Mirtazapine 7.5 mg Q HS Follow up with psychiatry as scheduled (15) Obesity (BMI 30-39.9): Code(s): E66.9 - Obesity, unspecified Plan: Reinforced diet/exercise as tolerated/lose weight Plan Follow up as scheduled in January 2024 Orders: Orders Hemoglobin A1c 01/16/24 E11.9 - Type 2 diabetes mellitus without complications Complete Blood Count Auto Diff 01/16/24 D64.9 - Anemia, unspecified UA CC w/rflx Micro + Cult 01/16/24 R30.0 - Dysuria Vitamin D 25-OH Total 01/16/24 E55.9 - Vitamin D deficiency, unspecified Lipid Panel 01/16/24 E78.00 - Pure hypercholesterolemia, unspecified Comprehensive [place]. Panel Fast 01/16/24 E78.00 - Pure hypercholesterolemia, unspecified Microalbumin, Random (w Creat) 01/16/24 E11.9 - Type 2 diabetes mellitus without complications Thyroid Stimulating Hormone 01/16/24 E03.9 - Hypothyroidism, unspecified Free T4 (Free Thyroxine) 01/16/24 E03.9 - Hypothyroidism, unspecified Medications: New cholecalciferol (vitamin D3) 50 mcg PO DAILY 90 days 90 caps 3RF E55.9 - Vitamin D deficiency, unspecified Refilled metoprolol succinate ER 50 mg PO DAILY 30 tabs 5RF omeprazole 40 mg PO QAM 90 days 90 caps 1RF K21.9 - Gastro-esophageal reflux disease without esophagitis Coding Level of Care Code Est Pt Level 4 (65222) Complex EM visit Add On G2211 Diagnoses Type 2 diabetes mellitus with hyperglycemia, with long-term current use of insulin E11.65; Z79.4 Pure hypercholesterolemia E78.00 Essential hypertension I10 Acquired hypothyroidism E03.9 Hypothyroidism type: acquired Tachycardia R00.0 Atypical chest pain R07.89 GERD without esophagitis K21.9 Vitamin D deficiency E55.9 Trigger finger of all digits of both hands M65.321; M65.311; M65.312; M65.322; M65.331 Lumbar degenerative disc disease M51.36 Primary osteoarthritis of hips, bilateral M16.0 Primary osteoarthritis, left shoulder M19.012 Anxiety F41.9 Episode of recurrent major depressive disorder, unspecified depression episode severity F33.9 Depression Type: major depressive disorder Major depression recurrence: recurrent Active/Remission status: currently active Major depression episode severity: unspecified Obesity (BMI 30-39.9) E66.9
== END 2023-10-29 12:43 | disposition home or self-care (01) ==
PROVIDERS: PCP Internal Medicine; Visit Provider Internal Medicine
DX: E11.65 Type 2 diabetes mellitus with hyperglycemia (principal); F33.9 Major depressive disorder, recurrent, unspecified; Z79.4 Long term (current) use of insulin; E78.00 Pure hypercholesterolemia, unspecified; I10 Essential (primary) hypertension; E03.9 Hypothyroidism, unspecified; R00.0 Tachycardia, unspecified; R07.89 Other chest pain; K21.9 Gastro-esophageal reflux disease without esophagitis; E55.9 Vitamin D deficiency, unspecified; M65.321 Trigger finger, right index finger; M65.311 Trigger thumb, right thumb
CPT/HCPCS: 99214; G2211

== ENCOUNTER 2023-10-29 14:19 | Outpatient (AMB) | payer OTHER, SELFPAY ==
[2023-10-29 14:26] VITALS: BP 138/62; PULSE 100; BMI 31.9
--- NOTE | 2023-10-29 14:26 | MHC.OFFVIS ---
Vital Signs 10/29/23 14:26 Height 5 ft 3 in Weight 180 lb 5.41 oz BMI 31.9 BP 138/62 Blood Pressure Location Lt brachial Position Sitting Pulse 100 Pulse Source Pulse Oximeter Intake Visit Reasons: f/up Regional Sales Representative Required: Yes Regional Sales Representative Language: Tissue Technologist Name: rohini Allergies Iodinated Contrast Media [IV CONTRAST] Allergy (Intermediate, Verified 10/29/23 14:29) RASH iopromide [From ULTRAVIST] Allergy (Mild, Verified 10/29/23 14:29) ITCHING Medication List - Last Reconciled 10/29/23 by WINIFRED Bravo atorvastatin 80 mg PO BEDTIME blood sugar diagnostic (FreeStyle Lite Strips) As directed three times a day blood-glucose meter,continuous (FreeStyle Simón 3 [place]) use As directed daily to monitor blood glucose blood-glucose sensor (FreeStyle Simón 3 Sensor device) Apply every 14 days As directed cholecalciferol (vitamin D3) 50 mcg PO DAILY 90 days clonidine HCl 0.1 mg PO BID PRN 30 days empagliflozin (Jardiance) 25 mg PO DAILY gabapentin 300 mg PO BEDTIME glucose (Dex4 Glucose) 16 grams (4 x 4 gram) PO Q15M PRN insulin degludec (Tresiba FlexTouch U-200 insulin) 70 units (0.35 mL) subcut BEDTIME 30 days insulin lispro (Humalog KwikPen (U-100) Insulin) 20 units for breakfast , 24 units for lunch, 30 units for dinner subcutaneously daily lancets (FreeStyle Lancets) Three times a day levothyroxine 50 mcg PO QAM lisinopril-hydrochlorothiazide 20-12.5 mg 1 tab PO DAILY 90 days lorazepam 0.5 mg PO DAILY PRN 30 days lorazepam mg PO metoprolol succinate ER 75 mg (1.5 x 50 mg) PO DAILY 30 days mirtazapine 7.5 mg PO BEDTIME 30 days omeprazole 40 mg PO QAM 90 days pen needle, diabetic (BD Ultra-Fine Jordana Pen Needle) As directed four times a day pen needle, diabetic As directed sertraline 50 mg PO DAILY 30 days HPI HPI f/up: Details: Brielle is a 63-year-old female past medical history of hypertension, hyperlipidemia, diabetes, frequent sinus tachycardia who now presents for follow-up. Today she reports that she has been feeling better overall on the higher dose metoprolol. She can feel the fast heartbeat at times but not daily. She is now drinking decaffeinated beverages. No exertional chest discomfort. Occasional sharp random pains. No shortness of breath, PND, orthopnea or edema. No lightheadedness, presyncope, syncope, falls. She says her diabetes is still not well controlled. She maintains good hydration. Takes all meds as directed. Certified cnc laser operator used. [facility]LY [facility] Medical History Chest discomfort Loose stools Well woman exam Vaginal irritation Left shoulder pain Pancreatitis Dizziness Hordeolum externum left lower eyelid Respiratory tract infection Cough Poor historian Tachycardia Abdominal pain Recurrent nonproductive cough Status post fall Hip pain, bilateral Low back pain Vulvar leukoplakia Vulvar itching Conjunctivitis, right eye Acute right eye pain Recurrent epigastric abdominal pain Obesity (BMI 30-39.9) Annual physical exam Screening mammogram, encounter for Vulvovaginitis juani albicans Obesity due to excess calories Type 2 diabetes mellitus with diabetic nephropathy Hyperlipidemia LDL goal <100 Diabetes mellitus Primary osteoarthritis of hips, bilateral Lumbar degenerative disc disease Pure hypercholesterolemia Anxiety GERD without esophagitis Ganglion cyst of tendon sheath of left hand Gastritis GERD (gastroesophageal reflux disease) Depression Hypothyroidism Type 2 diabetes mellitus with hyperglycemia, with long-term current use of insulin Type 2 diabetes mellitus with diabetic polyneuropathy Essential hypertension Surgical History Hx of tubal ligation History of herniated intervertebral disc Family History Father Throat cancer Mother Diabetes mellitus CVD (cardiovascular disease) Maternal Aunt Breast cancer Social History Household Members: None Housing: Apartment Alcohol intake: never Patient Tobacco Use Status: Former Tobacco user e-Cigarette/Vaping Use: Never Used Second Hand Smoke Exposure: No service: No Current occupational status: disabled Sexual orientation: Straight/Heterosexual Gender identity: Female Cognitive needs: No Hearing needs: No Vision needs: Yes Female Reproductive History Menstrual Age of Menarche: 12 Review of Systems Const All systems reviewed & are unremarkable except as noted in HPI and below ENT Reports dizziness Card Denies chest pain, Denies chest pain at rest, Denies chest pain with activity, Reports rapid heart rate, Denies pedal edema, Denies edema, Denies leg edema, Denies lightheadedness, Denies palpitations, Denies dyspnea, Denies dyspnea on exertion and Denies orthopnea Resp Denies cough, Denies dyspnea and Denies dyspnea on exertion GI Denies hematochezia and Denies change in stool character Musc Denies abnormal gait, Denies limited range of motion, Denies muscle cramps, Denies muscle weakness, Denies numbness, Denies radiating pain into limb, Denies stiffness and Denies tingling Neuro Denies abnormal gait, Reports dizziness, Denies numbness and Denies tingling Endo Denies palpitations Physical Exam Vital Signs: Last Vital Signs Pulse 100 10/29/23 14:26 BP 138/62 10/29/23 14:26 BMI result Body Mass Index 31.9 Const General: cooperative, healthy appearing, comfortable and no acute distress Orientation/consciousness: patient oriented x3 Neck Neck: Yes normal visual inspection and Yes no JVD Resp Effort & Inspection: normal respiratory effort Auscultation: clear to auscultation bilaterally, no crackles, no rales, no rhonchi and no wheezes Cardio Jugular venous distension: no JVD Rate: regular rate Rhythm: regular rhythm Heart sounds: S1 normal heart sound present, S2 normal heart sound present, no murmurs and no rubs Peripheral pulses: Peripheral pulses 2+ throughout Neuro General: patient oriented x3 Psych Appearance: grossly normal Mental Status: mental status grossly normal Speech and movement: Normal speech and movement present Assessment & Plan Assessment & Plan (1) Sinus tachycardia: Code(s): R00.0 - Tachycardia, unspecified Category: Medical Plan: Reports of rapid heart palpitations, occurring randomly. Holter monitor done 03/10/2023 for 2 days showing sinus rhythm with average heart rate 88, sinus tachycardia 22% of the time. Echocardiogram done 03/10/2023, EF 60-65%, no valve abnormalities. She was put on metoprolol XL 25 mg daily however continue to have symptoms. EKG done last visit showed sinus tachycardia, rate 116. At that time her metoprolol was increased up to 50 mg daily. Today she reports she has been feeling better with less heart palpitations but heart rate does still tend to go fast. Pulse rate on exam today initially 100, recheck by me using sat monitor 107. She is drinking decaffeinated coffee. Her blood sugars are reportedly not well controlled which can contribute to her sinus tachycardia. Recent labs show no anemia, normal white blood count and TSH. She reports good hydration. She has no signs of illness on exam. At this time I will further increase her metoprolol up to 75 mg daily. Will plan for an office blood pressure and pulse check in a few weeks. Will plan for Holter prior to next visit. Cardiology follow-up in 4 months, sooner if needed. (2) Atypical chest pain: Code(s): R07.89 - Other chest pain Category: Medical Plan: Atypical sounding chest discomfort. Overall improved since last visit. Nuclear stress test done 04/08/2023 showed normal myocardial perfusion imaging. Echo showed normal EF and no regional wall motion abnormalities. Again Offered reassurance that this is noncardiac. Informed her she does have multiple cardiac risk factors and the need for good cardiac risk factor modification is essential. Signs and symptoms of angina reviewed. Emergency care if ever needed for symptoms. (3) Essential hypertension: Code(s): I10 - Essential (primary) hypertension Category: Medical Plan: Blood pressure today 138/62. Her readings tend to be elevated. I will be increasing the metoprolol as above. Plan Time spent on chart review, documentation, interview and assessment Orders: Orders ECG 3 day holter monitor 3 Months R00.0 - Tachycardia, unspecified Medications: New metoprolol succinate ER dose increased 75 mg (1.5 x 50 mg) PO DAILY 30 days 45 tabs 5RF Discontinued metoprolol succinate ER Discontinued Reason: Doctor's Order 50 mg PO DAILY 30 tabs 5RF Coding Level of Care Code Est Pt Level 4 (30331) Diagnoses Sinus tachycardia R00.0 Atypical chest pain R07.89 Essential hypertension I10 Time Spent (min) 28
== END 2023-10-29 15:03 | disposition home or self-care (01) ==
PROVIDERS: PCP Internal Medicine; Visit Provider Nurse Practitioner Family
DX: R00.0 Tachycardia, unspecified (principal); R07.89 Other chest pain; I10 Essential (primary) hypertension
CPT/HCPCS: 99214

== ENCOUNTER → 2023-10-29 14:19 | Outpatient (BNVA) | payer OTHER, SELFPAY | PROVIDERS: PCP Internal Medicine; Visit Provider Nurse Practitioner Family | DX: R00.0 Tachycardia, unspecified (principal); R07.89 Other chest pain; I10 Essential (primary) hypertension | CPT/HCPCS: 99212 ==

== ENCOUNTER 2023-11-09 14:24 | Outpatient (AMB) | payer OTHER, SELFPAY ==
[2023-11-09 14:33] VITALS: BP 126/80; PULSE 104; BMI 31.2
--- NOTE | 2023-11-09 14:33 | A.OFFVIS_ITS ---
Vital Signs 11/09/23 14:33 Height 5 ft 3 in Weight 176 lb 5.917 oz BMI 31.2 BP 126/80 Blood Pressure Location Lt brachial Position Sitting Pulse 104 H Pulse Source Pulse Oximeter Intake Visit Reasons: DM/CONFIRMED Intake Note: Patient presents today for D2PA follow up visit. Last Diabetic Eye exam: Over one year ago. Last Podiatry Visit: Doesn't have one. Random Glucose: 270 mg/dl HgA1c: 9.5% 10/28/23 Mandarin Chinese Teacher Required: Yes Mandarin Chinese Teacher Language: Command And Control Services: Mandarin Chinese Teacher Present Mandarin Chinese Teacher Name: Melissa Information Interpreted: non-clinical & clinical Accompanied by: Self / Same As Patient Allergies Iodinated Contrast Media [IV CONTRAST] Allergy (Intermediate, Verified 11/09/23 14:38) RASH iopromide [From ULTRAVIST] Allergy (Mild, Verified 11/09/23 14:38) ITCHING semaglutide [From Ozempic] Adverse Reaction (Severe, Verified 11/09/23 14:38) pancreatitis Medication List - Last Reconciled 11/09/23 by Sultana Williamson PA-C atorvastatin 80 mg PO BEDTIME blood sugar diagnostic (FreeStyle Lite Strips) As directed three times a day blood-glucose meter,continuous (FreeStyle Simón 3 [place]) use As directed daily to monitor blood glucose blood-glucose sensor (FreeStyle Simón 3 Sensor device) Apply every 14 days As directed cholecalciferol (vitamin D3) 50 mcg PO DAILY 90 days clonidine HCl 0.1 mg PO BID PRN 30 days empagliflozin (Jardiance) 25 mg PO DAILY gabapentin 300 mg PO BEDTIME glucose (Dex4 Glucose) 16 grams (4 x 4 gram) PO Q15M PRN insulin degludec (Tresiba FlexTouch U-200 insulin) 70 units (0.35 mL) subcut BEDTIME 30 days insulin lispro (Humalog KwikPen (U-100) Insulin) 20 units for breakfast , 24 units for lunch, 30 units for dinner subcutaneously daily lancets (FreeStyle Lancets) Three times a day levothyroxine 50 mcg PO QAM lisinopril-hydrochlorothiazide 20-12.5 mg 1 tab PO DAILY 90 days lorazepam mg PO metoprolol succinate ER 75 mg (1.5 x 50 mg) PO DAILY 30 days mirtazapine 7.5 mg PO BEDTIME 30 days omeprazole 40 mg PO QAM 90 days pen needle, diabetic (BD Ultra-Fine Jordana Pen Needle) As directed four times a day pen needle, diabetic As directed sertraline 50 mg PO DAILY 30 days HPI HPI DM/CONFIRMED: Details: Patient is a 63-year-old female with a significant past medical history of anxiety, depression, hypothyroidism, hyperlipidemia, hypertension and type 2 diabetes presenting today for diabetic follow-up. Caro is here today to help with translation. She does complain today of chest pain that started around noon. She states that the chest pain lasted about an hour so and it resolved just prior to this visit. It has been going on and off for some time now that she is following with Cardiology. Can not tell me when her last stress test was. It was not worsened walking adhere but she did feel like she was going to follow over walking in h ere today. No headache. She does feel sob, lightheadeded, nauseous. She states she is concerned of the vision changes and dizziness. She states that she just feels off balance and overall unwell. These symptoms started the past week but in the last 24-48 hours have worsened. She wonders if it is related to her diabetes. Her blood sugars have been reading ?high?. Her blood sugar today in the office is 270. She states that when she is feeling these symptoms she just decided to lay down. She did call her dermatopathologist who increased her metoprolol recently because she noticed that her heart was racing with these symptoms as well and that her blood pressure was elevated. She does not know that it is helping her. She states that her son has been concerned because it seems like she is walking into things and easily losing her balance and falling over. She is often feeling faint as well as off balance. Endo: DM-her last A1c was 10.5 and is now 9.5. She is on Jardiance 25 mg, 70 units of tresiba , Humalog to 20 units with breakfast, 24 units with lunch and 30 units with supper. -states she recently just picked up the tresiba. -the Lantus and toujeo kept wearing off by late afternoon. - has tried ozempic but caused pancreatitis. Metformin caused GI upset. -Her sensor fell of yesterday and she did not bring in the reader or register it with us to see the glucose. Her last eye exam was over a year ago. Last foot exam was over a year ago. She does have peripheral neuropathy related to her diabetes worst in her right foot than her left. Does not follow with podiatry. Hypothyroid-she is on levothyroxine 50 mcg. Last TSH was WNL. CV: Blood pressure today in the office is 126/80. She is on hydrochlorothiazide/lisinopril, metoprolol. Remains on Lipitor 80 mg. [facility] Medical History (Updated 10/30/23 @ 00:26 by Genaro Chu MD) Vitamin D deficiency Loose stools Pancreatitis Poor historian Vulvar leukoplakia Vulvar itching Recurrent epigastric abdominal pain Obesity (BMI 30-39.9) Vulvovaginitis juani albicans Type 2 diabetes mellitus with diabetic nephropathy Hyperlipidemia LDL goal <100 Diabetes mellitus Primary osteoarthritis of hips, bilateral Lumbar degenerative disc disease Pure hypercholesterolemia Anxiety GERD without esophagitis Ganglion cyst of tendon sheath of left hand Gastritis GERD (gastroesophageal reflux disease) Depression Hypothyroidism Type 2 diabetes mellitus with hyperglycemia, with long-term current use of insulin Type 2 diabetes mellitus with diabetic polyneuropathy Essential hypertension Surgical History Hx of tubal ligation History of herniated intervertebral disc Family History Father Throat cancer Mother Diabetes mellitus CVD (cardiovascular disease) Maternal Aunt Breast cancer Social History Household Members: None Housing: Apartment Alcohol intake: never Patient Tobacco Use Status: Former Tobacco user e-Cigarette/Vaping Use: Never Used Second Hand Smoke Exposure: No service: No Current occupational status: disabled Sexual orientation: Straight/Heterosexual Gender identity: Female Cognitive needs: No Hearing needs: No Vision needs: Yes Female Reproductive History Menstrual Age of Menarche: 12 Physical Exam Vital Signs: Last Vital Signs Pulse 104 H 11/09/23 14:33 BP 126/80 11/09/23 14:33 BMI result Body Mass Index 31.2 Const Orientation/consciousness: patient oriented x3 HEENT Ears: hearing grossly normal bilaterally Neck Thyroid: Thyroid normal Lymphatic: no lymphadenopathy noted Resp Auscultation: clear to auscultation bilaterally Cardio Rate: regular rate Rhythm: regular rhythm Heart sounds: S1 normal heart sound present and S2 normal heart sound present Skin General skin exam: no rashes or lesions noted Neuro General: patient oriented x3, moves all extremities and CN's II-XI intact bilaterally Gait exam (Neuro): Staggering gait present Coordination: sways with eyes open Extrem Other: DP pulses 2+ bilaterally. Reports diminished sensation to light touch the right toes. Unable to feel vibratory sensation on the right until midfoot. Vibratory sensation diminished on the left as well but present. Skin intact. Results Reviewed Results Reviewed: Laboratory Last Values Glucose (Clinic) 270 mg/dL (60-115) H 11/09/23 14:41 Laboratory Tests 10/28/23 10/28/23 11:14 11:19 Sodium 138 Potassium 4.2 Chloride 103 Creatinine 0.68 Estimated GFR > 60 Fasting Glucose 252 H Estimat Average Glucose 226 Hemoglobin A1c % 9.5 H Urine Creatinine 77.81 Urine Microalbumin 164.0 Microalb/Creat Ratio 210.7 H Assessment & Plan Assessment & Plan (1) Type 2 diabetes mellitus with hyperglycemia, with long-term current use of insulin: Code(s): E11.65 - Type 2 diabetes mellitus with hyperglycemia; Z79.4 - senior living (current) use of insulin Category: Medical Plan: I did increase her Tresiba to 80 units and her Humalog. Reordered sensors. Advised that she can contact the company and get a replacement sensor overnight. We showed her where to do this. (2) Essential hypertension: Code(s): I10 - Essential (primary) hypertension Category: Medical Plan: Continue current regimen (3) Pure hypercholesterolemia: Code(s): E78.00 - Pure hypercholesterolemia, unspecified Category: Medical Plan: Continue current regimen (4) Dizziness: Code(s): R42 - Dizziness and giddiness Category: Medical Plan: Patient does appear to be off balance today in the office. I did discuss with her my concerns of her dizziness, recent chest pain that just resolved and recommended that she go to the emergency room for more emergent evaluation. Her son was outside waiting for walked her past the street to the ER. They did not want an ambulance. She was assisted outside by Caro as she had a hard time walking. She refused any other assistance. Medications: Changed From insulin degludec (Tresiba FlexTouch U-200 insulin) 70 units (0.35 mL) s ubcut BEDTIME 30 days 10.5 mL 6RF To insulin degludec (Tresiba FlexTouch U-200 insulin) 80 units (0.4 mL) subcut BEDTIME 12 mL 6RF 30 days From insulin lispro (Humalog KwikPen (U-100) Insulin) 20 units for breakfast , 24 units for lunch, 30 units for dinner subcutaneously daily 15 mL 6RF E11.65 - Type 2 diabetes mellitus with hyperglycemia, Z79.4 - senior living (current) use of insulin To insulin lispro (Humalog KwikPen (U-100) Insulin) 24 units for breakfast , 30 units for lunch, 30 units for dinner subcutaneously daily 15 mL 6RF E11.65 - Type 2 diabetes mellitus with hyperglycemia, Z79.4 - senior living (current) use of insulin Refilled blood-glucose sensor (FreeStyle Simón 3 Sensor device) Apply every 14 days As directed 2 ea 11RF E11.9 - Type 2 diabetes mellitus without complications, Z79.4 - 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) use of insulin Coding Level of Care Code Est Pt Level 4 (03563) Diagnoses Type 2 diabetes mellitus with hyperglycemia, with long-term current use of insulin E11.65; Z79.4 Essential hypertension I10 Pure hypercholesterolemia E78.00 Dizziness R42
[2023-11-09 14:46] LABS: Glucose, Whole Blood 270 mg/dL (60-115)
== END 2023-11-09 15:13 | disposition home or self-care (01) ==
PROVIDERS: PCP Internal Medicine; Visit Provider Physician Assistant
DX: E11.65 Type 2 diabetes mellitus with hyperglycemia (principal); Z79.4 Long term (current) use of insulin; I10 Essential (primary) hypertension; E78.00 Pure hypercholesterolemia, unspecified; R42 Dizziness and giddiness
CPT/HCPCS: 99214

== ENCOUNTER → 2023-11-09 14:24 | Outpatient (BNVA) | payer OTHER, SELFPAY | PROVIDERS: PCP Internal Medicine; Visit Provider Physician Assistant | DX: E11.65 Type 2 diabetes mellitus with hyperglycemia (principal); I10 Essential (primary) hypertension; E78.00 Pure hypercholesterolemia, unspecified; R42 Dizziness and giddiness; Z79.4 Long term (current) use of insulin | CPT/HCPCS: 82947; 99212 ==

== ENCOUNTER 2023-12-08 08:59 | Outpatient (REF) | payer OTHER, SELFPAY ==
[2023-12-08 09:15] LABS: MANUAL DIFF FLAG NO
[2023-12-08 09:46] LABS: Basophils Percent Auto 0.3 % (0-2); Eosinophils Absolute Auto 0.3 X10*3/uL (0.0-0.4); Eosinophils Percent Auto 3.3 % (0-4); Hematocrit 42.1 % (37.0-47.0); Hemoglobin 14.8 g/dl (12.0-16.0); Imm Gran Abs Auto 0.04 X10*3/uL (0.00-0.03); Imm Gran Pct Auto 0.4 % (0.0-0.4); Lymphocytes Absolute Auto 2.3 X10*3/uL (1.2-4.9); Lymphocytes Percent Auto 25.1 % (20-40); Mean Corpuscular HGB Conc 35.2 g/dl (31.0-35.0); Mean Corpuscular Hemoglobin 30.3 pg (27.0-33.0); Mean Corpuscular Volume 86.3 fL (80.0-98.0); Mean Platelet Volume 9.9 fL (9.4-12.3); Monocytes Absolute Auto 0.5 X10*3/uL (0.1-1.2); Monocytes Percent Auto 5.1 % (2-11); Neutrophils Percent Auto 65.8 % (45-73); Platelet Count 233 X10*3/uL (160-400); Red Blood Count 4.88 X10*6/uL (4.20-5.50); White Blood Count 9.1 X10*3/uL (4.8-10.8)
[2023-12-08 10:11] LABS: Creatinine Urine 40.24 mg/dL; Microalbum/Creatinine Ratio Ur 116.7 ug/mg cr (<30)
[2023-12-08 10:12] LABS: Appearance Urine Clear; Color Urine Yellow; Glucose Urine UA >=1000 mg/dL (Negative); Leukocyte Esterase Urine Negative (Negative); Nitrite Urine Negative (Negative); PH 5.5 (5.0-9.0); Specific Gravity - Urine >= 1.030 (1.005-1.025); UMIC TRIGGER UACC YES; Urine Blood Negative (Negative); Urine Ketones Negative (Negative); Urine Protein Negative (Neg-Trace)
[2023-12-08 10:17] LABS: Alanine Aminotransferase 30 U/L (0-31); Albumin Level 4.2 g/dL (3.5-5.0); Alkaline Phosphatase 101 U/L (39-117); Anion Gap 17 (12-20); Aspartate Amino Transferase 10 U/L (5-31); Bilirubin Total 0.3 mg/dL (0.0-1.0); Blood Urea Nitrogen 22 mg/dL (9-16); Calcium 9.6 mg/dL (8.4-10.2); Carbon Dioxide 19 mmol/L (22-29); Chloride 109 mmol/L (96-108); Cholesterol 245 mg/dL (<200); Estimated Glomerular Filt Rate > 60; Glucose Fasting 224 mg/dL (60-99); HDL Cholesterol 31 mg/dL (>40); Potassium 3.8 mmol/L (3.3-5.1); Sodium 141 mmol/L (135-145); Total Protein 8.2 g/dL (6.5-8.0); Triglycerides 1175 mg/dL (<150)
[2023-12-08 10:18] LABS: Bacteria Urine None Seen (None Seen); Hyaline Casts Urine 0-2 /LPF (0-2); RBC Urine 0-2 /HPF (0-2); Squamous Epithelial Cell Urine 0-2 /HPF (0-2); UACC Culture Trigger YES
[2023-12-08 10:33] LABS: Vitamin D 25-OH Total 25.8 ng/mL (>30)
== END 2023-12-08 09:00 | disposition home or self-care (01) ==
LOC: HO.LAB 08:59
PROVIDERS: PCP Internal Medicine; Visit Provider Internal Medicine
DX: E11.9 Type 2 diabetes mellitus without complications (principal); E78.00 Pure hypercholesterolemia, unspecified; E55.9 Vitamin D deficiency, unspecified; D64.9 Anemia, unspecified
CPT/HCPCS: 36415; 80053; 80061; 81001; 81003; 82043; 82306; 82570; 85025; 87086

== ENCOUNTER 2023-12-09 12:54 | Outpatient (AMB) | payer OTHER, SELFPAY ==
[2023-12-09 13:07] VITALS: BP 126/64; PULSE 87; O2SAT 95; BMI 31.1
--- NOTE | 2023-12-09 13:07 | A.OFFPC_ITS ---
Vital Signs 12/09/23 13:07 Height 5 ft 3 in Weight 175 lb 6 oz BMI 31.1 BP 126/64 Blood Pressure Location Lt brachial Position Sitting Pulse 87 Pulse Source Pulse Oximeter Pulse Oximetry (%) 95 Oxygen Delivery Method Room Air Intake Visit Reasons: DM Economic Research Assistant Required: No Accompanied by: Self / Same As Patient Allergies Iodinated Contrast Media [IV CONTRAST] Allergy (Intermediate, Verified 12/09/23 13:58) RASH iopromide [From ULTRAVIST] Allergy (Mild, Verified 12/09/23 13:58) ITCHING semaglutide [From Ozempic] Adverse Reaction (Severe, Verified 12/09/23 13:58) pancreatitis Medication List - Last Reconciled 12/09/23 by Genaro Chu MD atorvastatin 80 mg PO BEDTIME blood sugar diagnostic (FreeStyle Lite Strips) As directed three times a day blood-glucose meter,continuous (FreeStyle Simón 3 [place]) use As directed daily to monitor blood glucose blood-glucose sensor (FreeStyle Simón 3 Sensor device) Apply every 14 days As directed cholecalciferol (vitamin D3) 50 mcg PO DAILY 90 days clonidine HCl 0.1 mg PO BID PRN 30 days empagliflozin (Jardiance) 25 mg PO DAILY fenofibrate 160 mg PO DAILY 30 days gabapentin 300 mg PO BEDTIME glucose (Dex4 Glucose) 16 grams (4 x 4 gram) PO Q15M PRN insulin degludec (Tresiba FlexTouch U-200 insulin) 80 units (0.4 mL) subcut BEDTIME 30 days insulin lispro (Humalog KwikPen (U-100) Insulin) 24 units for breakfast , 30 units for lunch, 30 units for dinner subcutaneously daily lancets (FreeStyle Lancets) Three times a day levothyroxine 50 mcg PO QAM lisinopril-hydrochlorothiazide 20-12.5 mg 1 tab PO DAILY 90 days lorazepam mg PO metoprolol succinate ER 75 mg (1.5 x 50 mg) PO DAILY 30 days mirtazapine 7.5 mg PO BEDTIME 30 days omeprazole 40 mg PO QAM 90 days pen needle, diabetic (BD Ultra-Fine Jordana Pen Needle) As directed four times a day pen needle, diabetic As directed sertraline 50 mg PO DAILY 30 days Tobacco use date assessed: 12/09/23 Dental Screening Dental Screen Date: 12/09/23 Did you have a dental visit in the last 12 months?: No Did you have a dental problem in the last 6 months where you did not have access to dental care?: No Was dental information given to patient?: No HPI DM HPI Details Patient comes in today for her follow up visit States that she has been experiencing increasing abdominal pain for the past 3 days, especially over the epigastric and RUQ areas She denies any nausea or vomiting and has no change in bowel habits lately She was seen by endocrinolgy for follow up of her DM last month and had her diabetes meds dosage adjusted She was also seen by cardiology a few weeks ago for her tachycardia - had her Metoprolol dosage increased and is currently awaiting scheduling of her 3 day Holter monitor - looks like this is scheduled for some time next month Patient currently denies any headaches but continues to report on and off dizziness Denies any exertional chest pains and no increased SOB noted She had some follow up labs done yesterday - to discuss her results [facility] Medical History (Updated 12/14/23 @ 01:14 by Genaro Chu MD) Obesity (BMI 30-39.9) Tachycardia Mixed hyperlipidemia Hypertriglyceridemia Vitamin D deficiency Loose stools Pancreatitis Poor historian Vulvar leukoplakia Vulvar itching Recurrent epigastric abdominal pain Vulvovaginitis juani albicans Type 2 diabetes mellitus with diabetic nephropathy Hyperlipidemia LDL goal <100 Diabetes mellitus Primary osteoarthritis of hips, bilateral Lumbar degenerative disc disease Pure hypercholesterolemia Anxiety GERD without esophagitis Ganglion cyst of tendon sheath of left hand Gastritis GERD (gastroesophageal reflux disease) Depression Hypothyroidism Type 2 diabetes mellitus with hyperglycemia, with long-term current use of insulin Type 2 diabetes mellitus with diabetic polyneuropathy Essential hypertension Surgical History Hx of tubal ligation History of herniated intervertebral disc Family History Father Throat cancer Mother Diabetes mellitus CVD (cardiovascular disease) Maternal Aunt Breast cancer Social History Household Members: None Housing: Apartment Alcohol intake: never Patient Tobacco Use Status: Former Tobacco user e-Cigarette/Vaping Use: Never Used Second Hand Smoke Exposure: No service: No Current occupational status: disabled Sexual orientation: Straight/Heterosexual Gender identity: Female Cognitive needs: No Hearing needs: No Vision needs: Yes Female Reproductive History Menstrual Age of Menarche: 12 Questionnaire PHQ-9 Over the last 2 weeks, how often have you been bothered by any of the following problems? 1. Little interest or pleasure in doing things: several days 2. Feeling down, depressed, or hopeless: several days 3. Trouble falling or staying asleep, or sleeping too much: several days 4. Feeling tired or having little energy: not at all 5. Poor appetite or overeating: not at all 6. Feeling bad about yourself - or that you are a failure or have let yourself or your family down: not at all 7. Trouble concentrating on things, such as reading the newspaper or watching television: not at all 8. Moving or speaking so slowly that other people could have noticed. Or the opposite - being so fidgety or restless that you have been moving around a lot more than usual: not at all 9. Thoughts that you would be better off or of hurting yourself in some way: not at all Total score: 3 Depression Screening Interpretation: Positive Depression Screening Follow-up: Existing condition and In treatment Depression Screening Done: Yes 90414 - PHQ-9 Billing: Yes Source: Developed by Drs. Teofilo Loredo, Radha Knight, Keagan Guzman and colleagues, with an educational alecia from [employer]. Thrive Questionnaire Date Thrive assessed: 12/09/23 I am a: Patient What is your living situation today?: I have a steady place to live Within the past 12 months, did the food you bought not last and you didn't have the money to get more?: Never true Within the past 12 months, did you worry whether your food would run out before you got money to buy more?: Never true Do you have trouble paying for medicines?: No Do you have trouble getting transportation to medical appointments?: No Do you have trouble paying your heating and electricity bill?: No Do you have trouble taking care of your child, family member or friend?: No Do you have trouble with day-to-day activities such as bathing, preparing meals, shopping, managing finances, etc.?: No Are you currently unemployed and looking for a job?: No Are you interested in more education?: No Please select the resources that you would like help with: None Currently or been in a relationship where the following occur: No concerns reported THRIVE Score: 0 AUDIT C Alcohol Use Questionnaire (AUDIT-C) 1. How often do you have a drink containing alcohol?: Never 3. How often do you have six or more drinks on one occasion?: Never Total Score: 0 Score Reviewed/Action Taken: Yes CARO-7 AMB Questionnaire CARO-7 Date CARO - 7 assessed: 12/09/23 Feeling nervous, anxious, or on edge: 0 = Not at all Not being able to stop or control worryin = Not at all Worrying too much about different things: 0 = Not at all Trouble relaxin = Not at all Being so restless that it is hard to sit still: 0 = Not at all Becoming easily annoyed or irritable: 0 = Not at all Feeling afraid as if something awful might happen: 0 = Not at all Total CARO-7 score (0-4 normal; 5-9 mild; 10-14 moderate; 15-21 severe): 0 Source: Developed by Drs. Teofilo Loredo, Radha Knight, Keagan Guzman and colleagues, with an educational alecia from [employer]. Review of Systems Const Denies chills, Reports fatigue, Denies fever(s) and Denies headache(s) ENT Denies dysphagia, Reports dizziness (on and off), Denies otalgia, Denies headache(s), Denies neck pain, Denies odynophagia and Denies sore throat Card Denies chest pain, Reports palpitations (on and off) and Reports dyspnea on exertion (mild) Resp Denies chest congestion, Denies cough, Reports dyspnea on exertion (mild) and Denies wheezing GI Reports abdominal pain (increased over the past few days - see HPI), Denies constipation, Denies dysphagia, Denies heartburn, Denies diarrhea, Denies nausea, Denies odynophagia and Denies vomiting Denies difficulty voiding, Denies nocturia, Denies dysuria and Denies urinary urgency Musc Reports back pain (over the lower back), Reports arthralgias (over both hips) and Denies neck pain Skin/Breast Denies rash Neuro Reports dizziness (on and off) and Denies headache(s) Psych Reports anxiety Endo Reports fatigue and Reports palpitations (on and off) Aller/Immun Denies wheezing Physical exam (Primary Care) Vital Signs: Last Vital Signs Pulse 87 12/09/23 13:07 BP 126/64 12/09/23 13:07 Pulse Ox 95 12/09/23 13:07 Oxygen Delivery Method Room Air 12/09/23 13:07 BMI result Body Mass Index 31.1 Tobacco/Smoking Status: Tobacco use Status Tobacco use date assessed 12/09/23 12/09/23 13:13 Patient Tobacco Use Status Former Tobacco user 12/09/23 13:13 e-Cigarette/Vaping Use Never Used 12/09/23 13:13 PHQ-9: PHQ-9 Score PHQ-9: Total score 3 12/09/23 15:41 Depression Screening Interpretation: Positive Depression Screening Follow-up: Existing condition and In treatment Thrive Assessment: Date of Thrive Assessment Date Thrive assessed 12/09/23 12/09/23 13:13 Currently or been in a relationship where the following occur: No concerns reported Const General: no acute distress and alert HENMT Ears: TM's normal bilaterally and EAC's normal Throat: Yes posterior oropharynx normal and Yes tonsils normal (no TP congestion) Neck Neck: Yes no lymphadenopathy and Yes supple Resp Auscultation: clear to auscultation bilaterally, no rales and no wheezes Cardio Rate: regular rate Rhythm: regular rhythm Heart sounds: no murmurs GI Palpation (GI): Soft to palpation and nontender Auscultation: normal bowel sounds General: Yes no CVA tenderness Back/Spine/Pelvis Back: no CVA tenderness Thoracic/Lumbar Spine: lumbar spinal tenderness Skin Rashes: no rashes Extrem General: Yes no clubbing, cyanosis or edema Right lower extremity: hip/thigh Details: tenderness Location: of the hip Left lower extremity: hip/thigh Details: tenderness Location: of the hip Results Reviewed Results Reviewed: Laboratory Tests 10/28/23 12/08/23 12/08/23 11:19 09:13 09:14 WBC 9.1 Hgb 14.8 Hct 42.1 Plt Count 233 Sodium 141 Potassium 3.8 Creatinine 0.66 Estimated GFR > 60 Fasting Glucose 224 H Hemoglobin A1c % 9.5 H Calcium 9.6 AST 10 ALT 30 Triglycerides 1175 H Cholesterol 245 H LDL Cholesterol, Calc TNP HDL Cholesterol 31 L Vitamin B12 469 25-OH Vitamin D Total 25.8 L TSH 3.48 Free T4 0.82 Ur Specific Holmes >= 1.030 H Urine Protein Negative Urine Glucose (UA) >=1000 H Urine Blood Negative Urine Nitrite Negative Ur Leukocyte Esterase Negative Microalb/Creat Ratio 116.7 H Coding Level of Care Code Est Pt Level 4 (19094) Diagnoses Epigastric pain R10.13 Abdominal location: epigastric Type 2 diabetes mellitus with hyperglycemia, with long-term current use of insulin E11.65; Z79.4 Mixed hyperlipidemia E78.2 Essential hypertension I10 Acquired hypothyroidism E03.9 Hypothyroidism type: acquired Tachycardia R00.0 GERD without esophagitis K21.9 Vitamin D deficiency E55.9 Obesity (BMI 30-39.9) E66.9 Assessment & Plan Assessment & Plan (1) Abdominal pain: Code(s): R10.9 - Unspecified abdominal pain Category: Medical Qualifiers: Abdominal location: epigastric Qualified Code(s): R10.13 - Epigastric pain Plan: Will send patient for some additional labs EDUARDA for further evaluation Will also send her for abdominal US for further evaluation of her recent abdominal symptoms (2) Type 2 diabetes mellitus with hyperglycemia, with long-term current use of insulin: Code(s): E11.65 - Type 2 diabetes mellitus with hyperglycemia; Z79.4 - longterm (current) use of insulin Category: Medical Plan: Her HgbA1c was at 9.6% on her labs done yesterday (was at 9.5% a few weeks ago in late October 2023) - goal is <7.0% Reinforced diabetic diet Continue Tresiba 80 units QD; continues on Humalog 24 units with breakfast, 30 units with lunch and 30 units with dinner and Jardiance 25 mg QD She was also started on Ozempic 1 mg SQ Q week a few months ago but developed pancreatitis on Ozempic Follow up with [facility] – [place], [place] Endocrinology as scheduled (3) Mixed hyperlipidemia: Code(s): E78.2 - Mixed hyperlipidemia Category: Medical Plan: Results of her labs done yesterday reviewed and discussed with patient -she is cautioned that her serum triglyceride level and her total cholesterol level both went up significantly, with TG level now at 1175 Reinforced low cholesterol diet Continue Atorvastatin 80 mg QD; will start her additionally on Fenofibrate 160 mg QD Will recheck his labs and fasting lipids as scheduled in a couple of months for follow up (4) Essential hypertension: Code(s): I10 - Essential (primary) hypertension Category: Medical Plan: Reinforced low-sodium diet -? goal is systolic BP of 120 mm or less Continue Lisinopril-Hydrochlorothiazide 20-12.5 mg QD (5) Hypothyroidism: Code(s): E03.9 - Hypothyroidism, unspecified Category: Medical Qualifiers: Hypothyroidism type: acquired Qualified Code(s): E03.9 - Hypothyroidism, unspecified Plan: Her TFTs were normal on her recent labs done yesterday Continue Levothyroxine 50 mcg QD (6) Tachycardia: Code(s): R00.0 - Tachycardia, unspecified Category: Medical Plan: Patient was seen by cardiology a few weeks ago and is now scheduled for repeat Holter monitoring next month She will also have a repeat echocardiogram for further evaluation Nuclear stress test done on 04/08/2023 showed normal myocardial perfusion imaging (7) GERD without esophagitis: Comment: UGI series done in October 2019 revealed (+) mild reflux disease without hiatal hernia Code(s): K21.9 - Gastro-esophageal reflux disease without esophagitis Category: Medical Plan: Dietary restrictions reinforced Continue Pantoprazole 40 mg QD (8) Vitamin D deficiency: Code(s): E55.9 - Vitamin D deficiency, unspecified Category: Medical Plan: Continue Vitamin D3 2000 units QD (9) Obesity (BMI 30-39.9): Code(s): E66.9 - Obesity, unspecified Category: Medical Plan: Reinforced diet/exercise as tolerated/lose weight Plan Follow up as scheduled on 01/27/2024 Orders: Orders C Reactive Protein 12/10/23 R10.9 - Unspecified abdominal pain US abdomen complete 12/09/23 R10.9 - Unspecified abdominal pain Lipase 12/10/23 R10.9 - Unspecified abdominal pain Erythrocyte Sedimentation Rate 12/10/23 M79.7 - Fibromyalgia, R10.9 - Unspec ified abdominal pain Medications: New fenofibrate 160 mg PO DAILY 30 days 30 tabs 3RF E78.1 - Pure hyperglyceridemia
== END 2023-12-09 14:06 | disposition home or self-care (01) ==
PROVIDERS: PCP Internal Medicine; Visit Provider Internal Medicine
DX: E11.65 Type 2 diabetes mellitus with hyperglycemia (principal); Z79.4 Long term (current) use of insulin; E66.811 Obesity, class 1; Z68.31 Body mass index [BMI] 31.0-31.9, adult; R10.13 Epigastric pain; E78.2 Mixed hyperlipidemia; I10 Essential (primary) hypertension; E03.9 Hypothyroidism, unspecified; R00.0 Tachycardia, unspecified; K21.9 Gastro-esophageal reflux disease without esophagitis; E55.9 Vitamin D deficiency, unspecified

== ENCOUNTER → 2023-12-09 12:54 | Outpatient (BNVA) | payer OTHER, SELFPAY | PROVIDERS: PCP Internal Medicine; Visit Provider Internal Medicine | DX: R10.13 Epigastric pain (principal); E11.65 Type 2 diabetes mellitus with hyperglycemia; Z79.4 Long term (current) use of insulin; E78.2 Mixed hyperlipidemia; I10 Essential (primary) hypertension; E03.9 Hypothyroidism, unspecified; K21.9 Gastro-esophageal reflux disease without esophagitis; R00.0 Tachycardia, unspecified; E66.9 Obesity, unspecified; E55.9 Vitamin D deficiency, unspecified | CPT/HCPCS: 96127; 99212 ==

== ENCOUNTER 2023-12-10 08:56 | Outpatient (REF) | payer OTHER, SELFPAY ==
[2023-12-10 10:44] LABS: Erythrocyte Sedimentation Rate 43 MM/HR (0-20)
[2023-12-10 11:01] LABS: C Reactive Protein 2.74 mg/dL (< or = 0.50); Lipase 50 U/L (8-78)
== END 2023-12-10 08:57 | disposition home or self-care (01) ==
LOC: HO.LAB 08:56
PROVIDERS: PCP Internal Medicine; Visit Provider Internal Medicine
DX: R10.9 Unspecified abdominal pain (principal); M79.7 Fibromyalgia
CPT/HCPCS: 36415; 83690; 85652; 86140

== ENCOUNTER 2023-12-22 08:13 | Outpatient (REF) | payer OTHER, SELFPAY | END 2023-12-22 08:14 | disposition home or self-care (01) | LOC: HO.US 08:13 | PROVIDERS: PCP Internal Medicine; Visit Provider Internal Medicine | DX: R10.9 Unspecified abdominal pain (principal) | CPT/HCPCS: 76700 ==

== ENCOUNTER → 2024-01-08 14:01 | Outpatient (BNVA) | payer OTHER, SELFPAY | PROVIDERS: PCP Internal Medicine; Visit Provider Physician Assistant | DX: E11.65 Type 2 diabetes mellitus with hyperglycemia (principal); Z79.4 Long term (current) use of insulin | CPT/HCPCS: 82947; 83036; 95250; 99212 ==

== ENCOUNTER 2024-01-08 14:05 | Outpatient (AMB) | payer OTHER, SELFPAY ==
[2024-01-08 14:02] VITALS: BP 140/70; PULSE 78; BMI 32.3
--- NOTE | 2024-01-08 14:02 | MHC.OFFVIS ---
Vital Signs 01/08/24 14:02 Height 5 ft 3 in Weight 182 lb 1.629 oz BMI 32.3 BP 140/70 H Blood Pressure Location Lt brachial Position Sitting Pulse 78 Pulse Source Pulse Oximeter Intake Visit Reasons: DM Intake Note: Patient presents today for D2NJ follow up visit. Last Diabetic Eye exam: Over 2 years Last Podiatry Visit: Doesn't have one Random Glucose: 176 mg/dl HgA1c: 10.3% Type Caster Required: Yes Type Caster Language: Geriatric Nurse Practitioner Services: Type Caster Present Type Caster Name: Toby Information Interpreted: non-clinical & clinical Accompanied by: Self / Same As Patient Allergies Iodinated Contrast Media [IV CONTRAST] Allergy (Intermediate, Verified 01/08/24 14:08) RASH iopromide [From ULTRAVIST] Allergy (Mild, Verified 01/08/24 14:08) ITCHING semaglutide [From Ozempic] Adverse Reaction (Severe, Verified 01/08/24 14:08) pancreatitis HPI HPI DM: Details: Patient is a 63-year-old female with a significant past medical history of hypertension, hyperlipidemia, hypothyroidism, type 2 diabetes uncontrolled with long-term insulin use, obesity presenting today for a diabetic follow-up. Type Caster: Maikel [id number] Endo: DM-her A1c today is back up to 10.3. She is on Jardiance 25 mg, 70 units of tresiba , Humalog to 24 units with breakfast, 30 units with lunch and 30 units with supper. -states she rarely uses dinner time insulin. States that she forgets and she is about 50 50 with this. -the Lantus and toujeo kept wearing off by late afternoon. - has tried ozempic but caused pancreatitis. Metformin caused GI upset. -she has been struggling to get the freestyle Simón and states that her glucose readings are anywhere from 120-350. Her last eye exam was over a year ago. Last foot exam was over a year ago. She does have peripheral neuropathy related to her diabetes worst in her right foot than her left. Does not follow with podiatry. Hypothyroid-she is on levothyroxine 50 mcg. Last TSH was WNL. CV: Blood pressure today in the office is 140/70. She is on hydrochlorothiazide/lisinopril, metoprolol. Remains on Lipitor 80 mg and fenofibrate. [facility] Medical History (Updated 12/14/23 @ 01:14 by Genaro Chu MD) Obesity (BMI 30-39.9) Tachycardia Mixed hyperlipidemia Hypertriglyceridemia Vitamin D deficiency Loose stools Pancreatitis Poor historian Vulvar leukoplakia Vulvar itching Recurrent epigastric abdominal pain Vulvovaginitis juani albicans Type 2 diabetes mellitus with diabetic nephropathy Hyperlipidemia LDL goal <100 Diabetes mellitus Primary osteoarthritis of hips, bilateral Lumbar degenerative disc disease Pure hypercholesterolemia Anxiety GERD without esophagitis Ganglion cyst of tendon sheath of left hand Gastritis GERD (gastroesophageal reflux disease) Depression Hypothyroidism Type 2 diabetes mellitus with hyperglycemia, with long-term current use of insulin Type 2 diabetes mellitus with diabetic polyneuropathy Essential hypertension Surgical History Hx of tubal ligation History of herniated intervertebral disc Family History Father Throat cancer Mother Diabetes mellitus CVD (cardiovascular disease) Maternal Aunt Breast cancer Social History Household Members: None Housing: Apartment Alcohol intake: never Patient Tobacco Use Status: Former Tobacco user e-Cigarette/Vaping Use: Never Used Second Hand Smoke Exposure: No service: No Current occupational status: disabled Sexual orientation: Straight/Heterosexual Gender identity: Female Cognitive needs: No Hearing needs: No Vision needs: Yes Female Reproductive History Menstrual Age of Menarche: 12 Physical Exam Vital Signs: Last Vital Signs Pulse 78 01/08/24 14:02 BP 140/70 H 01/08/24 14:02 BMI result Body Mass Index 32.3 Const Orientation/consciousness: patient oriented x3 HEENT Ears: hearing grossly normal bilaterally Neck Thyroid: Thyroid normal Lymphatic: no lymphadenopathy noted Resp Auscultation: clear to auscultation bilaterally Cardio Rate: regular rate Rhythm: regular rhythm Heart sounds: S1 normal heart sound present and S2 normal heart sound present Skin General skin exam: no rashes or lesions noted Neuro General: patient oriented x3 and moves all extremities Extrem Other: DP pulses 2+ bilaterally. Reports diminished sensation to light touch the right toes. Unable to feel vibratory sensation on the right until midfoot. Vibratory sensation diminished on the left as well but present. Skin intact. Office Procedures Glucose Monitoring Details Details: Dexcom G7 sensor provided today, placed on patient [place]. [address] - Glucose Monitoring, continuous Procedure code (CPT) selection complete Results AMB Hemoglobin A1c AMB Hemoglobin A1c 10.3 % Last Edit by YOSELYN Lara on 01/08/24 14:19 Results Reviewed Results Reviewed: Laboratory Last Values Glucose (Clinic) 176 mg/dL (60-115) H 01/08/24 14:10 Hgb A1c (Clinic) 10.3 % (4.0-6.0) H 01/08/24 14:13 Laboratory Tests 12/08/23 09:14 Sodium 141 Potassium 3.8 Chloride 109 H Carbon Dioxide 19 L Anion Gap 17 BUN 22 H Creatinine 0.66 Estimated GFR > 60 Fasting Glucose 224 H Cholesterol 245 H HDL Cholesterol 31 L Assessment & Plan Assessment & Plan (1) Type 2 diabetes mellitus with hyperglycemia, with long-term current use of insulin: Code(s): E11.65 - Type 2 diabetes mellitus with hyperglycemia; Z79.4 - long term care phlebotomist (current) use of insulin Category: Medical Plan: Dexcom G7 and reader provided today in the office. More than 45 minutes was spent in face time today reviewing the sensor, applying the sensor and paring the sensor. I have increased her Tresiba to 80 units. She is going to use an increase Humalog to 30 units 3 times a day with meals. She will continue with Jardiance. We did discuss the risks of frequent UTIs and yeast infections especially as her A1c is greater than 9. I will add glipizide. She does not recall being on this in the past. We will try 5 mg. Rule of 15 were discussed. Glucos tabs order to use as needed for hypoglycemia. We reviewed signs and symptoms of hyper and hypoglycemia that would require emergent medical treatment. One-week follow up. Sooner if needed. Patient understands and agrees with this plan. Orders: Orders AMB Hemoglobin A1c Today E11.65 - Type 2 diabetes mellitus with hyperglycemia, Z13.9 - Encounter for screening, unspecified, Z79.4 - alf (current) use of insulin Medications: New glipizide ER 5 mg PO DAILY 90 tabs 0RF blood-glucose sensor (Dexcom G7 Sensor device) Use daily As directed to monitor glucose. change q 10 days 3 ea 5RF E11.65 - Type 2 diabetes mellitus with hyperglycemia, Z79.4 - long term care phlebotomist (current) use of insulin Changed From insulin lispro (Humalog KwikPen (U-100) Insulin) 24 units for breakfast , 30 units for lunch, 30 units for dinner subcutaneously daily 15 mL 6RF E11.65 - Type 2 diabetes mellitus with hyperglycemia, Z79.4 - long term care phlebotomist (current) use of insulin To insulin lispro (Humalog KwikPen (U-100) Insulin) 30 units for breakfast , 30 units for lunch, 30 units for dinner subcutaneously daily 15 mL 6RF E11.65 - Type 2 diabetes mellitus with hyperglycemia, Z79.4 - long term care phlebotomist (current) use of insulin Discontinued blood-glucose sensor (FreeStyle Simón 3 Sensor device) Discontinued Reason: Doctor's Order As directed every 14 days 2 ea 11RF blood-glucose meter,continuous (FreeStyle Simón 3 [place]) Discontinued Reason: Doctor's Order use As directed daily to monitor blood glucose 1 ea 0RF E11.42 - Type 2 diabetes mellitus with diabetic polyneuropathy, E11.65 - Type 2 diabetes mellitus with hyperglycemia, Z79.4 - long term care phlebotomist (current) use of insulin Coding Level of Care Code Est Pt Level 5 (44453) Diagnoses Type 2 diabetes mellitus with hyperglycemia, with long-term current use of insulin E11.65; Z79.4 CPT Codes Details - CPT: 93764 - Glucose Monitoring, continuous ([id number])
[2024-01-08 14:14] LABS: Glucose, Whole Blood 176 mg/dL (60-115)
== END 2024-01-08 14:37 | disposition home or self-care (01) ==
PROVIDERS: PCP Internal Medicine; Visit Provider Physician Assistant
DX: E11.65 Type 2 diabetes mellitus with hyperglycemia (principal); Z79.4 Long term (current) use of insulin; Z13.9 Encounter for screening, unspecified

== ENCOUNTER 2024-01-13 14:25 | Outpatient (REF) | payer OTHER, SELFPAY ==
[2024-01-14 12:06] LABS: Bacterial Vaginosis PCR NEGATIVE (Negative); Candida Group PCR NOT DETECTED (Not Detect); Candida glab krusei PCR NOT DETECTED (Not Detect); Trichomonas vaginalis PCR NOT DETECTED (Not Detect)
== END 2024-01-13 14:26 | disposition home or self-care (01) ==
LOC: HO.LNP 14:25
PROVIDERS: PCP Internal Medicine; Visit Provider Obstetrics & Gynecology
DX: Z01.411 Encounter for gynecological examination (general) (routine) with abnormal findings (principal); N63.15 Unspecified lump in the right breast, overlapping quadrants; N89.8 Other specified noninflammatory disorders of vagina; B37.31 Acute candidiasis of vulva and vagina
CPT/HCPCS: 0352U; 99212; 99396

== ENCOUNTER 2024-01-13 14:25 | Outpatient (AMB) | payer OTHER, SELFPAY ==
--- NOTE | 2024-01-13 14:34 | A.OFFVIS_ITS ---
Vital Signs 01/13/24 14:39 Height 5 ft 3 in Weight 180 lb BMI 31.9 BP 120/60 Intake Visit Reasons: Annual/ Do Not RS Files Supervisor Required: Yes Files Supervisor Language: Database Management Specialist Services: Files Supervisor Present Files Supervisor Name: YOSELYN Perez Information Interpreted: non-clinical & clinical Accompanied by: Self / Same As Patient Allergies Iodinated Contrast Media [IV CONTRAST] Allergy (Intermediate, Verified 01/13/24 14:39) RASH iopromide [From ULTRAVIST] Allergy (Mild, Verified 01/13/24 14:39) ITCHING semaglutide [From Ozempic] Adverse Reaction (Severe, Verified 01/13/24 14:39) pancreatitis HPI Comments Details: Presenting for annual exam. Complaining of right breast tender lump in addition to vulvovaginal itching. The patient blood sugar has been elevated recently Last Pap/HPV was negative in 09/21 Last Mammogram was BI-RADS 1 in 06/23 No previous screening Colonoscopy PFSH Medical History (Updated 01/13/24 @ 15:02 by Jamison Blackwell MD) Vulvovaginitis juani albicans Obesity (BMI 30-39.9) Tachycardia Mixed hyperlipidemia Hypertriglyceridemia Vitamin D deficiency Loose stools Pancreatitis Poor historian Vulvar leukoplakia Vulvar itching Recurrent epigastric abdominal pain Type 2 diabetes mellitus with diabetic nephropathy Hyperlipidemia LDL goal <100 Diabetes mellitus Primary osteoarthritis of hips, bilateral Lumbar degenerative disc disease Pure hypercholesterolemia Anxiety GERD without esophagitis Ganglion cyst of tendon sheath of left hand Gastritis GERD (gastroesophageal reflux disease) Depression Hypothyroidism Type 2 diabetes mellitus with hyperglycemia, with long-term current use of insulin Type 2 diabetes mellitus with diabetic polyneuropathy Essential hypertension Surgical History Hx of tubal ligation History of herniated intervertebral disc Family History Father Throat cancer Mother Diabetes mellitus CVD (cardiovascular disease) Maternal Aunt Breast cancer Social History Household Members: None Housing: Apartment Alcohol intake: never Patient Tobacco Use Status: Former Tobacco user e-Cigarette/Vaping Use: Never Used Second Hand Smoke Exposure: No service: No Current occupational status: disabled Sexual orientation: Straight/Heterosexual Gender identity: Female Cognitive needs: No Hearing needs: No Vision needs: Yes Female Reproductive History Menstrual Age of Menarche: 12 Total pregnancies: 6 Full term: 4 Date of last pap smear: 09/24/22 (Negative pap smear, negative hpv) Date of Mammogram: 06/19/23 (bi-rad 1) Review of Systems Const All systems reviewed & are unremarkable except as noted in HPI and below Card Reports as per HPI Resp Reports as per HPI GI Reports as per HPI and Reports no additional complaints Reports as per HPI Physical Exam Vital Signs: Last Vital Signs BP 120/60 01/13/24 14:39 BMI result Body Mass Index 31.9 Const General: cooperative, healthy appearing and comfortable Chest Chest palpation & inspection: normal inspection of the chest and normal palpation of entire chest wall Breast/axilla inspection: normal inspection of the breasts and normal inspection of the axillae Breast/axilla palpation: normal palpation of the breasts (Left breast within normal, Rt breast 3 o'clock tender lump 0.5 from nipple), normal palpation of the axillae and no axillary lymphadenopathy Resp Effort & Inspection: normal respiratory effort Auscultation: clear to auscultation bilaterally Percussion: percussion normal Cardio Palpation: normal PMI Rate: regular rate Rhythm: regular rhythm Heart sounds: no murmurs and no rubs Peripheral pulses: Peripheral pulses 2+ throughout GI Inspection: Yes normal to inspection Palpation (GI): Soft to palpation, nontender, no guarding, not rigid and No hepatosplenomegaly present Percussion: Yes normal to percussion Auscultation: normal bowel sounds Rectal Exam - Female: deferred General: Yes bladder normal to palpation External Female Exam: lesion (Bilateral erythema with mild desquamation) Speculum Exam - Vagina: normal appearance of the vagina, normal palpation, normal vaginal discharge and not erythematous Speculum Exam - Cervix: normal appearance of the cervix and normal palpation Bimanual exam- vagina & uterus: normal bimanual exam, normal palpation, uterine size normal, bladder normal to palpation, consistency normal and normal palpation Bimanual Exam- Adnexa, other: normal adnexae, no masses and no tenderness Assessment & Plan Assessment & Plan (1) Well woman exam: Code(s): Z01.419 - Encounter for gynecological examination (general) (routine) without abnormal findings Category: Medical Plan: Cotesting not indicated this year. Counseled the patient about the recommended dietary allowance of 1000 mg of Calcium & 600 IU of vitamin D The patient was referred to GI for screening colonoscopy The patient was instructed to perform monthly self-breast exams and to schedule an annual exam in a year; All questions answered and the patient verbalized understanding. Instructed the patient to schedule annual exam in a year (2) Breast lump on right side at 3 o'clock position: Comment: Rt breast 3 o'clock tender lump 0.5 from nipple Code(s): N63.15 - Unspecified lump in the right breast, overlapping quadrants Category: Medical Plan: Discussed with the patient the finding on Breast exam (breast lump) .The differential diagnosis includes but not limited to lump/cyst/pre cancer/cancer or dense breast tissue. The work up includes breast US and diagnostic mammogram and referred the patient for surgical breast consult. (3) Vulvovaginitis juani albicans: Code(s): B37.3 - Candidiasis of vulva and vagina Category: Medical Plan: GC/CT, Bacterial Vaginosis panel taken, Terazol 0.8% q.h.s. for 3 days was sent to the patient's pharmacy. The patient was instructed to call if symptoms don't improve in 48 hours and to schedule a 2 week follow-up appointment for reinspection Orders: Orders MM tomosynthesis diagnostic BI Today N63.15 - Unspecified lump in the right breast, overlapping quadrants US breast RT complete Today N63.15 - Unspecified lump in the right breast, overlapping quadrants Bacterial Vaginosis Panel Today N63.15 - Unspecified lump in the right breast, overlapping quadrants, N89.8 - Other specified noninflammatory disorders of vagina Referrals General Surgery Referral N63.15 - Unspecified lump in the right breast, overlapping quadrants Gastroenterology Referral Z12.11 - Encounter for screening for malignant neoplasm of colon Medications: New terconazole 0.8% 1 appful vaginal BEDTIME 3 days 20 grams 0RF clotrimazole-betamethasone 1-0.05 % 1 appl topical BID 5 days 45 grams 0RF Coding Level of Care Code Est Pt Level 3 (99240) Est Pt Prev Care 40-64y(01858) Diagnoses Well woman exam Z01.419 Breast lump on right side at 3 o'clock position N63.15 Vulvovaginitis juani albicans B37.3
[2024-01-13 14:39] VITALS: BP 120/60; BMI 31.9
== END 2024-01-13 15:04 | disposition home or self-care (01) ==
LOC: HO.HWS 14:25
PROVIDERS: PCP Internal Medicine; Visit Provider Obstetrics & Gynecology
DX: Z01.411 Encounter for gynecological examination (general) (routine) with abnormal findings (principal); N63.15 Unspecified lump in the right breast, overlapping quadrants; B37.31 Acute candidiasis of vulva and vagina
CPT/HCPCS: 99213; 99396

== ENCOUNTER → 2024-01-20 10:47 | Outpatient (REF) | payer OTHER, SELFPAY ==
--- NOTE | 2024-01-20 10:51 | HM_ITS ---
* Total monitoring time 3 days. * Underlying rhythm is sinus with an average rate of 92/Min. About 32% of the time, rate > 100/Min. * No significant supraventricular or ventricular ectopy. * No significant pauses or high-grade AV blocks. * No patient markers or diary events. MTDD
== END ==
LOC: HO.CARD 10:47
PROVIDERS: PCP Internal Medicine; Visit Provider Nurse Practitioner Family
DX: R00.0 Tachycardia, unspecified (principal)
CPT/HCPCS: 93242

== ENCOUNTER → 2024-01-20 10:51 | Outpatient (BNV) | payer OTHER, SELFPAY | PROVIDERS: PCP Internal Medicine; Visit Provider Internal Medicine | DX: R00.0 Tachycardia, unspecified (principal) | CPT/HCPCS: 93244 ==

== ENCOUNTER 2024-01-21 07:45 | Outpatient (REF) | payer OTHER, SELFPAY ==
--- NOTE | ~2024-01-21 | MM_ITS ---
EXAMINATION: MM DIAGNOSTIC DIGITAL BREAST TOMOSYNTHESIS, RIGHT US BREAST LIMITED, RIGHT MAMMOGRAPHY: CLINICAL INFORMATION: Diagnostic exam; provider felt palpable small lump 3:00 axis right breast. Patient cannot feel this abnormality. COMPARISON: Mammography: 06/19/2023, 06/13/2022, 05/28/2021, 05/25/2020. TECHNIQUE: Digital right breast tomosynthesis is performed in both the craniocaudal and mediolateral oblique views along with computer-aided detection (CAD). Synthesized 2D images are generated from the tomosynthesis. This was followed by targeted right breast ultrasound. FINDINGS: There are scattered areas of fibroglandular density (ACR BI-RADS breast composition Category b). There are no suspicious masses, suspicious grouped calcifications, or areas of architectural distortion in the right breast. The parenchymal pattern is stable from prior exams. There is no skin or axillary abnormality. There is no correlate to the palpable focus in the 3:00 axis of the right breast mammographically. We will evaluate this region with ultrasound. ULTRASOUND: CLINICAL INFORMATION: As above. COMPARISON: None TECHNIQUE: Targeted sonographic evaluation was performed using a high frequency linear transducer. Attention was given to the 3:00 axis right breast in the region of palpable concern. Selected archived documentation. FINDINGS: RIGHT BREAST: There is a mixture of fatty and fibroglandular tissue. No suspicious mass is seen. There is no pathologic acoustic shadowing. There is no cystic or architectural abnormality. There is no sonographic correlate to the palpable focus of concern 3:00 axis right breast. MM/MM tomosynthesis diagnostic RT IMPRESSION: 1. There are no findings suspicious for malignancy in either breast. 2. Palpable abnormality at the 3:00 axis right breast shows no mammographic or sonographic correlate. Clinical management and follow-up recommended. Otherwise, recommend resuming routine screening mammography. OVERALL ASSESSMENT: Mammography: BI-RADS 1 - Negative Ultrasound: BI-RADS 1 - Negative RECOMMENDATION: 1. Patient should be managed based on the clinical impression. 2. Otherwise, routine annual screening mammography. This patient's information was entered into a reminder system with a target due date for their next mammogram. Electronically signed by: Arturo Zamora MD 01/21/2024 08:[address] [facility]
== END 2024-01-21 07:46 | disposition home or self-care (01) ==
LOC: HO.MAMMO 07:45
PROVIDERS: PCP Internal Medicine; Visit Provider Obstetrics & Gynecology
DX: N63.15 Unspecified lump in the right breast, overlapping quadrants (principal)
CPT/HCPCS: 76642; 77061; 77065

== ENCOUNTER → 2024-01-21 07:47 | Outpatient (BNV) | payer OTHER, SELFPAY | PROVIDERS: PCP Internal Medicine; Visit Provider Radiology Diagnostic Radiology | DX: R92.311 Mammographic fatty tissue density, right breast (principal); R92.321 Mammographic fibroglandular density, right breast; R92.2 Inconclusive mammogram | CPT/HCPCS: 76642; 77061; 77065 ==

== ENCOUNTER 2024-01-27 11:09 | Outpatient (AMB) | payer OTHER, SELFPAY ==
--- NOTE | 2024-01-27 11:20 | A.OFFVIS_ITS ---
Vital Signs 01/27/24 11:21 Height 5 ft 3 in Weight 181 lb BMI 32.1 Intake Visit Reasons: unspecified Right breast lump Intake Note: This patient presents for unspecified Right breast lump. Pt c/o; reports right breast lump, reports she was advised her DI was wnl. 01/21/24: MM DIAG 01/21/2024: Breast US Generating Plant Superintendent Required: Yes Generating Plant Superintendent Language: Research Biostatistician Services: Generating Plant Superintendent Present Generating Plant Superintendent Name: Leah Information Interpreted: non-clinical & clinical Accompanied by: Self / Same As Patient Allergies Iodinated Contrast Media [IV CONTRAST] Allergy (Intermediate, Verified 01/27/24 11:26) RASH iopromide [From ULTRAVIST] Allergy (Mild, Verified 01/27/24 11:26) ITCHING semaglutide [From Ozempic] Adverse Reaction (Severe, Verified 01/27/24 11:26) pancreatitis Medication List - Last Reconciled 01/27/24 by Navid Remy MD atorvastatin 80 mg PO BEDTIME blood sugar diagnostic (FreeStyle Lite Strips) As directed three times a day blood-glucose meter (FreeStyle Coleman Lite kit) As directed dispense as freestyle lite blood-glucose sensor (Dexcom G7 Sensor device) Use daily As directed to monitor glucose. change q 10 days cholecalciferol (vitamin D3) 50 mcg PO DAILY 90 days clonidine HCl 0.1 mg PO BID PRN 30 days clotrimazole-betamethasone 1-0.05 % 1 appl topical BID 5 days empagliflozin (Jardiance) 25 mg PO DAILY fenofibrate 160 mg PO DAILY 30 days gabapentin 300 mg PO BEDTIME glipizide ER 5 mg PO DAILY glucose (Dex4 Glucose) 16 grams (4 x 4 gram) PO Q15M PRN insulin degludec (Tresiba FlexTouch U-200 insulin) 80 units (0.4 mL) subcut BEDTIME 30 days insulin lispro (Humalog KwikPen (U-100) Insulin) 30 units for breakfast , 30 units for lunch, 30 units for dinner subcutaneously daily lancets (FreeStyle Lancets) Three times a day levothyroxine 50 mcg PO QAM lisinopril-hydrochlorothiazide 20-12.5 mg 1 tab PO DAILY 90 days lorazepam mg PO metoprolol succinate ER 75 mg (1.5 x 50 mg) PO DAILY 30 days mirtazapine 7.5 mg PO BEDTIME 30 days omeprazole 40 mg PO QAM 90 days pen needle, diabetic (BD Ultra-Fine Jordana Pen Needle) As directed four times a day pen needle, diabetic As directed sertraline 50 mg PO DAILY 30 days terconazole 0.8% 1 appful vaginal BEDTIME 3 days HPI HPI unspecified Right breast lump: Details: 63-year-old female referred for a question of a right breast mass. She apparently went to her sewer hand who thought that she may have a breast mass. She was sent for a mammogram and this did not reveal any mass. The patient does state that she has occasional sharp tingling pain on her right breast. Patient denies any palpable mass Her menarche was at age of 12. Her 1st was at the age of 26. She has 6 pregnancies. She had been was at age of 52. She denies any family history of breast cancer. [facility] Medical History (Updated 01/27/24 @ 11:31 by Navid Remy MD) Breast pain, right Vulvovaginitis juani albicans Obesity (BMI 30-39.9) Tachycardia Mixed hyperlipidemia Hypertriglyceridemia Vitamin D deficiency Loose stools Pancreatitis Poor historian Vulvar leukoplakia Vulvar itching Recurrent epigastric abdominal pain Type 2 diabetes mellitus with diabetic nephropathy Hyperlipidemia LDL goal <100 Diabetes mellitus Primary osteoarthritis of hips, bilateral Lumbar degenerative disc disease Pure hypercholesterolemia Anxiety GERD without esophagitis Ganglion cyst of tendon sheath of left hand Gastritis GERD (gastroesophageal reflux disease) Depression Hypothyroidism Type 2 diabetes mellitus with hyperglycemia, with long-term current use of insulin Type 2 diabetes mellitus with diabetic polyneuropathy Essential hypertension Surgical History Hx of tubal ligation History of herniated intervertebral disc Family History Father Throat cancer Mother Diabetes mellitus CVD (cardiovascular disease) Maternal Aunt Breast cancer Social History Household Members: None Housing: Apartment Alcohol intake: never Patient Tobacco Use Status: Former Tobacco user e-Cigarette/Vaping Use: Never Used Second Hand Smoke Exposure: No service: No Current occupational status: disabled Sexual orientation: Straight/Heterosexual Gender identity: Female Cognitive needs: No Hearing needs: No Vision needs: Yes Female Reproductive History Menstrual Age of Menarche: 12 Review of Systems Const Denies chills and Denies fever(s) Card Denies chest pain, Denies dyspnea and Denies dyspnea on exertion Resp Denies cough, Denies dyspnea and Denies dyspnea on exertion GI Denies hematochezia and Denies change in bowel habits Denies hematuria Musc Denies back pain and Denies limited range of motion Neuro Denies focal weakness and Denies convulsions Psych Denies depression and Denies mood swings Physical Exam Vital Signs: BMI result Body Mass Index 32.1 Const General: comfortable and no acute distress Orientation/consciousness: patient oriented x3 Neck Neck: Yes no lymphadenopathy Chest Other: Large pendulous breasts, no palpable breast mass, no nipple or skin changes, no axillary lymphadenopathy Resp Auscultation: clear to auscultation bilaterally Cardio Rhythm: regular rhythm GI Palpation (GI): Soft to palpation, nontender and no guarding Neuro General: patient oriented x3 Assessment & Plan Assessment & Plan (1) Breast pain, right: Code(s): N64.4 - Mastodynia Category: Medical Plan: She has no palpable breast mass. She has no axillary lymphadenopathy. Her mammogram from last week was unremarkable. I told her that there is no identifiable pathology for her breasts at this time. I recommended for her to continue doing yearly mammograms. She can follow up on a p.r.n. basis. Coding Level of Care Code New Pt Level 3 (50973) Diagnoses Breast pain, right N64.4
[2024-01-27 11:21] VITALS: BMI 32.1
== END 2024-01-27 11:35 | disposition home or self-care (01) ==
PROVIDERS: PCP Internal Medicine; Visit Provider Surgery
DX: N64.4 Mastodynia (principal)
CPT/HCPCS: 99203

== ENCOUNTER → 2024-01-27 11:09 | Outpatient (BNVA) | payer OTHER, SELFPAY | PROVIDERS: PCP Internal Medicine; Visit Provider Surgery | DX: E11.65 Type 2 diabetes mellitus with hyperglycemia (principal); E78.2 Mixed hyperlipidemia; I10 Essential (primary) hypertension; E03.9 Hypothyroidism, unspecified; R00.0 Tachycardia, unspecified; K21.9 Gastro-esophageal reflux disease without esophagitis; M51.360 Other intervertebral disc degeneration, lumbar region with discogenic back pain only; E55.9 Vitamin D deficiency, unspecified; E66.9 Obesity, unspecified; Z68.31 Body mass index [BMI] 31.0-31.9, adult; Z79.4 Long term (current) use of insulin; Z79.899 Other long term (current) drug therapy; N64.4 Mastodynia | CPT/HCPCS: 96127; 99202; 99212 ==

== ENCOUNTER 2024-01-27 14:14 | Outpatient (AMB) | payer OTHER, SELFPAY ==
[2024-01-27 14:15] VITALS: BP 122/76; PULSE 92; O2SAT 93; BMI 31.9
--- NOTE | 2024-01-27 14:15 | MHC.PC.OV ---
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: No Accompanied by: Self / Same As Patient Allergies Iodinated Contrast Media [IV CONTRAST] Allergy (Intermediate, Verified 01/27/24 14:25) RASH iopromide [From ULTRAVIST] Allergy (Mild, Verified 01/27/24 14:25) ITCHING semaglutide [From Ozempic] Adverse Reaction (Severe, Verified 01/27/24 14:25) pancreatitis Medication List - Last Reconciled 01/27/24 by Genaro Chu MD atorvastatin 80 mg PO BEDTIME blood sugar diagnostic (FreeStyle Lite Strips) As directed three times a day blood-glucose meter (FreeStyle [place] Lite kit) As directed dispense as freestyle lite blood-glucose sensor ([employer] G7 Sensor device) Use daily As directed to monitor glucose. change q 10 days cholecalciferol (vitamin D3) 50 mcg PO DAILY 90 days clonidine HCl 0.1 mg PO BID PRN 30 days clotrimazole-betamethasone 1-0.05 % 1 appl topical BID 5 days empagliflozin (Jardiance) 25 mg PO DAILY fenofibrate 160 mg PO DAILY 30 days gabapentin 300 mg PO BEDTIME glipizide ER 5 mg PO DAILY glucose (Dex4 Glucose) 16 grams (4 x 4 gram) PO Q15M PRN insulin degludec (Tresiba FlexTouch U-200 insulin) 80 units (0.4 mL) subcut BEDTIME 30 days insulin lispro (Humalog KwikPen (U-100) Insulin) 30 units for breakfast , 30 units for lunch, 30 units for dinner subcutaneously daily lancets (FreeStyle Lancets) Three times a day levothyroxine 50 mcg PO QAM lisinopril-hydrochlorothiazide 20-12.5 mg 1 tab PO DAILY 90 days lorazepam mg PO metoprolol succinate ER 75 mg (1.5 x 50 mg) PO DAILY 30 days mirtazapine 7.5 mg PO BEDTIME 30 days omeprazole 40 mg PO QAM 90 days pen needle, diabetic (BD Ultra-Fine Jordana Pen Needle) As directed four times a day pen needle, diabetic As directed sertraline 50 mg PO DAILY 30 days terconazole 0.8% 1 appful vaginal BEDTIME 3 days Tobacco use date assessed: 01/27/24 Dental Screening Dental Screen Date: 01/27/24 Did you have a dental visit in the last 12 months?: No Did you have a dental problem in the last 6 months where you did not have access to dental care?: No Was dental information given to patient?: No HPI [facility] Follow Up HPI Details Patient comes in today for her follow up visit States that she feels okay except for what she feels is significant worsening of her lower back pain lately She does not recall any recent injury or trauma to her lower back She denies any headaches or dizziness Denies any chest pains, no increased shortness of breath No nausea/vomiting, no abdominal pain No change in bowel habits noted She was not able to get her follow-up labs done prior to her appointment today [facility] Medical History Breast pain, right Vulvovaginitis juani albicans Obesity (BMI 30-39.9) Tachycardia Mixed hyperlipidemia Hypertriglyceridemia Vitamin D deficiency Loose stools Pancreatitis Poor historian Vulvar leukoplakia Vulvar itching Recurrent epigastric abdominal pain Type 2 diabetes mellitus with diabetic nephropathy Hyperlipidemia LDL goal <100 Diabetes mellitus Primary osteoarthritis of hips, bilateral Lumbar degenerative disc disease Pure hypercholesterolemia Anxiety GERD without esophagitis Ganglion cyst of tendon sheath of left hand Gastritis GERD (gastroesophageal reflux disease) Depression Hypothyroidism Type 2 diabetes mellitus with hyperglycemia, with long-term current use of insulin Type 2 diabetes mellitus with diabetic polyneuropathy Essential hypertension Surgical History Hx of tubal ligation History of herniated intervertebral disc Family History Father Throat cancer Mother Diabetes mellitus CVD (cardiovascular disease) Maternal Aunt Breast cancer Social History Household Members: None Housing: Apartment Alcohol intake: never Patient Tobacco Use Status: Former Tobacco user e-Cigarette/Vaping Use: Never Used Second Hand Smoke Exposure: No service: No Current occupational status: disabled Sexual orientation: Straight/Heterosexual Gender identity: Female Cognitive needs: No Hearing needs: No Vision needs: Yes Female Reproductive History Menstrual Age of Menarche: 12 Questionnaire PHQ-9 Over the last 2 weeks, how often have you been bothered by any of the following problems? 1. Little interest or pleasure in doing things: several days 2. Feeling down, depressed, or hopeless: several days 3. Trouble falling or staying asleep, or sleeping too much: several days 4. Feeling tired or having little energy: not at all 5. Poor appetite or overeating: not at all 6. Feeling bad about yourself - or that you are a failure or have let yourself or your family down: not at all 7. Trouble concentrating on things, such as reading the newspaper or watching television: not at all 8. Moving or speaking so slowly that other people could have noticed. Or the opposite - being so fidgety or restless that you have been moving around a lot more than usual: not at all 9. Thoughts that you would be better off or of hurting yourself in some way: not at all Total score: 3 Depression Screening Interpretation: Positive Depression Screening Follow-up: Existing condition and In treatment Depression Screening Done: Yes 19829 - PHQ-9 Billing: Yes Source: Developed by Drs. Teofilo Loredo, Radha Knight, Keagan Guzman and colleagues, with an educational alecia from [employer] Thrive Questionnaire Date Thrive assessed: 01/27/24 I am a: Patient What is your living situation today?: I have a steady place to live Within the past 12 months, did the food you bought not last and you didn't have the money to get more?: Never true Within the past 12 months, did you worry whether your food would run out before you got money to buy more?: Never true Do you have trouble paying for medicines?: No Do you have trouble getting transportation to medical appointments?: No Do you have trouble paying your heating and electricity bill?: No Do you have trouble taking care of your child, family member or friend?: No Do you have trouble with day-to-day activities such as bathing, preparing meals, shopping, managing finances, etc.?: No Are you currently unemployed and looking for a job?: No Are you interested in more education?: No Please select the resources that you would like help with: None Currently or been in a relationship where the following occur: No concerns reported THRIVE Score: 0 AUDIT C Alcohol Use Questionnaire (AUDIT-C) 1. How often do you have a drink containing alcohol?: Never 3. How often do you have six or more drinks on one occasion?: Never Total Score: 0 Score Reviewed/Action Taken: Yes CARO-7 AMB Questionnaire CARO-7 Date CARO - 7 assessed: 01/27/24 Feeling nervous, anxious, or on edge: 0 = Not at all Not being able to stop or control worryin = Not at all Worrying too much about different things: 0 = Not at all Trouble relaxin = Not at all Being so restless that it is hard to sit still: 0 = Not at all Becoming easily annoyed or irritable: 0 = Not at all Feeling afraid as if something awful might happen: 0 = Not at all Total CARO-7 score (0-4 normal; 5-9 mild; 10-14 moderate; 15-21 severe): 0 Source: Developed by Drs. Teofilo Loredo, Radha Knight, Keagan Guzman and colleagues, with an educational alecia from [employer] Review of Systems Const Denies chills, Reports fatigue, Denies fever(s) and Denies headache(s) ENT Denies dysphagia, Denies dizziness, Denies otalgia, Denies headache(s), Denies neck pain, Denies odynophagia and Denies sore throat Card Denies chest pain, Reports palpitations (occasionally) and Reports dyspnea on exertion (mild) Resp Denies chest congestion, Denies cough and Reports dyspnea on exertion (mild) GI Denies abdominal pain, Denies constipation, Denies dysphagia, Denies heartburn, Denies diarrhea, Denies nausea, Denies odynophagia and Denies vomiting Denies difficulty voiding, Denies nocturia, Denies dysuria and Denies urinary urgency Musc Reports back pain (over the lower back - increasing lately), Reports arthralgias (over both hips) and Denies neck pain Skin/Breast Denies rash Neuro Denies dizziness and Denies headache(s) Psych Reports anxiety Endo Reports fatigue and Reports palpitations (occasionally) Physical exam (Primary Care) Vital Signs: Last Vital Signs Pulse 92 01/27/24 14:15 BP 122/76 01/27/24 14:15 Pulse Ox 93 01/27/24 14:15 Oxygen Delivery Method Room Air 01/27/24 14:15 BMI result Body Mass Index 31.9 Tobacco/Smoking Status: Tobacco use Status Tobacco use date assessed 01/27/24 01/27/24 14:16 Patient Tobacco Use Status Former Tobacco user 01/27/24 14:16 e-Cigarette/Vaping Use Never Used 01/27/24 14:16 PHQ-9: PHQ-9 Score PHQ-9: Total score 3 01/27/24 21:23 Depression Screening Interpretation: Positive Depression Screening Follow-up: Existing condition and In treatment Thrive Assessment: Date of Thrive Assessment Date Thrive assessed 01/27/24 01/27/24 14:16 Currently or been in a relationship where the following occur: No concerns reported Const General: no acute distress and alert HENMT Ears: TM's normal bilaterally and EAC's normal Throat: Yes posterior oropharynx normal and Yes tonsils normal (no TP congestion) Neck Neck: Yes no lymphadenopathy and Yes supple Resp Auscultation: clear to auscultation bilaterally, no rales and no wheezes Cardio Rate: regular rate Rhythm: regular rhythm Heart sounds: no murmurs GI Palpation (GI): Soft to palpation and nontender Auscultation: normal bowel sounds General: Yes no CVA tenderness Back/Spine/Pelvis Back: no CVA tenderness Thoracic/Lumbar Spine: lumbar spinal tenderness Skin Rashes: no rashes Extrem General: Yes no clubbing, cyanosis or edema Right lower extremity: hip/thigh Details: tenderness Location: of the hip Left lower extremity: hip/thigh Details: tenderness Location: of the hip Coding Level of Care Code Est Pt Level 4 (81595) Diagnoses Type 2 diabetes mellitus with hyperglycemia, with long-term current use of insulin E11.65; Z79.4 Mixed hyperlipidemia E78.2 Essential hypertension I10 Acquired hypothyroidism E03.9 Hypothyroidism type: acquired Tachycardia R00.0 GERD without esophagitis K21.9 Degeneration of intervertebral disc of lumbar region with discogenic back pain M51.360 Disc-related pain type: discogenic back pain only Vitamin D deficiency E55.9 Obesity (BMI 30-39.9) E66.9 Additional Codes PHQ-9 - 55509 - PHQ-9 Billing: Yes ([id number]) Assessment & Plan Assessment & Plan (1) Type 2 diabetes mellitus with hyperglycemia, with long-term current use of insulin: Code(s): E11.65 - Type 2 diabetes mellitus with hyperglycemia; Z79.4 - penitentiary (current) use of insulin Category: Medical Plan: Her HgbA1c was most recently at 10.3% when checked at the endocrinology office about 3 week ago - goal is <7.0% Reinforced diabetic diet She is currently on Tresiba 80 units QD, Humalog 30 units TID and Jardiance 25 mg QD Glpizide ER 5 mg QD was added by endocrinology recently She is NOT a candidate for the GLP1s due to her Hx of pancreatitis and experiences GI upset with Metformin The effects of Lantus and Toujeo kept wearing off by late afternoon She continues to struggle with compliance with medications - states that she tends to forget taking mealtime insulin doses often Follow-up with endocrinology as scheduled (2) Mixed hyperlipidemia: Code(s): E78.2 - Mixed hyperlipidemia Category: Medical Plan: Patient was not able to get her follow-up labs done prior to her appointment today - states that she will try to get them done as soon as possible Reinforced low cholesterol diet Continue Atorvastatin 80 mg QD and Fenofibrate 160 mg QD (3) Essential hypertension: Code(s): I10 - Essential (primary) hypertension Category: Medical Plan: Reinforced low-sodium diet -? goal is systolic BP of 120 mm or less Continue Lisinopril-Hydrochlorothiazide 20-12.5 mg QD (4) Hypothyroidism: Code(s): E03.9 - Hypothyroidism, unspecified Category: Medical Qualifiers: Hypothyroidism type: acquired Qualified Code(s): E03.9 - Hypothyroidism, unspecified Plan: Continue Levothyroxine 50 mcg QD Her TFTs will also be rechecked when patient goes to get her previously ordered follow up labs done (5) Tachycardia: Code(s): R00.0 - Tachycardia, unspecified Category: Medical Plan: Patient recently underwent cardiac work ups, including Holter monitoring, all of which reportedly came back unrevealing Echocardiogram done in March 2023 also came out normal Nuclear stress test done earlier this year on 04/08/2023 showed normal myocardial perfusion imaging Follow up with cardiology as scheduled (6) GERD without esophagitis: Comment: UGI series done in October 2019 revealed (+) mild reflux disease without hiatal hernia Code(s): K21.9 - Gastro-esophageal reflux disease without esophagitis Category: Medical Plan: Dietary restrictions reinforced Continue Pantoprazole 40 mg QD (7) Lumbar degenerative disc disease: Code(s): M51.36 - Other intervertebral disc degeneration, lumbar region Category: Medical Qualifiers: Disc-related pain type: discogenic back pain only Qualified Code(s): M51.360 - Other intervertebral disc degeneration, lumbar region with discogenic back pain only Plan: Lumbar spine x-rays done in March 2021 revealed (+) mild L2 superior endplate depression new from CT 08/10/2018, and old degenerative disc changes at L4-L5 Reinforced activity and weight-lifting restrictions Due to her increasing low back pain lately, will send her for updated lumbar spine x-rays for further evaluation Have advised patient that depending on how her x-rays come out, she may need to get a lumbar spine MRI for further evaluation (8) Vitamin D deficiency: Code(s): E55.9 - Vitamin D deficiency, unspecified Category: Medical Plan: Continue Vitamin D3 2000 units QD (9) Obesity (BMI 30-39.9): Code(s): E66.9 - Obesity, unspecified Category: Medical Plan: Reinforced diet; exercise and weight loss are impractical currently due to her increaing low back pain Plan To return as scheduled in March 2024 for her annual physical examination Orders: Orders XR lumbar spine 2-3V 01/27/24 M54.50 - Low back pain, unspecified
== END 2024-01-27 14:28 | disposition home or self-care (01) ==
PROVIDERS: PCP Internal Medicine; Visit Provider Internal Medicine
DX: E11.65 Type 2 diabetes mellitus with hyperglycemia (principal); Z79.4 Long term (current) use of insulin; E66.9 Obesity, unspecified; Z68.31 Body mass index [BMI] 31.0-31.9, adult; E78.2 Mixed hyperlipidemia; I10 Essential (primary) hypertension; E03.9 Hypothyroidism, unspecified; R00.0 Tachycardia, unspecified; K21.9 Gastro-esophageal reflux disease without esophagitis; M51.360 Other intervertebral disc degeneration, lumbar region with discogenic back pain only; E55.9 Vitamin D deficiency, unspecified

== ENCOUNTER 2024-02-02 09:29 | Outpatient (REF) | payer OTHER, SELFPAY ==
[2024-02-02 09:44] LABS: MANUAL DIFF FLAG NO
[2024-02-02 10:59] LABS: Estimated Average Glucose 214 mg/dL; Hemoglobin A1C 280.6735 umol/L; Hemoglobin A1c % 9.1 % (<6.0); Total Hemoglobin (HGBA1C) 3721.1984 umol/L
[2024-02-02 11:01] LABS: Basophils Percent Auto 0.4 % (0-2); Eosinophils Absolute Auto 0.2 X10*3/uL (0.0-0.4); Eosinophils Percent Auto 3.1 % (0-4); Hematocrit 45.8 % (37.0-47.0); Hemoglobin 14.9 g/dl (12.0-16.0); Imm Gran Abs Auto 0.04 X10*3/uL (0.00-0.03); Imm Gran Pct Auto 0.5 % (0.0-0.4); Lymphocytes Absolute Auto 1.7 X10*3/uL (1.2-4.9); Lymphocytes Percent Auto 22.6 % (20-40); Mean Corpuscular HGB Conc 32.5 g/dl (31.0-35.0); Mean Corpuscular Volume 89.3 fL (80.0-98.0); Mean Platelet Volume 10.2 fL (9.4-12.3); Monocytes Absolute Auto 0.5 X10*3/uL (0.1-1.2); Monocytes Percent Auto 7.4 % (2-11); Neutrophils Absolute Auto 4.8 x10*3/uL (2.0-8.3); Platelet Count 218 X10*3/uL (160-400); Red Blood Count 5.13 X10*6/uL (4.20-5.50); Red Cell Distribution Width 13.6 % (11.0-16.0); White Blood Count 7.3 X10*3/uL (4.8-10.8)
[2024-02-02 11:27] LABS: Appearance Urine Clear; Color Urine Yellow; Glucose Urine UA >=1000 mg/dL (Negative); Leukocyte Esterase Urine Negative (Negative); Nitrite Urine Negative (Negative); PH 5.5 (5.0-9.0); Specific Gravity - Urine >= 1.030 (1.005-1.025); UMIC TRIGGER UACC YES; Urine Blood Negative (Negative); Urine Ketones Negative (Negative); Urine Protein 30 (1+) mg/dL (Neg-Trace)
[2024-02-02 11:50] LABS: Bacteria Urine None Seen (None Seen); Hyaline Casts Urine 0-2 /LPF (0-2); RBC Urine 0-2 /HPF (0-2); Squamous Epithelial Cell Urine 0-2 /HPF (0-2); WBC Urine 0-5 /HPF (0-5)
[2024-02-02 11:57] LABS: Albumin Level 4.1 g/dL (3.5-5.0); Alkaline Phosphatase 103 U/L (39-117); Anion Gap 13 (12-20); Aspartate Amino Transferase 30 U/L (5-31); Bilirubin Total 0.2 mg/dL (0.0-1.0); Blood Urea Nitrogen 17 mg/dL (9-16); Calcium 9.7 mg/dL (8.4-10.2); Carbon Dioxide 23 mmol/L (22-29); Chloride 108 mmol/L (96-108); Cholesterol 201 mg/dL (<200); Estimated Glomerular Filt Rate > 60; Free T4 (Free Thyroxine) 0.86 ng/dL (0.71-1.85); Glucose Fasting 307 mg/dL (60-99); HDL Cholesterol 25 mg/dL (>40); Potassium 4.2 mmol/L (3.3-5.1); Sodium 140 mmol/L (135-145); Thyroid Stimulating Hormone 3.69 uIU/mL (0.32-4.0); Triglycerides 678 mg/dL (<150); Vitamin D 25-OH Total 24.5 ng/mL (>30)
[2024-02-02 12:18] LABS: Creatinine Urine 55.43 mg/dL; Microalbum/Creatinine Ratio Ur 229.1 ug/mg cr (<30)
[2024-02-02 12:31] LABS: Alanine Aminotransferase 25 U/L (0-31)
== END 2024-02-02 09:30 | disposition home or self-care (01) ==
LOC: HO.XRAY 09:29
PROVIDERS: PCP Internal Medicine; Visit Provider Internal Medicine
DX: M54.50 Low back pain, unspecified (principal); E11.9 Type 2 diabetes mellitus without complications; E55.9 Vitamin D deficiency, unspecified; E78.00 Pure hypercholesterolemia, unspecified; E03.9 Hypothyroidism, unspecified; D64.9 Anemia, unspecified
CPT/HCPCS: 36415; 72100; 80053; 80061; 81001; 82043; 82306; 82570; 83036; 84439; 84443; 85025

== ENCOUNTER 2024-02-08 11:22 | Outpatient (AMB) | payer OTHER, SELFPAY ==
--- NOTE | 2024-02-08 11:52 | A.OFFVIS_ITS ---
Intake Visit Reasons: 2 weeks skin check Estimating Manager Required: Yes Estimating Manager Language: Plastic Joint Maker Services: Estimating Manager Present (in person) Estimating Manager Name: YOSELYN Perez Information Interpreted: non-clinical & clinical Appliance Line Assembler: Appliance Line Assembler Present (YOSELYN Perez) Accompanied by: Self / Same As Patient Allergies Iodinated Contrast Media [IV CONTRAST] Allergy (Intermediate, Verified 02/08/24 11:53) RASH iopromide [From ULTRAVIST] Allergy (Mild, Verified 02/08/24 11:53) ITCHING semaglutide [From Ozempic] Adverse Reaction (Severe, Verified 02/08/24 11:53) pancreatitis HPI Comments Details: Presenting for follow-up regarding vulvovaginal candidiasis, the patient took Terazol with Lotrisone b.i.d. for 5 days, her symptoms have completely resolved and feeling much better [facility] Medical History (Updated 02/08/24 @ 11:59 by Jamison Blackwell MD) Breast pain, right Vulvovaginitis juani albicans Obesity (BMI 30-39.9) Tachycardia Mixed hyperlipidemia Hypertriglyceridemia Vitamin D deficiency Loose stools Pancreatitis Poor historian Vulvar leukoplakia Vulvar itching Recurrent epigastric abdominal pain Type 2 diabetes mellitus with diabetic nephropathy Hyperlipidemia LDL goal <100 Diabetes mellitus Primary osteoarthritis of hips, bilateral Lumbar degenerative disc disease Pure hypercholesterolemia Anxiety GERD without esophagitis Ganglion cyst of tendon sheath of left hand Gastritis GERD (gastroesophageal reflux disease) Depression Hypothyroidism Type 2 diabetes mellitus with hyperglycemia, with long-term current use of insulin Type 2 diabetes mellitus with diabetic polyneuropathy Essential hypertension Surgical History Hx of tubal ligation History of herniated intervertebral disc Family History Father Throat cancer Mother Diabetes mellitus CVD (cardiovascular disease) Maternal Aunt Breast cancer Social History Household Members: None Housing: Apartment Alcohol intake: never Patient Tobacco Use Status: Former Tobacco user e-Cigarette/Vaping Use: Never Used Second Hand Smoke Exposure: No service: No Current occupational status: disabled Sexual orientation: Straight/Heterosexual Gender identity: Female Cognitive needs: No Hearing needs: No Vision needs: Yes Female Reproductive History Menstrual Age of Menarche: 12 Review of Systems Const All systems reviewed & are unremarkable except as noted in HPI and below Physical Exam General: Yes no CVA tenderness External Female Exam: normal external appearance and normal appearance of the urethra Speculum Exam - Vagina: normal appearance of the vagina, normal palpation, no lesions and no masses Speculum Exam - Cervix: normal appearance of the cervix, normal palpation, no lesions, no masses and nontender Bimanual exam- vagina & uterus: normal bimanual exam, normal palpation, uterine size normal, normal palpation, uterine shape normal, No Cervical tenderness present and non-tender Bimanual Exam- Adnexa, other: normal adnexae Back/Spine/Pelvis Back: no CVA tenderness Assessment & Plan Assessment & Plan (1) Vulvovaginitis juani albicans: Comment: Resolved Code(s): B37.3 - Candidiasis of vulva and vagina Category: Medical Plan: Discussed with the patient the finding on physical exam, normal perineal area with no evidence of any abnormality. Instructions given the patient to call in case of recurrence for her symptoms, unhealed ulcers or hard perineal areas. All questions answered, the patient verbalized understand Coding Level of Care Code Est Pt Level 3 (28572) Diagnoses Vulvovaginitis juani albicans B37.3
== END 2024-02-08 12:02 | disposition home or self-care (01) ==
LOC: HO.HWS 11:22
PROVIDERS: PCP Internal Medicine; Visit Provider Obstetrics & Gynecology
DX: B37.31 Acute candidiasis of vulva and vagina (principal)
CPT/HCPCS: 99213

== ENCOUNTER → 2024-02-08 11:22 | Outpatient (BNVA) | payer OTHER, SELFPAY | PROVIDERS: PCP Internal Medicine; Visit Provider Obstetrics & Gynecology | DX: B37.31 Acute candidiasis of vulva and vagina (principal) | CPT/HCPCS: 99212 ==

== ENCOUNTER 2024-03-25 12:45 | Outpatient (AMB) | payer OTHER, SELFPAY ==
[2024-03-25 13:01] VITALS: BP 136/70; PULSE 95; O2SAT 93; BMI 26.6
--- NOTE | 2024-03-25 13:01 | MHC.PC.OV ---
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: No Accompanied by: Daughter Allergies Iodinated Contrast Media [IV CONTRAST] Allergy (Intermediate, Verified 03/25/24 13:35) RASH iopromide [From ULTRAVIST] Allergy (Mild, Verified 03/25/24 13:35) ITCHING semaglutide [From Ozempic] Adverse Reaction (Severe, Verified 03/25/24 13:35) pancreatitis Medication List - Last Reconciled 03/25/24 by Genaro Chu MD atorvastatin 80 mg PO BEDTIME blood sugar diagnostic (FreeStyle Lite Strips) As directed three times a day blood-glucose meter (FreeStyle [place] Lite kit) As directed dispense as freestyle lite blood-glucose sensor ([employer] G7 Sensor device) Use daily As directed to monitor glucose. change q 10 days cholecalciferol (vitamin D3) 50 mcg PO DAILY 90 days clonidine HCl 0.1 mg PO BID PRN 30 days clotrimazole-betamethasone 1-0.05 % 1 appl topical BID 5 days empagliflozin (Jardiance) 25 mg PO DAILY fenofibrate 160 mg PO DAILY 90 days gabapentin 300 mg PO BEDTIME glipizide ER 5 mg PO DAILY glucose (Dex4 Glucose) 16 grams (4 x 4 gram) PO Q15M PRN insulin degludec (Tresiba FlexTouch U-200 insulin) 80 units (0.4 mL) subcut BEDTIME 30 days insulin lispro (Humalog KwikPen (U-100) Insulin) 30 units for breakfast , 30 units for lunch, 30 units for dinner subcutaneously daily lancets (FreeStyle Lancets) Three times a day levothyroxine 50 mcg PO QAM lisinopril-hydrochlorothiazide 20-12.5 mg 1 tab PO DAILY 90 days lorazepam mg PO metoprolol succinate ER 75 mg (1.5 x 50 mg) PO DAILY 30 days mirtazapine 7.5 mg PO BEDTIME 30 days omeprazole 40 mg PO QAM 90 days pen needle, diabetic (BD Ultra-Fine Jordana Pen Needle) As directed four times a day pen needle, diabetic As directed sertraline 50 mg PO DAILY 30 days terconazole 0.8% 1 appful vaginal BEDTIME 3 days Tobacco use date assessed: 03/25/24 Dental Screening Dental Screen Date: 03/25/24 Did you have a dental visit in the last 12 months?: No Did you have a dental problem in the last 6 months where you did not have access to dental care?: No Was dental information given to patient?: No HPI Annual PHYSICAL HPI Details Patient comes in today for her annual physical examination States that she currently feels okay She denies any headaches or dizziness Denies any chest pains, no increased shortness of breath No nausea/vomiting, no abdominal pain No change in bowel habits noted She denies any acute urinary symptoms She had her follow-up labs done last month - to discuss her results She had her mammogram and breast ultrasound done back in January 2024 - findings came out normal and she is recommended to get a repeat annual mammogram in December of this year She was last seen for her gynecology exam by Dr. Blackwell a couple of months ago in January 2024 and she is scheduled for her next gynecology exam and Pap smear in December of 2024 She has never had a screening colonoscopy done in the past She has also never had a bone density test done for osteoporosis screening before [facility] Medical History Early satiety Mixed hyperlipidemia Ganglion cyst of tendon sheath of left hand Pure hypercholesterolemia Numbness and tingling in both hands Trigger finger, left middle finger Trigger finger, right ring finger Vulvar leukoplakia Atypical chest pain Tachycardia Left knee pain Right shoulder pain Arthralgia Vulvovaginitis juani albicans Breast pain, right Obesity (BMI 30-39.9) Hypertriglyceridemia Vitamin D deficiency Loose stools Pancreatitis Poor historian Vulvar leukoplakia Vulvar itching Recurrent epigastric abdominal pain Type 2 diabetes mellitus with diabetic nephropathy Hyperlipidemia LDL goal <100 Diabetes mellitus Primary osteoarthritis of hips, bilateral Lumbar degenerative disc disease Anxiety GERD without esophagitis Gastritis GERD (gastroesophageal reflux disease) Depression Hypothyroidism Type 2 diabetes mellitus with hyperglycemia, with long-term current use of insulin Type 2 diabetes mellitus with diabetic polyneuropathy Essential hypertension Surgical History S/P cholecystectomy Hx of tubal ligation History of herniated intervertebral disc Family History Father Throat cancer Mother Diabetes mellitus CVD (cardiovascular disease) Maternal Aunt Breast cancer Social History Household Members: None Housing: Apartment Alcohol intake: never Patient Tobacco Use Status: Former Tobacco user e-Cigarette/Vaping Use: Never Used Second Hand Smoke Exposure: No service: No Current occupational status: disabled Sexual orientation: Straight/Heterosexual Gender identity: Female Cognitive needs: No Hearing needs: No Vision needs: Yes Female Reproductive History Menstrual Age of Menarche: 12 Questionnaire PHQ-9 Over the last 2 weeks, how often have you been bothered by any of the following problems? 1. Little interest or pleasure in doing things: several days 2. Feeling down, depressed, or hopeless: several days 3. Trouble falling or staying asleep, or sleeping too much: several days 4. Feeling tired or having little energy: several days 5. Poor appetite or overeating: several days 6. Feeling bad about yourself - or that you are a failure or have let yourself or your family down: not at all 7. Trouble concentrating on things, such as reading the newspaper or watching television: several days 8. Moving or speaking so slowly that other people could have noticed. Or the opposite - being so fidgety or restless that you have been moving around a lot more than usual: not at all 9. Thoughts that you would be better off or of hurting yourself in some way: not at all Total score: 6 Depression Screening Interpretation: Positive Depression Screening Follow-up: Existing condition and In treatment Depression Screening Done: Yes 72465 - PHQ-9 Billing: Yes Source: Developed by Drs. Teofilo Loredo, Radha Knight, Keagan Guzman and colleagues, with an educational alecia from [employer]. Thrive Questionnaire Date Thrive assessed: 03/25/24 I am a: Patient What is your living situation today?: I choose not to answer this question Within the past 12 months, did the food you bought not last and you didn't have the money to get more?: I choose not to answer this question Within the past 12 months, did you worry whether your food would run out before you got money to buy more?: I choose not to answer this question Do you have trouble paying for medicines?: No Do you have trouble getting transportation to medical appointments?: No Do you have trouble paying your heating and electricity bill?: No Do you have trouble taking care of your child, family member or friend?: No Do you have trouble with day-to-day activities such as bathing, preparing meals, shopping, managing finances, etc.?: No Are you currently unemployed and looking for a job?: No Are you interested in more education?: No Please select the resources that you would like help with: Food Currently or been in a relationship where the following occur: No concerns reported THRIVE Score: 0 AUDIT C Alcohol Use Questionnaire (AUDIT-C) 1. How often do you have a drink containing alcohol?: Never 3. How often do you have six or more drinks on one occasion?: Never Total Score: 0 Score Reviewed/Action Taken: Yes CARO-7 AMB Questionnaire CARO-7 Date CARO - 7 assessed: 03/25/24 Feeling nervous, anxious, or on edge: 0 = Not at all Not being able to stop or control worryin = Not at all Worrying too much about different things: 0 = Not at all Trouble relaxin = Not at all Being so restless that it is hard to sit still: 0 = Not at all Becoming easily annoyed or irritable: 0 = Not at all Feeling afraid as if something awful might happen: 0 = Not at all Total CARO-7 score (0-4 normal; 5-9 mild; 10-14 moderate; 15-21 severe): 0 Source: Developed by Drs. Teofilo Loredo, Radha Knight, Keagan Guzman and colleagues, with an educational alecia from [employer]. Review of Systems Const Denies chills, Denies fatigue, Denies fever(s), Denies headache(s) and Denies malaise Eyes Denies blurry vision, Denies change in vision, Denies irritation and Denies itchy eyes ENT Denies dysphagia, Denies dizziness, Denies otalgia, Denies headache(s), Denies nasal congestion, Denies neck pain, Denies odynophagia, Denies sinus pain and Denies sore throat Card Denies chest pain, Denies rapid heart rate, Denies irregular heart rhythm, Denies palpitations and Denies dyspnea Resp Denies chest congestion, Denies cough, Denies dyspnea and Denies wheezing GI Denies abdominal pain, Denies bloating, Denies constipation, Denies dysphagia, Denies heartburn, Denies diarrhea, Denies nausea, Denies odynophagia and Denies vomiting Denies hematuria, Denies urinary frequency, Denies dysuria, Denies urinary incontinence and Denies urinary urgency Musc Denies back pain, Denies arthralgias, Denies joint swelling, Denies muscle weakness and Denies neck pain Skin/Breast Denies breast pain, Denies breast mass, Denies change in pigmentation, Denies lesions, Denies rash and Denies unusual bruising Neuro Denies dizziness, Denies headache(s) and Denies paresthesias Psych Denies anxiety and Denies depression Endo Denies fatigue and Denies palpitations [place]/Lymph Denies easy bruising Aller/Immun Denies itchy eyes and Denies wheezing Physical exam (Primary Care) Vital Signs: Last Vital Signs Pulse 95 03/25/24 13:01 BP 136/70 03/25/24 13:01 Pulse Ox 93 03/25/24 13:01 Oxygen Delivery Method Room Air 03/25/24 13:01 BMI result Body Mass Index 26.6 Tobacco/Smoking Status: Tobacco use Status Tobacco use date assessed 03/25/24 03/25/24 13:07 Patient Tobacco Use Status Former Tobacco user 03/25/24 13:07 e-Cigarette/Vaping Use Never Used 03/25/24 13:07 PHQ-9: PHQ-9 Score PHQ-9: Total score 6 03/27/24 17:50 Depression Screening Interpretation: Positive Depression Screening Follow-up: Existing condition and In treatment Thrive Assessment: Date of Thrive Assessment Date Thrive assessed 03/25/24 03/25/24 13:07 Currently or been in a relationship where the following occur: No concerns reported Const General: no acute distress, alert and awake Orientation/consciousness: patient oriented x3 HENMT Head: Yes normocephalic and Yes atraumatic Ears: external ears normal, TM's normal bilaterally and EAC's normal General nose exam: No nasal discharge present Face and sinus: Yes normal facial exam and Yes sinuses nontender Teeth and gingiva: dentition normal Throat: Yes posterior oropharynx normal and Yes tonsils normal (no TP congestion) Eyes Eyelids: Yes eyelids normal Conjunctivae: conjunctivae normal Pupils: Equal, round and reactive pupils present EOM: EOMs intact bilaterally Neck Neck: Yes no lymphadenopathy and Yes supple Thyroid: Thyroid normal Resp Auscultation: clear to auscultation bilaterally, no rales and no wheezes Cardio Rate: regular rate Rhythm: regular rhythm Heart sounds: no murmurs GI Palpation (GI): Soft to palpation, nontender and No hepatosplenomegaly present Auscultation: normal bowel sounds General: Yes no CVA tenderness Back/Spine/Pelvis Back: no CVA tenderness Thoracic/Lumbar Spine: thoracic and lumbar spine normal to inspection Skin Lesions: no lesions Rashes: no rashes Neuro General: patient oriented x3, moves all extremities, no focal motor deficits and CN's II-XI intact bilaterally Cranial nerves: Yes Equal, round and reactive pupils present Cognition (Neuro): normal cognition Gait exam (Neuro): Normal gait present Extrem General: Yes no clubbing, cyanosis or edema Results Reviewed Results Reviewed: Laboratory Tests 02/02/24 02/02/24 09:40 09:44 WBC 7.3 Hgb 14.9 Hct 45.8 Plt Count 218 Sodium 140 Potassium 4.2 Creatinine 0.71 Estimated GFR > 60 Fasting Glucose 307 H Hemoglobin A1c % 9.1 H Calcium 9.7 AST 30 ALT 25 Triglycerides 678 H Cholesterol 201 H LDL Cholesterol, Calc TNP HDL Cholesterol 25 L 25-OH Vitamin D Total 24.5 L TSH 3.69 Free T4 0.86 Ur Specific [place] >= 1.030 H Urine Protein 30 (1+) H Urine Glucose (UA) >=1000 H Urine Blood Negative Urine Nitrite Negative Ur Leukocyte Esterase Negative Microalb/Creat Ratio 229.1 H Coding Level of Care Code Est Pt Prev Care 40-64y(54315) Diagnoses Annual physical exam Z00.00 Type 2 diabetes mellitus with hyperglycemia, with long-term current use of insulin E11.65; Z79.4 Mixed hyperlipidemia E78.2 Essential hypertension I10 Acquired hypothyroidism E03.9 Hypothyroidism type: acquired Tachycardia R00.0 GERD without esophagitis K21.9 Degeneration of intervertebral disc of lumbar region with discogenic back pain M51.360 Disc-related pain type: discogenic back pain only Vitamin D deficiency E55.9 Obesity (BMI 30-39.9) E66.9 Colon cancer screening Z12.11 Osteoporosis screening Z13.820 Additional Codes PHQ-9 - 35200 - PHQ-9 Billing: Yes ([id number]) Assessment & Plan Assessment & Plan (1) Annual physical exam: Code(s): Z00.00 - Encounter for general adult medical examination without abnormal findings Category: Medical Plan: Results of her labs done last month reviewed and discussed with patient She is up-to-date with her annual mammography and yearly gynecology exam/pap smear She has never had BMD for osteoporosis screening done in the past; she has also never undergone colonoscopy for colon cancer screening before (2) Type 2 diabetes mellitus with hyperglycemia, with long-term current use of insulin: Code(s): E11.65 - Type 2 diabetes mellitus with hyperglycemia; 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.4 - 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) use of insulin Category: Medical Plan: Her HgbA1c was at 9.1% on her labs done last month (was previously at 10.3% when checked at the endocrinology office back on 01/08/2024) - goal is <7.0% Reinforced diabetic diet She is currently on Tresiba 80 units QD, Humalog 30 units TID, Jardiance 25 mg QD and Glpizide ER 5 mg QD She is NOT a candidate for the GLP1s due to her Hx of pancreatitis and experiences GI upset with Metformin The effects of Lantus and Toujeo kept wearing off by late afternoon She continues to struggle with compliance with medications - states that she tends to forget taking mealtime insulin doses often Follow-up with endocrinology as scheduled (3) Mixed hyperlipidemia: Code(s): E78.2 - Mixed hyperlipidemia Category: Medical Plan: Results of her labs done last month reviewed and discussed with patient - she is advised that her total cholesterol and serum triglyceride level are still elevated but they have improved slightly from her previous numbers Reinforced low cholesterol diet Continue Atorvastatin 80 mg QD and Fenofibrate 160 mg QD Will recheck her labs and fasting lipids in 3 months for follow-up (4) Essential hypertension: Code(s): I10 - Essential (primary) hypertension Category: Medical Plan: Reinforced low-sodium diet -? goal is systolic BP of 120 mm or less Continue Lisinopril-Hydrochlorothiazide 20-12.5 mg QD (5) Hypothyroidism: Code(s): E03.9 - Hypothyroidism, unspecified Category: Medical Qualifiers: Hypothyroidism type: acquired Qualified Code(s): E03.9 - Hypothyroidism, unspecified Plan: Her TFTs were normal on her recent labs done last month Continue Levothyroxine 50 mcg QD (6) Tachycardia: Code(s): R00.0 - Tachycardia, unspecified Category: Medical Plan: Patient underwent cardiac work ups a few months ago, including Holter monitoring - all of her tests reportedly came back unrevealing Echocardiogram done in March 2023 also came out normal Nuclear stress test done earlier last year on 04/08/2023 showed normal myocardial perfusion imaging Follow up with cardiology as scheduled (7) GERD without esophagitis: Code(s): K21.9 - Gastro-esophageal reflux disease without esophagitis Category: Medical Plan: Dietary restrictions reinforced Continue Pantoprazole 40 mg QD (8) Lumbar degenerative disc disease: Code(s): M51.36 - Other intervertebral disc degeneration, lumbar region Category: Medical Qualifiers: Disc-related pain type: discogenic back pain only Qualified Code(s): M51.360 - Other intervertebral disc degeneration, lumbar region with discogenic back pain only Plan: Reinforced activity and weight-lifting restrictions Lumbar spine x-rays done in March 2021 revealed (+) mild L2 superior endplate depression new from CT 08/10/2018, and old degenerative disc changes at L4-L5 Due to her increasing low back pain lately, we sent her for updated lumbar spine x-rays, which she had done last month - x-rays revealed (+) Multilevel degenerative disc disease, similar compared to her prior examination. There is also a chronic L2 compression deformity that is also unchanged from previous Discussed with patient that if her low back pain continues to feel worse, can consider sending her for an MRI or refer her to pain management (9) Vitamin D deficiency: Code(s): E55.9 - Vitamin D deficiency, unspecified Category: Medical Plan: Continue Vitamin D3 2000 units QD (10) Obesity (BMI 30-39.9): Code(s): E66.9 - Obesity, unspecified Category: Medical Plan: Reinforced diet; exercise and weight loss are impractical currently due to her increasing low back pain (11) Colon cancer screening: Code(s): Z12.11 - Encounter for screening for malignant neoplasm of colon Category: Medical Plan: Will refer her for screening colonoscopy - this will be her index screen as she has never had a colonoscopy done in the past She is hoping to get EGD done at the same time as her colonoscopy - have advised patient that she will need to discuss that with GI when they see her for her appointment (12) Osteoporosis screening: Code(s): Z13.820 - Encounter for screening for osteoporosis Category: Medical Plan: Will also send patient for BMD for osteoporosis screening - this will also be her first BMD scan Plan Follow up in 3 months Orders: Orders XR DEXA axial skeleton 03/25/24 Z78.0 - Asymptomatic menopausal state Lipid Panel 3 Months E78.00 - Pure hypercholesterolemia, unspecified Microalbumin, Random (w Creat) 3 Months E11.9 - Type 2 diabetes mellitus without complications Hemoglobin A1c 3 Months E11.9 - Type 2 diabetes mellitus without complications Vitamin D 25-OH Total 3 Months E55.9 - Vitamin D deficiency, unspecified Complete Blood Count Auto Diff 3 Months D64.9 - Anemia, unspecified Comprehensive [place]. Panel Fast 3 Months E78.00 - Pure hypercholesterolemia, unspecified TSH reflex Free T4 3 Months E78.00 - Pure hypercholesterolemia, unspecified UA CC w/rflx Micro + Cult 3 Months R30.0 - Dysuria Vitamin B12 and Folate 3 Months E53.8 - Deficiency of other specified B group vitamins Referrals Gastroenterology Referral Z12.11 - Encounter for screening for malignant neoplasm of colon Gastroenterology Referral K21.9 - Gastro-esophageal reflux disease without esophagitis, Z12.11 - Encounter for screening for malignant neoplasm of colon
--- OUTSIDE RECORDS SUMMARY | 2024-03-25 14:37 | XMS_ITS | Encounter Summary ---
Author Organization [facility] Address [address] [place] [address] Care Team Providers Care Assistant Bookkeeper Name Role Phone Jad Guthrie MD Primary Care Provider [phone] [facility], Pcp Primary Care Provider iKrit jones Encounter Details Date Type Department Care Team Description 11/14/2015 Telephone Adult Medicine [address] [phone] Jad Guthrie MD [address] [place] [id number] [phone] Social History Tobacco Use Types Packs/Day Years Used Date Smoking Tobacco: Former Cigarettes Smokeless Tobacco: Former Comments:quit 3 years ago, 1 ppd Alcohol Use Standard Drinks/Week Comments No 0 (1 standard drink = 0.6 oz pur e alcohol) Sex Assigned at Date Recorded Not on file documented as of this encounter Plan of Treatment Not on file documented as of this encounter Visit Diagnoses Not on filedocumented in this encounter Care Teams Assistant Bookkeeper Relationship Specialty Start Date End Date Jad Guthrie MD [address] [place] [address] [phone] PCP - General Internal Medicine 08/22/14 [facility]18[facility] [address] [place], [place] [phone] PCP - General Internal Medicine 08/19/18 documented as of this encounter
--- OUTSIDE RECORDS SUMMARY | 2024-03-25 14:37 | XMS_ITS | Encounter Summary ---
Author Organization [facility] Address [address] [place] [address] Care Team Providers Care Manager Product Management Name Role Phone Jad Guthrie MD Primary Care Provider [phone] [facility], Pcp Primary Care Provider Unavailabl e Reason for Visit * Reason Onset Date Comments REFERRAL 04/14/2016 Podiatry Encounter Details Date Type Department Care Team Description 04/14/2016 Telephone Podiatry - [address] [address] [place] DPM REFERRAL (Podiatry) Social History Tobacco Use Types Packs/Day Years Used Date Smoking Tobacco: Former Cigarettes 1 15 0 1993 - 03/02/2011 Smokeless Tobacco: Never Comments:1 ppd Alcohol Use Standard Drinks/Week Comments No 0 (1 standard drink = 0.6 oz pur e alcohol) Sex Assigned at Date Recorded Not on file documented as of this encounter Miscellaneous Notes * Telephone Encounter - Maritza Godoy - 04/14/2016 9:52 AM EST All attempts exhausted to schedule a consult appt in Podiatry Department. Taking off from the referral report. documented in this encounter Plan of Treatment Not on file documented as of this encounter Visit Diagnoses Not on filedocumented in this encounter Care Teams Manager Product Management Relationship Specialty Start Date End Date Jad Guthrie MD [address] [place] [phone] PCP - General Internal Medicine 08/22/14 08/18/18 [facility], Pcp [address] [place] [address] PCP - General Internal Medicine 08/19/18 documented as of this encounter
--- OUTSIDE RECORDS SUMMARY | 2024-03-25 14:37 | XMS_ITS | Encounter Summary ---
Author Organization [facility] Address [address] [place] [address] Care Team Providers Care Polysomnographic Technologist Name Role Phone Jad Guthrie MD Primary Care Provider [phone] [facility], [facility], Pcp Primary Care Provider Kirit jones Encounter Details Date Type Department Care Team Description 09/09/2017 Telephone Adult Medicine [address] [phone] Pooja Granado NP Social History Tobacco Use Types Packs/Day Years Used Date Smoking Tobacco: Former Cigarettes 1 15 0 1993 - 03/02/2011 Smokeless Tobacco: Never Comments:1 ppd Alcohol Use Standard Drinks/Week Comments No 0 (1 standard drink = 0.6 oz pur e alcohol) Sex Assigned at Date Recorded Not on file documented as of this encounter Miscellaneous Notes * Telephone Encounter - Josefa Skinner M.A. - 09/21/2017 2:20 PM EDT Spoke with pk from [facility] who stated that this was approved from 09/09/17 until 09/09/2019. Pa #[id number] * Telephone Encounter - Tequila Mckeon M.A. - 09/09/2017 3:53 PM EDT Prior auth done by form to [facility] for victoza Dx diabetes 2 Has allergy to metformin causes gi discomfort Pt is also on glipizide 10mg bid Lantus 18 units nightly * Telephone Encounter - Pooja Granado NP - 09/09/2017 2:45 PM EDT I called [facility] about Victoza Patient needs a prior auth [facility] pharmacist states they are faxing forms over. Please obtain prior auth. Thank you Jeane VITALE documented in this encounter Plan of Treatment Not on file documented as of this encounter Visit Diagnoses Not on filedocumented in this encounter Care Teams Polysomnographic Technologist Relationship Specialty Start Date End Date Jad Guthrie MD [address] [place] [phone] PCP - General Internal Medicine 08/22/14 08/18/18 [facility], Pcp [address] [place] [id number] PCP - General Internal Medicine 08/19/18 documented as of this encounter
--- OUTSIDE RECORDS SUMMARY | 2024-03-25 14:37 | XMS_ITS | Encounter Summary ---
Author Organization [employer] [facility] Address [address] [place] [address] Care Team Providers Care Assistant County Attorney Name Role Phone Jad Guthrie MD Primary Care Provider [phone] Formerly [facility], [facility] Primary Care Provider Unavailabl e Reason for Visit * Reason Comments E-prescribe Rx Request Encounter Details Date Type Department Care Team Description 10/22/2015 Refill Adult Medicine [address] [address] Tushar Prince MD E-prescribe Rx Request Social History Tobacco Use Types Packs/Day Years Used Date Smoking Tobacco: Former Cigarettes Smokeless Tobacco: Former Comments:quit 3 years ago, 1 ppd Alcohol Use Standard Drinks/Week Comments No 0 (1 standard drink = 0.6 oz pur e alcohol) Sex Assigned at Date Recorded Not on file documented as of this encounter Miscellaneous Notes * Telephone Encounter - Skylar GordonJose F - 10/23/2015 8:53 AM EDT Patient would like script to be: E-PRESCRIBED/FAXED TO PHARMACY WHEN WAS THE PATIENT'S LAST APPOINTMENT IN ADULT MEDICINE? 05/15/15 WHEN WAS THE LAST TIME THE PATIENT SAW THEIR PCP? Same as above Does patient have an upcoming appointment? No-unable to reach left [facility] to call for appointment due to refill request. Appt due (THE MEDICATION REQUESTED IS ON THE MED LIST ABOVE) All of the medications requested were on the CURRENT MEDS list Did you check the Pharmacy information above?: YES Patient wants: 30 -day supply Is this a mail order prescription request ? NO Patients current insurance carrier is: Payor: [place] / Plan: MEDICAID PCC / Product Type: MEDICAID [id number] documented in this encounter Plan of Treatment Not on file documented as of this encounter Visit Diagnoses Not on filedocumented in this encounter Care Teams Assistant County Attorney Relationship Specialty Start Date End Date Jad Guthrie MD [address] [place] [address] [id number] PCP - General Internal Medicine 08/22/14 08/18/[address] [phone] PCP - General Internal Medicine 08/19/18 documented as of this encounter
--- OUTSIDE RECORDS SUMMARY | 2024-03-25 14:37 | XMS_ITS | Encounter Summary ---
Author Organization [facility] Address [address] [place] [address] Care Team Providers Care Hammer Shop Supervisor Name Role Phone Jad Guthrie MD Primary Care Provider [phone] [facility], Pcp Primary Care Provider Kirit jones Encounter Details Date Type Department Care Team Description 01/04/2015 Controlled Substance Contract with Plan Medical Records [address] [place] [address] Abstract, Provider Social History Tobacco Use Types Packs/Day Years Used Date Smoking Tobacco: Former Cigarettes Comments:quit 3 years ago, 1 ppd Alcohol Use Standard Drinks/Week Comments Not Asked 0 (1 standard drink = 0.6 oz pur e alcohol) Sex Assigned at Date Recorded Not on file documented as of this encounter Plan of Treatment Not on file documented as of this encounter Visit Diagnoses Not on filedocumented in this encounter Care Teams Hammer Shop Supervisor Relationship Specialty Start Date End Date Jad Guthrie MD [address] [place] [address] [id number] PCP - General Internal Medicine 08/22/14 08/18/18 [facility], Pcp [address] [place] [phone] PCP - General Internal Medicine 08/19/18 documented as of this encounter
--- OUTSIDE RECORDS SUMMARY | 2024-03-25 14:37 | XMS_ITS | Encounter Summary ---
Author Organization [employer] [facility] Address [address] [place] [address] Care Team Providers Care Torts Law Professor Name Role Phone Jad Guthrie MD Primary Care Provider [phone] [facility], Pcp Primary Care Provider Kirit jones Encounter Details Date Type Department Care Team Description 03/25/2016 Release of Information Medical Records [address] [place] [address] Abstract, Provider Social History Tobacco Use Types [...] on filedocumented in this encounter Care Teams Torts Law Professor Relationship Specialty Start Date End Date Jad Guthrie MD [address] [place], [place] [phone] PCP - General Internal Medicine 08/22/14 08/18/18 [facility], Pcp [address] [place] [phone] PCP - General Internal Medicine 08/19/18 documented as of this encounter
--- OUTSIDE RECORDS SUMMARY | 2024-03-25 14:37 | XMS_ITS | Clinical Summary ---
Author Organization [email or web address] [facility] Address [id number] [place] [id number] Care Team Providers Care Wild Life Manager Name Role Phone Unavailable Primary Care Provider Unavailabl e Surgical History Surgery Date Site/Laterality Comments CHOLECYSTECTOMY PROCEDURE: LAPAROSCOPIC CHOLECYSTECT OTHER SURGICAL HISTORY PROCEDURE: [place] EPISIOTOMY/VAG RPR OTH/THN ATTENDING ESOPHAGOGASTRODUODENOSCOPY 03/12/15 PROCEDURE: [place] ESOPHAGOGASTRODUODENOSCOPY TRANSORAL DIAGNOSTIC; COMMENT: normal, with nl duodenal biopsies COLONOSCOPY 10/26/14 PROCEDURE: HISTORICAL COLONOSCOPY; COMMENT: normal; repeat in 5 yrs Medical History Medical History Date Comments Family history of colon cancer 10/26/2014 D X:Family history of colon cancer; COMMENT: Brother in his 30s Family History Medical History Relation Name Comments Breast cancer Aunt over 60 years old Other cancer Father throat Diabetes Mother Heart failure Mother Hypertension Mother Colon cancer Uncle Breast cancer Neg Hx Relation Name Status Comments Aunt Father Mother Uncle Social History Tobacco Use Types Packs/Day Years Used Date Smoking Tobacco: Former Cigarettes 1 17.8 0 1993 - 03/02/2011 Smokeless Tobacco: Never Alcohol Use Standard Drinks/Week Comments No 0 (1 standard drink = 0.6 oz pur e alcohol) Sex and Gender Information Value Date Recorded Sex Assigned at Not on file Gender Identity Not on file Sexual Orientation Not on file Obstetrics History Plan of Treatment Health Maintenance Due Date Last Done Comments Cervical Cancer Screening: P ap Smear 1981 Zoster Vaccines (1 of 2) 2010 Breast Cancer Screening 05/02/2018 05/02/2016 COVID-19 Vaccine ( - 2023-2 5 season) 2023 Influenza Vaccine (#1) 2023 7, 11/19/2015 DTaP,Tdap,and Td Vaccines (2 - Td or Tdap) 03/31/2026 03/31/2016 RSV Immunization Patients 60 + Years Old (1 - 1-dose 75+ series) 05/27/2035 Pneumococcal Vaccine: Pediatrics (0 to 5 Years) and At-Risk Patients (6 to 64 Years) Aged Out 01/09/2017 No longer eligible b ased on patient's age to complete this topic HIB Vaccines Aged Out No longer eligi ble based on patient's age to complete this topic HPV Vaccines Aged Out No longer eligi ble based on patient's age to complete this topic Hepatitis A Vaccines Aged Out No long er eligible based on patient's age to complete this topic Hepatitis B Vaccines Aged Out No long er eligible based on patient's age to complete this topic IPV Vaccines Aged Out No longer eligi ble based on patient's age to complete this topic MMR Vaccines Aged Out No longer eligi ble based on patient's age to complete this topic Meningococcal ACWY Vaccine Aged Out N o longer eligible based on patient's age to complete this topic RSV Immunization Patients Under 20 months Aged Out No longer eligible b ased on patient's age to complete this topic Varicella Vaccines Aged Out No longer eligible based on patient's age to complete this topic Procedures Procedure Name Priority Date/Time Associated Diagnosis Comments SCR MAMMO BI INCL CAD Routine 05/02/2016 3:38 PM EST Encounter for screening mammogram for malignant neoplasm of breast from Last 3 Months or Most Recently Relevant to Health Maintenance Results * SCR MAMMO BI INCL CAD (05/02/2016 3:38 PM EST) Anatomical Region Laterality Modality Radiographic Padmini ging 04/15/2016 3:13 PM EST Narrative 05/04/2016 2:26 PM EST This is a summary report. The complete report is available in the patient's medical record. If you cannot access the medical record, please contact the sending organization for a detailed fax or copy. Full field digital screening mammography, reviewed with CAD and compared to previous. ??The breasts are composed of fatty and fibroglandular tissue. ??No suspicious mass, architectural distortion or suspicious calcifications are identified. IMPRESSION: : No mammographic evidence of malignancy. BIRADS 1-Negative; N. 5 year breast cancer risk assessment N/A Lifetime breast cancer risk assessment N/A Breast cancer risk category Breast cancer risk not assessed Procedure Note Dipika Hunter MD - 04/03/2023 This is a summary report. The complete report is available in thepatient's medical record. If you cannot access the medical record, pleasecontact the sending organization for a detailed fax or copy. Full field digital screening mammography, reviewed with CAD and comparedto previous. The breasts are composed of fatty and fibroglandular tissue.No suspicious mass, architectural distortion or suspicious calcificationsare identified. IMPRESSION: : No mammographic evidence of malignancy. BIRADS 1-Negative; N. 5 year breast cancer risk assessment N/A Lifetime breast cancer risk assessment N/A Breast cancer risk category Breast cancer risk not assessed Shauna VELASQUEZ IMG XR PROCEDURES from Last 3 Months or Most Recently Relevant to Health Maintenance
--- OUTSIDE RECORDS SUMMARY | 2024-03-25 14:37 | XMS_ITS | Encounter Summary ---
Author Organization [facility] Address [address] [place] [address] Care Team Providers Care Comb Tender Name Role Phone Jad Guthrie MD Primary Care Provider [phone] [facility], Pcp Primary Care Provider Unavailabl e Reason for Visit * Reason Onset Date Comments Faxed Order 09/23/2017 Encounter Details Date Type Department Care Team Description 09/23/2017 Telephone Adult Medicine [address] [phone] Jad Guthrie MD [address] [place] [address] [phone] Faxed Order Social History Tobacco Use Types Packs/Day Years Used Date Smoking Tobacco: Former Cigarettes 1 15 0 1993 - 03/02/2011 Smokeless Tobacco: Never Comments:1 ppd Alcohol Use Standard Drinks/Week Comments No 0 (1 standard drink = 0.6 oz pur e alcohol) Sex Assigned at Date Recorded Not on file documented as of this encounter Miscellaneous Notes * Telephone Encounter - Rosemary Sainz - 09/23/2017 7:41 PM EDT Physician's health status semi annual report for Dr Jad Guthrie's signature documented in this encounter Plan of Treatment Not on file documented as of this encounter Visit Diagnoses Not on filedocumented in this encounter Care Teams Comb Tender Relationship Specialty Start Date End Date Jad Guthrie MD [address] [place] [phone] PCP - General Internal Medicine 08/22/14 08/18/18 [facility], Pcp [address] [place] [phone] PCP - General Internal Medicine 08/19/18 documented as of this encounter
--- OUTSIDE RECORDS SUMMARY | 2024-03-25 14:37 | XMS_ITS | Encounter Summary ---
Author Organization [facility] Address [address] [place] [address] Care Team Providers Care Cinder Snapper Name Role Phone Jad Guthrie MD Primary Care Provider [phone] [facility], Pcp Primary Care Provider Kirit jones Encounter Details Date Type Department Care Team Description 05/20/2017 Release of Information Medical Records [address] [place] [address] Abstract, Provider Social History Tobacco Use Types [...] on filedocumented in this encounter Care Teams Cinder Snapper Relationship Specialty Start Date End Date Jad Guthrie MD [address] [place], [place] [phone] PCP - General Internal Medicine 08/22/14 08/18/18 [facility], Pcp [address] [place] [phone] PCP - General Internal Medicine 08/19/18 documented as of this encounter
--- OUTSIDE RECORDS SUMMARY | 2024-03-25 14:37 | XMS_ITS | Encounter Summary ---
Author Organization [facility] Address [address] [place] [address] Care Team Providers Care Carton Waxing Machine Operator Name Role Phone Jad Guthrie MD Primary Care Provider [phone] [facility], Pcp Primary Care Provider Kirit jones Encounter Details Date Type Department Care Team Description 04/15/2016 Hereditary Cancer Qu iz Results Medical Records [address] [place] [address] Abstract, Provider Social History Tobacco Use Types [...] on filedocumented in this encounter Care Teams Carton Waxing Machine Operator Relationship Specialty Start Date End Date Jad Guthrie MD [address] [place], [place] [phone] PCP - General Internal Medicine 08/22/14 08/18/18 [facility], Pcp [address] [place] [phone] PCP - General Internal Medicine 08/19/18 documented as of this encounter
--- OUTSIDE RECORDS SUMMARY | 2024-03-25 14:37 | XMS_ITS | Encounter Summary ---
Author Organization [email or web address] [facility] Address [address] [place] [address] Care Team Providers Care Pastry Sous Chef Name Role Phone Jad Guthrie MD Primary Care Provider [phone] [facility], Pcp Primary Care Provider Kirit jones Encounter Details Date Type Department Care Team Description 04/04/2015 Hospital Medical Records [address] [place] [address] Cal Greer MD Social History Tobacco Use Types Packs/Day Years [...] on filedocumented in this encounter Care Teams Pastry Sous Chef Relationship Specialty Start Date End Date Jad Guthrie MD [address] [place], [place] [phone] PCP - General Internal Medicine 08/22/14 08/18/18 [facility], Pcp [address] [place], [place] [phone] PCP - General Internal Medicine 08/19/18 documented as of this encounter
--- OUTSIDE RECORDS SUMMARY | 2024-03-25 14:37 | XMS_ITS | Encounter Summary ---
Author Organization [facility] [facility] Address [address] [place] [address] Care Team Providers Care Dietary Clerk Name Role Phone Jad Guthrie MD Primary Care Provider [phone] [facility], Pcp Primary Care Provider Kirit jones Encounter Details Date Type Department Care Team Description 10/12/2014 Natural Resources Specialist Report Medical Records [address] [place] [address] Pelon Connolly MD Social History Tobacco Use Types Packs/Day [...] on filedocumented in this encounter Care Teams Dietary Clerk Relationship Specialty Start Date End Date Jad Guthrie MD [address] [place] [address] [phone] PCP - General Internal Medicine 08/22/14 08/18/18 [facility], Pcp [address] [place] [phone] PCP - General Internal Medicine 08/19/18 documented as of this encounter
--- OUTSIDE RECORDS SUMMARY | 2024-03-25 14:37 | XMS_ITS | Encounter Summary ---
Author Organization [employer] [facility] Address [address] [place] [address] Care Team Providers Care Business Center Representative Name Role Phone Jad Guthrie MD Primary Care Provider [phone] [facility], Pcp Primary Care Provider Kirit jones Encounter Details Date Type Department Care Team Description 01/15/2015 Database Specialist Report Medical Records [address] [place] [address] Pelon Connolly MD Social History Tobacco Use [...] on filedocumented in this encounter Care Teams Business Center Representative Relationship Specialty Start Date End Date Jad Guthrie MD [address] [place] [address] [phone] PCP - General Internal Medicine 08/22/14 08/18/18 [facility], Pcp [address] [place] [address] PCP - General Internal Medicine 08/19/18 documented as of this encounter
--- OUTSIDE RECORDS SUMMARY | 2024-03-25 14:37 | XMS_ITS | Encounter Summary ---
Author Organization [facility] Address [address] [place] [address] Care Team Providers Care Channel Machine Operator Name Role Phone Jad Guthrie MD Primary Care Provider [phone] [facility], Pcp Primary Care Provider Kirit jones Encounter Details Date Type Department Care Team Description 05/02/2016 Transfer Records Medical Records [address] [place] [address] Abstract, Provider Social History Tobacco Use Types [...] on filedocumented in this encounter Care Teams Channel Machine Operator Relationship Specialty Start Date End Date Jad Guthrie MD [address] [place], [place] [phone] PCP - General Internal Medicine 08/22/14 08/18/18 [facility], Pcp [address] [place] [address] PCP - General Internal Medicine 08/19/18 documented as of this encounter
--- OUTSIDE RECORDS SUMMARY | 2024-03-25 14:37 | XMS_ITS | Encounter Summary ---
Author Organization [employer] [facility] Address [address] [place] [address] Care Team Providers Care Service Shop Foreman Name Role Phone Jad Guthrie MD Primary Care Provider [phone] [facility], Pcp Primary Care Provider Kirit jones Encounter Details Date Type Department Care Team Description 11/20/2017 Hospital Medical Records [address] [place] [address] Social History Tobacco Use Types Packs/Day Years [...] on filedocumented in this encounter Care Teams Service Shop Foreman Relationship Specialty Start Date End Date Jad Guthrie MD [address] [place], [place] [phone] PCP - General Internal Medicine 08/22/14 08/18/18 [facility], Pcp [address] [place] [address] PCP - General Internal Medicine 08/19/18 documented as of this encounter
--- OUTSIDE RECORDS SUMMARY | 2024-03-25 14:37 | XMS_ITS | Encounter Summary ---
Author Organization [facility] Address [address] [place] [address] Care Team Providers Care Tip Stitcher Name Role Phone Jad Guthrie MD Primary Care Provider [phone] [facility], Pcp Primary Care Provider Unavailabl e Reason for Visit * Reason Onset Date Comments Faxed Order 01/19/2017 Encounter Details Date Type Department Care Team Description 01/19/2017 Telephone Adult Medicine [facility] [address] [place] [address] [phone] Jad Guthrie MD [address] [place] [address] [phone] Faxed Order Social History Tobacco Use Types Packs/Day Years Used Date Smoking Tobacco: Former Cigarettes 1 15 0 1993 - 03/02/2011 Smokeless Tobacco: Never Comments:1 ppd Alcohol Use Standard Drinks/Week Comments No 0 (1 standard drink = 0.6 oz pur e alcohol) Sex Assigned at Date Recorded Not on file documented as of this encounter Miscellaneous Notes * Telephone Encounter - Rebeca Bowie - 01/19/2017 3:33 PM EST Faxed order requires pcp signature and placed in mail bin. documented in this encounter Plan of Treatment Not on file documented as of this encounter Visit Diagnoses Not on filedocumented in this encounter Care Teams Tip Stitcher Relationship Specialty Start Date End Date Jad Guthrie MD [address] [place] [phone] PCP - General Internal Medicine 08/22/14 08/18/18 [facility], Pcp [address] [place] [phone] PCP - General Internal Medicine 08/19/18 documented as of this encounter
== END 2024-03-25 13:48 | disposition home or self-care (01) ==
PROVIDERS: PCP Internal Medicine; Visit Provider Internal Medicine
DX: Z00.00 Encounter for general adult medical examination without abnormal findings (principal); E11.65 Type 2 diabetes mellitus with hyperglycemia; Z79.4 Long term (current) use of insulin; E66.9 Obesity, unspecified; Z68.26 Body mass index [BMI] 26.0-26.9, adult; E78.2 Mixed hyperlipidemia; I10 Essential (primary) hypertension; E03.9 Hypothyroidism, unspecified; R00.0 Tachycardia, unspecified; K21.9 Gastro-esophageal reflux disease without esophagitis; M51.360 Other intervertebral disc degeneration, lumbar region with discogenic back pain only; E55.9 Vitamin D deficiency, unspecified

== ENCOUNTER → 2024-03-25 12:45 | Outpatient (BNVA) | payer OTHER, SELFPAY | PROVIDERS: PCP Internal Medicine; Visit Provider Internal Medicine | DX: Z00.00 Encounter for general adult medical examination without abnormal findings (principal); E11.65 Type 2 diabetes mellitus with hyperglycemia; E78.2 Mixed hyperlipidemia; I10 Essential (primary) hypertension; E03.9 Hypothyroidism, unspecified; R00.0 Tachycardia, unspecified; K21.9 Gastro-esophageal reflux disease without esophagitis; M51.360 Other intervertebral disc degeneration, lumbar region with discogenic back pain only; E55.9 Vitamin D deficiency, unspecified; E66.9 Obesity, unspecified; Z79.4 Long term (current) use of insulin | CPT/HCPCS: 96127; 99396 ==

== ENCOUNTER 2024-04-28 09:43 | Outpatient (REF) | payer OTHER, SELFPAY ==
--- NOTE | ~2024-04-28 | MM_ITS ---
EXAMINATION: DXA BONE DENSITY AXIAL HISTORY: Estrogen deficiency TECHNIQUE: [employer] Dual energy absorptiometry (DEXA) of the lumbar spine, total left hip, and femoral neck was performed. COMPARISON: Comparison is made with the prior examination dated 08/08/2014. FINDINGS: The bone mineral density of the lumbar spine is 1.109 with a T-score of -0.5, and a Z-score of 0.2. This represents a BMD change of 14.3% compared to the prior exam. This is statistically significant. The bone mineral density of the left total hip is 0.705 with a T-score of -2.4, and a Z-score of -1.8. This represents BMD change of -17.7% compared to the prior exam. This is statistically significant. The bone mineral density of the left femoral neck is 0.614 with a T-score of -3.0, and a Z-score of -2.1. This represents BMD change of -20.1% compared to the prior exam. FRACTURE RISK: The FRAX index suggests a ten year probability of major osteoporotic fracture of 8.6%, and of hip fracture 2.3%. MM/XR DEXA axial skeleton IMPRESSION: Based on bone mineral density, and according to World Health Organization (WHO) criteria, the diagnosis is consistent with osteoporosis. All bone density values are in grams per centimeter squared (g/cm2). Statistically, 68% of repeat scans fall within 1 SD (+/- 0.010 g/cm2 for AP spine L1-L4) and 1 SD (+/- 0.012 g/cm2 for femur total) FRAX is a trademark of the [employer] [place] [employer] Metabolic Bone Disease, a World Health Organization (WHO) Collaborating Center. Electronically signed by: Teofilo Harrington MD 04/28/2024 10:36 AM [facility]
--- OUTSIDE RECORDS SUMMARY | 2024-04-28 11:08 | XMS_ITS | Clinical Summary ---
Author Organization [employer] [facility] Address [id number] [place] [phone] Care Team Providers Care Marionette Performer Name Role Phone Unavailable Primary Care Provider Unavailabl e Surgical History Surgery Date Site/Laterality Comments CHOLECYSTECTOMY PROCEDURE: LAPAROSCOPIC CHOLECYSTECT OTHER SURGICAL HISTORY PROCEDURE: [place] EPISIOTOMY/VAG RPR OTH/THN ATTENDING ESOPHAGOGASTRODUODENOSCOPY 03/12/15 PROCEDURE: [place] ESOPHAGOGASTRODUODENOSCOPY TRANSORAL DIAGNOSTIC; COMMENT: normal, with nl [...] drink = 0.6 oz pur e alcohol) Comments Unknown Sex and Gender Information Value Date Recorded Sex Assigned at Not on file Legal Sex Female 3:59 AM EST Gender Identity Not on file Sexual Orientation Not on file Obstetrics History Plan of Treatment Health Maintenance Due Date Last Done Comments Cervical Cancer Screening: P ap Smear 1981 Zoster Vaccines (1 of 2) 2010 Pneumococcal Vaccine: 50+ Years (2 of 2 - PCV) 01/09/2018 01/09/2017 Breast Cancer Screening 05/02/2018 05/02/2016 COVID-19 Vaccine [...] patient's age to complete this topic Meningococcal B Vacine Aged Out No lo nger eligible based on patient's age to complete [...] not assessed Shauna VELASQUEZ IMG XR PROCEDURES Final Resul t from Last 3 Months or Most Recently Relevant to Health Maintenance
== END 2024-04-28 09:44 | disposition home or self-care (01) ==
LOC: HO.MAMMO 09:43
PROVIDERS: PCP Internal Medicine; Visit Provider Internal Medicine
DX: Z13.820 Encounter for screening for osteoporosis (principal); Z78.0 Asymptomatic menopausal state
CPT/HCPCS: 77080

== ENCOUNTER → 2024-04-28 10:00 | Outpatient (BNV) | payer OTHER, SELFPAY | PROVIDERS: PCP Internal Medicine; Visit Provider Radiology Diagnostic Radiology | DX: E28.39 Other primary ovarian failure (principal) | CPT/HCPCS: 77085 ==

== ENCOUNTER 2024-05-03 12:39 | Outpatient (AMB) | payer OTHER, SELFPAY ==
--- NOTE | 2024-05-03 12:44 | MHC.PC.OV ---
Vital Signs 05/03/24 12:45 Height 5 ft 3 in Weight 182 lb 2 oz BMI 32.3 BP 124/82 Blood Pressure Location Lt brachial Position Sitting Pulse 74 Pulse Source Pulse Oximeter Pulse Oximetry (%) 96 Oxygen Delivery Method Room Air Intake Visit Reasons: 3 month f/u Tattoo Technician Required: No Accompanied by: Self / Same As Patient Allergies Iodinated Contrast Media [IV CONTRAST] Allergy (Intermediate, Verified 05/03/24 13:08) RASH iopromide [From ULTRAVIST] Allergy (Mild, Verified 05/03/24 13:08) ITCHING semaglutide [From Ozempic] Adverse Reaction (Severe, Verified 05/03/24 13:08) pancreatitis Medication List - Last Reconciled 05/03/24 by Genaro Chu MD atorvastatin 80 mg PO BEDTIME blood sugar diagnostic (FreeStyle Lite Strips) As directed three times a day blood-glucose meter (FreeStyle Stanton Lite kit) As directed dispense as freestyle lite blood-glucose sensor (E[employer] G7 Sensor device) Use daily As directed to monitor glucose. change q 10 days cholecalciferol (vitamin D3) 50 mcg PO DAILY 90 days clonidine HCl 0.1 mg PO BID PRN 30 days clotrimazole-betamethasone 1-0.05 % 1 appl topical BID 5 days empagliflozin (Jardiance) 25 mg PO DAILY fenofibrate 160 mg PO DAILY 90 days gabapentin 300 mg PO BEDTIME glipizide ER 5 mg PO DAILY glucose (Dex4 Glucose) 16 grams (4 x 4 gram) PO Q15M PRN insulin degludec (Tresiba FlexTouch U-200 insulin) 80 units (0.4 mL) subcut BEDTIME 30 days insulin lispro (Humalog KwikPen (U-100) Insulin) 30 units for breakfast , 30 units for lunch, 30 units for dinner subcutaneously daily lancets (FreeStyle Lancets) Three times a day levothyroxine 50 mcg PO QAM lisinopril-hydrochlorothiazide 20-12.5 mg 1 tab PO DAILY 90 days lorazepam mg PO metoprolol succinate ER 75 mg (1.5 x 50 mg) PO DAILY 30 days mirtazapine 7.5 mg PO BEDTIME 30 days omeprazole 40 mg PO QAM 90 days pen needle, diabetic (BD Ultra-Fine Jordana Pen Needle) As directed four times a day pen needle, diabetic As directed sertraline 50 mg PO DAILY 30 days terconazole 0.8% 1 appful vaginal BEDTIME 3 days Tobacco use date assessed: 05/03/24 Dental Screening Dental Screen Date: 05/03/24 Did you have a dental visit in the last 12 months?: No Did you have a dental problem in the last 6 months where you did not have access to dental care?: No Was dental information given to patient?: No HPI 3 month f/u HPI Details Patient comes in today for her follow up visit States that she continues to experience increased pain over her lower back Would like to know how her lumbar spine x-rays and bone density scan done over the past couple of months came out She denies any headaches or dizziness Denies any chest pains, no increased shortness of breath No nausea/vomiting but continues to experience recurrent diffuse abdominal pain and discomfort and bloating She ran out of her Omeprazole recently and needs her Rx refilled No change in bowel habits noted She is scheduled to be seen by GI next month on 06/17/2024 for further evaluation [facility] Medical History (Updated 05/03/24 @ 13:27 by Genaro Chu MD) Osteoporosis Early satiety Mixed hyperlipidemia Ganglion cyst of tendon sheath of left hand Pure hypercholesterolemia Numbness and tingling in both hands Trigger finger, left middle finger Trigger finger, right ring finger Vulvar leukoplakia Atypical chest pain Tachycardia Left knee pain Right shoulder pain Arthralgia Vulvovaginitis juani albicans Breast pain, right Obesity (BMI 30-39.9) Hypertriglyceridemia Vitamin D deficiency Loose stools Pancreatitis Poor historian Vulvar leukoplakia Vulvar itching Recurrent epigastric abdominal pain Type 2 diabetes mellitus with diabetic nephropathy Hyperlipidemia LDL goal <100 Diabetes mellitus Primary osteoarthritis of hips, bilateral Lumbar degenerative disc disease Anxiety GERD without esophagitis Gastritis GERD (gastroesophageal reflux disease) Depression Hypothyroidism Type 2 diabetes mellitus with hyperglycemia, with long-term current use of insulin Type 2 diabetes mellitus with diabetic polyneuropathy Essential hypertension Surgical History S/P cholecystectomy Hx of tubal ligation History of herniated intervertebral disc Family History Father Throat cancer Mother Diabetes mellitus CVD (cardiovascular disease) Maternal Aunt Breast cancer Social History Household Members: None Housing: Apartment Alcohol intake: never Patient Tobacco Use Status: Former Tobacco user e-Cigarette/Vaping Use: Never Used Second Hand Smoke Exposure: No service: No Current occupational status: disabled Sexual orientation: Straight/Heterosexual Gender identity: Female Cognitive needs: No Hearing needs: No Vision needs: Yes Female Reproductive History Menstrual Age of Menarche: 12 Questionnaire PHQ-9 Over the last 2 weeks, how often have you been bothered by any of the following problems? 1. Little interest or pleasure in doing things: several days 2. Feeling down, depressed, or hopeless: several days 3. Trouble falling or staying asleep, or sleeping too much: several days 4. Feeling tired or having little energy: several days 5. Poor appetite or overeating: several days 6. Feeling bad about yourself - or that you are a failure or have let yourself or your family down: not at all 7. Trouble concentrating on things, such as reading the newspaper or watching television: several days 8. Moving or speaking so slowly that other people could have noticed. Or the opposite - being so fidgety or restless that you have been moving around a lot more than usual: not at all 9. Thoughts that you would be better off or of hurting yourself in some way: not at all Total score: 6 Depression Screening Interpretation: Positive Depression Screening Follow-up: Existing condition and In treatment Depression Screening Done: Yes 67095 - PHQ-9 Billing: Yes Source: Developed by Drs. Teofilo Loredo, Radha Knight, Keagan Guzman and colleagues, with an educational alecia from [employer]. Thrive Questionnaire Date Thrive assessed: 05/03/24 I am a: Patient What is your living situation today?: I choose not to answer this question Within the past 12 months, did the food you bought not last and you didn't have the money to get more?: I choose not to answer this question Within the past 12 months, did you worry whether your food would run out before you got money to buy more?: I choose not to answer this question Do you have trouble paying for medicines?: No Do you have trouble getting transportation to medical appointments?: No Do you have trouble paying your heating and electricity bill?: No Do you have trouble taking care of your child, family member or friend?: No Do you have trouble with day-to-day activities such as bathing, preparing meals, shopping, managing finances, etc.?: No Are you currently unemployed and looking for a job?: No Are you interested in more education?: No Please select the resources that you would like help with: Food Currently or been in a relationship where the following occur: No concerns reported THRIVE Score: 0 AUDIT C Alcohol Use Questionnaire (AUDIT-C) 1. How often do you have a drink containing alcohol?: Never 3. How often do you have six or more drinks on one occasion?: Never Total Score: 0 Score Reviewed/Action Taken: Yes CARO-7 AMB Questionnaire CARO-7 Date CARO - 7 assessed: 05/03/24 Feeling nervous, anxious, or on edge: 0 = Not at all Not being able to stop or control worryin = Not at all Worrying too much about different things: 0 = Not at all Trouble relaxin = Not at all Being so restless that it is hard to sit still: 0 = Not at all Becoming easily annoyed or irritable: 0 = Not at all Feeling afraid as if something awful might happen: 0 = Not at all Total CARO-7 score (0-4 normal; 5-9 mild; 10-14 moderate; 15-21 severe): 0 Source: Developed by Drs. Teofilo Loredo, Radha Knight, Keagan Guzman and colleagues, with an educational alecia from [employer]. Review of Systems Const Denies chills, Reports fatigue, Denies fever(s) and Denies headache(s) ENT Denies dysphagia, Denies dizziness, Denies otalgia, Denies headache(s), Denies neck pain, Denies odynophagia and Denies sore throat Card Denies chest pain, Reports palpitations (occasionally) and Reports dyspnea on exertion (mild) Resp Denies chest congestion, Denies cough and Reports dyspnea on exertion (mild) GI Reports abdominal pain (diffuse pain, bloating and discomfort), Denies constipation, Denies dysphagia, Denies heartburn, Denies diarrhea, Denies nausea, Denies odynophagia and Denies vomiting Denies difficulty voiding, Denies nocturia, Denies dysuria and Denies urinary urgency Musc Reports back pain (over the lower back - increasing lately), Reports arthralgias (over both hips) and Denies neck pain Skin/Breast Denies rash Neuro Denies dizziness and Denies headache(s) Psych Reports anxiety Endo Reports fatigue and Reports palpitations (occasionally) Physical exam (Primary Care) Vital Signs: Last Vital Signs Pulse 74 05/03/24 12:45 BP 124/82 05/03/24 12:45 Pulse Ox 96 05/03/24 12:45 Oxygen Delivery Method Room Air 05/03/24 12:45 BMI result Body Mass Index 32.3 Tobacco/Smoking Status: Tobacco use Status Tobacco use date assessed 05/03/24 05/03/24 12:51 Patient Tobacco Use Status Former Tobacco user 05/03/24 12:51 e-Cigarette/Vaping Use Never Used 05/03/24 12:51 PHQ-9: PHQ-9 Score PHQ-9: Total score 6 05/03/24 12:51 Depression Screening Interpretation: Positive Depression Screening Follow-up: Existing condition and In treatment Thrive Assessment: Date of Thrive Assessment Date Thrive assessed 05/03/24 05/03/24 12:51 Currently or been in a relationship where the following occur: No concerns reported Const General: no acute distress and alert HENMT Ears: TM's normal bilaterally and EAC's normal Throat: Yes posterior oropharynx normal and Yes tonsils normal (no TP congestion) Neck Neck: Yes no lymphadenopathy and Yes supple Resp Auscultation: clear to auscultation bilaterally, no rales and no wheezes Cardio Rate: regular rate Rhythm: regular rhythm Heart sounds: no murmurs GI Palpation (GI): Soft to palpation and nontender Auscultation: normal bowel sounds General: Yes no CVA tenderness Back/Spine/Pelvis Back: no CVA tenderness Thoracic/Lumbar Spine: lumbar spinal tenderness Skin Rashes: no rashes Extrem General: Yes no clubbing, cyanosis or edema Right lower extremity: hip/thigh Details: tenderness Location: of the hip Left lower extremity: hip/thigh Details: tenderness Location: of the hip Coding Level of Care Code Est Pt Level 4 (35950) Diagnoses Degeneration of intervertebral disc of lumbar region with discogenic back pain M51.360 Disc-related pain type: discogenic back pain only Osteoporosis without current pathological fracture, unspecified osteoporosis type M81.0 Osteoporosis type: unspecified Presence of current pathological fracture: without current pathological fracture Type 2 diabetes mellitus with hyperglycemia, with long-term current use of insulin E11.65; Z79.4 Mixed hyperlipidemia E78.2 Essential hypertension I10 Acquired hypothyroidism E03.9 Hypothyroidism type: acquired Vitamin D deficiency E55.9 Obesity (BMI 30-39.9) E66.9 Additional Codes PHQ-9 - 33302 - PHQ-9 Billing: Yes ([id number]) Assessment & Plan Assessment & Plan (1) Lumbar degenerative disc disease: Code(s): M51.36 - Other intervertebral disc degeneration, lumbar region Category: Medical Qualifiers: Disc-related pain type: discogenic back pain only Qualified Code(s): M51.360 - Other intervertebral disc degeneration, lumbar region with discogenic back pain only Plan: Reinforced activity and weight-lifting restrictions Lumbar spine x-rays done in March 2021 revealed (+) mild L2 superior endplate depression, new from CT 08/10/2018, and old degenerative disc changes at L4-L5 Due to her increasing low back pain lately, we sent her for updated lumbar spine x-rays X-rays done in January 2024 revealed (+) multilevel degenerative disc disease, similar compared to her prior examination. There is also a chronic L2 compression deformity that is also unchanged from previous As patient states that she continues to be affected/impaired significantly by her increasing low back pain will refer her to [facility] for further recommendations (2) Osteoporosis: Code(s): M81.0 - Age-related osteoporosis without current pathological fracture Category: Medical Qualifiers: Osteoporosis type: unspecified Presence of current pathological fracture: without current pathological fracture Qualified Code(s): M81.0 - Age-related osteoporosis without current pathological fracture Plan: Her repeat BMD done last week (April 2024) revealed (+) osteoporosis, with the lowest T-score of -3.0 in the lft femoral neck consistent with osteoporosis Her BMD in the left hip has declined by -17.7% compared to previous and that in her left femur has declined by -20.1% Will check her urine NTx with her other scheduled labs next month for further evaluation and depending on how her results are, will likely recommend her for Tx of her osteoporosis (3) Type 2 diabetes mellitus with hyperglycemia, with long-term current use of insulin: Code(s): E11.65 - Type 2 diabetes mellitus with hyperglycemia; Z79.4 - facial operator (current) use of insulin Category: Medical Plan: Her HgbA1c was at 9.1% on her labs done a couple of months ago (was previously at 10.3% when checked at the endocrinology office back on 01/08/2024) - goal is <7.0% Reinforced diabetic diet She is currently on Tresiba 80 units QD, Humalog 30 units TID, Jardiance 25 mg QD and Glpizide ER 5 mg QD She is NOT a candidate for the GLP1s due to her Hx of pancreatitis and experience of GI upset with Metformin The effects of Lantus and Toujeo kept wearing off by late afternoon She continues to struggle with compliance with medications - states that she tends to forget taking mealtime insulin doses often Follow-up with endocrinology as scheduled (4) Mixed hyperlipidemia: Code(s): E78.2 - Mixed hyperlipidemia Category: Medical Plan: Results of her labs done a couple of months ago reviewed and discussed with patient - she is advised that her total cholesterol and serum triglyceride level are still elevated but they have improved slightly from her previous numbers Reinforced low cholesterol diet Continue Atorvastatin 80 mg QD and Fenofibrate 160 mg QD Will recheck her labs and fasting lipids as scheduled next month for follow-up (5) Essential hypertension: Code(s): I10 - Essential (primary) hypertension Category: Medical Plan: Reinforced low-sodium diet -? goal is systolic BP of 120 mm or less Continue Lisinopril-Hydrochlorothiazide 20-12.5 mg QD (6) Hypothyroidism: Code(s): E03.9 - Hypothyroidism, unspecified Category: Medical Qualifiers: Hypothyroidism type: acquired Qualified Code(s): E03.9 - Hypothyroidism, unspecified Plan: Her TFTs were normal on her recent labs done a couple of months ago Continue Levothyroxine 50 mcg QD (7) Vitamin D deficiency: Code(s): E55.9 - Vitamin D deficiency, unspecified Category: Medical Plan: Continue Vitamin D3 2000 units QD (8) Obesity (BMI 30-39.9): Code(s): E66.9 - Obesity, unspecified Category: Medical Plan: Reinforced diet; exercise and weight loss are impractical currently due to her increasing low back pain Plan Follow up as scheduled next month Orders: Orders Collagen Crosslinks NTX 06/23/24 M81.0 - Age-related osteoporosis without current pathological fracture Referrals Pain Management Referral M54.50 - Low back pain, unspecified Medications: Refilled omeprazole 40 mg PO QAM 90 days 90 caps 1RF K21.9 - Gastro-esophageal reflux disease without esophagitis
[2024-05-03 12:45] VITALS: BP 124/82; PULSE 74; O2SAT 96; BMI 32.3
--- OUTSIDE RECORDS SUMMARY | 2024-05-03 15:41 | XMS_ITS | Clinical Summary ---
Author Organization [facility] Address [id number] [place] [id number] Care Team Providers Care Pipeliner Name Role Phone Unavailable Primary Care Provider Unavailabl e Surgical History Surgery Date Site/Laterality Comments CHOLECYSTECTOMY PROCEDURE: LAPAROSCOPIC CHOLECYSTECT OTHER SURGICAL HISTORY PROCEDURE: ID EPISIOTOMY/VAG RPR OTH/THN ATTENDING ESOPHAGOGASTRODUODENOSCOPY 03/12/15 PROCEDURE: ID ESOPHAGOGASTRODUODENOSCOPY TRANSORAL DIAGNOSTIC; COMMENT: normal, with nl [...]
== END 2024-05-03 13:21 | disposition home or self-care (01) ==
PROVIDERS: PCP Internal Medicine; Visit Provider Internal Medicine
DX: E11.65 Type 2 diabetes mellitus with hyperglycemia (principal); Z79.4 Long term (current) use of insulin; E66.9 Obesity, unspecified; Z68.32 Body mass index [BMI] 32.0-32.9, adult; M51.360 Other intervertebral disc degeneration, lumbar region with discogenic back pain only; M81.0 Age-related osteoporosis without current pathological fracture; E78.2 Mixed hyperlipidemia; I10 Essential (primary) hypertension; E03.9 Hypothyroidism, unspecified; E55.9 Vitamin D deficiency, unspecified

== ENCOUNTER → 2024-05-03 12:39 | Outpatient (BNVA) | payer OTHER, SELFPAY | PROVIDERS: PCP Internal Medicine; Visit Provider Internal Medicine | DX: M51.360 Other intervertebral disc degeneration, lumbar region with discogenic back pain only (principal); M81.0 Age-related osteoporosis without current pathological fracture; E11.65 Type 2 diabetes mellitus with hyperglycemia; E78.2 Mixed hyperlipidemia; I10 Essential (primary) hypertension; E03.9 Hypothyroidism, unspecified; E55.9 Vitamin D deficiency, unspecified; E66.9 Obesity, unspecified; Z79.4 Long term (current) use of insulin | CPT/HCPCS: 96127; 99212 ==

== ENCOUNTER 2024-05-20 10:38 | Outpatient (AMB) | payer OTHER, SELFPAY ==
--- NOTE | 2024-05-20 11:00 | MHC.OFFVIS ---
Vital Signs 05/20/24 11:06 Height 5 ft Weight 185 lb 6 oz BMI 36.2 BP 137/74 Blood Pressure Location Rt brachial Position Sitting Pulse 96 Pulse Source Pulse Oximeter Pulse Oximetry (%) 97 Oxygen Delivery Method Room Air Intake Visit Reasons: Low back pain, unspecified Intake Note: Pain today 10/09 Animal Daycare Provider Required: Yes Animal Daycare Provider Language: Skid Road Man Name: Benjamin #[id number] Accompanied by: Self / Same As Patient Allergies Iodinated Contrast Media [IV CONTRAST] Allergy (Intermediate, Verified 05/20/24 11:07) RASH iopromide [From ULTRAVIST] Allergy (Mild, Verified 05/20/24 11:07) ITCHING semaglutide [From Ozempic] Adverse Reaction (Severe, Verified 05/20/24 11:07) pancreatitis HPI Comments Details: The patient is a 63-year-old female presenting with low back pain. The pain began two to three months ago and is described as aching and throbbing, similar to being hit, impacting her ability to perform activities such as sweeping, walking, standing. The pain necessitates sitting or lying down to alleviate discomfort, especially following prolonged periods of standing or walking. This condition is new, since post-surgical relief following her laminectomy in 2014. Radiographs performed post-onset revealed osteoporosis and an old compression fracture at L2. There is radiation of the pain into the legs, with fatigue and weakness noted during ambulation, though no sharp pain is felt during movement or twisting. The patient denies any recent injuries or falls that could have contributed to this exacerbation. She is a known diabetic with suboptimal control, managed on insulin, and has GERD. Her medical management has included omeprazole for gastric symptoms and has been guided away from oral anti-inflammatory medications due to gastrointestinal concerns. - Onset: 2-3 months ago, though patient has suffered from back pain for >5 years - Quality: Aching, throbbing, tightness, spasms - Location: Lower back - Radiation: no sharp shooting pain down the legs. no leg burning, numbness, electrical shooting pains. - Aggravating Factors: Prolonged standing, walking, activities like sweeping - Alleviating Factors: Sitting, lying down - Impact on Activities: Limits the ability to perform daily tasks - Affect: Pain impacts daily activities and causes significant discomfort - Analgesia: No use of pain medications such as ibuprofen or naproxen due to gastric concerns. No improvement with Tylenol, heat or ice. - Adverse Effects: History of GERD, taking omeprazole - Activities of Daily Living: Difficulty with tasks like sweeping; alleviated by sitting or lying down - Aberrant Drug Related Behaviors: None reported [facility] Medical History Osteoporosis Early satiety Mixed hyperlipidemia Ganglion cyst of tendon sheath of left hand Pure hypercholesterolemia Numbness and tingling in both hands Trigger finger, left middle finger Trigger finger, right ring finger Vulvar leukoplakia Atypical chest pain Tachycardia Left knee pain Right shoulder pain Arthralgia Vulvovaginitis juani albicans Breast pain, right Obesity (BMI 30-39.9) Hypertriglyceridemia Vitamin D deficiency Loose stools Pancreatitis Poor historian Vulvar leukoplakia Vulvar itching Recurrent epigastric abdominal pain Type 2 diabetes mellitus with diabetic nephropathy Hyperlipidemia LDL goal <100 Diabetes mellitus Primary osteoarthritis of hips, bilateral Lumbar degenerative disc disease Anxiety GERD without esophagitis Gastritis GERD (gastroesophageal reflux disease) Depression Hypothyroidism Type 2 diabetes mellitus with hyperglycemia, with long-term current use of insulin Type 2 diabetes mellitus with diabetic polyneuropathy Essential hypertension Surgical History S/P cholecystectomy Hx of tubal ligation History of herniated intervertebral disc Family History Father Throat cancer Mother Diabetes mellitus CVD (cardiovascular disease) Maternal Aunt Breast cancer Social History Household Members: None Housing: Apartment Alcohol intake: never Patient Tobacco Use Status: Former Tobacco user e-Cigarette/Vaping Use: Never Used Second Hand Smoke Exposure: No service: No Current occupational status: disabled Sexual orientation: Straight/Heterosexual Gender identity: Female Cognitive needs: No Hearing needs: No Vision needs: Yes Female Reproductive History Menstrual Age of Menarche: 12 Review of Systems Const Details: - Musculoskeletal: Reports aching, throbbing, and weakness in the legs - Gastrointestinal: Reports bloating, acid reflux Physical Exam Vital Signs: Last Vital Signs Pulse 96 05/20/24 11:06 BP 137/74 05/20/24 11:06 Pulse Ox 97 05/20/24 11:06 Oxygen Delivery Method Room Air 05/20/24 11:06 BMI result Body Mass Index 36.2 General: awake, alert, oriented. Answers questions appropriately. Fully engaged in examination. Skin: warm, dry, intact HEENT: Normocephalic. Hearing intact. Cardiac: External chest normal in appearance. Respiratory: No cough, audible wheezing or stridor. Abdomen: without gross distension. MS: No obvious swelling or deformities. Able to stand on bilateral tiptoes and bilateral heels.? Able to transition from sit to stand unassisted. Ambulates with bilaterally normal heel strike and toe off SLR negative bilaterally Minimally tender over midline lumbar vertebrae and lumbar paraspinal muscles Facet loading negative bilaterally Nontender over bilateral PSIS Well-healed surgical scar over midline lumbar Bilateral lower extremity strength 5/5 Negative footdrop, negative clonus Decreased lumbar range of motion Neurological: Oriented to person, place, time and situation. Thought process intact. No gait abnormalities appreciated. Psychiatric: Appropriate mood and affect. Good judgment and insight. Results Reviewed Results Reviewed: 02/02/2024 XR/XR lumbar spine 2-3V FINDINGS: Normal vertebral body alignment. Chronic loss of superior endplate height at L2, unchanged and consistent with a chronic compression deformity. No new loss of vertebral body height. Multilevel loss of intervertebral disc height with endplate osteophytes, similar when compared to the prior examination. No concerning lytic or blastic osseous lesion. Right upper quadrant surgical clips. No abnormal soft tissue calcification. IMPRESSION: 1. Multilevel degenerative disc disease, similar when compared to the prior examination. 2. Chronic L2 compression deformity, unchanged. Assessment & Plan Assessment & Plan (1) Lumbar degenerative disc disease: Code(s): M51.36 - Other intervertebral disc degeneration, lumbar region Category: Medical Qualifiers: Disc-related pain type: discogenic back pain only Qualified Code(s): M51.360 - Other intervertebral disc degeneration, lumbar region with discogenic back pain only (2) Osteoporosis: Code(s): M81.0 - Age-related osteoporosis without current pathological fracture Category: Medical Qualifiers: Osteoporosis type: unspecified Presence of current pathological fracture: without current pathological fracture Qualified Code(s): M81.0 - Age-related osteoporosis without current pathological fracture (3) Post laminectomy syndrome: Code(s): M96.1 - Postlaminectomy syndrome, not elsewhere classified Category: Medical Plan The patient will begin physical therapy to address her low back pain and any related functional impairments. A topical anti-inflammatory will be used to limit systemic side effects. If physical therapy is ineffective, an MRI will be ordered to assess for potential spinal canal stenosis. The patient's diabetes care will continue with her endocrinology provider. Follow-up will be necessary to evaluate the effectiveness of the initial treatment plan and reassess the need for further imaging. I discussed the current management plan for her low back pain, emphasizing the importance of physical therapy as a primary intervention. The decision for an MRI will depend on her response to therapy, considering her surgical history and the concern for spinal stenosis. We reviewed the use of a topical anti-inflammatory. I explained the risks and benefits of current treatments. There was consensus to continue her diabetic management with her health plan specialist due to her elevated A1c. - Begin physical therapy as scheduled; notify if not contacted within two weeks - Apply the prescribed topical anti-inflammatory as directed - Follow up with your endocrinology provider for diabetes management - Return to this office if physical therapy exacerbates symptoms or fails to provide relief for further evaluation and potential MRI Patient was informed and verbally consented to the use of an ambient scribe for clinic note documentation during this visit. Orders: Orders PT Evaluation and Treatment Today M54.50 - Low back pain, unspecified Medications: New diclofenac sodium 3% apply to most painful area twice daily as needed for pain 1 appl topical BID 100 grams 2RF Coding Level of Care Code New Pt Level 4 (50098) Complex EM visit Add On G2211 Diagnoses Degeneration of intervertebral disc of lumbar region with discogenic back pain M51.360 Disc-related pain type: discogenic back pain only Osteoporosis without current pathological fracture, unspecified osteoporosis type M81.0 Osteoporosis type: unspecified Presence of current pathological fracture: without current pathological fracture Post laminectomy syndrome M96.1
[2024-05-20 11:06] VITALS: BP 137/74; PULSE 96; O2SAT 97; BMI 36.2
--- OUTSIDE RECORDS SUMMARY | 2024-05-20 12:44 | XMS_ITS | Encounter Summary ---
Author Organization [facility] Address [address] [place] [address] Care Team Providers Care Supervisor Stave Cutting Name Role Phone Jad Guthrie MD Primary Care Provider [phone] [facility], Pcp Primary Care Provider Kirit jones Encounter Details Date Type Department Care Team Description 03/21/2015 LOADING UNIT OPERATOR SEATING/Mass[facility] Report Medical Records [address] [place] [id number] Abstract, Provider Social History Tobacco Use Types [...] on filedocumented in this encounter Care Teams Supervisor Stave Cutting Relationship Specialty Start Date End Date Jad Guthrie MD [address] [place] [address] PCP - General Internal Medicine 08/22/14 08/18/18 [facility], Pcp [address] [place] [address] PCP - General Internal Medicine 08/19/18 documented as of this encounter
--- OUTSIDE RECORDS SUMMARY | 2024-05-20 12:44 | XMS_ITS | Encounter Summary ---
Author Organization [facility] Address [address] [place] [address] Care Team Providers Care Wire Inspector Name Role Phone Jad Guthrie MD Primary Care Provider [phone] [facility], Pcp Primary Care Provider Kirit jones Encounter Details Date Type Department Care Team Description 04/04/2015 Hospital Medical Records [address] [place] [address] Cal Greer MD Social History Tobacco Use [...] on filedocumented in this encounter Care Teams Wire Inspector Relationship Specialty Start Date End Date Jad Guthrie MD [address] [place], [place] [phone] PCP - General Internal Medicine 08/22/14 08/18/18 [facility], Pcp [address] [place] [address] PCP - General Internal Medicine 08/19/18 documented as of this encounter
--- OUTSIDE RECORDS SUMMARY | 2024-05-20 12:44 | XMS_ITS | Encounter Summary ---
Author Organization [facility] Address [address] [place] [address] Care Team Providers Care Skidder Name Role Phone Jad Guthrie MD Primary Care Provider [phone] [facility], Pcp Primary Care Provider Kirit jones Encounter Details Date Type Department Care Team Description 04/04/2015 Hospital Medical Records [address] [place] [address] Avinash Whelan MD Social History Tobacco Use Types Packs/Day [...] on filedocumented in this encounter Care Teams Skidder Relationship Specialty Start Date End Date Jad Guthrie MD [address] [place], [place] [phone] PCP - General Internal Medicine 08/22/14 08/18/18 [facility], Pcp [address] [place] [phone] PCP - General Internal Medicine 08/19/18 documented as of this encounter
--- OUTSIDE RECORDS SUMMARY | 2024-05-20 12:45 | XMS_ITS | Encounter Summary ---
Author Organization [facility] Address [address] [place] [address] Care Team Providers Care Modern Greek Studies Professor Name Role Phone Jad Guthrie MD Primary Care Provider [phone] [facility], [facility] Primary Care Provider Kirit e Encounter Details Date Type Department Care Team Description 12/15/2017 Orders Only Adult Medicine [address] [id number] Shauna Mcnamara PA Uncontrolled type 2 diabetes with renal manifestation (HCC) (Primary Dx) Social History Tobacco Use Types Packs/Day Years [...] on file documented as of this encounter Results * (ABNORMAL) HEMOGLOBIN A1C (01/12/2018 3:01 PM EST) Glycosylated Hemoglobin A1C 8.3(H) 4.0 - 6.0 % 01/12/2018 3:55 PM EST [facility] Comment: HbA1C VALUES MAY NOT ACCURATELY REFLECT MEAN BLOOD GLUCOSE IN PATIENTS WITH HEMOGLOBIN VARIANTS SUCH HbF, HbS. 01/12/2018 3:01 PM EST 01/12/2018 3:02 PM EST [facility] [address] documented in this encounter Visit Diagnoses Diagnosis Uncontrolled type 2 diabetes with renal manifestation- Primary Type II or unspecified type diabetes mellitus with renal manifestations, uncontrolled documented in this encounter Care Teams Modern Greek Studies Professor Relationship Specialty Start Date End Date Jad Guthrie MD [address] [place] [address] PCP - General Internal Medicine 08/22/14 08/18/[address] [address] PCP - General Internal Medicine 08/19/18 documented as of this encounter
--- OUTSIDE RECORDS SUMMARY | 2024-05-20 12:45 | XMS_ITS | Encounter Summary ---
Author Organization [facility] Address [address] [place] [address] Care Team Providers Care Refrigeration Systems Installer Name Role Phone [facility], Pcp Primary Care Provider Unavailabl e Reason for Visit * Reason Onset Date Comments APPOINTMENT 10/06/2019 Encounter Details Date Type Department Care Team Description 10/06/2019 Telephone Internal Medicine - [address], [address] [place], [place] [phone] [facility], Pcp APPOINTMENT Social History Tobacco Use Types Packs/Day Years Used Date Smoking Tobacco: Former Cigarettes 1 15 0 1993 - 03/02/2011 Smokeless Tobacco: Never Comments:1 ppd Alcohol Use Standard Drinks/Week Comments No 0 (1 standard drink = 0.6 oz pur e alcohol) Sex Assigned at Date Recorded Not on file documented as of this encounter Miscellaneous Notes * Telephone Encounter - Honey Berkowitz - 10/06/2019 11:39 AM EDT This patient does not have a pcp listed and also does not have insurance. Patient needs to contact PCP to have them send us records and demogrpahic/insurance info. Please let them know. Tell them PCPcan fax it as [phone] * Telephone Encounter - Judith Phillips - 10/06/2019 11:36 AM EDT Follow up appointment not available. Please call patient to book-no open NON PUBLIC SLOTS. Appointment needed patient calling to book colonoscopy documented in this encounter Plan of Treatment Not on file documented as of this encounter Visit Diagnoses Not on filedocumented in this encounter Care Teams Refrigeration Systems Installer Relationship Specialty Start Date End Date [facility], Pcp PCP - General Internal Medicine 08/19/18 documented as of this encounter
--- OUTSIDE RECORDS SUMMARY | 2024-05-20 12:45 | XMS_ITS | Encounter Summary ---
Author Organization [facility] Address [address] [place] [address] Care Team Providers Care Senior Software Tester Name Role Phone Jad Guthrie MD Primary Care Provider [phone] [facility], Pcp Primary Care Provider Unavailabl e Reason for Visit * Reason Onset Date Comments REFERRAL 04/14/2016 Podiatry Encounter Details Date Type Department Care Team Description 04/14/2016 Telephone Podiatry - [address] [address] [place] DPM REFERRAL (Podiatry) [...] on filedocumented in this encounter Care Teams Senior Software Tester Relationship Specialty Start Date End Date Jad Guthrie MD [address] [place] [address] PCP - General Internal Medicine 08/22/14 08/18/18 [facility], Pcp [address] [place] [address] PCP - General Internal Medicine 08/19/18 documented as of this encounter
--- OUTSIDE RECORDS SUMMARY | 2024-05-20 12:45 | XMS_ITS | Encounter Summary ---
Author Organization [facility] Address [address] [place] [address] Care Team Providers Care Liner Reroll Tender Name Role Phone Jad Guthrie MD Primary Care Provider [phone] [facility], Pcp Primary Care Provider Kirit jones Encounter Details Date Type Department Care Team Description 04/15/2016 Hereditary Cancer Qu iz Results Medical Records [address] [place] [id number] Abstract, Provider Social History Tobacco Use Types [...] on filedocumented in this encounter Care Teams Liner Reroll Tender Relationship Specialty Start Date End Date Jad Guthrie MD [address] [place], [place] [phone] PCP - General Internal Medicine 08/22/14 08/18/18 [facility], Pcp [address] [place] [address] PCP - General Internal Medicine 08/19/18 documented as of this encounter
--- OUTSIDE RECORDS SUMMARY | 2024-05-20 12:45 | XMS_ITS | Encounter Summary ---
Author Organization [employer] [facility] Address [address] [place] [address] Care Team Providers Care Brazing Machine Operator Name Role Phone Jad Guthrie MD Primary Care Provider [phone] [facility], Pcp Primary Care Provider Kirit jones Encounter Details Date Type Department Care Team Description 02/22/2016 Wildlife Enforcement Major Report Medical Records [address] [place] [address] Jorgito Mills MD Social History Tobacco Use Types Packs/Day [...] on filedocumented in this encounter Care Teams Brazing Machine Operator Relationship Specialty Start Date End Date Jad Guhtrie MD [address] [place] [address] [phone] PCP - General Internal Medicine 08/22/14 08/18/18 [facility], Pcp [address] [place] [address] PCP - General Internal Medicine 08/19/18 documented as of this encounter
--- OUTSIDE RECORDS SUMMARY | 2024-05-20 12:45 | XMS_ITS | Encounter Summary ---
Author Organization [employer] [facility] Address [address] [place] [address] Care Team Providers Care Hide House Supervisor Name Role Phone Jad Guthrie MD Primary Care Provider [phone] [facility], Pcp Primary Care Provider Kirit jones Encounter Details Date Type Department Care Team Description 08/28/2014 Release of Information Medical Records [address] [place] [id number] Abstract, Provider Social History Tobacco Use Types [...] on filedocumented in this encounter Care Teams Hide House Supervisor Relationship Specialty Start Date End Date Jad Guthrie MD [address] [place] [phone] PCP - General Internal Medicine 08/22/14 08/18/18 [facility], Pcp [address] [place] [address] PCP - General Internal Medicine 08/19/18 documented as of this encounter
--- OUTSIDE RECORDS SUMMARY | 2024-05-20 12:45 | XMS_ITS | Encounter Summary ---
Author Organization [employer] [facility] Address [address] [place] [address] Care Team Providers Care Spray Foam Installer Name Role Phone Jad Guthrie MD Primary Care Provider [phone] [facility], Pcp Primary Care Provider Kirit jones Encounter Details Date Type Department Care Team Description 01/01/2015 Commissary Helper Report Medical Records [address] [place] [address] Pelon Connolly MD Social History Tobacco Use [...] on filedocumented in this encounter Care Teams Spray Foam Installer Relationship Specialty Start Date End Date Jad Guthrie MD [address] [place] [address] [phone] PCP - General Internal Medicine 08/22/14 08/18/18 [facility], Pcp [address] [place] [address] PCP - General Internal Medicine 08/19/18 documented as of this encounter
--- OUTSIDE RECORDS SUMMARY | 2024-05-20 12:45 | XMS_ITS | Encounter Summary ---
Author Organization [facility] Address [address] [place] [address] Care Team Providers Care Gas Usage Meter Clerk Name Role Phone Jad Guthrie MD Primary Care Provider [phone] [facility], Pcp Primary Care Provider Kirit jones Encounter Details Date Type Department Care Team Description 01/15/2015 Au Pair Report Medical Records [address] [place] [address] Pelon Connolly MD Social History Tobacco Use [...] on filedocumented in this encounter Care Teams Gas Usage Meter Clerk Relationship Specialty Start Date End Date Jad Guthrie MD [address] [place] [phone] PCP - General Internal Medicine 08/22/14 08/18/18 [facility], Pcp [address] [place] [address] PCP - General Internal Medicine 08/19/18 documented as of this encounter
--- OUTSIDE RECORDS SUMMARY | 2024-05-20 12:45 | XMS_ITS | Encounter Summary ---
Author Organization [facility] Address [address] [place] [address] Care Team Providers Care Sustainable Agriculture Faculty Name Role Phone Jad Guthrie MD Primary Care Provider [facility], Pcp Primary Care Provider Kirit jones Encounter Details Date Type Department Care Team Description 05/20/2017 Release of Information Medical Records [address] [place] [address] Abstract, Provider Social History Tobacco Use Types [...] on filedocumented in this encounter Care Teams Sustainable Agriculture Faculty Relationship Specialty Start Date End Date Jad Guthrie MD [address] [place], [place] [phone] PCP - General Internal Medicine 08/22/14 08/18/18 [facility], Pcp [address] [place] [address] PCP - General Internal Medicine 08/19/18 documented as of this encounter
--- OUTSIDE RECORDS SUMMARY | 2024-05-20 12:45 | XMS_ITS | Encounter Summary ---
Author Organization [facility] Address [address] [place] [address] Care Team Providers Care Moth Exterminator Name Role Phone Jad Guthrie MD Primary Care Provider [phone] [facility], Pcp Primary Care Provider Kirit jones Encounter Details Date Type Department Care Team Description 03/09/2018 Pattern Puncher Report Medical Records [address] [place] [address] Sam Gomez MD Social History Tobacco Use Types Packs/Day [...] on filedocumented in this encounter Care Teams Moth Exterminator Relationship Specialty Start Date End Date Jad Guthrie MD [address] [place], [place] [phone] PCP - General Internal Medicine 08/22/14 08/18/18 [facility], Pcp [address] [place] [address] PCP - General Internal Medicine 08/19/18 documented as of this encounter
--- OUTSIDE RECORDS SUMMARY | 2024-05-20 12:45 | XMS_ITS | Encounter Summary ---
Author Organization [facility] Address [address] [place] [address] Care Team Providers Care Child And Family Services Worker Name Role Phone Jad Guthrie MD Primary Care Provider [phone] [facility], [facility] Primary Care Provider Unavailabl e Reason for Visit * Reason Comments E-prescribe Rx Request Encounter Details Date Type Department Care Team Description 10/22/2015 Refill Adult Medicine [address] [address] Tushar Prince MD E-prescribe Rx Request Social [...] an upcoming appointment? No-unable to reach left [facility] to call for appointment due to refill request. Appt due (THE MEDICATION REQUESTED IS ON THE MED LIST ABOVE) All of the medications requested were on the CURRENT MEDS list Did you check the Pharmacy information above?: YES Patient wants: 30 -day supply Is this a mail order prescription request ? NO Patients current insurance carrier is: [place] / Plan: MEDICAID PCC / Product Type: MEDICAID [id number] documented in this encounter Plan of Treatment Not on file documented as of this encounter Visit Diagnoses Not on filedocumented in this encounter Care Teams Child And Family Services Worker Relationship Specialty Start Date End Date Jad Guthrie MD [address] [place] [address] [phone] PCP - General Internal Medicine 08/22/14 08/18/[address] [address] PCP - General Internal Medicine 08/19/18 documented as of this encounter
--- OUTSIDE RECORDS SUMMARY | 2024-05-20 12:45 | XMS_ITS | Encounter Summary ---
Author Organization [employer] [facility] Address [address] [place] [address] Care Team Providers Care Basting Machine Operator Name Role Phone Jad Guthrie MD Primary Care Provider [phone] [facility], Pcp Primary Care Provider Kirit jones Encounter Details Date Type Department Care Team Description 11/14/2015 Telephone Adult Medicine [address] [phone] Jad Guthrie MD [address] [place] [address] [phone] Social History Tobacco Use Types Packs/Day Years [...] on filedocumented in this encounter Care Teams Basting Machine Operator Relationship Specialty Start Date End Date Jad Guthrie MD [address] [place] [address] [phone] PCP - General Internal Medicine 08/22/14 08/18/18 [facility] [address] [place], [place] [phone] PCP - General Internal Medicine 08/19/18 documented as of this encounter
--- OUTSIDE RECORDS SUMMARY | 2024-05-20 12:45 | XMS_ITS | Encounter Summary ---
Author Organization [facility] Address [address] [place] [address] Care Team Providers Care Custodian Name Role Phone Jad Guthrie MD Primary Care Provider [phone] [facility], Pcp Primary Care Provider Kirit jones Encounter Details Date Type Department Care Team Description 05/02/2016 Transfer Records Medical Records [address] [place] [address] Abstract, Provider Social History Tobacco Use Types [...] on filedocumented in this encounter Care Teams Custodian Relationship Specialty Start Date End Date Jad Guthrie MD [address] [place], [place] [phone] PCP - General Internal Medicine 08/22/14 08/18/18 [facility], Pcp [address] [place] [address] PCP - General Internal Medicine 08/19/18 documented as of this encounter
--- OUTSIDE RECORDS SUMMARY | 2024-05-20 12:45 | XMS_ITS | Encounter Summary ---
Author Organization [employer] [facility] Address [address] [place] [address] Care Team Providers Care Keypunch Operators Supervisor Name Role Phone Jad Guthrie MD Primary Care Provider [phone] [facility], Pcp Primary Care Provider Kirit jones Encounter Details Date Type Department Care Team Description 01/04/2015 Controlled Substance Contract with Plan Medical Records [address] [place] [address] Abstract, Provider Social History Tobacco Use Types [...] on filedocumented in this encounter Care Teams Keypunch Operators Supervisor Relationship Specialty Start Date End Date Jad Guthrie MD [address] [place] [address] [phone] PCP - General Internal Medicine 08/22/14 08/18/18 [facility], Pcp [address] [place] [id number] PCP - General Internal Medicine 08/19/18 documented as of this encounter
--- OUTSIDE RECORDS SUMMARY | 2024-05-20 12:45 | XMS_ITS | Clinical Summary ---
Author Organization [employer] [facility] Address [id number] [place] [id number] Care Team Providers Care Speedometer Mechanic Name Role Phone Unavailable Primary Care Provider Unavailabl e Surgical History Surgery Date Site/Laterality Comments CHOLECYSTECTOMY PROCEDURE: LAPAROSCOPIC CHOLECYSTECT OTHER SURGICAL HISTORY PROCEDURE: [place] EPISIOTOMY/VAG RPR OTH/THN ATTENDING ESOPHAGOGASTRODUODENOSCOPY 03/12/15 PROCEDURE: [place] ESOPHAGOGASTRODUODENOSCOPY TRANSORAL DIAGNOSTIC; COMMENT: normal, with nl [...]
--- OUTSIDE RECORDS SUMMARY | 2024-05-20 12:45 | XMS_ITS | Encounter Summary ---
Author Organization [facility] Address [address] [place] [address] Care Team Providers Care Ticker Wirer Name Role Phone Jad Guthrie MD Primary Care Provider [phone] [facility], Pcp Primary Care Provider Kirit jones Encounter Details Date Type Department Care Team Description 10/12/2014 Converting Operator Report Medical Records [address] [place] [address] Pelon Connolly MD Social History Tobacco Use [...] on filedocumented in this encounter Care Teams Ticker Wirer Relationship Specialty Start Date End Date Jad Guthrie MD [address] [place] [address] [phone] PCP - General Internal Medicine 08/22/14 08/18/18 [facility], Pcp [address] [place] [id number] PCP - General Internal Medicine 08/19/18 documented as of this encounter
== END 2024-05-20 11:38 | disposition home or self-care (01) ==
LOC: HO.PMC 10:39
PROVIDERS: PCP Internal Medicine; Referring Provider Internal Medicine; Visit Provider Nurse Practitioner Family
DX: M51.360 Other intervertebral disc degeneration, lumbar region with discogenic back pain only (principal); M81.0 Age-related osteoporosis without current pathological fracture; M96.1 Postlaminectomy syndrome, not elsewhere classified
CPT/HCPCS: 99204; G2211

== ENCOUNTER → 2024-05-20 10:38 | Outpatient (BNVA) | payer OTHER, SELFPAY | PROVIDERS: PCP Internal Medicine; Referring Provider Internal Medicine; Visit Provider Nurse Practitioner Family | DX: M81.0 Age-related osteoporosis without current pathological fracture (principal); M96.1 Postlaminectomy syndrome, not elsewhere classified; M51.360 Other intervertebral disc degeneration, lumbar region with discogenic back pain only | CPT/HCPCS: 99202 ==

== ENCOUNTER 2024-06-17 10:17 | Outpatient (AMB) | payer OTHER, SELFPAY ==
--- NOTE | 2024-06-17 10:19 | A.OFFVIS_ITS ---
Vital Signs 06/17/24 10:23 Height 5 ft 2 in Weight 178 lb 9.191 oz BMI 32.7 BP 148/74 H Blood Pressure Location Lt brachial Position Sitting Pulse 104 H Intake Visit Reasons: early satiety/ Aimee pt Intake Note: Brielle presents in the office as a Aimee patient follow up for Early Satiety. CC: She states that she does have pains in the stomach. She states that there are some days with severe pains. Electrical Drafter Required: Yes Electrical Drafter Name: Valeria [id number] Allergies Iodinated Contrast Media [IV CONTRAST] Allergy (Intermediate, Verified 06/17/24 10:26) RASH iopromide [From ULTRAVIST] Allergy (Mild, Verified 06/17/24 10:26) ITCHING semaglutide [From Ozempic] Adverse Reaction (Severe, Verified 06/17/24 10:26) pancreatitis Medication List - Last Reconciled 06/17/24 by Norma Martinez CNP atorvastatin 80 mg PO BEDTIME blood sugar diagnostic (FreeStyle Lite Strips) As directed three times a day blood-glucose meter (FreeStyle [place] Lite kit) As directed dispense as freestyle lite blood-glucose sensor (Dex1st Choice Lawn Care G7 Sensor device) Use daily As directed to monitor glucose. change q 10 days cholecalciferol (vitamin D3) 50 mcg PO DAILY 90 days clonidine HCl 0.1 mg PO BID PRN 30 days empagliflozin (Jardiance) 25 mg PO DAILY gabapentin 300 mg PO BEDTIME PRN glipizide ER 5 mg PO DAILY glucose (Dex4 Glucose) 16 grams (4 x 4 gram) PO Q15M PRN insulin degludec (Tresiba FlexTouch U-200 insulin) 80 units (0.4 mL) subcut BEDTIME 30 days insulin lispro (Humalog KwikPen (U-100) Insulin) 30 units for breakfast , 30 units for lunch, 30 units for dinner subcutaneously daily lancets (FreeStyle Lancets) Three times a day levothyroxine 50 mcg PO QAM lisinopril-hydrochlorothiazide 20-12.5 mg 1 tab PO DAILY 90 days lorazepam mg PO metoprolol succinate ER 75 mg (1.5 x 50 mg) PO DAILY 30 days mirtazapine 7.5 mg PO BEDTIME 30 days omeprazole 40 mg PO QAM 90 days pen needle, diabetic (BD Ultra-Fine Jordana Pen Needle) As directed four times a day pen needle, diabetic As directed sertraline 50 mg PO DAILY 30 days terconazole 0.8% 1 appful vaginal BEDTIME 3 days HPI HPI early satiety/ Aimee pt: Details: Patient is a 64-year-old female with PMH of osteoporosis, hyperlipidemia, hypertension, hypothyroidism, diabetes, anxiety, depression and GERD. Last visit with RON Torres 10/23/2022 for abdominal pain/colonoscopy pre-screening. Pt is here today for colonoscopy pre-screening. She did not complete EGD or colonoscopy as ordered 2022 due to no scheduling call. She reports epigastric pain that radiates to RUQ X 1 year, with recent exacerbation in pain. She describes the pain as heartburn. She is currently rating her pain a 6/10. She reports taking omeprazole in the morning before breakfast Associated symptoms: nausea with vomiting 1-2x/week, intermittent type 7 stools 1-2x/week-otherwise type 4 Aggravating factors: fatty foods Alleviating attempts: avoiding triggers, omeprazole Patient denies: fevers/chills, appetite changes, regurgitation, unintentional wt loss, dysphasia, new cardiac symptoms, pulmonary symptoms, bladder changes or melena/hematochezia. consumes: fruits, beans, rice, meats minimal vegetables water, crystal light, occasional zero soda for hydration She is established with Cardiology, next appt scheduled for July 2024. Social hx: denies ETOH use denies recreational drug use former smoker, cessation 9-10 years ago Family hx: Father, ? throat CA Maternal Aunt, breast CA denies personal hx of CA PFSH Medical History Osteoporosis Early satiety Mixed hyperlipidemia Ganglion cyst of tendon sheath of left hand Pure hypercholesterolemia Numbness and tingling in both hands Trigger finger, left middle finger Trigger finger, right ring finger Vulvar leukoplakia Atypical chest pain Tachycardia Left knee pain Right shoulder pain Arthralgia Vulvovaginitis juani albicans Breast pain, right Obesity (BMI 30-39.9) Hypertriglyceridemia Vitamin D deficiency Loose stools Pancreatitis Poor historian Vulvar leukoplakia Vulvar itching Recurrent epigastric abdominal pain Type 2 diabetes mellitus with diabetic nephropathy Hyperlipidemia LDL goal <100 Diabetes mellitus Primary osteoarthritis of hips, bilateral Lumbar degenerative disc disease Anxiety GERD without esophagitis Gastritis GERD (gastroesophageal reflux disease) Depression Hypothyroidism Type 2 diabetes mellitus with hyperglycemia, with long-term current use of insulin Type 2 diabetes mellitus with diabetic polyneuropathy Essential hypertension Surgical History S/P cholecystectomy Hx of tubal ligation History of herniated intervertebral disc Family History Father Throat cancer Mother Diabetes mellitus CVD (cardiovascular disease) Maternal Aunt Breast cancer Social History Household Members: None Housing: Apartment Alcohol intake: never Patient Tobacco Use Status: Former Tobacco user e-Cigarette/Vaping Use: Never Used Second Hand Smoke Exposure: No service: No Current occupational status: disabled Sexual orientation: Straight/Heterosexual Gender identity: Female Cognitive needs: No Hearing needs: No Vision needs: Yes Female Reproductive History Menstrual Age of Menarche: 12 Review of Systems Const Reports as per HPI ENT Reports as per HPI Card Reports as per HPI Resp Reports as per HPI GI Reports as per HPI Reports as per HPI Physical Exam Vital Signs: Last Vital Signs Pulse 104 H 06/17/24 10:23 BP 148/74 H 06/17/24 10:23 BMI result Body Mass Index 32.7 Const General: healthy appearing, no acute distress and well developed Nutritional Appearance: well nourished Orientation/consciousness: patient oriented x3 HEENT Head: Yes normal to inspection, Yes normocephalic and Yes atraumatic Face and sinus: Yes normal facial exam Eyes General: appearance normal, both eyes and all related structures Neck Neck: Yes normal visual inspection Resp Effort & Inspection: normal respiratory effort, able to speak in complete sentences, no tracheal deviation and symmetric chest movement Auscultation: clear to auscultation bilaterally Cardio Jugular venous distension: no JVD Rate: regular rate Rhythm: regular rhythm Heart sounds: S1 normal heart sound present, S2 normal heart sound present, no gallops and no murmurs GI Inspection: Yes normal to inspection, No distended and Yes obesity Palpation (GI): Soft to palpation, not firm, nontender and No hepatosplenomegaly present Auscultation: normal bowel sounds Neuro General: patient oriented x3 Gait exam (Neuro): Normal gait present Psych Appearance: grossly normal Mental Status: mental status grossly normal Speech and movement: Normal speech and movement present Affect: normal affect Attitude: cooperative Thought process: Normal thought process present Thought content: Normal thought content present Insight: Good insight present (Psych) Judgement: Good judgement present (Psych) Results Reviewed Results Reviewed: Date of Service: 12/22/23 Procedure(s): US abdomen complete Accession Number(s): [id number] cc: Genaro Chu MD~ EXAMINATION: US ABDOMEN COMPLETE CLINICAL INFORMATION: Unspecified abdominal pain. COMPARISON: Ultrasound abdomen complete 10/29/2021. CT abdomen and pelvis 08/10/2018. TECHNIQUE: Real-time imaging of the abdominal viscera. FINDINGS: PANCREAS: The visualized pancreas appears unremarkable but the pancreatic tail is obscured by bowel gas. ABDOMINAL AORTA: The proximal, mid, and distal segments are normal in caliber. INFERIOR VENA CAVA: Visualized portions are normal. LIVER: The liver is enlarged measuring 20.5 cm in greatest dimension with increased echogenicity consistent with hepatic steatosis. The liver contour is normal. No focal hepatic lesion. There is no intrahepatic biliary duct dilatation seen. GALLBLADDER: Surgically absent. COMMON BILE DUCT: Normal in caliber measuring 0.5 cm in diameter. RIGHT KIDNEY: Normal. No hydronephrosis. No renal calculi or focal parenchymal lesions. The kidney measures 14.1 cm in maximum dimension. LEFT KIDNEY: Normal. No hydronephrosis. No renal calculi or focal parenchymal lesions. The kidney measures 12.5 cm in maximum dimension. SPLEEN: The spleen is enlarged measuring 13.4 cm in maximum dimension. FREE FLUID: None. US/US abdomen complete IMPRESSION: Enlarged fatty liver with mild splenomegaly. Assessment & Plan Assessment & Plan (1) Colon cancer screening: Code(s): Z12.11 - Encounter for screening for malignant neoplasm of colon Category: Medical Plan: Due for screening colonoscopy. We reviewed medication to hold and timing p/t procedure. Reviewed prep and procedure expectations. Prep Rx'd to preferred pharmacy. (2) Abdominal pain: Code(s): R10.9 - Unspecified abdominal pain Category: Medical Qualifiers: Abdominal location: epigastric Qualified Code(s): R10.13 - Epigastric pain Plan: Described as heartburn. Ab ultrasound 12/2023 with findings of Enlarged fatty liver with mild splenomegaly. She is s/p tejinder. We will trial change in PPI as below. EGD and screening colonoscopy also ordered. We will explore further workup with findings unyielding. (3) GERD without esophagitis: Code(s): K21.9 - Gastro-esophageal reflux disease without esophagitis Category: Medical Plan: will change PPI to pantoprazole 40 mg/day, she understands to discontinue the omeprazole. We will repeat EGD. Education on GERD prevention-Advised against heavy meals. Encouraged small frequent meals VS large meals, remaining upright after meals x 2-3 hours, avoid late night eating/spicy foods/caffeine/alcohol/known triggers and tight fitting clothes Plan Follow-up after EGD/colonoscopy are sooner as needed. Time: I spent a total of 45 minutes on the date of encounter which includes: Preparing to see the patient (reviewed previous documentation, test results and medical history) Performing a medically appropriate exam and/or evaluation Ordering medications, tests, and procedures Documenting clinical information in the health record Medications: New bisacodyl per colonoscopy instructions 5 mg PO ONCE 1 day 3 tabs 0RF Norma Sarpey, HOME COMPANION pantoprazole 40 mg PO DAILY 90 tabs 1RF Norma Sarpey, HOME COMPANION polyethylene glycol 3350 (Miralax) per colonoscopy prep instructions 238 grams PO ONCE 238 grams 0RF Norma Juan, HOME COMPANION Changed From gabapentin 300 mg PO BEDTIME 90 caps 3RF To gabapentin 300 mg PO BEDTIME PRN Sultana Williamson PA-C Discontinued omeprazole Discontinued Reason: No Longer Medically Relevant 40 mg PO QAM 90 days 90 caps 1RF K21.9 - Gastro-esophageal reflux disease without esophagitis Coding Level of Care Code Established Pt Est Pt Level 4 (48838) Patient Type Established Diagnoses Colon cancer screening Z12.11 Epigastric pain R10.13 Abdominal location: epigastric GERD without esophagitis K21.9
[2024-06-17 10:23] VITALS: BP 148/74; PULSE 104; BMI 32.7
--- OUTSIDE RECORDS SUMMARY | 2024-06-17 11:10 | XMS_ITS | Encounter Summary ---
Author Organization [facility] Address [address] [place] [address] Care Team Providers Care Loan Examiner Name Role Phone Jad Guthrie MD Primary Care Provider [phone] [facility], Pcp Primary Care Provider Unavailabl e Reason for Visit * Reason Onset Date Comments Faxed Order 09/23/2017 Encounter Details Date Type Department Care Team Description 09/23/2017 Telephone Adult Medicine [address] [phone] Jad Guthrie MD [address] [place] [address] [phone] Faxed Order Social History Tobacco Use Types [...] on filedocumented in this encounter Care Teams Loan Examiner Relationship Specialty Start Date End Date Jad Guthrie MD [address] [place] [phone] PCP - General Internal Medicine 08/22/14 08/18/18 [facility], Pcp [address] [place] [id number] PCP - General Internal Medicine 08/19/18 documented as of this encounter
--- OUTSIDE RECORDS SUMMARY | 2024-06-17 11:10 | XMS_ITS | Encounter Summary ---
Author Organization [facility] Address [address] [place] [address] Care Team Providers Care Material Processor Name Role Phone Jad Guthrie MD Primary Care Provider [phone] [facility], Pcp Primary Care Provider Kirit ojnes Encounter Details Date Type Department Care Team Description 11/14/2015 Telephone Adult Medicine [address] [phone] Jad Guthrie MD [address] [place] [address] [phone] Social History Tobacco Use Types Packs/Day Years [...] on filedocumented in this encounter Care Teams Material Processor Relationship Specialty Start Date End Date Jad Guthrie MD [address] [place] [address] [phone] PCP - General Internal Medicine 08/22/14 08/18/18 [facility] [address] [place], [place] [phone] PCP - General Internal Medicine 08/19/18 documented as of this encounter
--- OUTSIDE RECORDS SUMMARY | 2024-06-17 11:10 | XMS_ITS | Encounter Summary ---
Author Organization [facility] Address [address] [place] [address] Care Team Providers Care Poured Concrete Wall Technician Name Role Phone Jad Guthrie MD Primary Care Provider [facility], Pcp Primary Care Provider Kirit jones Encounter Details Date Type Department Care Team Description 03/09/2018 Jute Bag Clipper Report Medical Records [address] [place] [address] Sam Gomez MD Social History Tobacco Use [...] on filedocumented in this encounter Care Teams Poured Concrete Wall Technician Relationship Specialty Start Date End Date Jad Guthrie MD [address] [place], [place] [phone] PCP - General Internal Medicine 08/22/14 08/18/18 [facility], Pcp [address] [place] [id number] PCP - General Internal Medicine 08/19/18 documented as of this encounter
--- OUTSIDE RECORDS SUMMARY | 2024-06-17 11:10 | XMS_ITS | Encounter Summary ---
Author Organization [facility] Address [address] [place] [address] Care Team Providers Care Lean Sensei Name Role Phone Jad Guthrie MD Primary Care Provider [phone] [facility], Pcp Primary Care Provider Kirit jones Encounter Details Date Type Department Care Team Description 05/20/2017 Release of Information Medical Records [address] [place] [id number] Abstract, Provider Social History Tobacco Use Types [...] on filedocumented in this encounter Care Teams Lean Sensei Relationship Specialty Start Date End Date Jad Guthrie MD [address] [place], [place] [phone] PCP - General Internal Medicine 08/22/14 08/18/18 [facility], Pcp [address] [place] [address] PCP - General Internal Medicine 08/19/18 documented as of this encounter
--- OUTSIDE RECORDS SUMMARY | 2024-06-17 11:10 | XMS_ITS | Encounter Summary ---
Author Organization [facility] Address [address] [place] [address] Care Team Providers Care Broth Mixer Name Role Phone Jad Guthrie MD Primary Care Provider [phone] [facility] Primary Care Provider Unavailabl e Reason for Visit * Reason Onset Date Comments refill request 07/21/2016 Encounter Details Date Type Department Care Team Description 07/21/2016 Refill Gastroenterology - [address] [address] Eitan Chandra MD refill request Social History Tobacco Use Types Packs/Day Years Used Date Smoking Tobacco: Former Cigarettes 1 15 0 1993 - 03/02/2011 Smokeless Tobacco: Never Comments:1 ppd Alcohol Use Standard Drinks/Week Comments No 0 (1 standard drink = 0.6 oz pur e alcohol) Sex Assigned at Date Recorded Not on file documented as of this encounter Miscellaneous Notes * Telephone Encounter - Reyna Barriga - 07/21/2016 12:22 PM EDT Patient requesting refill on this medication * Telephone Encounter - Eitan Chandra MD - 07/21/2016 12:22 PM EDT Prescribed, but pt not actively following with GI. Please advise her that in the future karen wouldneed to be prescribed by her PCP. * Telephone Encounter - Reyna Barriga - 07/21/2016 12:22 PM EDT Message left. documented in this encounter Plan of Treatment Not on file documented as of this encounter Visit Diagnoses Not on filedocumented in this encounter Care Teams Broth Mixer Relationship Specialty Start Date End Date Jad Guthrie MD [address] [place] [address] PCP - General Internal Medicine 08/22/14 08/18/18 [place] [address] PCP - General Internal Medicine 08/19/18 documented as of this encounter
--- OUTSIDE RECORDS SUMMARY | 2024-06-17 11:10 | XMS_ITS | Encounter Summary ---
Author Organization [facility] Address [address] [place] [address] Care Team Providers Care Credit Risk Management Director Name Role Phone Jad Guthrie MD Primary Care Provider [phone] [facility], Pcp Primary Care Provider Kirit jones Encounter Details Date Type Department Care Team Description 03/21/2015 WEIGHT TESTER/MassPat Report Medical Records [address] [place] [id number] Abstract, Provider Social History Tobacco Use Types [...] on filedocumented in this encounter Care Teams Credit Risk Management Director Relationship Specialty Start Date End Date Jad Guthrie MD [address] [place] [phone] PCP - General Internal Medicine 08/22/14 08/18/18 [facility], [address] [address] PCP - General Internal Medicine 08/19/18 documented as of this encounter
--- OUTSIDE RECORDS SUMMARY | 2024-06-17 11:10 | XMS_ITS | Clinical Summary ---
Author Organization [facility] Address [id number] [place] [address] Care Team Providers Care River Pilot Name Role Phone Unavailable Primary Care Provider [...] Breast Cancer Screening 05/02/2018 05/02/2016 COVID-19 Vaccine (2023-2 5 season) 2023 Influenza Vaccine (Season Ended) 2024 01/09/2017, 11/19/2015 DTaP,Tdap,and Td Vaccines (2 - Td or Tdap) 03/31/2026 03/31/2016 RSV Immunization Adult Patients (1 - 1-dose 75+ series) 05/27/2035 Pneumococcal [...] age to complete this topic Meningococcal B Vaccine Aged Out No l onger eligible based on patient's age to complete [...]
--- OUTSIDE RECORDS SUMMARY | 2024-06-17 11:10 | XMS_ITS | Encounter Summary ---
Author Organization [facility] Address [address] [place] [address] Care Team Providers Care Program Host Name Role Phone Jad Guthrie MD Primary Care Provider [phone] [facility], Pcp Primary Care Provider Unavailabl e Reason for Visit * Reason Onset Date Comments Faxed Order 09/05/2016 Encounter Details Date Type Department Care Team Description 09/05/2016 Telephone Adult Medicine [address] [phone] Jad Guthrie MD [address] [place] [address] [phone] Faxed Order Social History Tobacco Use Types Packs/Day Years Used Date Smoking Tobacco: Former Cigarettes 1 15 0 1993 - 03/02/2011 Smokeless Tobacco: Never Comments:1 ppd Alcohol Use Standard Drinks/Week Comments No 0 (1 standard drink = 0.6 oz pur e alcohol) Sex Assigned at Date Recorded Not on file documented as of this encounter Miscellaneous Notes * Telephone Encounter - Robyn Aviles - 09/05/2016 11:40 AM EDT Faxed orders received from [facility], please sign and fax back to [phone]. documented in this encounter Plan of Treatment Not on file documented as of this encounter Visit Diagnoses Not on filedocumented in this encounter Care Teams Program Host Relationship Specialty Start Date End Date Jad Guthrie MD [address] [place] [address] [phone] PCP - General Internal Medicine 08/22/14 08/18/18 [facility], Pcp [address] [place] [phone] PCP - General Internal Medicine 08/19/18 documented as of this encounter
--- OUTSIDE RECORDS SUMMARY | 2024-06-17 11:10 | XMS_ITS | Encounter Summary ---
Author Organization [facility] Address [address] [place] [address] Care Team Providers Care Social Science Research Assistant Name Role Phone Jad Guthrie MD Primary Care Provider [phone] [facility], Pcp Primary Care Provider Kirit jones Encounter Details Date Type Department Care Team Description 02/22/2016 Rack Puncher Report Medical Records [address] [place] [id number] Jorgito Mills MD Social History Tobacco Use [...] on filedocumented in this encounter Care Teams Social Science Research Assistant Relationship Specialty Start Date End Date Jad Guthrie MD [address] [place] [address] [phone] PCP - General Internal Medicine 08/22/14 08/18/18 [facility], Pcp [address] [place] [phone] PCP - General Internal Medicine 08/19/18 documented as of this encounter
--- OUTSIDE RECORDS SUMMARY | 2024-06-17 11:10 | XMS_ITS | Encounter Summary ---
Author Organization [facility] Address [address] [place] [address] Care Team Providers Care Geological Aide Name Role Phone Jad Guthrie MD Primary Care Provider [phone] [facility], Pcp Primary Care Provider Kirit jones Encounter Details Date Type Department Care Team Description 01/13/2017 [facility] Controlled Substance Contract Medical Records [address] [place] [id number] Abstract, Provider Social History Tobacco Use Types [...] on filedocumented in this encounter Care Teams Geological Aide Relationship Specialty Start Date End Date Jad Guthrie MD [address] [place] [address] [phone] PCP - General Internal Medicine 08/22/14 08/18/18 [facility], Pcp [address] [place] [address] PCP - General Internal Medicine 08/19/18 documented as of this encounter
--- OUTSIDE RECORDS SUMMARY | 2024-06-17 11:10 | XMS_ITS | Encounter Summary ---
Author Organization [email or web address] Address [address] [place] [address] Care Team Providers Care Visitor Services Associate Name Role Phone Jad Guthrie MD Primary Care Provider [phone] [facility], Pcp Primary Care Provider Kirit jones Encounter Details Date Type Department Care Team Description 11/20/2017 Hospital Medical Records [address] [place] [address] Social History Tobacco Use Types Packs/Day Years [...] on filedocumented in this encounter Care Teams Visitor Services Associate Relationship Specialty Start Date End Date Jad Guthrie MD [address] [place], [place] [phone] PCP - General Internal Medicine 08/22/14 08/18/18 [facility], Pcp [address] [place] [address] PCP - General Internal Medicine 08/19/18 documented as of this encounter
--- OUTSIDE RECORDS SUMMARY | 2024-06-17 11:10 | XMS_ITS | Encounter Summary ---
Author Organization [facility] Address [address] [place] [address] Care Team Providers Care Crisis Intervention Specialist Name Role Phone Jad Guthrie MD Primary Care Provider [phone] [facility], [facility] Primary Care Provider Unavailabl e Reason for Visit * Reason Onset Date Comments Testing 01/08/2015 CT abdomen Encounter Details Date Type Department Care Team Description 01/08/2015 Telephone Adult Medicine [address] [phone] Jad Guthrie MD [address] [place] [address] [phone] Testing (CT abdomen ) Social History Tobacco Use Types Packs/Day Years Used Date Smoking Tobacco: Former Cigarettes Comments:quit 3 years ago, 1 ppd Alcohol Use Standard Drinks/Week Comments Not Asked 0 (1 standard drink = 0.6 oz pur e alcohol) Sex Assigned at Date Recorded Not on file documented as of this encounter Miscellaneous Notes * Telephone Encounter - Jhonatan Gardiner - 01/08/2015 8:44 AM EST Insurance denied CT abdomen. For peer to peer reconsideration, please call option #4. Case # is [id number], please advise. documented in this encounter Plan of Treatment Not on file documented as of this encounter Visit Diagnoses Not on filedocumented in this encounter Care Teams Crisis Intervention Specialist Relationship Specialty Start Date End Date Jad Guthrie MD [address] [place] [phone] PCP - General Internal Medicine 08/22/14 08/18/18 [facility], Pcp [address] [place] [address] MICHAEL Red [address] PCP - General Internal Medicine 08/19/18 documented as of this encounter
--- OUTSIDE RECORDS SUMMARY | 2024-06-17 11:10 | XMS_ITS | Encounter Summary ---
Author Organization [facility] Address [address] [place] [address] Care Team Providers Care Dry Sand Molder Name Role Phone Jad Guthrie MD Primary Care Provider [facility], Pcp Primary Care Provider Unavailabl e Reason for Visit * Reason Onset Date Comments Error 08/12/2017 Encounter Details Date Type Department Care Team Description 08/12/2017 Telephone Adult Medicine [address] [phone] Jad Guthrie MD [address] [place] [address] [phone] Error Social History Tobacco Use Types Packs/Day Years Used Date Smoking Tobacco: Former Cigarettes 1 15 0 1993 - 03/02/2011 Smokeless Tobacco: Never Comments:1 ppd Alcohol Use Standard Drinks/Week Comments No 0 (1 standard drink = 0.6 oz pur e alcohol) Sex Assigned at Date Recorded Not on file documented as of this encounter Miscellaneous Notes * Telephone Encounter - Javon South - 08/12/2017 9:53 AM EDT documented in this encounter Plan of Treatment Not on file documented as of this encounter Visit Diagnoses Not on filedocumented in this encounter Care Teams Dry Sand Molder Relationship Specialty Start Date End Date Jad Guthrie MD [address] [place] [address] [phone] PCP - General Internal Medicine 08/22/14 08/18/18 [facility], Pcp [address] [place] [address] PCP - General Internal Medicine 08/19/18 documented as of this encounter
--- OUTSIDE RECORDS SUMMARY | 2024-06-17 11:10 | XMS_ITS | Encounter Summary ---
Author [facility] Address [address] [place] [address] Care Team Providers Care Winder Operator Name Role Phone Jad Guthrie MD Primary Care Provider [phone] [facility], Pcp Primary Care Provider Unavailabl e Reason for Visit * Reason Onset Date Comments Faxed Order 01/19/2017 Encounter Details Date Type Department Care Team Description 01/19/2017 Telephone Adult Medicine [facility] [address] [place] [address] [phone] Jad Guthrie MD [address] [place] [address] [phone] Faxed Order Social History Tobacco Use Types [...] on filedocumented in this encounter Care Teams Winder Operator Relationship Specialty Start Date End Date Jad Guthrie MD [address] [place] [phone] PCP - General Internal Medicine 08/22/14 08/18/18 [facility], Pcp [address] [place] [id number] PCP - General Internal Medicine 08/19/18 documented as of this encounter
--- OUTSIDE RECORDS SUMMARY | 2024-06-17 11:10 | XMS_ITS | Encounter Summary ---
Author Organization [facility] Address [address] [place] [address] Care Team Providers Care Skeins Yarn Examiner Name Role Phone Jad Guthrie MD Primary Care Provider [phone] [facility], Pcp Primary Care Provider Unavailabl e Reason for Visit * Reason Onset Date Comments other 02/28/2016 stomach pain, na usea Encounter Details Date Type Department Care Team Description 02/28/2016 Telephone Cardiology - [address] [address] Eitan Chandra MD other (stomach pain, nausea) Social History Tobacco Use Types Packs/Day Years Used Date Smoking Tobacco: Former Cigarettes Smokeless Tobacco: Former Comments:quit 3 years ago, 1 ppd Alcohol Use Standard Drinks/Week Comments No 0 (1 standard drink = 0.6 oz pur e alcohol) Sex Assigned at Date Recorded Not on file documented as of this encounter Miscellaneous Notes * Telephone Encounter - Antonette Kohler - 02/29/2016 2:40 PM EST done * Telephone Encounter - Eitan Chandra MD - 02/29/2016 1:23 PM EST Please have her see me in the office on March 05 at 8:20 AM. She should bring a loss prevention lead, if possible. * Telephone Encounter - Antonette Kohler - 02/28/2016 1:36 PM EST Pt is calling because she has been having nausea now for about a week, she is also having stomach pain and is getting worse. Please advise, pt says she doesn't feel good at all. documented in this encounter Plan of Treatment Not on file documented as of this encounter Visit Diagnoses Not on filedocumented in this encounter Care Teams Skeins Yarn Examiner Relationship Specialty Start Date End Date Jad Guthrie MD [address] [place] [phone] PCP - General Internal Medicine 08/22/14 08/18/18 [place] [address] PCP - General Internal Medicine 08/19/18 documented as of this encounter
--- OUTSIDE RECORDS SUMMARY | 2024-06-17 11:11 | XMS_ITS | Encounter Summary ---
Author Organization [facility] Address [address] [place] [address] Care Team Providers Care Automatic Corn Grinder Operator Name Role Phone Jad Guthrie MD Primary Care Provider [phone] [facility], Pcp Primary Care Provider Unavailabl e Reason for Visit * Reason Comments E-prescribe Rx Request Encounter Details Date Type Department Care Team Description 04/24/2016 Refill Gastroenterology - [address] [address] Eitan Chandra MD E-prescribe Rx Request Social History Tobacco [...] * Telephone Encounter - Reyna Barriga - 04/24/2016 10:56 AM EST Message left for patient. When she calls, please give her message below. * Telephone Encounter - Eitan Chandra MD - 04/24/2016 10:45 AM EST Prescribed. Please inform her that in the future this would need to be prescribed by her PCP. * Telephone Encounter - Reyna Barriga - 04/24/2016 10:34 AM EST Requesting refill. documented in this encounter Plan of Treatment Not on file documented as of this encounter Visit Diagnoses Not on filedocumented in this encounter Care Teams Automatic Corn Grinder Operator Relationship Specialty Start Date End Date Jad Guthrie MD [address] [place] [phone] PCP - General Internal Medicine 08/22/14 08/18/18 [facility], [place] [address] PCP - General Internal Medicine 08/19/18 documented as of this encounter
--- OUTSIDE RECORDS SUMMARY | 2024-06-17 11:11 | XMS_ITS | Encounter Summary ---
[facility] Address [address] [place] [address] Care Team Providers Care Traffic Operations Engineer Name Role Phone [facility], Pcp Primary Care Provider Unavailabl e Reason for Visit * Reason Onset Date Comments APPOINTMENT 10/06/2019 Encounter Details Date Type Department Care Team Description 10/06/2019 Telephone Internal Medicine - [address], [address] [place], [place] [phone] [facility], Pcp APPOINTMENT Social History Tobacco Use [...] them know. Tell them PCPcan fax it ke [phone] * Telephone Encounter - Judith Phillips - 10/06/2019 11:36 AM EDT Follow up appointment not available. Please call patient to book-no open NON PUBLIC SLOTS. Appointment needed patient calling to book colonoscopy documented in this encounter Plan of Treatment Not on file documented as of this encounter Visit Diagnoses Not on filedocumented in this encounter Care Teams Traffic Operations Engineer Relationship Specialty Start Date End Date [facility], Pcp PCP - General Internal Medicine 08/19/18 documented as of this encounter
--- OUTSIDE RECORDS SUMMARY | 2024-06-17 11:11 | XMS_ITS | Encounter Summary ---
Author Organization [facility] Address [address] [place] [address] Care Team Providers Care Patient Access Specialist Name Role Phone Jad Guthrie MD Primary Care Provider [phone] [facility], Pcp Primary Care Provider Unavailabl e Reason for Visit * Reason Onset Date Comments REFERRAL 04/14/2016 Podiatry Encounter Details Date Type Department Care Team Description 04/14/2016 Telephone Podiatry - [address] [address] [place] DPM REFERRAL (Podiatry) [...] on filedocumented in this encounter Care Teams Patient Access Specialist Relationship Specialty Start Date End Date Jad Guthrie MD [address] [place] [phone] PCP - General Internal Medicine 08/22/14 08/18/18 [facility], Pcp [address] [place] [address] PCP - General Internal Medicine 08/19/18 documented as of this encounter
--- OUTSIDE RECORDS SUMMARY | 2024-06-17 11:11 | XMS_ITS | Encounter Summary ---
Author Organization [facility] Address [address] [place] [address] Care Team Providers Care Ribbon Blocker Name Role Phone Jad Guthrie MD Primary Care Provider [phone] [facility], Pcp Primary Care Provider Kirit jones Encounter Details Date Type Department Care Team Description 06/17/2016 Retort Cooler Report Medical Records [address] [place] [address] Jorgito Mills MD Social History Tobacco Use [...] on filedocumented in this encounter Care Teams Ribbon Blocker Relationship Specialty Start Date End Date Jad Guthrie MD [address] [place], [place] [phone] PCP - General Internal Medicine 08/22/14 08/18/18 [facility], Pcp [address] [place] [phone] PCP - General Internal Medicine 08/19/18 documented as of this encounter
== END 2024-06-17 14:13 | disposition home or self-care (01) ==
LOC: HO.HGI 10:18
PROVIDERS: PCP Internal Medicine; Visit Provider Nurse Practitioner Family
DX: Z01.818 Encounter for other preprocedural examination (principal); Z12.11 Encounter for screening for malignant neoplasm of colon; R68.81 Early satiety; K21.9 Gastro-esophageal reflux disease without esophagitis
CPT/HCPCS: 99213

== ENCOUNTER → 2024-06-17 10:17 | Outpatient (BNVA) | payer OTHER, SELFPAY | PROVIDERS: PCP Internal Medicine; Visit Provider Nurse Practitioner Family | DX: Z12.11 Encounter for screening for malignant neoplasm of colon (principal); K21.9 Gastro-esophageal reflux disease without esophagitis; R10.13 Epigastric pain | CPT/HCPCS: 99212 ==

== ENCOUNTER 2024-06-21 10:31 | Outpatient (REF) | payer OTHER, SELFPAY ==
[2024-06-21 10:57] LABS: MANUAL DIFF FLAG NO
[2024-06-21 11:21] LABS: Basophils Percent Auto 0.4 % (0-2); Eosinophils Absolute Auto 0.3 X10*3/uL (0.0-0.4); Eosinophils Percent Auto 2.9 % (0-4); Hematocrit 43.6 % (37.0-47.0); Hemoglobin 15.9 g/dl (12.0-16.0); Imm Gran Abs Auto 0.05 X10*3/uL (0.00-0.03); Imm Gran Pct Auto 0.5 % (0.0-0.4); Lymphocytes Absolute Auto 2.1 X10*3/uL (1.2-4.9); Lymphocytes Percent Auto 22.5 % (20-40); Mean Corpuscular HGB Conc 36.5 g/dl (31.0-35.0); Mean Corpuscular Hemoglobin 31.1 pg (27.0-33.0); Mean Corpuscular Volume 85.3 fL (80.0-98.0); Mean Platelet Volume 9.9 fL (9.4-12.3); Monocytes Absolute Auto 0.4 X10*3/uL (0.1-1.2); Monocytes Percent Auto 4.7 % (2-11); Neutrophils Absolute Auto 6.4 x10*3/uL (2.0-8.3); Platelet Count 220 X10*3/uL (160-400); Red Blood Count 5.11 X10*6/uL (4.20-5.50); Red Cell Distribution Width 13.4 % (11.0-16.0); White Blood Count 9.2 X10*3/uL (4.8-10.8)
[2024-06-21 11:30] LABS: Estimated Average Glucose 214 mg/dL; Hemoglobin A1c % 9.1 % (<6.0); Total Hemoglobin (HGBA1C) 4218.2403 umol/L
[2024-06-21 11:45] LABS: Appearance Urine Clear; Color Urine Yellow; Glucose Urine UA >=1000 mg/dL (Negative); Leukocyte Esterase Urine Small (1+) (Negative); Nitrite Urine Negative (Negative); PH 5.5 (5.0-9.0); Specific Gravity - Urine >= 1.030 (1.005-1.025); UMIC TRIGGER UACC YES; Urine Blood Negative (Negative); Urine Ketones Negative (Negative); Urine Protein Trace mg/dL (Neg-Trace)
--- OUTSIDE RECORDS SUMMARY | 2024-06-21 12:16 | XMS_ITS | Clinical Summary ---
Author Organization [facility] Address [id number] [place] [phone] Care Team Providers Care Grey Tender Name Role Phone Unavailable Primary Care Provider Unavailabl e Surgical History Surgery Date Site/Laterality Comments CHOLECYSTECTOMY PROCEDURE: LAPAROSCOPIC CHOLECYSTECT OTHER SURGICAL HISTORY PROCEDURE: NC EPISIOTOMY/VAG RPR OTH/THN ATTENDING ESOPHAGOGASTRODUODENOSCOPY 03/12/15 PROCEDURE: NC ESOPHAGOGASTRODUODENOSCOPY TRANSORAL DIAGNOSTIC; COMMENT: normal, with nl [...]
[2024-06-21 12:25] LABS: Folate 12.2 ng/mL (> or = 4.0); Vitamin B12 550 pg/mL (200-900)
[2024-06-21 12:30] LABS: Albumin Level 4.2 g/dL (3.5-5.0); Alkaline Phosphatase 117 U/L (39-117); Anion Gap 24 (12-20); Bilirubin Total 0.3 mg/dL (0.0-1.0); Blood Urea Nitrogen 20 mg/dL (9-16); Calcium 9.7 mg/dL (8.4-10.2); Carbon Dioxide 16 mmol/L (22-29); Chloride 102 mmol/L (96-108); Cholesterol 287 mg/dL (<200); Estimated Glomerular Filt Rate > 60; Glucose Fasting 268 mg/dL (60-99); HDL Cholesterol 26 mg/dL (>40); Sodium 138 mmol/L (135-145); TSH reflex Free T4 3.43 uIU/mL (0.32-4.0); Thyroid Stimulating Hormone 3.43 uIU/mL (0.32-4.0); Total Protein 9.5 g/dL (6.5-8.0); Triglycerides 3078 mg/dL (<150); Vitamin D 25-OH Total 17.6 ng/mL (>30)
[2024-06-21 12:35] LABS: Creatinine Urine 31.93 mg/dL; Microalbum/Creatinine Ratio Ur 360.1 ug/mg cr (<30)
[2024-06-21 13:39] LABS: Bacteria Urine None Seen (None Seen); Hyaline Casts Urine 0-2 /LPF (0-2); RBC Urine 0-2 /HPF (0-2); Squamous Epithelial Cell Urine 0-2 /HPF (0-2); UACC Culture Trigger YES
[2024-06-21 13:42] LABS: Alanine Aminotransferase 20 U/L (0-31); Aspartate Amino Transferase 16 U/L (5-31)
== END 2024-06-21 10:32 | disposition home or self-care (01) ==
LOC: HO.LAB 10:31
PROVIDERS: Visit Provider Internal Medicine
DX: E11.42 Type 2 diabetes mellitus with diabetic polyneuropathy (principal); E78.00 Pure hypercholesterolemia, unspecified; E55.9 Vitamin D deficiency, unspecified; D64.9 Anemia, unspecified; E53.8 Deficiency of other specified B group vitamins; E11.65 Type 2 diabetes mellitus with hyperglycemia; Z79.4 Long term (current) use of insulin; E03.9 Hypothyroidism, unspecified; I10 Essential (primary) hypertension
CPT/HCPCS: 36415; 80053; 80061; 81001; 82043; 82306; 82570; 82607; 82746; 83036; 84443; 85025; 87086

== ENCOUNTER 2024-06-23 11:35 | Outpatient (AMB) | payer OTHER, SELFPAY ==
[2024-06-23 11:48] VITALS: BP 150/72; PULSE 87; O2SAT 96; BMI 32.9
--- NOTE | 2024-06-23 11:48 | MHC.PC.OV ---
Vital Signs 06/23/24 11:48 Height 5 ft 2 in Weight 180 lb BMI 32.9 BP 150/72 H Blood Pressure Location Lt brachial Position Sitting Pulse 87 Pulse Source Pulse Oximeter Pulse Oximetry (%) 96 Oxygen Delivery Method Room Air Intake Visit Reasons: 3 Months f/u Museum Educator Required: Yes Museum Educator Language: Sinhala Accompanied by: Self / Same As Patient Allergies Iodinated Contrast Media [IV CONTRAST] Allergy (Intermediate, Verified 06/23/24 12:29) RASH iopromide [From ULTRAVIST] Allergy (Mild, Verified 06/23/24 12:29) ITCHING semaglutide [From Ozempic] Adverse Reaction (Severe, Verified 06/23/24 12:29) pancreatitis Medication List - Last Reconciled 06/23/24 by Genaro Chu MD atorvastatin 80 mg PO BEDTIME bisacodyl 5 mg PO ONCE 1 day blood sugar diagnostic (FreeStyle Lite Strips) As directed three times a day blood-glucose meter (FreeStyle Custer Lite kit) As directed dispense as freestyle lite blood-glucose sensor (Tasted Menu G7 Sensor device) Use daily As directed to monitor glucose. change q 10 days cholecalciferol (vitamin D3) 50 mcg PO DAILY 90 days clonidine HCl 0.1 mg PO BID PRN 30 days empagliflozin (Jardiance) 25 mg PO DAILY gabapentin 300 mg PO BEDTIME PRN glipizide ER 5 mg PO DAILY glucose (Dex4 Glucose) 16 grams (4 x 4 gram) PO Q15M PRN insulin degludec (Tresiba FlexTouch U-200 insulin) 80 units (0.4 mL) subcut BEDTIME 30 days insulin lispro (Humalog KwikPen (U-100) Insulin) 30 units for breakfast , 30 units for lunch, 30 units for dinner subcutaneously daily lancets (FreeStyle Lancets) Three times a day levothyroxine 50 mcg PO QAM lisinopril-hydrochlorothiazide 20-12.5 mg 1 tab PO DAILY 90 days lorazepam mg PO metoprolol succinate ER 75 mg (1.5 x 50 mg) PO DAILY 30 days mirtazapine 7.5 mg PO BEDTIME 30 days pantoprazole 40 mg PO DAILY pen needle, diabetic (BD Ultra-Fine Jordana Pen Needle) As directed four times a day pen needle, diabetic As directed polyethylene glycol 3350 (Miralax) 238 grams PO ONCE sertraline 50 mg PO DAILY 30 days terconazole 0.8% 1 appful vaginal BEDTIME 3 days Tobacco use date assessed: 06/23/24 Last assessed Fall Risk: 06/23/24 Dental Screening Dental Screen Date: 06/23/24 HPI 3 Months f/u HPI Details Patient comes in today for her follow up visit States that she feels okay but has noticed (+) blurring of vision, especially in her left eye and on the peripheral side, for a while now States that she has not seen an eye doctor in over a year She denies any headaches or dizziness Denies any chest pains, no increased shortness of breath No nausea/vomiting, no abdominal pain No change in bowel habits noted She had her follow up labs done a couple of days ago - to discuss her results [facility] Medical History Osteoporosis Early satiety Mixed hyperlipidemia Ganglion cyst of tendon sheath of left hand Pure hypercholesterolemia Numbness and tingling in both hands Trigger finger, left middle finger Trigger finger, right ring finger Vulvar leukoplakia Atypical chest pain Tachycardia Left knee pain Right shoulder pain Arthralgia Vulvovaginitis juani albicans Breast pain, right Obesity (BMI 30-39.9) Hypertriglyceridemia Vitamin D deficiency Loose stools Pancreatitis Poor historian Vulvar leukoplakia Vulvar itching Recurrent epigastric abdominal pain Type 2 diabetes mellitus with diabetic nephropathy Hyperlipidemia LDL goal <100 Diabetes mellitus Primary osteoarthritis of hips, bilateral Lumbar degenerative disc disease Anxiety GERD without esophagitis Gastritis GERD (gastroesophageal reflux disease) Depression Hypothyroidism Type 2 diabetes mellitus with hyperglycemia, with long-term current use of insulin Type 2 diabetes mellitus with diabetic polyneuropathy Essential hypertension Surgical History S/P cholecystectomy Hx of tubal ligation History of herniated intervertebral disc Family History Father Throat cancer Mother Diabetes mellitus CVD (cardiovascular disease) Maternal Aunt Breast cancer Social History Household Members: None Housing: Apartment Alcohol intake: never Patient Tobacco Use Status: Former Tobacco user e-Cigarette/Vaping Use: Never Used Second Hand Smoke Exposure: No service: No Current occupational status: disabled Sexual orientation: Straight/Heterosexual Gender identity: Female Cognitive needs: No Hearing needs: No Vision needs: Yes Female Reproductive History Menstrual Age of Menarche: 12 Questionnaire PHQ-9 Over the last 2 weeks, how often have you been bothered by any of the following problems? 1. Little interest or pleasure in doing things: several days 2. Feeling down, depressed, or hopeless: several days 3. Trouble falling or staying asleep, or sleeping too much: several days 4. Feeling tired or having little energy: several days 5. Poor appetite or overeating: several days 6. Feeling bad about yourself - or that you are a failure or have let yourself or your family down: not at all 7. Trouble concentrating on things, such as reading the newspaper or watching television: several days 8. Moving or speaking so slowly that other people could have noticed. Or the opposite - being so fidgety or restless that you have been moving around a lot more than usual: not at all 9. Thoughts that you would be better off or of hurting yourself in some way: not at all Total score: 6 Depression Screening Interpretation: Positive Depression Screening Follow-up: Existing condition and In treatment Depression Screening Done: Yes 79418 - PHQ-9 Billing: Yes Source: Developed by Drs. Teofilo Loredo, Radha Knight, Keagan Guzman and colleagues, with an educational alecia from [employer]. Thrive Questionnaire Date Thrive assessed: 06/23/24 I am a: Patient What is your living situation today?: I choose not to answer this question Within the past 12 months, did the food you bought not last and you didn't have the money to get more?: I choose not to answer this question Within the past 12 months, did you worry whether your food would run out before you got money to buy more?: I choose not to answer this question Do you have trouble paying for medicines?: No Do you have trouble getting transportation to medical appointments?: No Do you have trouble paying your heating and electricity bill?: No Do you have trouble taking care of your child, family member or friend?: No Do you have trouble with day-to-day activities such as bathing, preparing meals, shopping, managing finances, etc.?: No Are you currently unemployed and looking for a job?: No Are you interested in more education?: No Please select the resources that you would like help with: Food Currently or been in a relationship where the following occur: No concerns reported THRIVE Score: 0 AUDIT C Alcohol Use Questionnaire (AUDIT-C) 1. How often do you have a drink containing alcohol?: Never 3. How often do you have six or more drinks on one occasion?: Never Total Score: 0 Score Reviewed/Action Taken: Yes CARO-7 AMB Questionnaire CARO-7 Date CARO - 7 assessed: 06/23/24 Feeling nervous, anxious, or on edge: 0 = Not at all Not being able to stop or control worryin = Not at all Worrying too much about different things: 0 = Not at all Trouble relaxin = Not at all Being so restless that it is hard to sit still: 0 = Not at all Becoming easily annoyed or irritable: 0 = Not at all Feeling afraid as if something awful might happen: 0 = Not at all Total CARO-7 score (0-4 normal; 5-9 mild; 10-14 moderate; 15-21 severe): 0 Source: Developed by Drs. Teofilo Loredo, Radha Knight, Keagan Guzman and colleagues, with an educational alecia from [employer]. Review of Systems Const Denies chills, Reports fatigue, Denies fever(s) and Denies headache(s) ENT Denies dysphagia, Denies dizziness, Denies otalgia, Denies headache(s), Denies neck pain, Denies odynophagia and Denies sore throat Card Denies chest pain, Reports palpitations (occasionally) and Reports dyspnea on exertion (mild) Resp Denies chest congestion, Denies cough and Reports dyspnea on exertion (mild) GI Reports abdominal pain (diffuse pain, bloating and discomfort), Denies constipation, Denies dysphagia, Denies heartburn, Denies diarrhea, Denies nausea, Denies odynophagia and Denies vomiting Denies difficulty voiding, Denies nocturia, Denies dysuria and Denies urinary urgency Musc Reports back pain (over the lower back - increasing lately), Reports arthralgias (over both hips) and Denies neck pain Skin/Breast Denies rash Neuro Denies dizziness and Denies headache(s) Psych Reports anxiety Endo Reports fatigue and Reports palpitations (occasionally) Physical exam (Primary Care) Vital Signs: Last Vital Signs Pulse 87 06/23/24 11:48 BP 150/72 H 06/23/24 11:48 Pulse Ox 96 06/23/24 11:48 Oxygen Delivery Method Room Air 06/23/24 11:48 BMI result Body Mass Index 32.9 Tobacco/Smoking Status: Tobacco use Status Tobacco use date assessed 06/23/24 06/23/24 11:50 Patient Tobacco Use Status Former Tobacco user 06/23/24 11:50 e-Cigarette/Vaping Use Never Used 06/23/24 11:50 PHQ-9: PHQ-9 Score PHQ-9: Total score 6 06/23/24 12:32 Depression Screening Interpretation: Positive Depression Screening Follow-up: Existing condition and In treatment Thrive Assessment: Date of Thrive Assessment Date Thrive assessed 06/23/24 06/23/24 11:50 Currently or been in a relationship where the following occur: No concerns reported Const General: no acute distress and alert HENMT Ears: TM's normal bilaterally and EAC's normal Throat: Yes posterior oropharynx normal and Yes tonsils normal (no TP congestion) Neck Neck: Yes no lymphadenopathy and Yes supple Resp Auscultation: clear to auscultation bilaterally, no rales and no wheezes Cardio Rate: regular rate Rhythm: regular rhythm Heart sounds: no murmurs GI Palpation (GI): Soft to palpation and nontender Auscultation: normal bowel sounds General: Yes no CVA tenderness Back/Spine/Pelvis Back: no CVA tenderness Thoracic/Lumbar Spine: lumbar spinal tenderness Skin Rashes: no rashes Extrem General: Yes no clubbing, cyanosis or edema Right lower extremity: hip/thigh Details: tenderness Location: of the hip Left lower extremity: hip/thigh Details: tenderness Location: of the hip Results Reviewed Results Reviewed: Laboratory Tests 02/02/24 06/21/24 06/21/24 09:44 10:49 10:55 WBC 7.3 9.2 Hgb 15.9 Hct 43.6 Plt Count 220 Sodium 138 Potassium 4.0 Creatinine 0.70 Estimated GFR > 60 Fasting Glucose 268 H Hemoglobin A1c % 9.1 H Calcium 9.7 AST 16 ALT 20 Triglycerides 3078 H Cholesterol 287 H LDL Cholesterol, Calc TNP HDL Cholesterol 26 L 25-OH Vitamin D Total 17.6 L TSH 3.43 Ur Specific Loyal >= 1.030 H Urine Protein Trace Urine Glucose (UA) >=1000 H Urine Blood Negative Urine Nitrite Negative Ur Leukocyte Esterase Small (1+) H Microalb/Creat Ratio 360.1 H Coding Level of Care Code Est Pt Level 4 (14672) Complex EM visit Add On G2211 Diagnoses Type 2 diabetes mellitus with hyperglycemia, with long-term current use of insulin E11.65; Z79.4 Mixed hyperlipidemia E78.2 Degeneration of intervertebral disc of lumbar region with discogenic back pain M51.360 Disc-related pain type: discogenic back pain only Osteoporosis without current pathological fracture, unspecified osteoporosis type M81.0 Osteoporosis type: unspecified Presence of current pathological fracture: without current pathological fracture Essential hypertension I10 Acquired hypothyroidism E03.9 Hypothyroidism type: acquired Decreased vision of left eye H54.62 Vitamin D deficiency E55.9 Obesity (BMI 30-39.9) E66.9 Additional Codes PHQ-9 - 03639 - PHQ-9 Billing: Yes ([id number]) Assessment & Plan Assessment & Plan (1) Type 2 diabetes mellitus with hyperglycemia, with long-term current use of insulin: Code(s): E11.65 - Type 2 diabetes mellitus with hyperglycemia; Z79.4 - buttermaker continuous churn (current) use of insulin Category: Medical Plan: Her HgbA1c was again at 9.1% on her labs done a couple of days ago (was previously also at 9.1% a few months ago) - goal is <7.0% Reinforced diabetic diet She is currently on Tresiba 80 units QD, Humalog 30 units TID, Jardiance 25 mg QD and Glpizide ER 5 mg QD She is NOT a candidate for the GLP1s due to her Hx of pancreatitis and past GI upset with Metformin The effects of Lantus and Toujeo kept wearing off by late afternoon She continues to struggle with compliance with medications - states that she tends to forget taking mealtime insulin doses often Follow-up with endocrinology as scheduled (2) Mixed hyperlipidemia: Code(s): E78.2 - Mixed hyperlipidemia Category: Medical Plan: Results of her labs done a couple of days ago reviewed and discussed with patient - she is cautioned that her serum triglyceride level has increased significantly from previous and is now at OVER 3000 mg/dl (3078), likely a result of her poor glycemic control Reinforced low cholesterol diet Continue Atorvastatin 80 mg QD She was supposed to be on Fenofibrate but it does not look like she has taken it recently Will start her back on Fenofibrate 120 mg QD Will recheck her labs and fasting lipids in 3 months for follow-up (3) Lumbar degenerative disc disease: Code(s): M51.36 - Other intervertebral disc degeneration, lumbar region Category: Medical Qualifiers: Disc-related pain type: discogenic back pain only Qualified Code(s): M51.360 - Other intervertebral disc degeneration, lumbar region with discogenic back pain only Plan: Reinforced activity and weight-lifting restrictions Lumbar spine x-rays done in March 2021 revealed (+) mild L2 superior endplate depression, new from CT 08/10/2018, and old degenerative disc changes at L4-L5 Due to her increasing low back pain lately, we sent her for updated lumbar spine x-rays X-rays done in January 2024 revealed (+) multilevel degenerative disc disease, similar compared to her prior examination. There is also a chronic L2 compression deformity that is also unchanged from previous As patient states that she continues to be affected/impaired significantly by her increasing low back pain will refer her to [facility] for further recommendations (4) Osteoporosis: Code(s): M81.0 - Age-related osteoporosis without current pathological fracture Category: Medical Qualifiers: Osteoporosis type: unspecified Presence of current pathological fracture: without current pathological fracture Qualified Code(s): M81.0 - Age-related osteoporosis without current pathological fracture Plan: Her repeat BMD done in April 2024 revealed (+) osteoporosis, with the lowest T-score of -3.0 in the lft femoral neck consistent with osteoporosis Her BMD in the left hip has declined by -17.7% compared to previous and that in her left femur has declined by -20.1% Her urine NTx is still pending at this time (5) Essential hypertension: Code(s): I10 - Essential (primary) hypertension Category: Medical Plan: Reinforced low-sodium diet -? goal is systolic BP of 120 mm or less Continue Lisinopril-Hydrochlorothiazide 20-12.5 mg QD (6) Hypothyroidism: Code(s): E03.9 - Hypothyroidism, unspecified Category: Medical Qualifiers: Hypothyroidism type: acquired Qualified Code(s): E03.9 - Hypothyroidism, unspecified Plan: Her TFTs were normal on her recent labs done a couple of months ago Continue Levothyroxine 50 mcg QD (7) Decreased vision of left eye: Code(s): H54.62 - Unqualified visual loss, left eye, normal vision right eye Category: Medical Plan: Will refer her to ophthalmology for further evaluation and management (8) Vitamin D deficiency: Code(s): E55.9 - Vitamin D deficiency, unspecified Category: Medical Plan: Continue Vitamin D3 2000 units QD (9) Obesity (BMI 30-39.9): Code(s): E66.9 - Obesity, unspecified Category: Medical Plan: Reinforced diet; exercise and weight loss are impractical currently due to her increasing low back pain Plan Follow up in 3 months Orders: Orders Complete Blood Count Auto Diff 3 Months D64.9 - Anemia, unspecified Comprehensive [place]. Panel Fast 3 Months E78.00 - Pure hypercholesterolemia, unspecified Lipid Panel 3 Months E78.00 - Pure hypercholesterolemia, unspecified Microalbumin, Random (w Creat) 3 Months E11.9 - Type 2 diabetes mellitus without complications Vitamin D 25-OH Total 3 Months E55.9 - Vitamin D deficiency, unspecified Hemoglobin A1c 3 Months E11.9 - Type 2 diabetes mellitus without complications Free T4 (Free Thyroxine) 3 Months E03.9 - Hypothyroidism, unspecified Thyroid Stimulating Hormone 3 Months E03.9 - Hypothyroidism, unspecified UA CC w/rflx Micro + Cult 3 Months R30.0 - Dysuria Vitamin B12 and Folate 3 Months E53.8 - Deficiency of other specified B group vitamins Referrals Ophthalmology Referral E11.9 - Type 2 diabetes mellitus without complications, H54.62 - Unqualified visual loss, left eye, normal vision right eye Medications: New fenofibrate 120 mg PO DAILY 30 days 30 tabs 3RF
--- OUTSIDE RECORDS SUMMARY | 2024-06-23 13:57 | XMS_ITS | Clinical Summary ---
Author Organization [employer] [facility] Address [id number] [place] [id number] Care Team Providers Care Supply Chain Development Manager Name Role Phone Unavailable Primary Care Provider Unavailabl e Surgical History Surgery Date Site/Laterality Comments CHOLECYSTECTOMY PROCEDURE: LAPAROSCOPIC CHOLECYSTECT OTHER SURGICAL HISTORY PROCEDURE: WA EPISIOTOMY/VAG RPR OTH/THN ATTENDING ESOPHAGOGASTRODUODENOSCOPY 03/12/15 PROCEDURE: [place] ESOPHAGOGASTRODUODENOSCOPY TRANSORAL DIAGNOSTIC; COMMENT: normal, with nl [...]
== END 2024-06-23 12:41 | disposition home or self-care (01) ==
LOC: HO.HMCH 11:35
PROVIDERS: PCP Internal Medicine; Visit Provider Internal Medicine
DX: E11.65 Type 2 diabetes mellitus with hyperglycemia (principal); Z79.4 Long term (current) use of insulin; E66.9 Obesity, unspecified; Z68.32 Body mass index [BMI] 32.0-32.9, adult; E78.2 Mixed hyperlipidemia; M51.360 Other intervertebral disc degeneration, lumbar region with discogenic back pain only; M81.0 Age-related osteoporosis without current pathological fracture; I10 Essential (primary) hypertension; E03.9 Hypothyroidism, unspecified; H54.62 Unqualified visual loss, left eye, normal vision right eye; E55.9 Vitamin D deficiency, unspecified

== ENCOUNTER 2024-06-23 11:35 | Outpatient (REF) | payer OTHER, SELFPAY ==
--- OUTSIDE RECORDS SUMMARY | 2024-06-23 14:14 | XMS_ITS | Encounter Summary ---
Author Organization [facility] [facility] Address [address] [place] [address] Care Team Providers Care Forest Fire Officer Name Role Phone Jad Guthrie MD Primary Care Provider [phone] [facility], Pcp Primary Care Provider Kirit jones Encounter Details Date Type Department Care Team Description 01/01/2015 Animal Attendant Report Medical Records [address] [place] [id number] Pelon Connolly MD Social History Tobacco Use [...] on filedocumented in this encounter Care Teams Forest Fire Officer Relationship Specialty Start Date End Date Jad Guthrie MD [address] [place] [address] [phone] PCP - General Internal Medicine 08/22/14 08/18/18 [facility], Pcp [address] [place] [phone] PCP - General Internal Medicine 08/19/18 documented as of this encounter
--- OUTSIDE RECORDS SUMMARY | 2024-06-23 14:14 | XMS_ITS | Encounter Summary ---
Author Organization [facility] Address [address] [place] [address] Care Team Providers Care Curtain Supervisor Name Role Phone Jad Guthrie MD Primary Care Provider [phone] [facility], Pcp Primary Care Provider Unavailabl e Reason for Visit * Reason Comments E-prescribe Rx Request Encounter Details Date Type Department Care Team Description 04/24/2016 Refill Gastroenterology - [address] [address] Eitan Chandra MD E-prescribe Rx Request Social [...] on filedocumented in this encounter Care Teams Curtain Supervisor Relationship Specialty Start Date End Date Jad Guthrie MD [address] [place] [phone] PCP - General Internal Medicine 08/22/14 08/18/18 [facility], [place] [address] PCP - General Internal Medicine 08/19/18 documented as of this encounter
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
--- OUTSIDE RECORDS SUMMARY | 2024-06-23 14:14 | XMS_ITS | Encounter Summary ---
Author Organization [employer] [facility] Address [address] [place] [address] Care Team Providers Care Section Crews Activities Clerk Name Role Phone Jad Guthrie MD Primary Care Provider [phone] [facility], Pcp Primary Care Provider Kirit jones Encounter Details Date Type Department Care Team Description 01/15/2015 Senior Research Fellow Report Medical Records [address] [place] [phone] Pelon Connolly MD Social History Tobacco Use [...] on filedocumented in this encounter Care Teams Section Crews Activities Clerk Relationship Specialty Start Date End Date Jad Guthrie MD [address] [place] [address] [phone] PCP - General Internal Medicine 08/22/14 08/18/18 [facility], Pcp [address] [place] [phone] PCP - General Internal Medicine 08/19/18 documented as of this encounter
--- OUTSIDE RECORDS SUMMARY | 2024-06-23 14:14 | XMS_ITS | Encounter Summary ---
Author Organization [facility] Address [address] [place] [address] Care Team Providers Care Writing Center Director Name Role Phone Community, Pcp Primary Care Provider Unavailabl e Reason for Visit * Reason Onset Date Comments APPOINTMENT 10/06/2019 Encounter Details Date Type Department Care Team Description 10/06/2019 Telephone Internal Medicine - [address], [address] [place], [place] [id number] Community, Pcp APPOINTMENT Social History Tobacco Use [...] them know. Tell them PCPcan fax it [phone] * Telephone Encounter - Judith Phillips - 10/06/2019 11:36 AM EDT Follow up appointment not available. Please call patient to book-no open NON PUBLIC SLOTS. Appointment needed patient calling to book colonoscopy documented in this encounter Plan of Treatment Not on file documented as of this encounter Visit Diagnoses Not on filedocumented in this encounter Care Teams Writing Center Director Relationship Specialty Start Date End Date Community, Pcp PCP - General Internal Medicine 08/19/18 documented as of this encounter
--- OUTSIDE RECORDS SUMMARY | 2024-06-23 14:14 | XMS_ITS | Encounter Summary ---
Author Organization [facility] Address [address] [place] [address] Care Team Providers Care Horticulture/Floriculture Teacher Name Role Phone Jad Guthrie MD Primary Care Provider [phone] [facility], Pcp Primary Care Provider Kirit jones Encounter Details Date Type Department Care Team Description 04/04/2015 Hospital Medical Records [address] [place] [address] Avinash Whelan MD Social History Tobacco Use [...] on filedocumented in this encounter Care Teams Horticulture/Floriculture Teacher Relationship Specialty Start Date End Date Jad Guthrie MD [address] [place], [place] [phone] PCP - General Internal Medicine 08/22/14 08/18/18 [facility], Pcp [address] [place] [address] PCP - General Internal Medicine 08/19/18 documented as of this encounter
--- OUTSIDE RECORDS SUMMARY | 2024-06-23 14:14 | XMS_ITS | Encounter Summary ---
Author Organization [facility] Address [address] [place] [address] Care Team Providers Care Coordinate Measuring Equipment Operator Name Role Phone Jad Guthrie MD Primary Care Provider [phone] [facility], Pcp Primary Care Provider Kirit jones Encounter Details Date Type Department Care Team Description 04/04/2015 Hospital Medical Records [address] [place] [address] Cal Greer MD Social History Tobacco Use [...] on filedocumented in this encounter Care Teams Coordinate Measuring Equipment Operator Relationship Specialty Start Date End Date Jad Guthrie MD [address] [place], [place] [phone] PCP - General Internal Medicine 08/22/14 08/18/18 [facility], Pcp [address] [place], [place] [phone] PCP - General Internal Medicine 08/19/18 documented as of this encounter
--- OUTSIDE RECORDS SUMMARY | 2024-06-23 14:14 | XMS_ITS | Encounter Summary ---
Author Organization [facility] Address [address] [place] [address] Care Team Providers Care Forge Operator Helper Name Role Phone Jad Guthrie MD Primary Care Provider [phone] [facility], Pcp Primary Care Provider Kirit jones Encounter Details Date Type Department Care Team Description 05/02/2016 Transfer Records Medical Records [address] [place] [address] Abstract, Provider Social History Tobacco Use Types [...] on filedocumented in this encounter Care Teams Forge Operator Helper Relationship Specialty Start Date End Date Jad Guthrie MD [address] [place], [place] [phone] PCP - General Internal Medicine 08/22/14 08/18/18 [facility], Pcp [address] [place] [address] PCP - General Internal Medicine 08/19/18 documented as of this encounter
--- OUTSIDE RECORDS SUMMARY | 2024-06-23 14:14 | XMS_ITS | Encounter Summary ---
Author Organization [facility] Address [address] [place] [address] Care Team Providers Care Automat Watcher Name Role Phone Jad Guthrie MD Primary Care Provider [phone] [facility] Primary Care Provider Unavailabl e Reason for Visit * Reason Comments E-prescribe Rx Request Encounter Details Date Type Department Care Team Description 10/22/2015 Refill Adult Medicine [address] [address] Tushar Prince MD E-prescribe Rx Request Social [...] an upcoming appointment? No-unable to reach left [facility] to call for appointment due to refill request. Appt due (THE MEDICATION REQUESTED IS ON THE MED LIST ABOVE) All of the medications requested were on the CURRENT MEDS list Did you check the Pharmacy information above?: YES Patient wants: 30 -day supply Is this a mail order prescription request ? NO Patients current insurance carrier is: Payor: [place] / Plan: MEDICAID PCC / Product Type: MEDICAID [id number] documented in this encounter Plan of Treatment Not on file documented as of this encounter Visit Diagnoses Not on filedocumented in this encounter Care Teams Automat Watcher Relationship Specialty Start Date End Date Jad Guthrie MD [address] [place] [phone] PCP - General Internal Medicine 08/22/14 08/18/[address] [address] PCP - General Internal Medicine 08/19/18 documented as of this encounter
--- OUTSIDE RECORDS SUMMARY | 2024-06-23 14:14 | XMS_ITS | Clinical Summary ---
Author Organization [facility] Address [address] [place] [address] Care Team Providers Care Press Tender Name Role Phone Community, Pcp Primary Care Provider Unavailabl e Allergies Active Allergy Reactions Severity Noted Date Comments Metformin 08/10/2017 GI Medications Medication Sig Dispensed Refills Start Date End Date Status Insulin Pen Needle (B-D ULTRAFINE III SHORT PEN) 31G X 8 MM Misc Use with solastar 100 Each 5 05/15/2015 Active Glucose Blood (FREESTYLE LITE) StripIndications:Uncon trolled type 2 diabetes mellitus with microalbuminuria, with long-term current use of insulin,Obesity (BMI 30-39.9),Essential hypertension, benign,Peripheral polyneuropathy USE DIRECTED 4 TIMES A DAY 400 Strip 3 09/09/2017 Active simvastatin (ZOCOR) 20 MG tablet Take 1 Tab by mouth at bedtime. 30 Tab 5 10/19/2017 Active BD PEN NEEDLE AC U/F 32G X 4 MM Misc USE ONE NEEDLE WITH FOR EVERY INJECTION VICTOZA 200 Each 1 10/27/2017 Active FREESTYLE LANCETS MiscIndications:Uncont rolled type 2 diabetes mellitus with microalbuminuria, with long-term current use of insulin,Obesity (BMI 30-39.9),Essential hypertension, benign Use 3 per day 300 Each 0 12/07/2017 Active BHERKYVL-NAAZGOBLY-VP, OTIC, (ANTIBIOTIC EAR) 1 % Solution Otic solution Place 3 Drops in ear(s) 4 times daily for 10 days. 10 mL 0 01/12/2018 Active insulin glargine (LANTUS) 100 UNIT/ML injection Inject 30 Units into the skin at bedtime. 9 mL 12 01/12/2018 Active alprazolam (XANAX) 0.5 MG tablet Take 1 Tab by mouth at bedtime. 1/2 tab x 7 days 4 Tab 0 02/19/2018 Active gabapentin (NEURONTIN) 300 MG capsuleIndications:Unc ontrolled type 2 diabetes mellitus with microalbuminuria, with long-term current use of insulin,Obesity (BMI 30-39.9),Essential hypertension, benign,Peripheral polyneuropathy Take 1 Cap by mouth at bedtime. 30 Cap 0 05/18/2018 Active Insulin Syringe-Needle U-100 (B-D INSULIN SYRINGE ULTRAFINE) 31G X / 1 ML Misc USE WITH LANTUS NIGHTLY. 100 Each 1 05/24/2018 Active losartan (COZAAR) 50 MG tablet Take 1 Tab by mouth daily for 180 days. 30 Tab 5 05/24/2018 Active fluticasone (FLONASE) 50 MCG/ACT nasal spray 1 [place] by Nasal route daily for 30 days. 30 Act 0 05/24/2018 Active Meclizine HCl 25 MG Tab Take 1 Tab by mouth 3 times daily as needed for Other. 45 Tab 0 05/24/2018 Active sertraline (ZOLOFT) 50 MG tablet Take one tablet once daily 30 Tab 0 10/28/2018 Active omeprazole (PRILOSEC) 20 MG capsule Take 1 Cap by mouth daily. 30 Cap 0 10/28/2018 Active levothyroxine (SYNTHROID, LEVOTHROID) 50 MCG tablet Take 1 Tab by mouth daily. 30 Tab 0 10/28/2018 Active VICTOZA 18 MG/3ML Solution Pen-injectorIndication s:Uncontrolled type 2 diabetes mellitus with microalbuminuria, with long-term current use of insulin,Obesity (BMI 30-39.9),Essential hypertension, benign,Peripheral polyneuropathy INJECT 0.6 MG INTO SKIN DAILY FOR 1 WEEK THEN INCREASE TO 1.2 MG DAILY 1.2 mg 0 12/28/2018 Active Active Problems Problem Noted Date Uncontrolled type 2 diabetes mellitus with microalbuminuria, with long-term current use of insulin 09/09/2017 Type 2 diabetes mellitus with peripheral vascular disease 03/31/2016 Non-ulcer dyspepsia 04/25/2015 Anxiety 01/04/2015 Hypothyroidism 01/04/2015 Family history of colon cancer 5 Overview: Brother in his 30s Essential hypertension, benign 5 Immunizations Name Administration Dates Next Due Influenza (> 6 Months) 11/19/2015 Influenza Vaccine-quadrivalent 4 Years Plus 12/31 Pneumoccoccal(Adult) Polysaccharide PPSV23 01/09 Tdap 03/31/2016 Family History Medical History Relation Name Comments Cancer of the Breast Aunt over 60 years old Cancer, Other Father throat CHF Mother Diabetes Mother Hypertension Mother Cancer of the Colon Uncle CA Breast Negative Hx Relation Name Status Comments Aunt Father Mother Uncle Social History Tobacco Use Types Packs/Day Years Used Date Smoking Tobacco: Former Cigarettes 1 15 0 1993 - 03/02/2011 Smokeless Tobacco: Never Comments:1 ppd Alcohol Use Standard Drinks/Week Comments No 0 (1 standard drink = 0.6 oz pur e alcohol) Sex Assigned at Date Recorded Not on file Last Filed Vital Signs Vital Sign Reading Time Taken Comments Blood Pressure 144/78 05/24/2018 10:24 AM EDT Pulse 80 05/24/2018 10:24 AM EDT Temperature 36.8 ??C (98.2 ??F) 05/24/2018 1 0:24 AM EDT Respiratory Rate 16 05/24/2018 10:2 4 AM EDT Oxygen Saturation 96% 08/10/2017 1:19 PM EDT Inhaled Oxygen Concentration - - Weight 82.1 kg (180 lb 14.4 oz) 019 10:24 AM EDT Height 160 cm (5' 3 ) 05/24/2018 10:24 AM EDT Body Mass Index 32.04 05/24/2018 10:24 AM EDT Plan of Treatment Health Maintenance Due Date Last Done Comments Covid-19 Vaccine (#1) 1960 CERVICAL CANCER SCREENING 1981 SHINGLES VACCINE (1 of 2) 2010 DIABETES: ANNUAL FOOT EXAM 03/31/2017 03/31/2016 MAMMOGRAM 05/02/2017 05/02/2016, 08/08/2014 BASELINE HEALTH EXAM 40-64 04/15/201804/15, 08/24/2014, 08/24/2014 DIABETES: ANNUAL EYE EXAM 05/13/20182017, 04/26/2015 (External Completion), 04/26/2015 DIABETES: BLOOD SUGAR CONTRO L TEST (HGBA1C) 08/24/2018 05/24/2018, 01/12/2018, 12/15/2017, Additional history exists DIABETES/HEART DISEASE: KIM AGUILAR CHOLESTEROL (LDL) 05/25/2019 05/24/2018, 10/19/2017, 01/09/2017, Additional history exists DIABETES: ANNUAL URINE PROTE IN TEST (MICROALBUMIN) 05/25/2019 05/24/2018, 10/19/2017, 01/09/2017, Additional history exists COLON CANCER SCREENING 10/27/2019 10/26/2014 BMI CHECK/ADVISE 03/02/2024 09/09/2017, 12/2017, 05/07/2017, Additional history exists DEPRESSION SCREENING/FOLLOWUP 03/02/2024, 04/16/2018, 01/12/2018, Additional history exists SOCIAL NEEDS SCREENING 03/02/2024 INFLUENZA (Season Ended) 2024 01/09/2017, 10/31 PNEUMOCOCCAL VACCINE FOR HIG H RISK PATIENTS (#2) 2025 01/09/2017 DTAP/TDAP/TD (2 - Td or Tdap) 03/31/2026 03/31/2016 HEPATITIS C SCREENING Completed 03/31/2016 Care Teams Press Tender Relationship Specialty Start Date End Date Community, Pcp PCP - General Internal Medicine 08/19/18
--- OUTSIDE RECORDS SUMMARY | 2024-06-23 14:14 | XMS_ITS | Encounter Summary ---
Author Organization [facility] Address [address] [place] [address] Care Team Providers Care Construction Producer Name Role Phone Jad Guthrie MD Primary Care Provider [phone] Replaced By [facility], Pcp Primary Care Provider Kirti jones Encounter Details Date Type Department Care Team Description 03/09/2018 Cigarette Tipper Report Medical Records [address] [place] [address] Sam Gomez MD Social History Tobacco Use [...] on filedocumented in this encounter Care Teams Construction Producer Relationship Specialty Start Date End Date Jad Guthrie MD [address] [place], [place] [phone] PCP - General Internal Medicine 08/22/14 08/18/18 Replaced By [facility], Pcp [address] [place] [address] PCP - General Internal Medicine 08/19/18 documented as of this encounter
--- OUTSIDE RECORDS SUMMARY | 2024-06-23 14:14 | XMS_ITS | Encounter Summary ---
Author Organization [facility] Address [address] [place] [address] Care Team Providers Care Entry Level Management Name Role Phone Jad Guthrie MD Primary Care Provider [phone] [facility], Pcp Primary Care Provider Unavailabl e Reason for Visit * Reason Onset Date Comments Faxed Order 01/19/2017 Encounter Details Date Type Department Care Team Description 01/19/2017 Telephone Adult Medicine [facility] [address] [place] [address] [phone] Jad Guthrie MD [address] [place] [address] [phone] Faxed Order Social History Tobacco Use Types [...] on filedocumented in this encounter Care Teams Entry Level Management Relationship Specialty Start Date End Date Jad Guthrie MD [address] [place] [address] PCP - General Internal Medicine 08/22/14 08/18/18 [facility], Pcp [address] [place] [address] PCP - General Internal Medicine 08/19/18 documented as of this encounter
--- OUTSIDE RECORDS SUMMARY | 2024-06-23 14:14 | XMS_ITS | Encounter Summary ---
Author Organization [facility] Address [address] [place] [address] Care Team Providers Care China Painter Name Role Phone Jad Guthrie MD Primary Care Provider [phone] On License Of [facility], Pcp Primary Care Provider Kirit jones Encounter Details Date Type Department Care Team Description 09/09/2017 Telephone Adult Medicine [address] [phone] Pooja Granado NP Social History Tobacco Use [...] 2:20 PM EDT Spoke with pk from [facility] who stated that this was approved from 09/09/17 until 09/09/2019. Pa #[id number] * Telephone Encounter - Tequila Mckeon M.A. - 09/09/2017 3:53 PM EDT Prior auth done by form to [facility] for victoza Dx diabetes 2 Has allergy to metformin causes gi discomfort Pt is also on glipizide 10mg bid Lantus 18 units nightly * Telephone Encounter - Pooja Granado NP - 09/09/2017 2:45 PM EDT I called [facility] about Victoza Patient needs a prior auth [facility] pharmacist states they are faxing forms over. Please obtain prior auth. Thank you Jeane VITALE documented in this encounter Plan of Treatment Not on file documented as of this encounter Visit Diagnoses Not on filedocumented in this encounter Care Teams China Painter Relationship Specialty Start Date End Date Jad Guthrie MD [address] [place] [address] PCP - General Internal Medicine 08/22/14 08/18/18 On License Of [facility], Pcp [address] [place] [address] PCP - General Internal Medicine 08/19/18 documented as of this encounter
--- OUTSIDE RECORDS SUMMARY | 2024-06-23 14:14 | XMS_ITS | Encounter Summary ---
Author Organization [facility] Address [address] [place] [address] Care Team Providers Care Machine Stone Polisher Name Role Phone Jad Guthrie MD Primary Care Provider [phone] [facility], Pcp Primary Care Provider Kirit jones Encounter Details Date Type Department Care Team Description 02/22/2016 Wedding Designer Report Medical Records [address] [place] [address] Jorgito Mills MD Social History Tobacco Use [...] on filedocumented in this encounter Care Teams Machine Stone Polisher Relationship Specialty Start Date End Date Jad Guthrie MD [address] [place] [address] [phone] PCP - General Internal Medicine 08/22/14 08/18/18 [facility], Pcp [address] [place] [address] PCP - General Internal Medicine 08/19/18 documented as of this encounter
--- OUTSIDE RECORDS SUMMARY | 2024-06-23 14:14 | XMS_ITS | Encounter Summary ---
Author Organization [facility] Address [address] [place] [address] Care Team Providers Care Mechanical Equipment Sales Engineer Name Role Phone Jad Guthrie MD Primary Care Provider [phone] [facility], Pcp Primary Care Provider Kirit jones Encounter Details Date Type Department Care Team Description 06/17/2016 Oracle Fusion Consultant Report Medical Records [address] [place] [address] Jorgito Mills MD Social History Tobacco Use [...] on filedocumented in this encounter Care Teams Mechanical Equipment Sales Engineer Relationship Specialty Start Date End Date Jad Guthrie MD [address] [place], [place] [phone] PCP - General Internal Medicine 08/22/14 08/18/18 [facility], Pcp [address] [place] [address] PCP - General Internal Medicine 08/19/18 documented as of this encounter
--- OUTSIDE RECORDS SUMMARY | 2024-06-23 14:14 | XMS_ITS | Encounter Summary ---
Author Organization [facility] Address [address] [place] [address] Care Team Providers Care Radio Broadcaster Name Role Phone Jad Guthrie MD Primary Care Provider [phone] [facility], Pcp Primary Care Provider Unavailabl e Reason for Visit * Reason Onset Date Comments REFERRAL 04/14/2016 Podiatry Encounter Details Date Type Department Care Team Description 04/14/2016 Telephone Podiatry - [address] [address] [place] DPM REFERRAL (Podiatry) [...] on filedocumented in this encounter Care Teams Radio Broadcaster Relationship Specialty Start Date End Date Jad Guthrie MD [address] [place] [address] PCP - General Internal Medicine 08/22/14 08/18/18 [facility], Pcp [address] [place] [address] PCP - General Internal Medicine 08/19/18 documented as of this encounter
[2024-06-29 14:59] LABS: N-Telopeptide 30 (see note); NTXCreaRU 41 mg/dL (20-275)
== END 2024-06-23 11:36 | disposition home or self-care (01) ==
LOC: HO.LNP 11:35
PROVIDERS: PCP Internal Medicine; Visit Provider Internal Medicine
DX: E11.65 Type 2 diabetes mellitus with hyperglycemia (principal); E78.2 Mixed hyperlipidemia; M51.360 Other intervertebral disc degeneration, lumbar region with discogenic back pain only; M81.0 Age-related osteoporosis without current pathological fracture; I10 Essential (primary) hypertension; E03.9 Hypothyroidism, unspecified; H54.62 Unqualified visual loss, left eye, normal vision right eye; E55.9 Vitamin D deficiency, unspecified; E66.9 Obesity, unspecified; Z68.32 Body mass index [BMI] 32.0-32.9, adult; Z79.4 Long term (current) use of insulin; Z79.899 Other long term (current) drug therapy
CPT/HCPCS: 82523; 96127; 99212

== ENCOUNTER 2024-08-09 12:11 | Outpatient (REF) | payer OTHER, SELFPAY ==
--- OUTSIDE RECORDS SUMMARY | 2024-08-09 14:26 | XMS_ITS | Encounter Summary ---
Author Organization [facility] Address [address] [place] [address] Care Team Providers Care Radio Engineering Teacher Name Role Phone Jad Guthrie MD Primary Care Provider [phone] [facility], Pcp Primary Care Provider Kirit jones Encounter Details Date Type Department Care Team Description 04/04/2015 Hospital Medical Records [address] [place] [address] Avinash Whelan MD Social History Tobacco Use [...] filedocumented in this encounter Care Teams Radio Engineering Teacher Relationship Specialty Start Date End Date Jad Guthrie MD [address] [place], [place] [phone] PCP - General Internal Medicine 08/22/14 08/18/18 [facility], Pcp [address] [place] [address] PCP - General Internal Medicine 08/19/18 documented as of this encounter
== END 2024-08-09 12:12 | disposition home or self-care (01) ==
LOC: HO.MAMMO 12:11
PROVIDERS: PCP Registered Nurse Emergency; Visit Provider Registered Nurse Emergency
DX: Z12.31 Encounter for screening mammogram for malignant neoplasm of breast (principal)
CPT/HCPCS: 77063; 77067

== ENCOUNTER → 2024-08-09 12:30 | Outpatient (BNV) | payer OTHER, SELFPAY | PROVIDERS: PCP Registered Nurse Emergency; Visit Provider Internal Medicine | DX: Z12.31 Encounter for screening mammogram for malignant neoplasm of breast (principal) | CPT/HCPCS: 77063; 77067 ==

== ENCOUNTER 2024-10-06 11:25 | Outpatient (AMB) | payer OTHER, SELFPAY ==
--- NOTE | 2024-10-06 11:27 | A.OFFPC_ITS ---
Vital Signs 10/06/24 11:30 Height 5 ft 2 in Weight 178 lb 8 oz BMI 32.6 BP 126/50 L Blood Pressure Location Lt brachial Position Sitting Pulse 76 Pulse Source Pulse Oximeter Pulse Oximetry (%) 96 Oxygen Delivery Method Room Air Intake Visit Reasons: [facility] 11/04 cataract Surgery Behavioral Instructor Required: Yes Behavioral Instructor Language: Trinidadian Accompanied by: Self / Same As Patient Allergies Iodinated Contrast Media (IV CONTRAST) Allergy (Intermediate, Verified 10/06/24 11:40) RASH iopromide (From ULTRAVIST) Allergy (Mild, Verified 10/06/24 11:40) ITCHING semaglutide (From Ozempic) Adverse Reaction (Severe, Verified 10/06/24 11:40) pancreatitis Medication List - Last Reconciled 10/06/24 by Carlie Chaparro PA-C atorvastatin 80 mg PO BEDTIME bisacodyl 5 mg PO ONCE 1 day blood sugar diagnostic (FreeStyle Lite Strips) As directed three times a day blood-glucose meter (FreeStyle Hugo Lite kit) As directed dispense as freestyle lite blood-glucose sensor (Ship It Bag Check G7 Sensor device) Use daily As directed to monitor glucose. change q 10 days cholecalciferol (vitamin D3) 50 mcg PO DAILY 90 days clonidine HCl 0.1 mg PO BID PRN 30 days empagliflozin (Jardiance) 25 mg PO DAILY fenofibrate 120 mg PO DAILY 30 days gabapentin 300 mg PO BEDTIME PRN glipizide ER 5 mg PO DAILY glucose (Dex4 Glucose) 16 grams (4 x 4 gram) PO Q15M PRN insulin degludec (Tresiba FlexTouch U-200 insulin) 80 units (0.4 mL) subcut BEDTIME 30 days insulin lispro (Humalog KwikPen (U-100) Insulin) 30 units for breakfast , 30 units for lunch, 30 units for dinner subcutaneously daily lancets (FreeStyle Lancets) Three times a day levothyroxine 50 mcg PO QAM lisinopril-hydrochlorothiazide 20-12.5 mg 1 tab PO DAILY 90 days lorazepam mg PO metoprolol succinate ER 75 mg (1.5 x 50 mg) PO DAILY 30 days mirtazapine 7.5 mg PO BEDTIME 30 days pantoprazole 40 mg PO DAILY pen needle, diabetic (BD Ultra-Fine Jordana Pen Needle) As directed four times a day pen needle, diabetic As directed polyethylene glycol 3350 (Miralax) 238 grams PO ONCE sertraline 50 mg PO DAILY 30 days terconazole 0.8% 1 appful vaginal BEDTIME 3 days Tobacco use date assessed: 10/06/24 Fall risk assessment: No Falls in past year Last assessed Fall Risk: 10/06/24 Dental Screening Dental Screen Date: 10/06/24 Did you have a dental visit in the last 12 months?: No Did you have a dental problem in the last 6 months where you did not have access to dental care?: No HPI [facility] 11/04 cataract Surgery HPI Details 64-year-old female with past medical his tory of diabetes mellitus, hypertension, GERD, anxiety, depression, hypertriglyceridemia and post laminectomy syndrome last seen by Dr. Chu 05/2024 coming in for preoperative visit. She is scheduled to have cataract surgery 11/04/2024 for the left eye with [facility] care. There are plans to have left eye done 11/24/2024. 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 Diabetes mellitus: Jardiance, Glipizide, Humalog TID and Tresiba 80 units QHS. A1c in the clinic today is 11.1%. Hypertension: blood pressure well controlled today 126/50 and currently using lisinopril-HCTZ and metoprolol She tells us today she frequently misses her doses of Humalog she does not like to inject herself. [facility] Medical History Osteoporosis Early satiety Mixed hyperlipidemia Ganglion cyst of tendon sheath of left hand Pure hypercholesterolemia Numbness and tingling in both hands Trigger finger, left middle finger Trigger finger, right ring finger Vulvar leukoplakia Atypical chest pain Tachycardia Left knee pain Right shoulder pain Arthralgia Vulvovaginitis juani albicans Breast pain, right Obesity (BMI 30-39.9) Hypertriglyceridemia Vitamin D deficiency Loose stools Pancreatitis Poor historian Vulvar leukoplakia Vulvar itching Recurrent epigastric abdominal pain Type 2 diabetes mellitus with diabetic nephropathy Hyperlipidemia LDL goal <100 Diabetes mellitus Primary osteoarthritis of hips, bilateral Lumbar degenerative disc disease Anxiety GERD without esophagitis Gastritis GERD (gastroesophageal reflux disease) Depression Hypothyroidism Type 2 diabetes mellitus with hyperglycemia, with long-term current use of insulin Type 2 diabetes mellitus with diabetic polyneuropathy Essential hypertension Surgical History S/P cholecystectomy Hx of tubal ligation History of herniated intervertebral disc Family History Father Throat cancer Mother Diabetes mellitus CVD (cardiovascular disease) Maternal Aunt Breast cancer Social History Household Members: None Housing: Apartment Alcohol intake: never Patient Tobacco Use Status: Former Tobacco user e-Cigarette/Vaping Use: Never Used Second Hand Smoke Exposure: No service: No Current occupational status: disabled Sexual orientation: Straight/Heterosexual Gender identity: Female Cognitive needs: No Hearing needs: No Vision needs: Yes Female Reproductive History Menstrual Age of Menarche: 12 Questionnaire Thrive Questionnaire Date Thrive assessed: 10/06/24 I am a: Patient What is your living situation today?: I choose not to answer this question Within the past 12 months, did the food you bought not last and you didn't have the money to get more?: I choose not to answer this question Within the past 12 months, did you worry whether your food would run out before you got money to buy more?: I choose not to answer this question Do you have trouble paying for medicines?: No Do you have trouble getting transportation to medical appointments?: No Do you have trouble paying your heating and electricity bill?: No Do you have trouble taking care of your child, family member or friend?: No Do you have trouble with day-to-day activities such as bathing, preparing meals, shopping, managing finances, etc.?: No Are you currently unemployed and looking for a job?: No Are you interested in more education?: No Please select the resources that you would like help with: Food THRIVE Score: 0 CARO-7 AMB Questionnaire CARO-7 Date CARO - 7 assessed: 06/23/24 Source: Developed by Drs. Teofilo Loredo, Radha Knight, Keagan Guzman and colleagues, with an educational alecia from [employer]. Review of Systems Const Denies body aches, Denies chills, Denies fever(s), Reports headache(s) (chronic ) and Denies poor appetite Eyes Reports no additional complaints ENT Denies dysphagia, Denies dizziness, Reports headache(s) (chronic ) and Denies odynophagia Card Denies chest pain, Denies syncope, Denies edema, Denies irregular heart rhythm, Denies lightheadedness and Denies dyspnea Resp Denies cough and Denies dyspnea GI Denies abdominal pain, Denies constipation, Denies dysphagia, Denies diarrhea, D enies nausea, Denies odynophagia and Denies vomiting Reports no additional complaints Musc Reports no additional complaints and Denies abnormal gait Skin/Breast Reports system reviewed and no additional complaints, except as documented Neuro Denies abnormal gait, Denies dizziness, Denies syncope and Reports headache(s) (chronic ) Psych Reports no additional complaints Physical exam (Primary Care) Vital Signs: Last Vital Signs Pulse 76 10/06/24 11:30 BP 126/50 L 10/06/24 11:30 Pulse Ox 96 10/06/24 11:30 Oxygen Delivery Method Room Air 10/06/24 11:30 BMI result Body Mass Index 32.6 Tobacco/Smoking Status: Tobacco use Status Tobacco use date assessed 10/06/24 10/06/24 11:34 Patient Tobacco Use Status Former Tobacco user 10/06/24 11:34 e-Cigarette/Vaping Use Never Used 10/06/24 11:34 Thrive Assessment: Date of Thrive Assessment Date Thrive assessed 10/06/24 10/06/24 11:34 Const General: cooperative, healthy appearing, comfortable and no acute distress Orientation/consciousness: patient oriented x3 HENMT Head: Yes normocephalic Ears: hearing grossly normal bilaterally General nose exam: Normal external nose present Eyes General: appearance normal, both eyes and all related structures Conjunctivae: conjunctivae normal Neck Neck: Yes full ROM and Yes no lymphadenopathy Resp Effort & Inspection: normal respiratory effort Auscultation: clear to auscultation bilaterally, no crackles, no rales, no rhonchi and no wheezes Cardio Rate: regular rate Rhythm: regular rhythm Skin General skin exam: no rashes or lesions noted Neuro General: patient oriented x3 Gait exam (Neuro): Normal gait present Extrem General: Yes normal to inspection, Yes full ROM and No edema Psych Affect: normal affect Attitude: cooperative Insight: Good insight present (Psych) Judgement: Good judgement present (Psych) Results AMB Hemoglobin A1c AMB Hemoglobin A1c 11.1 % Last Edit by Timmy Vargas MA on 10/06/24 11:57 Results Reviewed Results Reviewed: Laboratory Last Values Hgb A1c (Clinic) 11.1 % (4.0-6.0) H 10/06/24 11:43 Coding Level of Care Code Est Pt Level 4 (71406) Diagnoses Pre-op evaluation Z01.818 Type 2 diabetes mellitus with diabetic polyneuropathy, without long-term current use of insulin E11.42 Diabetes mellitus continuous churn buttermaker insulin use: without continuous churn buttermaker use Assessment & Plan Assessment & Plan (1) Pre-op evaluation: Code(s): Z01.818 - Encounter for other preprocedural examination Category: Medical Plan: The patient's current A1c level of 11.1 is too high for safe cataract surgery, as it poses a risk for infection and poor healing. It is crucial to improve glycemic control before proceeding with surgery. The patient is advised to adhere strictly to her insulin regimen, including Humalog three times daily, and to monitor blood glucose levels regularly. Endocrinology will be consulted to optimize diabetes management, and the patient will follow up with Dr. Chu at the end of the month to reassess her readiness for surgery. (2) Type 2 diabetes mellitus with diabetic polyneuropathy: Code(s): E11.42 - Type 2 diabetes mellitus with diabetic polyneuropathy Category: Medical Qualifiers: Diabetes mellitus alf insulin use: without alf use Qualified Code(s): E11.42 - Type 2 diabetes mellitus with diabetic polyneuropathy Plan: Decrease the amount of carbohydrates such as pasta, bread, rice, and potatoes and limit the amount of sweets. Although fruits are generally healthy they should be eaten in moderation as they are still high in sugar. Hemoglobin A1c goal of less than 7% A1c in the clinic today above 11%. Discussed medication adherence and diabetic education. She will see endocrinology in a few weeks. Plan This note was constructed using voice recognition software. While every effort has been made to ensure accuracy and school superintendent, still areas may have been included sometimes these areas may affect the content or meeting of the given symptoms. Total time spent caring for the patient today was 30 minutes. This includes time spent before the visit reviewing the chart, time spent during the visit, and time spent after the visit and documentation. Patient was informed and verbally consented to the use of an ambient scribe for clinic note documentation during this visit. Orders: Orders AMB Hemoglobin A1c Today E11.42 - Type 2 diabetes mellitus with diabetic polyneuropathy, E11.65 - Type 2 diabetes mellitus with hyperglycemia, Z79.4 - intermediate (current) use of insulin Medications: Discontinued terconazole 0.8% Discontinued Reason: Patient no longer taking 1 appful vaginal BEDTIME 3 days 20 grams 0RF bisacodyl per colonoscopy instructions Discontinued Reason: Patient no longer taking 5 mg PO ONCE 1 day 3 tabs 0RF blood-glucose sensor (Ship It Bag Check G7 Sensor device) Discontinued Reason: Insurance Denied Use daily As directed to monitor glucose. change q 10 days 3 ea 5RF E11.65 - Type 2 diabetes mellitus with hyperglycemia, Z79.4 - intermodal dispatcher (current) use of insulin polyethylene glycol 3350 (Miralax) per colonoscopy prep instructions Discontinued Reason: Patient no longer taking 238 grams PO ONCE 238 grams 0RF
[2024-10-06 11:30] VITALS: BP 126/50; PULSE 76; O2SAT 96; BMI 32.6
--- OUTSIDE RECORDS SUMMARY | 2024-10-06 12:06 | XMS_ITS | Clinical Summary ---
Author Organization [employer] [facility] Address [address] [place] [id number] Care Team Providers Care Handyperson Name Role Phone Unavailable Primary Care Provider Unavailabl e Surgical History Surgery Date Site/Laterality Comments CHOLECYSTECTOMY PROCEDURE: LAPAROSCOPIC CHOLECYSTECT OTHER SURGICAL HISTORY PROCEDURE: OK EPISIOTOMY/VAG RPR OTH/THN ATTENDING ESOPHAGOGASTRODUODENOSCOPY 03/12/15 PROCEDURE: OK ESOPHAGOGASTRODUODENOSCOPY TRANSORAL DIAGNOSTIC; COMMENT: normal, with nl [...] Vaccine ( - 2023-2 5 season) 2023 Depression Screening 03/02/2024 Influenza Vaccine (#1) 2024 7, 11/19/2015 DTaP,Tdap,and Td Vaccines (2 - Td or Tdap) 03/31/2026 03/31/2016 RSV Immunization Adult Patients (1 - 1-dose 75+ series) 05/27/2035 HIB Vaccines Aged Out No longer eligi [...] reviewed with CAD and compared to previous. The breasts are composed of fatty and fibroglandular tissue. No suspicious mass, architectural distortion or suspicious calcifications [...]
--- OUTSIDE RECORDS SUMMARY | 2024-10-06 12:06 | XMS_ITS | Encounter Summary ---
Author Organization [facility] Address [address] [facility] [address] [place] [phone] Phone Care Team Providers Care Special Deputy Sheriff Name Role Phone Pcp, Unknown Primary Care Provider Unavailabl e Encounter Details Date Type Department Care Team (Late st Contact Info) Description 05/24/2022 Procedure Pass [facility], Ct Scan - [facility] [address] [place] [address] Social History Tobacco Use Types Packs/Day Years Used Date Smoking Tobacco: Never Smokeless Tobacco: Never Alcohol Use Standard Drinks/Week Comments Never 0 (1 standard drink = 0.6 oz pur e alcohol) Intimate Partner Violence Answer Date R ecorded Are you denied basic needs s uch as food, clothing, or medical care? No 05/24/2022 In the past 12 months have y ou been in a relationship with a person who hurts, threatens, or tries to control you? No 05/24/2022 Are you denied basic needs s uch as food, clothing, or medical care? No 05/24/2022 In the past 12 months have y ou been in a relationship with a person who hurts, threatens, or tries to control you? No 05/24/2022 Comments Unknown Sex and Gender Information Value Date Recorded Sex Assigned at Female 05/24/2022 4:55 PM EDT Legal Sex Female 4:26 PM EDT Gender Identity Female 05/24/2022 4:55 PM EDT Sexual Orientation Not on file documented as of this encounter Functional Status * Calculated C-SSRS Risk Score (Lifetime/Recent) Answer Date of Assessment Author No Risk Indicated 05/24/2022 4:54 PM EDT Radha Fong RN * [place] Suicide Severity Rating Scale (Screener/Recent Self-Report) Question Answer Date of Assessment Author 1. Wish to be (Past 1 Month) No 023 4:54 PM EDT Radha Fong RN 2. Non-Specific Active Suici clinton Thoughts (Past 1 Month) No 05/24/2022 4:54 PM EDT Radha Fong RN 6. Suicidal Behavior (Lifetime) No 3 4:54 PM EDT Radha Fong RN documented as of this encounter Plan of Treatment Not on file documented as of this encounter Visit Diagnoses Not on filedocumented in this encounter Additional Health Concerns Infection Onset Date Last Indicated Resolved Time CoV-Risk 05/24/2022 05/24/2022 06/04/2022 1:22 AM EDT documented as of this encounter Care Teams Special Deputy Sheriff Relationship Specialty Start Date End Date Pcp, Unknown PCP - General 05/24/22 documented as of this encounter Additional Source Comments The information contained in this document represents components of the legal health record. It is not the complete legal health record.[facility]
== END 2024-10-06 12:23 | disposition home or self-care (01) ==
LOC: HO.HMCH 11:25
PROVIDERS: PCP Internal Medicine
DX: E11.42 Type 2 diabetes mellitus with diabetic polyneuropathy (principal); E11.65 Type 2 diabetes mellitus with hyperglycemia; Z79.4 Long term (current) use of insulin

== ENCOUNTER → 2024-10-06 11:25 | Outpatient (BNVA) | payer OTHER, SELFPAY | PROVIDERS: PCP Internal Medicine | DX: Z01.818 Encounter for other preprocedural examination (principal); E11.42 Type 2 diabetes mellitus with diabetic polyneuropathy; E11.65 Type 2 diabetes mellitus with hyperglycemia; I10 Essential (primary) hypertension; K21.9 Gastro-esophageal reflux disease without esophagitis; F41.9 Anxiety disorder, unspecified; E78.1 Pure hyperglyceridemia; Z79.4 Long term (current) use of insulin | CPT/HCPCS: 83036; 99212 ==

== ENCOUNTER 2024-10-14 10:42 | Outpatient (AMB) | payer OTHER, SELFPAY ==
[2024-10-14 10:44] VITALS: BP 138/60; PULSE 86; O2SAT 97; BMI 33.5
--- NOTE | 2024-10-14 10:44 | A.OFFVIS_ITS ---
Vital Signs 10/14/24 10:44 Height 5 ft 2 in Weight 182 lb 15.739 oz BMI 33.5 BP 138/60 Blood Pressure Location Rt brachial Position Sitting Pulse 86 Pulse Source Pulse Oximeter Pulse Oximetry (%) 97 Oxygen Delivery Method Room Air Intake Visit Reasons: DM Intake Note: Patient presents today for a follow-up on Type 2 Diabetes Mellitus: Last Diabetic eye exam was on: 09/2024, [facility] Last Podiatry exam was on: Patient does not see a Concession Attendant Most recent HbA1c: 11.1%, 10/06/2024 Random Glucose- 155 mg/dL, Today Lang Path Therapist Required: No Accompanied by: Self / Same As Patient Allergies Iodinated Contrast Media (IV CONTRAST) Allergy (Intermediate, Verified 10/14/24 10:46) RASH iopromide (From ULTRAVIST) Allergy (Mild, Verified 10/14/24 10:46) ITCHING semaglutide (From Ozempic) Adverse Reaction (Severe, Verified 10/14/24 10:46) pancreatitis Medication List - Last Reconciled 10/14/24 by Sultana Williamson PA-C atorvastatin 80 mg PO BEDTIME blood sugar diagnostic (FreeStyle Lite Strips) As directed three times a day blood-glucose meter (FreeStyle Davin Lite kit) As directed dispense as freestyle lite cholecalciferol (vitamin D3) 50 mcg PO DAILY 90 days clonidine HCl 0.1 mg PO BID PRN 30 days empagliflozin (Jardiance) 25 mg PO DAILY fenofibrate 120 mg PO DAILY 30 days gabapentin 300 mg PO BEDTIME PRN glipizide ER 5 mg PO DAILY glucose (Dex4 Glucose) 16 grams (4 x 4 gram) PO Q15M PRN insulin degludec (Tresiba FlexTouch U-200 insulin) 80 units (0.4 mL) subcut BEDTIME 30 days insulin lispro (Humalog KwikPen (U-100) Insulin) 30 units for breakfast , 30 units for lunch, 30 units for dinner subcutaneously daily lancets (FreeStyle Lancets) Three times a day levothyroxine 50 mcg PO QAM lisinopril-hydrochlorothiazide 20-12.5 mg 1 tab PO DAILY 90 days lorazepam mg PO metoprolol succinate ER 75 mg (1.5 x 50 mg) PO DAILY 30 days mirtazapine 7.5 mg PO BEDTIME 30 days pantoprazole 40 mg PO DAILY pen needle, diabetic (BD Ultra-Fine Jordana Pen Needle) As directed four times a day pen needle, diabetic As directed sertraline 50 mg PO DAILY 30 days HPI HPI DM: Details: Patient is a 64-year-old female with a significant past medical history of hypertension, hyperlipidemia, hypothyroidism, type 2 diabetes uncontrolled with long-term insulin use, obesity presenting today for a diabetic follow-up. Lang Path Therapist: Evon She has not been seen since last year and states that she is finally ready to take her diabetes serious. She tells me that she needs surgery for her eyes and is going blind due to her diabetes and states that her sister recently had a bilateral BKA and she is terrified of the same things happening to her. She tells me they refused to do her eye surgery until her A1c is better. Endo: DM-her most recent A1c is 11.1.. She is on Jardiance 25 mg, glipizide 5 mg, 80 units of tresiba , Humalog to 24 units with breakfast, 30 units with lunch and 30 units with supper. -states she has been compliant with her medications. Her blood sugar in the office is 155. - has tried ozempic but caused pancreatitis. Metformin caused GI upset. [facility] Medical History Osteoporosis Early satiety Mixed hyperlipidemia Ganglion cyst of tendon sheath of left hand Pure hypercholesterolemia Numbness and tingling in both hands Trigger finger, left middle finger Trigger finger, right ring finger Vulvar leukoplakia Atypical chest pain Tachycardia Left knee pain Right shoulder pain Arthralgia Vulvovaginitis juani albicans Breast pain, right Obesity (BMI 30-39.9) Hypertriglyceridemia Vitamin D deficiency Loose stools Pancreatitis Poor historian Vulvar leukoplakia Vulvar itching Recurrent epigastric abdominal pain Type 2 diabetes mellitus with diabetic nephropathy Hyperlipidemia LDL goal <100 Diabetes mellitus Primary osteoarthritis of hips, bilateral Lumbar degenerative disc disease Anxiety GERD without esophagitis Gastritis GERD (gastroesophageal reflux disease) Depression Hypothyroidism Type 2 diabetes mellitus with hyperglycemia, with long-term current use of insulin Type 2 diabetes mellitus with diabetic polyneuropathy Essential hypertension Surgical History S/P cholecystectomy Hx of tubal ligation History of herniated intervertebral disc Family History Father Throat cancer Mother Diabetes mellitus CVD (cardiovascular disease) Maternal Aunt Breast cancer Social History Household Members: None Housing: Apartment Alcohol intake: never Patient Tobacco Use Status: Former Tobacco user e-Cigarette/Vaping Use: Never Used Second Hand Smoke Exposure: No service: No Current occupational status: disabled Sexual orientation: Straight/Heterosexual Gender identity: Female Cognitive needs: No Hearing needs: No Vision needs: Yes Female Reproductive History Menstrual Age of Menarche: 12 Physical Exam Vital Signs: Last Vital Signs Pulse 86 10/14/24 10:44 BP 138/60 10/14/24 10:44 Pulse Ox 97 10/14/24 10:44 Oxygen Delivery Method Room Air 10/14/24 10:44 BMI result Body Mass Index 33.5 Const Orientation/consciousness: patient oriented x3 HEENT Ears: hearing grossly normal bilaterally Neck Thyroid: Thyroid normal Lymphatic: no lymphadenopathy noted Resp Auscultation: clear to auscultation bilaterally Cardio Rate: regular rate Rhythm: regular rhythm Heart sounds: S1 normal heart sound present and S2 normal heart sound present Skin General skin exam: no rashes or lesions noted Neuro General: patient oriented x3, gait normal and no focal motor deficits Assessment & Plan Assessment & Plan (1) Type 2 diabetes mellitus with hyperglycemia, with long-term current use of insulin: Code(s): E11.65 - Type 2 diabetes mellitus with hyperglycemia; Z79.4 - intermediate (current) use of insulin Category: Medical Plan: No adjustments made today. Advised to continue the current regimen. I downloaded the EMcube 3 maryjane on her phone, showed her how to use it, and provided her with 2 sensors. We reviewed signs and symptoms of hyper and hypoglycemia that would require emergent medical treatment. We will do a short term follow up in 2 weeks with data from her maryjane and glucometer to better adjust the insulin. She will contact us sooner however if she does develop any low blood sugars. Medications: New blood-glucose sensor (FreeStyle Simón 3 Plus Sensor device) Use daily As directed to monitor glucose 2 ea 5RF E08.29 - Diabetes mellitus due to underlying condition with other diabetic kidney complication, R80.9 - Proteinuria, unspecified, Z79.4 - buttermaker helper (current) use of insulin Refilled insulin degludec (Tresiba FlexTouch U-200 insulin) 80 units (0.4 mL) subcut BEDTIME 12 mL 6RF 30 days blood sugar diagnostic (FreeStyle Lite Strips) As directed three times a day 100 ea 11RF E11.42 - Type 2 diabetes mellitus with diabetic polyneuropathy, E11.65 - Type 2 diabetes mellitus with hyperglycemia, Z79.4 - intermediate (current) use of insulin Coding Level of Care Code Est Pt Level 4 (03185) Complex EM visit Add On G2211 Diagnoses Type 2 diabetes mellitus with hyperglycemia, with long-term current use of insulin E11.65; Z79.4
--- OUTSIDE RECORDS SUMMARY | 2024-10-14 10:47 | XMS_ITS | Encounter Summary ---
Author Organization [facility] Address [address] [facility] [address] [place] [phone] Phone Care Team Providers Care Conveyor Line Battery Charger Name Role Phone Pcp, Unknown Primary Care Provider Unavailabl e Encounter Details Date Type Department Care Team (Late st Contact Info) Description 05/24/2022 Procedure Pass [facility], Ct Scan - [facility] [address] [place] [address] Social History Tobacco Use Types Packs/Day Years [...] 4:54 PM EDT Radha Fong RN * [place] Suicide Severity Rating Scale (Screener/Recent Self-Report) Question [...] documented as of this encounter Care Teams Conveyor Line Battery Charger Relationship Specialty Start Date End Date Pcp, Unknown PCP - General 05/24/22 documented as of this encounter Additional Source Comments The information contained in this document represents components of the legal health record. It is not the complete legal health record.[facility]
[2024-10-14 10:54] LABS: Glucose, Whole Blood 155 mg/dL (60-115)
== END 2024-10-14 11:20 | disposition home or self-care (01) ==
LOC: HO.ENCR 10:42
PROVIDERS: PCP Registered Nurse Emergency; Visit Provider Physician Assistant
DX: E11.65 Type 2 diabetes mellitus with hyperglycemia (principal); Z79.4 Long term (current) use of insulin

== ENCOUNTER → 2024-10-14 10:42 | Outpatient (BNVA) | payer OTHER, SELFPAY | PROVIDERS: PCP Registered Nurse Emergency; Visit Provider Physician Assistant | DX: E11.65 Type 2 diabetes mellitus with hyperglycemia (principal); E11.42 Type 2 diabetes mellitus with diabetic polyneuropathy; E11.29 Type 2 diabetes mellitus with other diabetic kidney complication; R80.9 Proteinuria, unspecified; Z79.4 Long term (current) use of insulin | CPT/HCPCS: 82947; 99212 ==

== ENCOUNTER 2024-10-26 09:44 | Outpatient (REF) | payer OTHER, SELFPAY ==
[2024-10-26 10:22] LABS: MANUAL DIFF FLAG NO
--- OUTSIDE RECORDS SUMMARY | 2024-10-26 10:24 | XMS_ITS | Clinical Summary ---
Author Organization [facility] Address [address] [place] [address] Phone Care Team Providers Care Computing Systems Mechanic Name Role Phone Pcp, Unknown Primary Care Provider Unavailabl e Allergies No known active allergies Medications ondansetron (ZOFRAN-ODT) 4 MG disintegrating tablet Take 1 tablet (4 mg total) by mouth every 8 (eight) hours as needed. 20 tablet 3 Active morphine (MSIR) 15 MG tablet Take 1 tablet (15 mg total) by mouth every 6 (six) hours as needed for pain (specific location in comments). Partial fill ok 12 tablet 3 Active Social History Tobacco Use Types Packs/Day Years Used Date Smoking Tobacco: Never Smokeless Tobacco: Never Tobacco Cessation:Counseling Given: Not Answered Alcohol Use Standard Drinks/Week Comments Never 0 (1 standard drink = 0.6 oz pur e alcohol) Education Answer Date Recorded Are you interested in more education? Not on lindsey e 06/28/2022 Are you concerned about learning? Not on file 06/28/2022 No 06/28/2022 No 06/28/2022 Digital Access Answer Date Recorded No 07/29/2022 No 07/29/2022 Reliable internet access at home? Not on file 07/29/2022 Device with a working camera? Not on file Intimate Partner Violence Answer Date R ecorded [...] PM EDT Sexual Orientation Not on file Last Filed Vital Signs Vital Sign Reading Time Taken Comments Blood Pressure 112/67 05/24/2022 11:43 PM EDT Pulse 100 05/24/2022 11:43 PM EDT Temperature 37 C (98.6 F) 05/24/2022 11:43 PM EDT Respiratory Rate 18 05/24/2022 11:43 PM EDT Oxygen Saturation 98% 05/24/2022 11:43 PM EDT Inhaled Oxygen Concentration - - Weight 79 kg (174 lb 3.2 oz) 05/24/2022 4:52 PM EDT Height 162.6 cm (5' 4 ) 05/24/2022 4:52 PM EDT Body Mass Index 29.9 05/24/2022 4:52 PM EDT Plan of Treatment Not on file Medical Devices Not on file Insurance [employer] [facility] [facility] ACO ACO ACO [facility] ACO Care Teams Computing Systems Mechanic Relationship Specialty Start Date End Date Pcp, Unknown PCP - General 05/24/22 Additional Source Comments The information contained in this document represents components of the legal health record. It is not the complete legal health record.[facility]
--- OUTSIDE RECORDS SUMMARY | 2024-10-26 10:24 | XMS_ITS | Encounter Summary ---
Author Organization [facility] Address [address] [place] [address] Phone Care Team Providers Care Wharf Helper Name Role Phone Pcp, Unknown Primary Care Provider Unavailabl e Encounter Details Date Type Department Care Team (Late st Contact Info) Description 05/24/2022 Procedure Pass [facility], Ct Scan - [facility] [address] [place] [address] Social History Tobacco Use Types Packs/Day Years [...] 4:54 PM EDT Radha Fong RN * [place] Suicide Severity Rating Scale (Screener/Recent Self-Report) Question [...] documented as of this encounter Care Teams Wharf Helper Relationship Specialty Start Date End Date Pcp, Unknown PCP - General 05/24/22 documented as of this encounter Additional Source Comments The information contained in this document represents components of the legal health record. It is not the complete legal health record.[facility]
--- OUTSIDE RECORDS SUMMARY | 2024-10-26 10:24 | XMS_ITS | Clinical Summary ---
Author Organization [facility] Address [id number] [place] [id number] Care Team Providers Care Director Software Quality Assurance Name Role Phone Unavailable Primary Care Provider [...]
--- OUTSIDE RECORDS SUMMARY | 2024-10-26 10:24 | XMS_ITS | Encounter Summary ---
Author Organization [facility] Address [address] [place] [address] Phone Care Team Providers Care Staff Rn Name Role Phone Pcp, Unknown Primary Care Provider Unavailabl e Encounter Details Date Type Department Care Team (Late st Contact Info) Description 05/24/2022 Procedure Pass [facility], Ct Scan - [facility] [address] [place] [address] Social History Tobacco Use Types Packs/Day Years [...] 4:54 PM EDT Radha Fong RN * [place] Suicide Severity Rating Scale (Screener/Recent Self-Report) Question [...] documented as of this encounter Care Teams Staff Rn Relationship Specialty Start Date End Date Pcp, Unknown PCP - General 05/24/22 documented as of this encounter Additional Source Comments The information contained in this document represents components of the legal health record. It is not the complete legal health record.[facility]
[2024-10-26 10:52] LABS: Hematocrit 42.1 % (37.0-47.0); Hemoglobin 14.1 g/dl (12.0-16.0); Imm Gran Abs Auto 0.02 X10*3/uL (0.00-0.03); Imm Gran Pct Auto 0.3 % (0.0-0.4); Lymphocytes Absolute Auto 2.0 X10*3/uL (1.2-4.9); Mean Corpuscular HGB Conc 33.5 g/dl (31.0-35.0); Mean Corpuscular Hemoglobin 29.7 pg (27.0-33.0); Mean Corpuscular Volume 88.8 fL (80.0-98.0); NRBC Abs Auto 0.000 X10*3/uL (0.0-0.012); NRBC Pct Auto 0.0 /100WBC (0.0-0.2); Platelet Count 186 X10*3/uL (160-400); Red Blood Count 4.74 X10*6/uL (4.20-5.50); White Blood Count 7.5 X10*3/uL (4.8-10.8)
[2024-10-26 11:02] LABS: Hemoglobin A1C 280.2332 umol/L; Total Hemoglobin (HGBA1C) 3563.2524 umol/L
[2024-10-26 11:13] LABS: Appearance Urine Clear; Glucose Urine UA >=1000 mg/dL (Negative); PH 5.5 (5.0-9.0); Specific Gravity - Urine >= 1.030 (1.005-1.025); UMIC TRIGGER UACC YES
[2024-10-26 11:20] LABS: Alanine Aminotransferase 20 U/L (0-31); Albumin Level 4.2 g/dL (3.5-5.0); Alkaline Phosphatase 90 U/L (39-117); Anion Gap 13 (12-20); Aspartate Amino Transferase 16 U/L (5-31); Blood Urea Nitrogen 20 mg/dL (9-16); Calcium 9.4 mg/dL (8.4-10.2); Carbon Dioxide 24 mmol/L (22-29); Chloride 106 mmol/L (96-108); Cholesterol 161 mg/dL (<200); Estimated Glomerular Filt Rate > 60; HDL Cholesterol 31 mg/dL (>40); Potassium 4.1 mmol/L (3.3-5.1); Sodium 139 mmol/L (135-145); Total Protein 7.6 g/dL (6.5-8.0); Triglycerides 289 mg/dL (<150)
[2024-10-26 11:37] LABS: Free T4 (Free Thyroxine) 0.87 ng/dL (0.71-1.85); Thyroid Stimulating Hormone 1.96 uIU/mL (0.32-4.0)
[2024-10-26 11:46] LABS: Folate 12.3 ng/mL (> or = 4.0); Vitamin B12 433 pg/mL (200-900)
[2024-10-26 12:00] LABS: Microalbum/Creatinine Ratio Ur 127.6 ug/mg cr (<30)
== END 2024-10-26 09:45 | disposition home or self-care (01) ==
LOC: HO.LAB 09:44
PROVIDERS: PCP Internal Medicine; Visit Provider Internal Medicine
DX: E78.00 Pure hypercholesterolemia, unspecified (principal); E11.9 Type 2 diabetes mellitus without complications; E03.9 Hypothyroidism, unspecified; D64.9 Anemia, unspecified; E55.9 Vitamin D deficiency, unspecified; E53.8 Deficiency of other specified B group vitamins; R30.0 Dysuria
CPT/HCPCS: 36415; 80053; 80061; 81001; 81003; 82043; 82306; 82570; 82607; 82746; 83036; 84439; 84443; 85025

== ENCOUNTER 2024-10-28 10:51 | Outpatient (AMB) | payer OTHER, SELFPAY ==
--- NOTE | 2024-10-28 10:53 | A.OFFPC_ITS ---
Vital Signs 10/28/24 10:54 Height 5 ft 2 in Weight 184 lb BMI 33.7 BP 142/80 H Blood Pressure Location Lt brachial Position Sitting Pulse 82 Pulse Source Pulse Oximeter Temp 97.0 F Temp Source Temporal Artery Scan Pulse Oximetry (%) 95 Oxygen Delivery Method Room Air Intake Visit Reasons: 3M Med Follow Up- repeat A1C Professor Of Environmental Engineering Required: Yes Professor Of Environmental Engineering Language: Pig Machine Operator Helper Name: Piero([id number]) Allergies Iodinated Contrast Media (IV CONTRAST) Allergy (Intermediate, Verified 10/28/24 11:46) RASH iopromide (From ULTRAVIST) Allergy (Mild, Verified 10/28/24 11:46) ITCHING semaglutide (From Ozempic) Adverse Reaction (Severe, Verified 10/28/24 11:46) pancreatitis Medication List - Last Reconciled 10/28/24 by Genaro Chu MD atorvastatin 80 mg PO BEDTIME blood sugar diagnostic (FreeStyle Lite Strips) As directed three times a day blood-glucose meter (FreeStyle [place] Lite kit) As directed dispense as freestyle lite blood-glucose sensor (FreeStyle Simón 3 Plus Sensor device) Use daily As directed to monitor glucose cholecalciferol (vitamin D3) 50 mcg PO DAILY 90 days clonidine HCl 0.1 mg PO BID PRN 30 days empagliflozin (Jardiance) 25 mg PO DAILY fenofibrate 120 mg PO DAILY 30 days gabapentin 300 mg PO BEDTIME PRN glipizide ER 5 mg PO DAILY glucose (Dex4 Glucose) 16 grams (4 x 4 gram) PO Q15M PRN insulin degludec (Tresiba FlexTouch U-200 insulin) 80 units (0.4 mL) subcut BEDTIME 30 days insulin lispro (Humalog KwikPen (U-100) Insulin) 30 units for breakfast , 30 units for lunch, 30 units for dinner subcutaneously daily lancets (FreeStyle Lancets) Three times a day levothyroxine 50 mcg PO QAM lisinopril-hydrochlorothiazide 20-12.5 mg 1 tab PO DAILY 90 days lorazepam 1 mg PO .QD PRN metoprolol succinate ER 75 mg (1.5 x 50 mg) PO DAILY 30 days mirtazapine 7.5 mg PO BEDTIME 30 days pantoprazole 40 mg PO DAILY pen needle, diabetic (BD Ultra-Fine Jordana Pen Needle) As directed four times a day pen needle, diabetic As directed sertraline 50 mg PO DAILY 30 days Tobacco use date assessed: 10/28/24 Fall risk assessment: No Falls in past year Last assessed Fall Risk: 10/28/24 Dental Screening Dental Screen Date: 10/28/24 Did you have a dental visit in the last 12 months?: No Did you have a dental problem in the last 6 months where you did not have access to dental care?: No Was dental information given to patient?: No HPI 3M Med Follow Up- repeat A1C HPI Details Patient comes in today for her follow up visit States that she feels okay She denies any headaches or dizziness Denies any chest pains, no SOB No nausea/vomiting, no abdominal pain No change in bowel habits noted She had her follow up labs done a couple of days ago - to discuss her results [facility] Medical History Osteoporosis Early satiety Mixed hyperlipidemia Ganglion cyst of tendon sheath of left hand Pure hypercholesterolemia Numbness and tingling in both hands Trigger finger, left middle finger Trigger finger, right ring finger Vulvar leukoplakia Atypical chest pain Tachycardia Left knee pain Right shoulder pain Arthralgia Vulvovaginitis juani albicans Breast pain, right Obesity (BMI 30-39.9) Hypertriglyceridemia Vitamin D deficiency Loose stools Pancreatitis Poor historian Vulvar leukoplakia Vulvar itching Recurrent epigastric abdominal pain Type 2 diabetes mellitus with diabetic nephropathy Hyperlipidemia LDL goal <100 Diabetes mellitus Primary osteoarthritis of hips, bilateral Lumbar degenerative disc disease Anxiety GERD without esophagitis Gastritis GERD (gastroesophageal reflux disease) Depression Hypothyroidism Type 2 diabetes mellitus with hyperglycemia, with long-term current use of insulin Type 2 diabetes mellitus with diabetic polyneuropathy Essential hypertension Surgical History S/P cholecystectomy Hx of tubal ligation History of herniated intervertebral disc Family History Father Throat cancer Mother Diabetes mellitus CVD (cardiovascular disease) Maternal Aunt Breast cancer Social History Household Members: None Housing: Apartment Alcohol intake: never Patient Tobacco Use Status: Former Tobacco user e-Cigarette/Vaping Use: Never Used Second Hand Smoke Exposure: No service: No Current occupational status: disabled Sexual orientation: Straight/Heterosexual Gender identity: Female Cognitive needs: No Hearing needs: No Vision needs: Yes Female Reproductive History Menstrual Age of Menarche: 12 Questionnaire PHQ-9 Over the last 2 weeks, how often have you been bothered by any of the following problems? 1. Little interest or pleasure in doing things: several days 2. Feeling down, depressed, or hopeless: several days 3. Trouble falling or staying asleep, or sleeping too much: several days 4. Feeling tired or having little energy: several days 5. Poor appetite or overeating: several days 6. Feeling bad about yourself - or that you are a failure or have let yourself or your family down: not at all 7. Trouble concentrating on things, such as reading the newspaper or watching television: several days 8. Moving or speaking so slowly that other people could have noticed. Or the opposite - being so fidgety or restless that you have been moving around a lot more than usual: not at all 9. Thoughts that you would be better off or of hurting yourself in some way: not at all Total score: 6 Depression Screening Interpretation: Positive Depression Screening Follow-up: Existing condition and In treatment Depression Screening Done: Yes 39441 - PHQ-9 Billing: Yes Source: Developed by Drs. Teofilo Loredo, Radha Knight, Keagan Guzman and colleagues, with an educational alecia from [employer]. Thrive Questionnaire Date Thrive assessed: 03/25/24 I am a: Patient What is your living situation today?: I choose not to answer this question Within the past 12 months, did the food you bought not last and you didn't have the money to get more?: I choose not to answer this question Within the past 12 months, did you worry whether your food would run out before you got money to buy more?: I choose not to answer this question Do you have trouble paying for medicines?: No Do you have trouble getting transportation to medical appointments?: No Do you have trouble paying your heating and electricity bill?: No Do you have trouble taking care of your child, family member or friend?: No Do you have trouble with day-to-day activities such as bathing, preparing meals, shopping, managing finances, etc.?: No Are you currently unemployed and looking for a job?: No Are you interested in more education?: No Please select the resources that you would like help with: Food Currently or been in a relationship where the following occur: No concerns reported THRIVE Score: 0 AUDIT C Alcohol Use Questionnaire (AUDIT-C) 1. How often do you have a drink containing alcohol?: Never 3. How often do you have six or more drinks on one occasion?: Never Total Score: 0 Score Reviewed/Action Taken: Yes CARO-7 AMB Questionnaire CARO-7 Date CARO - 7 assessed: 06/23/24 Feeling nervous, anxious, or on edge: 0 = Not at all Not being able to stop or control worryin = Not at all Worrying too much about different things: 0 = Not at all Trouble relaxin = Not at all Being so restless that it is hard to sit still: 0 = Not at all Becoming easily annoyed or irritable: 0 = Not at all Feeling afraid as if something awful might happen: 0 = Not at all Total CARO-7 score (0-4 normal; 5-9 mild; 10-14 moderate; 15-21 severe): 0 Source: Developed by Drs. Teofilo Loredo, Radha Knight, Keagan Guzman and colleagues, with an educational alecia from [employer]. Review of Systems Const Denies chills, Denies fatigue, Denies fever(s) and Denies headache(s) ENT Denies dysphagia, Denies dizziness, Denies otalgia, Denies headache(s), Denies neck pain, Denies odynophagia and Denies sore throat Card Denies chest pain, Reports palpitations (occasionally) and Reports dyspnea on exertion (mild) Resp Denies chest congestion, Denies cough and Reports dyspnea on exertion (mild) GI Reports abdominal pain (on and off diffuse pain, bloating and discomfort), Denies constipation, Denies dysphagia, Denies heartburn, Denies diarrhea, Denies nausea, Denies odynophagia and Denies vomiting Denies difficulty voiding, Denies nocturia, Denies dysuria and Denies urinary urgency Musc Reports back pain (over the lower back - increasing lately), Reports arthralgias (over both hips) and Denies neck pain Skin/Breast Denies rash Neuro Denies dizziness and Denies headache(s) Psych Reports anxiety Endo Denies fatigue and Reports palpitations (occasionally) Physical exam (Primary Care) Vital Signs: Last Vital Signs Temp 97.0 F 10/28/24 10:54 Pulse 82 10/28/24 10:54 BP 142/80 H 10/28/24 10:54 Pulse Ox 95 10/28/24 10:54 Oxygen Delivery Method Room Air 10/28/24 10:54 BMI result Body Mass Index 33.7 Tobacco/Smoking Status: Tobacco use Status Tobacco use date assessed 10/28/24 10/28/24 11:00 Patient Tobacco Use Status Former Tobacco user 10/28/24 11:00 e-Cigarette/Vaping Use Never Used 10/28/24 11:00 PHQ-9: PHQ-9 Score PHQ-9: Total score 6 10/28/24 11:54 Depression Screening Interpretation: Positive Depression Screening Follow-up: Existing condition and In treatment Thrive Assessment: Date of Thrive Assessment Date Thrive assessed 03/25/24 10/28/24 11:00 Currently or been in a relationship where the following occur: No concerns reported Const General: no acute distress and alert HENMT Ears: TM's normal bilaterally and EAC's normal Throat: Yes posterior oropharynx normal and Yes tonsils normal (no TP congestion) Neck Neck: Yes supple and No lymphadenopathy Thyroid: Thyroid normal Resp Auscultation: clear to auscultation bilaterally, no rales and no wheezes Cardio Rate: regular rate Rhythm: regular rhythm Heart sounds: no murmurs GI Palpation (GI): Soft to palpation and nontender Auscultation: normal bowel sounds General: Yes no CVA tenderness Back/Spine/Pelvis Back: no CVA tenderness Thoracic/Lumbar Spine: lumbar spinal tenderness (mild) Skin Rashes: no rashes Extrem General: Yes no clubbing, cyanosis or edema Right lower extremity: hip/thigh Details: tenderness Location: of the hip Left lower extremity: hip/thigh Details: tenderness Location: of the hip Results Reviewed Results Reviewed: Laboratory Tests 10/06/24 10/26/24 10/26/24 11:43 10:18 10:21 WBC 7.5 Hgb 14.1 Hct 42.1 Plt Count 186 Sodium 139 Potassium 4.1 Creatinine 0.54 Estimated GFR > 60 Fasting Glucose 201 H Hgb A1c (Clinic) 11.1 H Hemoglobin A1c % 9.3 H Calcium 9.4 AST 16 ALT 20 Triglycerides 289 H Cholesterol 161 LDL Cholesterol, Calc 73 HDL Cholesterol 31 L Vitamin B12 433 25-OH Vitamin D Total 26.2 L TSH 1.96 Free T4 0.87 Ur Specific [place] >= 1.030 H Urine Protein Negative Urine Glucose (UA) >=1000 H Urine Blood Negative Urine Nitrite Negative Ur Leukocyte Esterase Negative Microalb/Creat Ratio 127.6 H Coding Level of Care Code Est Pt Level 4 (41413) Complex EM visit Add On G2211 Diagnoses Type 2 diabetes mellitus with hyperglycemia, with long-term current use of insulin E11.65; Z79.4 Mixed hyperlipidemia E78.2 Degeneration of intervertebral disc of lumbar region with discogenic back pain M51.360 Disc-related pain type: discogenic back pain only Osteoporosis without current pathological fracture, unspecified osteoporosis type M81.0 Osteoporosis type: unspecified Presence of current pathological fracture: without current pathological fracture Essential hypertension I10 Acquired hypothyroidism E03.9 Hypothyroidism type: acquired Vitamin D deficiency E55.9 Obesity (BMI 30-39.9) E66.9 Additional Codes PHQ-9 - 07668 - PHQ-9 Billing: Yes ([id number]) Assessment & Plan Assessment & Plan (1) Type 2 diabetes mellitus with hyperglycemia, with long-term current use of insulin: Code(s): E11.65 - Type 2 diabetes mellitus with hyperglycemia; Z79.4 - shelter (current) use of insulin Category: Medical Plan: Her HgbA1c was at 9.3% on her labs done a couple of days ago (in-office HgbA1c was previously at 11.1% just about 3 weeks ago) - goal is <7.0% Reinforced diabetic diet She is currently on Tresiba 80 units QD, Humalog 30 units TID, Jardiance 25 mg QD and Glpizide ER 5 mg QD She is NOT a candidate for the GLP1s due to her Hx of pancreatitis and past GI upset with Metformin The effects of Lantus and Toujeo kept wearing off by late afternoon She continues to struggle with compliance with medications - states that she tends to forget taking mealtime insulin doses often Follow-up with endocrinology as scheduled (2) Mixed hyperlipidemia: Code(s): E78.2 - Mixed hyperlipidemia Category: Medical Plan: Results of her labs done a couple of days ago reviewed and discussed with patient - her serum triglyceride level has improved significantly from previous and is now down to under 300 mg/dl (was OVER 3000 mg/dl (3078) a few months ago Reinforced low cholesterol diet Continue Atorvastatin 80 mg QD and Fenofibrate 120 mg QD Will recheck her labs and fasting lipids in 4 months for follow-up (3) Lumbar degenerative disc disease: Code(s): M51.36 - Other intervertebral disc degeneration, lumbar region Category: Medical Qualifiers: Disc-related pain type: discogenic back pain only Qualified Code(s): M51.360 - Other intervertebral disc degeneration, lumbar region with discogenic back pain only Plan: Reinforced activity and weight-lifting restrictions Lumbar spine x-rays done in March 2021 revealed (+) mild L2 superior endplate depression, new from CT 08/10/2018, and old degenerative disc changes at L4-L5 Due to her increasing low back pain lately, we sent her for updated lumbar spine x-rays X-rays done in January 2024 revealed (+) multilevel degenerative disc disease, similar compared to her prior examination. There is also a chronic L2 compression deformity that is also unchanged from previous As patient continues to be affected/impaired significantly by her increasing low back pain, she was referred to [facility] for further recommendations - she was seen a few months ago and sent to physical therapy, which she feels has helped somewhat (4) Osteoporosis: Code(s): M81.0 - Age-related osteoporosis without current pathological fracture Category: Medical Qualifiers: Osteoporosis type: unspecified Presence of current pathological fracture: without current pathological fracture Qualified Code(s): M81.0 - Age- related osteoporosis without current pathological fracture Plan: Her repeat BMD done in April 2024 revealed (+) osteoporosis, with the lowest T-score of -3.0 in the lft femoral neck consistent with osteoporosis Her BMD in the left hip has declined by -17.7% compared to previous and that in her left femur has declined by -20.1% Her urine NTx came back normal (5) Essential hypertension: Code(s): I10 - Essential (primary) hypertension Category: Medical Plan: Reinforced low-sodium diet -? goal is systolic BP of 120 mm or less Continue Lisinopril-Hydrochlorothiazide 20-12.5 mg QD (6) Hypothyroidism: Code(s): E03.9 - Hypothyroidism, unspecified Category: Medical Qualifiers: Hypothyroidism type: acquired Qualified Code(s): E03.9 - Hypothyroidism, unspecified Plan: Her TFTs were normal on her recent labs done a couple of days ago Continue Levothyroxine 50 mcg QD (7) Vitamin D deficiency: Code(s): E55.9 - Vitamin D deficiency, unspecified Category: Medical Plan: Continue Vitamin D3 2000 units QD (8) Obesity (BMI 30-39.9): Code(s): E66.9 - Obesity, unspecified Category: Medical Plan: Reinforced diet; exercise and weight loss are impractical currently due to her increasing low back pain Plan Follow up in 4 months Orders: Orders Lipid Panel 4 Months E78.00 - Pure hypercholesterolemia, unspecified Hemoglobin A1c 4 Months E11.9 - Type 2 diabetes mellitus without complications UA CC w/rflx Micro + Cult 4 Months R30.0 - Dysuria Vitamin B12 and Folate 4 Months E53.8 - Deficiency of other specified B group vitamins Complete Blood Count Auto Diff 4 Months D64.9 - Anemia, unspecified Comprehensive Sarita. Panel Fast 4 Months E78.00 - Pure hypercholesterolemia, unspecified Microalbumin, Random (w Creat) 4 Months E11.9 - Type 2 diabetes mellitus without complications Free T4 (Free Thyroxine) 4 Months E03.9 - Hypothyroidism, unspecified Vitamin D 25-OH Total 4 Months E55.9 - Vitamin D deficiency, unspecified Thyroid Stimulating Hormone 4 Months E03.9 - Hypothyroidism, unspecified
[2024-10-28 10:54] VITALS: BP 142/80; PULSE 82; TEMP 36.1; O2SAT 95; BMI 33.7
--- OUTSIDE RECORDS SUMMARY | 2024-10-28 11:31 | XMS_ITS | Encounter Summary ---
Author Organization [facility] Address [address] [facility] [address] [place] [phone] Phone Care Team Providers Care Rayon Winder Name Role Phone Pcp, Unknown Primary Care Provider Unavailabl e Encounter Details Date Type Department Care Team (Late st Contact Info) Description 05/24/2022 Procedure Pass [facility], Ct Scan - [facility] [address] [place] [address] Social History Tobacco Use Types Packs/Day Years [...] 4:54 PM EDT Radha Fong RN * [place] Suicide Severity Rating Scale (Screener/Recent Self-Report) Question [...] documented as of this encounter Care Teams Rayon Winder Relationship Specialty Start Date End Date Pcp, Unknown PCP - General 05/24/22 documented as of this encounter Additional Source Comments The information contained in this document represents components of the legal health record. It is not the complete legal health record.[facility]
--- OUTSIDE RECORDS SUMMARY | 2024-10-28 11:31 | XMS_ITS | Encounter Summary ---
Author Organization [facility] Address [address] [facility] [address] [place] [phone] Phone Care Team Providers Care Manager Legal Name Role Phone Pcp, Unknown Primary Care Provider Unavailabl e Encounter Details Date Type Department Care Team (Late st Contact Info) Description 05/24/2022 Procedure Pass [facility], Ct Scan - [facility] [address] [place] [address] Social History Tobacco Use Types Packs/Day Years [...] 4:54 PM EDT Radha Fong RN * [place] Suicide Severity Rating Scale (Screener/Recent Self-Report) Question [...] documented as of this encounter Care Teams Manager Legal Relationship Specialty Start Date End Date Pcp, Unknown PCP - General 05/24/22 documented as of this encounter Additional Source Comments The information contained in this document represents components of the legal health record. It is not the complete legal health record.[facility]
--- OUTSIDE RECORDS SUMMARY | 2024-10-28 11:31 | XMS_ITS | Clinical Summary ---
Author Organization [facility] Address [address] [place] [address] Phone Care Team Providers Care Chart Changer Name Role Phone Pcp, Unknown Primary Care [...] file Medical Devices Not on file Insurance [facility] ACO ACO ACO [facility] A[facility] Care Teams Chart Changer Relationship Specialty Start Date End Date Pcp, Unknown PCP - General 05/24/22 Additional Source Comments The information contained in this document represents components of the legal health record. It is not the complete legal health record.[facility]
--- OUTSIDE RECORDS SUMMARY | 2024-10-28 11:31 | XMS_ITS | Clinical Summary ---
Author Organization [facility] Address [address] [place] [phone] Care Team Providers Care Metal Flooring Installer Name Role Phone Unavailable Primary Care Provider Unavailabl e Surgical History Surgery Date Site/Laterality Comments CHOLECYSTECTOMY PROCEDURE: LAPAROSCOPIC CHOLECYSTECT OTHER SURGICAL HISTORY PROCEDURE: [place] EPISIOTOMY/VAG RPR OTH/THN ATTENDING ESOPHAGOGASTRODUODENOSCOPY 03/12/15 PROCEDURE: [place] ESOPHAGOGASTRODUODENOSCOPY TRANSORAL DIAGNOSTIC; COMMENT: normal, with nl [...]
== END 2024-10-28 11:59 | disposition home or self-care (01) ==
LOC: HO.HMCH 10:52
PROVIDERS: PCP Internal Medicine; Visit Provider Internal Medicine
DX: E11.65 Type 2 diabetes mellitus with hyperglycemia (principal); Z79.4 Long term (current) use of insulin; E66.9 Obesity, unspecified; Z68.33 Body mass index [BMI] 33.0-33.9, adult; E78.2 Mixed hyperlipidemia; M51.360 Other intervertebral disc degeneration, lumbar region with discogenic back pain only; M81.0 Age-related osteoporosis without current pathological fracture; I10 Essential (primary) hypertension; E55.9 Vitamin D deficiency, unspecified; E03.9 Hypothyroidism, unspecified

== ENCOUNTER → 2024-10-28 10:51 | Outpatient (BNVA) | payer OTHER, SELFPAY | PROVIDERS: PCP Internal Medicine; Visit Provider Internal Medicine | DX: E11.65 Type 2 diabetes mellitus with hyperglycemia (principal); E78.2 Mixed hyperlipidemia; M51.360 Other intervertebral disc degeneration, lumbar region with discogenic back pain only; M81.0 Age-related osteoporosis without current pathological fracture; I10 Essential (primary) hypertension; E03.9 Hypothyroidism, unspecified; E55.9 Vitamin D deficiency, unspecified; E66.9 Obesity, unspecified; Z68.33 Body mass index [BMI] 33.0-33.9, adult; Z79.4 Long term (current) use of insulin | CPT/HCPCS: 96127; 99212 ==

== ENCOUNTER 2024-12-30 10:34 | Outpatient (AMB) | payer OTHER, SELFPAY ==
[2024-12-30 10:43] VITALS: BP 150/72; PULSE 88; O2SAT 96; BMI 34.0
--- NOTE | 2024-12-30 10:43 | MHC.OFFVIS ---
Vital Signs 12/30/24 10:43 Height 5 ft 2 in Weight 185 lb 13.595 oz BMI 34.0 BP 150/72 H Blood Pressure Location Lt brachial Position Sitting Pulse 88 Pulse Source Pulse Oximeter Pulse Oximetry (%) 96 Oxygen Delivery Method Room Air Intake Visit Reasons: T2DM Intake Note: Patient present today for Type 2 Diabetes Mellitus Last Diabetic eye exam: Last exam was on 09/2024 Last Podiatry Visit: Doesn't have one Random Glucose: 168 mg/dl HgA1C: 9.3% 10/26/24 Supervisor Heading Required: Yes Supervisor Heading Language: Customer Consultant Services: Supervisor Heading Present Information Interpreted: non-clinical & clinical Accompanied by: Self / Same As Patient Allergies Iodinated Contrast Media (IV CONTRAST) Allergy (Intermediate, Verified 12/30/24 10:53) RASH iopromide (From ULTRAVIST) Allergy (Mild, Verified 12/30/24 10:53) ITCHING semaglutide (From Ozempic) Adverse Reaction (Severe, Verified 12/30/24 10:53) pancreatitis Medication List - Last Reconciled 12/30/24 by Sultana Williamson PA-C atorvastatin 80 mg PO BEDTIME blood sugar diagnostic (FreeStyle Lite Strips) As directed three times a day blood-glucose meter (FreeStyle [place] Lite kit) As directed dispense as freestyle lite blood-glucose sensor (FreeStyle Simnó 3 Plus Sensor device) Use daily As directed to monitor glucose cholecalciferol (vitamin D3) 50 mcg PO DAILY 90 days clonidine HCl 0.1 mg PO BID PRN 30 days empagliflozin (Jardiance) 25 mg PO DAILY fenofibrate 120 mg PO DAILY 30 days gabapentin 300 mg PO BEDTIME PRN glucose (Dex4 Glucose) 16 grams (4 x 4 gram) PO Q15M PRN insulin degludec (Tresiba FlexTouch U-200 insulin) 80 units (0.4 mL) subcut BEDTIME 30 days insulin lispro (Humalog KwikPen (U-100) Insulin) 30 units for breakfast , 30 units for lunch, 30 units for dinner subcutaneously daily lancets (FreeStyle Lancets) Three times a day levothyroxine 50 mcg PO QAM lisinopril-hydrochlorothiazide 20-12.5 mg 1 tab PO DAILY 90 days lorazepam 1 mg PO .QD PRN metoprolol succinate ER 75 mg (1.5 x 50 mg) PO DAILY 30 days mirtazapine 7.5 mg PO BEDTIME 30 days pantoprazole 40 mg PO DAILY pen needle, diabetic (BD Ultra-Fine Jordana Pen Needle) As directed four times a day pen needle, diabetic As directed sertraline 50 mg PO DAILY 30 days HPI HPI T2DM: Details: Patient is a 64-year-old female with a significant past medical history of hypertension, hyperlipidemia, hypothyroidism, type 2 diabetes uncontrolled with long-term insulin use, obesity presenting today for a diabetic follow-up. Supervisor Heading: Obed [id number] Endo: DM-her most recent A1c was 9.3, down from 11.1. She is on Jardiance 25 mg, glipizide 5 mg, 80 units of tresiba, Humalog to 24 units with breakfast, 30 units with lunch and 30 units with supper. cgm- She has not been using them consistently because she was having issues putting this on herself and with her phone sometimes not working. In the last 90 days- GMI 8.2%, usage 28%. very hyperglycemic 19%, hyperglycemic 49%, in range 32%, hypoglycemic 0% - has tried ozempic but caused pancreatitis. Metformin caused GI upset. CV: bp today is 150/72. She is on lisinopril/hydrochlorothiazide 20/12.5 mg daily and metoprolol 75 mg daily. Blood pressures have been elevated in the office and at home. [facility] Medical History Osteoporosis Early satiety Mixed hyperlipidemia Ganglion cyst of tendon sheath of left hand Pure hypercholesterolemia Numbness and tingling in both hands Trigger finger, left middle finger Trigger finger, right ring finger Vulvar leukoplakia Atypical chest pain Tachycardia Left knee pain Right shoulder pain Arthralgia Vulvovaginitis juani albicans Breast pain, right Obesity (BMI 30-39.9) Hypertriglyceridemia Vitamin D deficiency Loose stools Pancreatitis Poor historian Vulvar leukoplakia Vulvar itching Recurrent epigastric abdominal pain Type 2 diabetes mellitus with diabetic nephropathy Hyperlipidemia LDL goal <100 Diabetes mellitus Primary osteoarthritis of hips, bilateral Lumbar degenerative disc disease Anxiety GERD without esophagitis Gastritis GERD (gastroesophageal reflux disease) Depression Hypothyroidism Type 2 diabetes mellitus with hyperglycemia, with long-term current use of insulin Type 2 diabetes mellitus with diabetic polyneuropathy Essential hypertension Surgical History S/P cholecystectomy Hx of tubal ligation History of herniated intervertebral disc Family History Father Throat cancer Mother Diabetes mellitus CVD (cardiovascular disease) Maternal Aunt Breast cancer Social History Household Members: None Housing: Apartment Alcohol intake: never Patient Tobacco Use Status: Former Tobacco user e-Cigarette/Vaping Use: Never Used Second Hand Smoke Exposure: No service: No Current occupational status: disabled Sexual orientation: Straight/Heterosexual Gender identity: Female Cognitive needs: No Hearing needs: No Vision needs: Yes Female Reproductive History Menstrual Age of Menarche: 12 Physical Exam Vital Signs: Last Vital Signs Pulse 88 12/30/24 10:43 BP 150/72 H 12/30/24 10:43 Pulse Ox 96 12/30/24 10:43 Oxygen Delivery Method Room Air 12/30/24 10:43 BMI result Body Mass Index 34.0 Const Orientation/consciousness: patient oriented x3 HEENT Ears: hearing grossly normal bilaterally Neck Thyroid: Thyroid normal Lymphatic: no lymphadenopathy noted Resp Auscultation: clear to auscultation bilaterally Cardio Rate: regular rate Rhythm: regular rhythm Heart sounds: S1 normal heart sound present and S2 normal heart sound present Skin General skin exam: no rashes or lesions noted Neuro General: patient oriented x3, gait normal and no focal motor deficits Assessment & Plan Assessment & Plan (1) Type 2 diabetes mellitus with hyperglycemia, with long-term current use of insulin: Code(s): E11.65 - Type 2 diabetes mellitus with hyperglycemia; Z79.4 - 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 New sensor applied today Phone had some tech issues but did work, will send in a reader We will check labs prior to next appointment (2) Essential hypertension: Code(s): I10 - Essential (primary) hypertension Category: Medical Plan: Increase lisinopril/hydrochlorothiazide to 2 tablets daily. Continue with the metoprolol. Short term follow up with PCP. 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 Medications: New blood-glucose,shell core and molding supervisor,cont (PlivoStyle Simón 3 [place]) Use daily As directed to monitor blood glucose 1 ea 0RF E11.65 - Type 2 diabetes mellitus with hyperglycemia, Z79.4 - local intermodal truck driver (current) use of insulin Changed From insulin degludec (Tresiba FlexTouch U-200 insulin) 80 units (0.4 mL) subcut BEDTIME 30 days 12 mL 6RF To insulin degludec (Tresiba FlexTouch U-200 insulin) 84 units (0.42 mL) subcut BEDTIME 18 mL 6RF 30 days From lisinopril-hydrochlorothiazide 20-12.5 mg 1 tab PO DAILY 90 days 90 tabs 1RF I10 - Essential (primary) hypertension To lisinopril-hydrochlorothiazide 20-12.5 mg 2 tabs PO DAILY 180 tabs 1RF 90 days I10 - Essential (primary) hypertension Coding Level of Care Code Est Pt Level 4 (54702) Complex EM visit Add On G2211 Diagnoses Type 2 diabetes mellitus with hyperglycemia, with long-term current use of insulin E11.65; Z79.4 Essential hypertension I10
[2024-12-30 10:59] LABS: Glucose, Whole Blood 168 mg/dL (60-115)
--- OUTSIDE RECORDS SUMMARY | 2024-12-30 12:01 | XMS_ITS | Encounter Summary ---
Author Organization [facility] Address [address] [facility] [address] [place] [phone] Phone Care Team Providers Care Security Rover Name Role Phone Pcp, Unknown Primary Care Provider Unavailabl e Encounter Details Date Type Department Care Team (Late st Contact Info) Description 05/24/2022 Procedure Pass [facility], Ct Scan - [facility] [address] [place] [address] Social History Tobacco Use Types Packs/Day Years [...] 4:54 PM EDT Radha Fong RN * [place] Suicide Severity Rating Scale (Screener/Recent Self-Report) Question [...] documented as of this encounter Care Teams Security Rover Relationship Specialty Start Date End Date Pcp, Unknown PCP - General 05/24/22 documented as of this encounter Additional Source Comments The information contained in this document represents components of the legal health record. It is not the complete legal health record.[facility]
--- OUTSIDE RECORDS SUMMARY | 2024-12-30 12:01 | XMS_ITS | Encounter Summary ---
Author Organization [facility] Address [address] [facility] [address] [place] [phone] Phone Care Team Providers Care Reference Services Head Name Role Phone Pcp, Unknown Primary Care Provider Unavailabl e Encounter Details Date Type Department Care Team (Late st Contact Info) Description 05/24/2022 Procedure Pass [facility], Ct Scan - [facility] [address] [place] [address] Social History Tobacco Use Types Packs/Day Years [...] 4:54 PM EDT Radha Fong RN * [place] Suicide Severity Rating Scale (Screener/Recent Self-Report) Question [...] documented as of this encounter Care Teams Reference Services Head Relationship Specialty Start Date End Date Pcp, Unknown PCP - General 05/24/22 documented as of this encounter Additional Source Comments The information contained in this document represents components of the legal health record. It is not the complete legal health record.[facility]
--- OUTSIDE RECORDS SUMMARY | 2024-12-30 12:01 | XMS_ITS | Clinical Summary ---
Author Organization [facility] Address [address] [facility] [address] [place] [address] Phone Care Team Providers Care Member Of The Legislative Assembly Name Role Phone Pcp, Unknown Primary Care [...] file Medical Devices Not on file Insurance [facility] ACO ACO ACO [facility] ACO Care Teams Member Of The Legislative Assembly Relationship Specialty Start Date End Date Pcp, Unknown PCP - General 05/24/22 Additional Source Comments The information contained in this document represents components of the legal health record. It is not the complete legal health record.[facility]
--- OUTSIDE RECORDS SUMMARY | 2024-12-30 12:01 | XMS_ITS | Clinical Summary ---
Author Organization [employer] [facility] Address [address] [place] [phone] Care Team Providers Care Miller Distillery Name Role Phone Unavailable Primary Care Provider Unavailabl e Surgical History Surgery Date Site/Laterality Comments CHOLECYSTECTOMY PROCEDURE: LAPAROSCOPIC CHOLECYSTECT OTHER SURGICAL HISTORY PROCEDURE: [place] EPISIOTOMY/VAG RPR OTH/THN ATTENDING ESOPHAGOGASTRODUODENOSCOPY 03/12/15 PROCEDURE: [place] ESOPHAGOGASTRODUODENOSCOPY TRANSORAL DIAGNOSTIC; COMMENT: normal, with nl [...] 01/09/2018 01/09/2017 Breast Cancer Screening 05/02/2018 05/02/2016 Depression Screening 03/02/2024 COVID-19 Vaccine ( - 2023-2 5 season) 2024 Influenza Vaccine (#1) 2024 7, 11/19/2015 DTaP,Tdap,and [...]
== END 2024-12-30 11:21 | disposition home or self-care (01) ==
LOC: HO.ENCR 10:35
PROVIDERS: PCP Internal Medicine; Visit Provider Physician Assistant
DX: E11.65 Type 2 diabetes mellitus with hyperglycemia (principal); Z79.4 Long term (current) use of insulin; I10 Essential (primary) hypertension

== ENCOUNTER → 2024-12-30 10:34 | Outpatient (BNVA) | payer OTHER, SELFPAY | PROVIDERS: PCP Internal Medicine; Visit Provider Physician Assistant | DX: E11.65 Type 2 diabetes mellitus with hyperglycemia (principal); I10 Essential (primary) hypertension; E78.5 Hyperlipidemia, unspecified; E03.9 Hypothyroidism, unspecified; E66.9 Obesity, unspecified; Z79.4 Long term (current) use of insulin; Z68.34 Body mass index [BMI] 34.0-34.9, adult | CPT/HCPCS: 82947; 99212 ==

== ENCOUNTER 2025-01-12 15:24 | Outpatient (AMB) | payer OTHER, SELFPAY ==
[2025-01-12 15:44] VITALS: BP 112/48; PULSE 90; RESP 18; O2SAT 95; BMI 33.8
--- NOTE | 2025-01-12 15:44 | A.OFFPC_ITS ---
Vital Signs 01/12/25 15:44 Height 5 ft 2 in Weight 185 lb BMI 33.8 BP 112/48 L Blood Pressure Location Lt brachial Position Sitting Respiration 18 Pulse 90 Pulse Source Pulse Oximeter Temp Source Temporal Artery Scan Pulse Oximetry (%) 95 Oxygen Delivery Method Room Air Intake Visit Reasons: [place] [facility] cataract 01/20 & 02/09 Risk Engineer Required: Yes Risk Engineer Name: [email or web address]/[id number] Accompanied by: Self / Same As Patient Allergies Iodinated Contrast Media (IV CONTRAST) Allergy (Intermediate, Verified 01/12/25 16:30) RASH iopromide (From ULTRAVIST) Allergy (Mild, Verified 01/12/25 16:30) ITCHING semaglutide (From Ozempic) Adverse Reaction (Severe, Verified 01/12/25 16:30) pancreatitis Medication List - Last Reconciled 01/12/25 by DAJUAN Love atorvastatin 80 mg PO BEDTIME blood sugar diagnostic (FreeStyle Lite Strips) As directed three times a day blood-glucose meter (FreeStyle [place] Lite kit) As directed dispense as freestyle lite blood-glucose sensor (FreeStyle Simón 3 Plus Sensor device) Use daily As directed to monitor glucose blood-glucose,research development director,cont (FreeStyle Simón 3 [place]) Use daily As directed to monitor blood glucose cholecalciferol (vitamin D3) 50 mcg PO DAILY 90 days clonidine HCl 0.1 mg PO BID PRN 30 days empagliflozin (Jardiance) 25 mg PO DAILY fenofibrate 120 mg PO DAILY 30 days gabapentin 300 mg PO BEDTIME PRN glucose (Dex4 Glucose) 16 grams (4 x 4 gram) PO Q15M PRN insulin degludec (Tresiba FlexTouch U-200 insulin) 84 units (0.42 mL) subcut BEDTIME 30 days insulin lispro (Humalog KwikPen (U-100) Insulin) 30 units for breakfast , 30 units for lunch, 30 units for dinner subcutaneously daily lancets (FreeStyle Lancets) Three times a day levothyroxine 50 mcg PO QAM lisinopril-hydrochlorothiazide 20-12.5 mg 2 tabs PO DAILY 90 days lorazepam 1 mg PO .QD PRN metoprolol succinate ER 75 mg (1.5 x 50 mg) PO DAILY 30 days mirtazapine 7.5 mg PO BEDTIME 30 days pantoprazole 40 mg PO DAILY pen needle, diabetic (BD Ultra-Fine Jordana Pen Needle) As directed four times a day pen needle, diabetic As directed sertraline 50 mg PO DAILY 30 days Tobacco use date assessed: 01/12/25 Fall risk assessment: No Falls in past year Last assessed Fall Risk: 01/12/25 Dental Screening Dental Screen Date: 01/12/25 Did you have a dental visit in the last 12 months?: No Did you have a dental problem in the last 6 months where you did not have access to dental care?: No Was dental information given to patient?: No HPI [place] [facility] cataract 01/20 & 02/09 HPI Details Back surgery 3 years ago, and she was ok with anesthesia back pain chronic- Caller: Kim from Dr. Patrick's Type of surgery: Cataract surgery Date of surgery: 01/20/25 Name of provider (surgeon): Dr. Larry Patrick Facility[facility] [place] Please advise at : [phone] ext [phone] left eye first 01/20 and right 02/09 cataract- A long time ago, she was not going to the eye dr. She rossy to the eye dr. then they send he to do more test blurry vision, worse in the left eye, discomfort in the eyes. [facility] Medical History Osteoporosis Early satiety Mixed hyperlipidemia Ganglion cyst of tendon sheath of left hand Pure hypercholesterolemia Numbness and tingling in both hands Trigger finger, left middle finger Trigger finger, right ring finger Vulvar leukoplakia Atypical chest pain Tachycardia Left knee pain Right shoulder pain Arthralgia Vulvovaginitis juani albicans Breast pain, right Obesity (BMI 30-39.9) Hypertriglyceridemia Vitamin D deficiency Loose stools Pancreatitis Poor historian Vulvar leukoplakia Vulvar itching Recurrent epigastric abdominal pain Type 2 diabetes mellitus with diabetic nephropathy Hyperlipidemia LDL goal <100 Diabetes mellitus Primary osteoarthritis of hips, bilateral Lumbar degenerative disc disease Anxiety GERD without esophagitis Gastritis GERD (gastroesophageal reflux disease) Depression Hypothyroidism Type 2 diabetes mellitus with hyperglycemia, with long-term current use of insul in Type 2 diabetes mellitus with diabetic polyneuropathy Essential hypertension Surgical History S/P cholecystectomy Hx of tubal ligation History of herniated intervertebral disc Family History Father Throat cancer Mother Diabetes mellitus CVD (cardiovascular disease) Maternal Aunt Breast cancer Social History Household Members: None Housing: Apartment Alcohol intake: never Patient Tobacco Use Status: Former Tobacco user e-Cigarette/Vaping Use: Never Used Second Hand Smoke Exposure: No service: No Current occupational status: disabled Sexual orientation: Straight/Heterosexual Gender identity: Female Cognitive needs: No Hearing needs: No Vision needs: Yes Female Reproductive History Menstrual Age of Menarche: 12 Questionnaire Thrive Questionnaire Date Thrive assessed: 03/25/24 I am a: Patient What is your living situation today?: I choose not to answer this question Within the past 12 months, did the food you bought not last and you didn't have the money to get more?: I choose not to answer this question Within the past 12 months, did you worry whether your food would run out before you got money to buy more?: I choose not to answer this question Do you have trouble paying for medicines?: No Do you have trouble getting transportation to medical appointments?: No Do you have trouble paying your heating and electricity bill?: No Do you have trouble taking care of your child, family member or friend?: No Do you have trouble with day-to-day activities such as bathing, preparing meals, shopping, managing finances, etc.?: No Are you currently unemployed and looking for a job?: No Are you interested in more education?: No Please select the resources that you would like help with: Food THRIVE Score: 0 CARO-7 AMB Questionnaire CARO-7 Date CARO - 7 assessed: 06/23/24 Source: Developed by Drs. Teofilo Loredo, Radha Knight, Keagan Guzman and colleagues, with an educational alecia from [employer]. Physical exam (Primary Care) Vital Signs: Last Vital Signs Pulse 90 01/12/25 15:44 Resp 18 01/12/25 15:44 BP 112/48 L 01/12/25 15:44 Pulse Ox 95 01/12/25 15:44 Oxygen Delivery Method Room Air 01/12/25 15:44 BMI result Body Mass Index 33.8 Tobacco/Smoking Status: Tobacco use Status Tobacco use date assessed 01/12/25 01/12/25 15:45 Patient Tobacco Use Status Former Tobacco user 01/12/25 15:45 e-Cigarette/Vaping Use Never Used 01/12/25 15:45 Thrive Assessment: Date of Thrive Assessment Date Thrive assessed 03/25/24 01/12/25 15:45 Results AMB Hemoglobin A1c AMB Hemoglobin A1c 8.9 % Last Edit by Oriana Marr MA on 01/12/25 16:42 Coding Assessment & Plan Assessment & Plan Orders: Orders 2 AMB Hemoglobin A1c Today Z13.9 - Encounter for screening, unspecified
--- OUTSIDE RECORDS SUMMARY | 2025-01-12 18:31 | XMS_ITS | Encounter Summary ---
Author Organization [facility] Address [address] [facility] [address] [place] [phone] Phone Care Team Providers Care Certified Orthotist/Pedorthist Name Role Phone Pcp, Unknown Primary Care Provider Unavailabl e Encounter Details Date Type Department Care Team (Late st Contact Info) Description 05/24/2022 Procedure Pass [facility], Ct Scan - [facility] [address] [place] [address] Social History Tobacco Use Types Packs/Day Years [...] 4:54 PM EDT Radha Fong RN * [place] Suicide Severity Rating Scale (Screener/Recent Self-Report) Question [...] documented as of this encounter Care Teams Certified Orthotist/Pedorthist Relationship Specialty Start Date End Date Pcp, Unknown PCP - General 05/24/22 documented as of this encounter Additional Source Comments The information contained in this document represents components of the legal health record. It is not the complete legal health record.[facility]
--- OUTSIDE RECORDS SUMMARY | 2025-01-12 18:31 | XMS_ITS | Encounter Summary ---
Author Organization [facility] Address [address] [facility] [address] [place] [phone] Phone Care Team Providers Care Respiratory Therapy Instructor Name Role Phone Pcp, Unknown Primary Care Provider Unavailabl e Encounter Details Date Type Department Care Team (Late st Contact Info) Description 05/24/2022 Procedure Pass [facility], Ct Scan - [facility] [address] [place] [address] Social History Tobacco Use Types Packs/Day Years [...] 4:54 PM EDT Radha Fong RN * [place] Suicide Severity Rating Scale (Screener/Recent Self-Report) Question [...] documented as of this encounter Care Teams Respiratory Therapy Instructor Relationship Specialty Start Date End Date Pcp, Unknown PCP - General 05/24/22 documented as of this encounter Additional Source Comments The information contained in this document represents components of the legal health record. It is not the complete legal health record.[facility]
--- OUTSIDE RECORDS SUMMARY | 2025-01-12 18:31 | XMS_ITS | Clinical Summary ---
Author Organization [employer] [facility] Address [address] [place] [phone] Care Team Providers Care Oil Field Pumper Name Role Phone Unavailable Primary Care Provider Unavailabl e Surgical History Surgery Date Site/Laterality Comments CHOLECYSTECTOMY PROCEDURE: LAPAROSCOPIC CHOLECYSTECT OTHER SURGICAL HISTORY PROCEDURE: [place] EPISIOTOMY/VAG RPR OTH/THN ATTENDING ESOPHAGOGASTRODUODENOSCOPY 03/12/15 PROCEDURE: [place] ESOPHAGOGASTRODUODENOSCOPY TRANSORAL DIAGNOSTIC; COMMENT: normal, with nl [...] 05/02/2018 05/02/2016 Depression Screening 03/02/2024 COVID-19 Vaccine (1 - 2024-2 6 season) 2024 Influenza Vaccine (#1) 2024 7, [...]
--- OUTSIDE RECORDS SUMMARY | 2025-01-12 18:31 | XMS_ITS | Clinical Summary ---
Author Organization [facility] Address [address] [facility] [address] [place] [address] Phone Care Team Providers Care Professor Of Theater Name Role Phone Pcp, Unknown Primary Care [...] file Medical Devices Not on file Insurance [facility] ACO ACO ACO [facility] ALLIANCE ACO Care Teams Professor Of Theater Relationship Specialty Start Date End Date Pcp, Unknown PCP - General 05/24/22 Additional Source Comments The information contained in this document represents components of the legal health record. It is not the complete legal health record.[facility]
== END 2025-01-12 17:29 | disposition home or self-care (01) ==
LOC: HO.HMCH 15:25
PROVIDERS: PCP Internal Medicine
DX: Z13.9 Encounter for screening, unspecified (principal)

== ENCOUNTER → 2025-01-12 15:24 | Outpatient (BNVA) | payer OTHER, SELFPAY | PROVIDERS: PCP Internal Medicine | DX: Z01.818 Encounter for other preprocedural examination (principal); E11.36 Type 2 diabetes mellitus with diabetic cataract; E11.65 Type 2 diabetes mellitus with hyperglycemia; Z79.4 Long term (current) use of insulin; E03.9 Hypothyroidism, unspecified; I10 Essential (primary) hypertension; K21.9 Gastro-esophageal reflux disease without esophagitis; Z87.891 Personal history of nicotine dependence | CPT/HCPCS: 83036; 99212 ==

== ENCOUNTER 2025-01-20 12:13 | Emergency (ER) | payer OTHER, SELFPAY ==
--- NOTE | ~2025-01-20 | XR_ITS ---
EXAMINATION: XR LUMBOSACRAL SPINE CLINICAL INFORMATION: back pain COMPARISON: X-ray 02/02/2024 TECHNIQUE: Three views of the lumbosacral spine. FINDINGS: Bone mineralization appears decreased. Mild L4-5 anterolisthesis. There is compression of the superior endplate of L2 vertebrae, which appear slightly more prominent as compared to previous. Mild superior endplate depression of T12, similar to previous. The vertebral body heights otherwise are maintained. Multilevel spondylosis in the visualized lower thoracic spine Severe T10-11 disc height narrowing and anterior osteophytes. Anterior osteophytes at L1-2. Mild L5-S1 disc space narrowing. Multilevel facet degeneration. No suspicious bony lesions. Surgical clips in the right upper quadrant. SI joints are symmetric. No abnormal soft tissue calcification. XR/XR lumbar spine 2-3V IMPRESSION: * Depression of the superior portion of the L2 vertebral body, appearing more prominent as compared to previous. Findings are consistent with a fracture, of indeterminate age. Clinically correlate. Further evaluation with MRI as clinically indicated. * Multilevel thoracal lumbar spondylosis, as detailed above. Electronically signed by: Ibrahima Reid MD 01/20/2025 01:27 PM [facility]
--- NOTE | ~2025-01-20 | XR_ITS ---
EXAMINATION: XR SHOULDER, RIGHT CLINICAL INFORMATION: Pain COMPARISON: X-ray 08/03/2023 TECHNIQUE: Three views of the right shoulder. FINDINGS: Bone mineralization is decreased. Moderate acromioclavicular arthritis. Prominent subacromial spur. Mild glenohumeral joint arthritis. No visible acute fracture or dislocation. Calcific densities lateral to the humeral head could reflect hydroxyapatite deposition. No suspicious bony lesion. XR/XR shoulder RT min 2V IMPRESSION: Moderate acromioclavicular arthritis. Mild glenohumeral joint arthritis. No acute fracture seen. Calcifications lateral to the humeral head suggestive of hydroxyapatite deposition. Electronically signed by: Ibrahima Reid MD 01/20/2025 02:43 PM EST
[2025-01-20 12:35] VITALS: BP 127/73; PULSE 93; RESP 18; TEMP 36.7; O2SAT 95; BMI 33.5
--- NOTE | 2025-01-20 12:40 | ED.GENADULT ---
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 She denies any IVDA, blood thinners, loss of control of bowel or bladder, saddle anesthesia, she states she really does not have any went to manage this has not seen a spine doctor. She just deals with this at home. She states she takes Tylenol with little relief. She denies any urinary symptoms. She also has chronic right shoulder pain that is very painful to move her right arm. She does not take any narcotics at home or muscle relaxer. No rash no fever no urinary symptoms MD complaint: Backache and ear pain Onset (ago): week(s) (1+ month getting worse) Location: back Radiation: extremity Severity: severe Quality: stabbing Pain Consistency: constant Relieving factors: immobilization Exacerbating factors: movement Associated symptoms: other (Left earache) Treatments prior to arrival: none Related Data Home Medications ?Medication ?Instructions ?Recorded ?Confirmed pen needle, diabetic 29 gauge x #100 ea 01/19/20 01/12/25 1/ gabapentin 300 mg capsule 300 mg PO BEDTIME PRN 06/17/24 01/12/25 lorazepam 1 mg tablet 1 mg PO .QD PRN anxiety 10/28/24 01/12/25 Previous Rx's ?Medication ?Instructions ?Recorded sertraline 50 mg tablet 50 mg PO DAILY 30 days #30 tabs 09/25/21 pen needle, diabetic 32 gauge x #125 ea 11/05/22 (BD Ultra-Fine Jordana Pen Needle) lancets 28 gauge (FreeStyle #100 ea 07/20/23 Lancets) glucose 4 gram chewable tablet 16 g (4 x 4 gram) PO Q15M PRN 08/28/23 (Dex4 Glucose) hypoglycemia #100 tabs cholecalciferol (vitamin D3) 50 50 mcg PO DAILY 90 days #90 caps 10/29/23 mcg (2,000 unit) capsule atorvastatin 80 mg tablet 80 mg PO BEDTIME #90 tabs 12/07/23 blood-glucose meter (FreeStyle #1 ea 12/18/23 [place] Station Lite kit) fenofibrate 120 mg tablet 120 mg PO DAILY 30 days #30 tabs 06/23/24 metoprolol succinate 50 mg 75 mg (1.5 x 50 mg) PO DAILY 30 09/04/24 tablet,extended release 24 hr days #45 tabs blood sugar diagnostic (FreeStyle #100 ea 10/14/24 Lite Strips) blood-glucose sensor (FreeStyle #2 ea 10/14/24 Simón 3 Plus Sensor device) clonidine HCl 0.1 mg tablet 0.1 mg PO BID PRN for anxiety 30 10/19/24 days #60 tabs empagliflozin 25 mg tablet 25 mg PO DAILY #90 tabs 11/18/24 (Jardiance) insulin lispro 100 unit/mL See Rx Instructions subcut DAILY 12/07/24 subcutaneous pen (Humalog KwikPen #15 mL (U-100) Insulin) pantoprazole 40 mg tablet,delayed 40 mg PO DAILY #90 tabs 12/20/24 release blood-glucose,seafood team member,cont #1 ea 12/30/24 (FreeStyle Simón 3 [place]) insulin degludec 200 unit/mL (3 84 unit (0.42 mL) subcut BEDTIME 12/30/24 mL) subcutaneous pen (Tresiba 30 days #18 mL FlexTouch U-200 insulin) levothyroxine 50 mcg tablet 50 mcg PO QAM #90 tabs 01/12/25 lisinopril 20 2 tab PO DAILY 90 days #180 tabs 01/12/25 mg-hydrochlorothiazide 12.5 mg tablet mirtazapine 7.5 mg tablet 7.5 mg PO BEDTIME 30 days #30 tabs 01/12/25 amoxicillin 875 mg tablet 875 mg PO BID #14 tabs 01/20/25 methocarbamol 500 mg tablet 500 mg PO BEDTIME PRN muscle spasm 01/20/25 #14 tabs oxycodone 5 mg tablet 5 mg PO Q8H PRN pain #10 tabs 01/20/25 Allergies Allergy/AdvReac Type Severity Reaction Status Date / Time Iodinated Contrast Media (IV Allergy Intermediate RASH Verified 01/20/25 12:37 CONTRAST) iopromide (From ULTRAVIST) Allergy Mild ITCHING Verified 01/20/25 12:37 semaglutide (From Ozempic) AdvReac Severe pancreatiti Verified 01/20/25 12:37 s Review of Systems Review of Systems: Constitutional : No Weight loss, No Fever, No Chills, ENT/Mouth : No Hearing loss, pos Ear Pain, No Nasal Congestion, No Sinus Pain, No Hoarseness, No sore throat, No Rhinorrhea, No Swallowing Difficulty Cardiovascular : No Chest Pain, No SOB Respiratory : No Cough, No Dyspnea Gastrointestinal : No Nausea, No Vomiting, No Diarrhea, No abdominal Pain, No Hematochezia, No Melena Genitourinary : No Dysuria, No Urinary Frequency, No Hematuria, No Urinary Incontinence, Musculoskeletal : positive back pain Skin : No Skin Lesions, No rash Neuro : No Weakness, No Numbness, No Paresthesias, no loss of bowel or bladder incontinence, no saddle anesthesia Yes all other systems are reviewed and are negative PMFSH Past Medical History Attestation statement: The following information was validated with the patient. Source: old records reviewed Medical History Osteoporosis Early satiety Mixed hyperlipidemia Ganglion cyst of tendon sheath of left hand Pure hypercholesterolemia Numbness and tingling in both hands Trigger finger, left middle finger Trigger finger, right ring finger Vulvar leukoplakia Atypical chest pain Tachycardia Left knee pain Right shoulder pain Arthralgia Vulvovaginitis juani albicans Breast pain, right Obesity (BMI 30-39.9) Hypertriglyceridemia Vitamin D deficiency Loose stools Pancreatitis Poor historian Vulvar leukoplakia Vulvar itching Recurrent epigastric abdominal pain Type 2 diabetes mellitus with diabetic nephropathy Hyperlipidemia LDL goal <100 Diabetes mellitus Primary osteoarthritis of hips, bilateral Lumbar degenerative disc disease Anxiety GERD without esophagitis Gastritis GERD (gastroesophageal reflux disease) Depression Hypothyroidism Type 2 diabetes mellitus with hyperglycemia, with long-term current use of insulin Type 2 diabetes mellitus with diabetic polyneuropathy Essential hypertension Surgical History S/P cholecystectomy Hx of tubal ligation History of herniated intervertebral disc Family History Family History Father Throat cancer Mother Diabetes mellitus CVD (cardiovascular disease) Maternal Aunt Breast cancer Social History Social History Household Members: None Housing: Apartment Alcohol intake: never Patient Tobacco Use Status: Former Tobacco user e-Cigarette/Vaping Use: Never Used Second Hand Smoke Exposure: No Advance Directives: Yes Advance Directives Information Provided: Yes Advance Directives on File: No service: No Current occupational status: disabled Sexual orientation: Straight/Heterosexual Gender identity: Female Cognitive needs: No Hearing needs: No Vision needs: Yes Physical Exam ED Vital Signs: Vital Signs - 24 hr 01/20/25 12:35 Temperature 98.0 F Pulse Rate 93 Respiratory Rate 18 Blood Pressure 127/73 Pulse Oximetry 95 Oxygen Delivery Method Room Air BMI result Body Mass Index 33.5 Appearance: Alert. Oriented X3. No acute distress. Eyes: Pupils equal, round and reactive to light. ENT: Pharynx normal. Right TM is normal, left TM is bulging with loss of landmarks and effusion, there is no perforation, the canal is normal Neck: Normal inspection. Neck supple. CVS: Normal heart rate and rhythm. Pulses normal. Respiratory: No respiratory distress. Breath sounds normal. Abdomen: Soft and nontender. Skin: Skin warm and dry. Normal skin color. Normal skin turgor. Extremities: No lower extremity edema. Back: She has tenderness to palpation along the lower right paraspinal Neuro: Oriented X 3. No motor deficit. No sensory deficit. CN2-12 intact she has 5/5 strength throughout, she has no clonus, silt intact Course Course Course Narrative: RME: 64 yold female presents to the ED for right lower back pain right leg without any trauma. pain on ambulation. xray and UA ordered Reevaluation(s) Reevaluation #1: 3:38 PM 01/20/2025 (FLAVIO GAO): Patient looks much better sitting upright she is able to ambulate to the bathroom no issues at this time stable for DC Medications Administered Discontinued Medications Generic Name Dose Route Start Last Admin Trade Name Freq PRN Reason Stop Dose Admin Methocarbamol 500 mg 01/20/25 13:32 01/20/25 13:40 Methocarbamol 500 Mg Tablet PO 01/20/25 13:33 500 mg ONCE ONE Administration Oxycodone HCl 5 mg 01/20/25 13:32 01/20/25 13:40 Oxycodone Hcl Immed Release 5 Mg Tablet PO 01/20/25 13:33 5 mg ONCE ONE Administration Medical Decision Making Medical Decision Making [facility] Narrative: See her female with past medical history of post laminectomy syndrome, osteoporosis, hypertriglyceridemia, diabetes, hypothyroidism, GERD, anxiety, lumbar degenerative disc disease, hypertension, not on blood thinners here with complaint of low back pain now here with complaint of worsening low back pain but no cauda equina symptoms. She has no other red flags on exam. She is intact on exam. She has worsening compression fracture noted on x-ray. I am going to offer pain control and refer her to the spine center. I have ordered x-ray of the right Shoulder given suspected tendinitis Differential Diagnosis Differential Diagnoses: The differential diagnosis associated with the presentation includes Lumbar radiculopathy, sciatica, tendonitis Admission/Observation Consideration of admission/observation: Escalation of care including admission/observation considered She feels much better after pain control we will DC home with medications and referral to spine center she is able to ambulate without assistance Lab Data [facility] Lab Attestation statement: I reviewed the patient's lab results. Labs: Lab Results 01/20/25 Range/Units 15:08 Urine Color Yellow Urine Appearance Clear Urine pH 5.5 (5.0-9.0) Ur Specific Kyle 1.025 (1.005-1.025) Urine Protein Negative (Neg-Trace) mg/dL Urine Glucose (UA) >=1000 H (Negative) mg/dL Urine Ketones Negative (Negative) mg/dL Urine Blood Negative (Negative) Urine Nitrite Negative (Negative) Ur Leukocyte Esterase Trace H (Negative) Urine RBC 0-2 (0-2) /HPF Urine WBC 0-5 (0-5) /HPF Ur Squamous Epith Cells 0-2 (0-2) /HPF Urine Bacteria None Seen (None Seen) Hyaline Casts 0-2 (0-2) /LPF Independent Interpretation I performed an independent interpretation of an: Plain X-Ray (Worsening L2 compression fracture) Radiology Impression Discussion of test interpretation with radiology: I have reviewed the radiologist's reading. Independent Historian Clinical information obtained from an independent historian. History obtained from or confirmed by: Other (Daughter) External Record Review External record reviewed: Outpatient record Prescription Management I considered prescription management with: Pain Medication, Antibiotic and Other Discharge Plan Discharge Clinical Impression: Closed compression fracture of L2 vertebra, Acute lumbar radiculopathy, Otitis media Patient Disposition: Home, Self-Care Instructions: Ear Infection (ED), Lumbar Radiculopathy (ED) Additional Instructions: Your x-ray shows a worsening L2 compression fracture compared to January of 2024 You need to follow-up with the spine Center here for worsening back pain Please return for any worsening symptoms or concerns such as loss of control of bowel or bladder, numbness or weakness, fever greater than 100.4 Do not take any additional Tylenol on top of what you are being prescribed right now On amoxicillin, softer bowel movements are to be expected. Call your provider if you move your bowels more than 4 times a day, your bowel movements are almost all liquid, or you get a rash.? Prescriptions: New oxycodone 5 mg tablet 5 mg PO Q8H PRN (Reason: pain) Qty: 10 0RF Rx Instructions: Partial Fill upon patient request. methocarbamol 500 mg tablet 500 mg PO BEDTIME PRN (Reason: muscle spasm) Qty: 14 0RF amoxicillin 875 mg tablet 875 mg PO BID Qty: 14 0RF No Action sertraline 50 mg tablet 50 mg PO DAILY 30 Days Qty: 30 2RF (DME) pen needle, diabetic [BD Ultra-Fine Jordana Pen Needle] 32 gauge x 5/32 needle See Rx Instructions .ROUTE .MEDSUPPLY Qty: 125 3RF Rx Instructions: As directed four times a day (DME) lancets [FreeStyle Lancets] 28 gauge misc See Rx Instructions .ROUTE .MEDSUPPLY Qty: 100 11RF Rx Instructions: Three times a day atorvastatin 80 mg tablet 80 mg PO BEDTIME Qty: 90 3RF (DME) blood-glucose meter [FreeStyle [place]es[place] Station Lite] Kit See Rx Instructions .ROUTE .MEDSUPPLY Qty: 1 1RF Rx Instructions: As directed dispense as freestyle lite metoprolol succinate 50 mg tablet extended release 24 hr 75 mg PO DAILY 30 Days Qty: 45 5RF Rx Instructions: dose increased clonidine HCl 0.1 mg tablet 0.1 mg PO BID PRN (Reason: for anxiety) 30 Days Qty: 60 5RF Jardiance 25 mg tablet 25 mg PO DAILY Qty: 90 2RF insulin lispro [Humalog KwikPen Insulin] 100 unit/mL insulin pen See Rx Instructions subcut DAILY Qty: 15 6RF Rx Instructions: 30 units for breakfast , 30 units for lunch, 30 units for dinner subcutaneously daily pantoprazole 40 mg tablet,delayed release (DR/EC) 40 mg PO DAILY Qty: 90 1RF lisinopril-hydrochlorothiazide 20-12.5 mg tablet 2 tab PO DAILY 90 Days Qty: 180 1RF levothyroxine 50 mcg tablet 50 mcg PO QAM Qty: 90 0RF mirtazapine 7.5 mg tablet 7.5 mg PO BEDTIME 30 Days Qty: 30 3RF cholecalciferol (vitamin D3) 50 mcg (2,000 unit) capsule 50 mcg PO DAILY 90 Days Qty: 90 3RF (DME) pen needle, diabetic 29 gauge x 1/2 needle See Rx Instructions .ROUTE .MEDSUPPLY Qty: 100 Rx Instructions: As directed fenofibrate 120 mg tablet 120 mg PO DAILY 30 Days Qty: 30 3RF lorazepam 1 mg tablet 1 mg PO .QD PRN (Reason: anxiety) glucose [Dex4 Glucose] 4 gram tablet,chewable 16 g PO Q15M PRN (Reason: hypoglycemia) Qty: 100 0RF Rx Instructions: until symptoms of low blood sugar are controlled gabapentin 300 mg capsule 300 mg PO BEDTIME PRN (DME) FreeStyle Simón 3 Plus Sensor Device See Rx Instructions .ROUTE .MEDSUPPLY Qty: 2 5RF Rx Instructions: Use daily As directed to monitor glucose (DME) FreeStyle Lite Strips Strip See Rx Instructions .ROUTE .MEDSUPPLY Qty: 100 11RF Rx Instructions: As directed three times a day insulin degludec [Tresiba FlexTouch U-200] 200 unit/mL (3 mL) insulin pen 84 unit subcut BEDTIME 30 Days Qty: 18 6RF (DME) FreeStyle Simón 3 [place] Misc See Rx Instructions .ROUTE .MEDSUPPLY Qty: 1 0RF Rx Instructions: Use daily As directed to monitor blood glucose Referrals: [facility] [Provider Group, Neurosurgery] Interventions: ED Discharge Assessment Last Done: 01/20/25 15:50 Discharge Date/Time: 01/20/25 15:51 Print Language: Romansh
--- OUTSIDE RECORDS SUMMARY | 2025-01-20 13:26 | XMS_ITS | Clinical Summary ---
Author Organization [facility] Address [address] [place] [address] Phone Care Team Providers Care Nurse Reviewer Name Role Phone Pcp, Unknown Primary Care [...] file Medical Devices Not on file Insurance [facility] ACO ACO [facility]IANCE ACO Care Teams Nurse Reviewer Relationship Specialty Start Date End Date Pcp, Unknown PCP - General 05/24/22 Additional Source Comments The information contained in this document represents components of the legal health record. It is not the complete legal health record.[facility]
--- OUTSIDE RECORDS SUMMARY | 2025-01-20 13:26 | XMS_ITS | Clinical Summary ---
Author Organization [facility] Address [id number] [place] [id number] Care Team Providers Care Marketing Program Coordinator Name Role Phone Unavailable Primary Care Provider Unavailabl e Surgical History Surgery Date Site/Laterality Comments CHOLECYSTECTOMY PROCEDURE: LAPAROSCOPIC CHOLECYSTECT OTHER SURGICAL HISTORY PROCEDURE: [place] EPISIOTOMY/VAG RPR OTH/THN ATTENDING ESOPHAGOGASTRODUODENOSCOPY 03/12/15 PROCEDURE: [place] ESOPHAGOGASTRODUODENOSCOPY TRANSORAL DIAGNOSTIC; COMMENT: normal, with nl [...]
--- OUTSIDE RECORDS SUMMARY | 2025-01-20 13:26 | XMS_ITS | Encounter Summary ---
Author Organization [facility] Address [address] [place] [id number] Phone Care Team Providers Care Manager Client Service Name Role Phone Pcp, Unknown Primary Care Provider Unavailabl e Encounter Details Date Type Department Care Team (Late st Contact Info) Description 05/24/2022 Procedure Pass [facility], Ct Scan - [facility] [address] [place] [address] Social History Tobacco Use Types Packs/Day Years [...] 4:54 PM EDT Radha Fong RN * [place] Suicide Severity Rating Scale (Screener/Recent Self-Report) Question [...] as of this encounter Care Teams Manager Client Service Relationship Specialty Start Date End Date Pcp, Unknown PCP - General 05/24/22 documented as of this encounter Additional Source Comments The information contained in this document represents components of the legal health record. It is not the complete legal health record.[facility]
--- OUTSIDE RECORDS SUMMARY | 2025-01-20 13:26 | XMS_ITS | Encounter Summary ---
Author Organization [facility] Address [address] [place] [phone] Phone Care Team Providers Care Columnist/Commentator Name Role Phone Pcp, Unknown Primary Care Provider Unavailabl e Encounter Details Date Type Department Care Team (Late st Contact Info) Description 05/24/2022 Procedure Pass [facility], Ct Scan - [facility] [address] [place] [address] Social History Tobacco Use Types Packs/Day Years [...] 4:54 PM EDT Radha Fong RN * [place] Suicide Severity Rating Scale (Screener/Recent Self-Report) Question [...] documented as of this encounter Care Teams Columnist/Commentator Relationship Specialty Start Date End Date Pcp, Unknown PCP - General 05/24/22 documented as of this encounter Additional Source Comments The information contained in this document represents components of the legal health record. It is not the complete legal health record.[facility]
[2025-01-20] MEDS: oxyCODONE HCl Immed Release 5 MG TABLET PO (13:40)
[2025-01-20 15:25] LABS: Appearance Urine Clear; Glucose Urine UA >=1000 mg/dL (Negative); PH 5.5 (5.0-9.0); Specific Gravity - Urine 1.025 (1.005-1.025); UMIC TRIGGER UACC YES
[2025-01-20 15:50] VITALS: BP 127/73; PULSE 93; RESP 18; TEMP 36.7; O2SAT 95
== END 2025-01-20 15:51 | disposition home or self-care (01) ==
PROVIDERS: Physician Assistant; Emergency Provider Emergency Medicine; PCP Internal Medicine
DX: M48.56XA Collapsed vertebra, not elsewhere classified, lumbar region, initial encounter for fracture (principal); M25.511 Pain in right shoulder; M54.50 Low back pain, unspecified; H92.02 Otalgia, left ear; H66.93 Otitis media, unspecified, bilateral; Z79.899 Other long term (current) drug therapy
CPT/HCPCS: 72100; 73030; 81001; 99283

== ENCOUNTER 2025-01-24 10:22 | Outpatient (REF) | payer OTHER, SELFPAY ==
[2025-01-24 10:45] LABS: MANUAL DIFF FLAG NO
[2025-01-24 11:12] LABS: Hematocrit 45.3 % (37.0-47.0); Hemoglobin 15.1 g/dl (12.0-16.0); Imm Gran Abs Auto 0.03 X10*3/uL (0.00-0.03); Imm Gran Pct Auto 0.3 % (0.0-0.4); Lymphocytes Absolute Auto 2.0 X10*3/uL (1.2-4.9); Mean Corpuscular HGB Conc 33.3 g/dl (31.0-35.0); Mean Corpuscular Hemoglobin 29.3 pg (27.0-33.0); Mean Corpuscular Volume 87.8 fL (80.0-98.0); NRBC Abs Auto 0.000 X10*3/uL (0.0-0.012); NRBC Pct Auto 0.0 /100WBC (0.0-0.2); Platelet Count 202 X10*3/uL (160-400); Red Blood Count 5.16 X10*6/uL (4.20-5.50); White Blood Count 8.7 X10*3/uL (4.8-10.8)
[2025-01-24 11:17] LABS: Appearance Urine Clear; Glucose Urine UA >=1000 mg/dL (Negative); PH 5.5 (5.0-9.0); Specific Gravity - Urine >= 1.030 (1.005-1.025); UMIC TRIGGER UACC YES
[2025-01-24 11:46] LABS: Microalbum/Creatinine Ratio Ur 133.0 ug/mg cr (<30)
[2025-01-24 11:49] LABS: Alanine Aminotransferase 20 U/L (0-31); Albumin Level 4.5 g/dL (3.5-5.0); Alkaline Phosphatase 94 U/L (39-117); Anion Gap 11 (12-20); Aspartate Amino Transferase 20 U/L (5-31); Blood Urea Nitrogen 29 mg/dL (9-16); Calcium 10.1 mg/dL (8.4-10.2); Carbon Dioxide 25 mmol/L (22-29); Chloride 109 mmol/L (96-108); Cholesterol 202 mg/dL (<200); Estimated Glomerular Filt Rate > 60; HDL Cholesterol 31 mg/dL (>40); Potassium 4.2 mmol/L (3.3-5.1); Sodium 141 mmol/L (135-145); Total Protein 8.2 g/dL (6.5-8.0); Triglycerides 392 mg/dL (<150)
[2025-01-24 12:08] LABS: Free T4 (Free Thyroxine) 0.92 ng/dL (0.71-1.85); Thyroid Stimulating Hormone 2.62 uIU/mL (0.32-4.0)
[2025-01-24 12:21] LABS: Folate 14.4 ng/mL (> or = 4.0); Vitamin B12 541 pg/mL (200-900)
--- OUTSIDE RECORDS SUMMARY | 2025-01-24 12:55 | XMS_ITS | Encounter Summary ---
Author Organization [facility] Address [address] [place] [phone] Phone Care Team Providers Care Spiritual Advisor Name Role Phone Pcp, Unknown Primary Care Provider Unavailabl e Encounter Details Date Type Department Care Team (Late st Contact Info) Description 05/24/2022 Procedure Pass [facility], Ct Scan - [facility] [address] [place] [address] Social History Tobacco Use Types Packs/Day Years [...] 4:54 PM EDT Radha Fong RN * [place] Suicide Severity Rating Scale (Screener/Recent Self-Report) Question [...] documented as of this encounter Care Teams Spiritual Advisor Relationship Specialty Start Date End Date Pcp, Unknown PCP - General 05/24/22 documented as of this encounter Additional Source Comments The information contained in this document represents components of the legal health record. It is not the complete legal health record.[facility]
--- OUTSIDE RECORDS SUMMARY | 2025-01-24 12:55 | XMS_ITS | Encounter Summary ---
Author Organization [facility] Address [address] [place] [phone] Phone Care Team Providers Care Waredresser Name Role Phone Pcp, Unknown Primary Care Provider Unavailabl e Encounter Details Date Type Department Care Team (Late st Contact Info) Description 05/24/2022 Procedure Pass [facility], Ct Scan - [facility] [address] [place] [address] Social History Tobacco Use Types Packs/Day Years [...] 4:54 PM EDT Radha Fong RN * [place] Suicide Severity Rating Scale (Screener/Recent Self-Report) Question [...] documented as of this encounter Care Teams Waredresser Relationship Specialty Start Date End Date Pcp, Unknown PCP - General 05/24/22 documented as of this encounter Additional Source Comments The information contained in this document represents components of the legal health record. It is not the complete legal health record.[facility]
--- OUTSIDE RECORDS SUMMARY | 2025-01-24 12:55 | XMS_ITS | Clinical Summary ---
Author Organization [facility] Address [address] [place] [phone] Care Team Providers Care Apron Worker Name Role Phone Unavailable Primary Care Provider Unavailabl e Surgical History Surgery Date Site/Laterality Comments CHOLECYSTECTOMY PROCEDURE: LAPAROSCOPIC CHOLECYSTECT OTHER SURGICAL HISTORY PROCEDURE: [place] EPISIOTOMY/VAG RPR OTH/THN ATTENDING ESOPHAGOGASTRODUODENOSCOPY 03/12/15 PROCEDURE: [place] ESOPHAGOGASTRODUODENOSCOPY TRANSORAL DIAGNOSTIC; COMMENT: normal, with nl [...]
--- OUTSIDE RECORDS SUMMARY | 2025-01-24 12:55 | XMS_ITS | Clinical Summary ---
Author Organization [facility] Address [address] [place] [address] Phone Care Team Providers Care Solutions Executive Cloud Sales Name Role Phone Pcp, Unknown Primary Care [...] file Medical Devices Not on file Insurance [facility] ACO ACO ACO [facility] [employer]I[facility] ACO Care Teams Solutions Executive Cloud Sales Relationship Specialty Start Date End Date Pcp, Unknown PCP - General 05/24/22 Additional Source Comments The information contained in this document represents components of the legal health record. It is not the complete legal health record.[facility]
== END 2025-01-24 10:23 | disposition home or self-care (01) ==
LOC: HO.LAB 10:22
PROVIDERS: PCP Internal Medicine; Visit Provider Internal Medicine
DX: E11.9 Type 2 diabetes mellitus without complications (principal); E53.8 Deficiency of other specified B group vitamins; D64.9 Anemia, unspecified; E78.00 Pure hypercholesterolemia, unspecified; E03.9 Hypothyroidism, unspecified; E55.9 Vitamin D deficiency, unspecified
CPT/HCPCS: 36415; 80053; 80061; 81001; 82043; 82306; 82570; 82607; 82746; 83036; 84439; 84443; 85025

== ENCOUNTER 2025-01-25 13:57 | Outpatient (AMB) | payer OTHER, SELFPAY ==
[2025-01-25 13:58] VITALS: BP 120/80; PULSE 86; O2SAT 92; BMI 33.9
--- NOTE | 2025-01-25 13:58 | MHC.PC.OV ---
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 Required: No Accompanied by: Self / Same As Patient Allergies Iodinated Contrast Media (IV CONTRAST) Allergy (Intermediate, Verified 01/26/25 06:21) RASH iopromide (From ULTRAVIST) Allergy (Mild, Verified 01/26/25 06:21) ITCHING semaglutide (From Ozempic) Adverse Reaction (Severe, Verified 01/26/25 06:21) pancreatitis Medication List - Last Reconciled 01/26/25 by Genaro Chu MD amoxicillin 875 mg PO BID atorvastatin 80 mg PO BEDTIME blood sugar diagnostic (FreeStyle Lite Strips) As directed three times a day blood-glucose meter (FreeStyle [place] Lite kit) As directed dispense as freestyle lite blood-glucose sensor (FreeStyle Simón 3 Plus Sensor device) Use daily As directed to monitor glucose blood-glucose,wireline supervisor,cont (FreeStyle Simón 3 Thompson) Use daily As directed to monitor blood glucose cholecalciferol (vitamin D3) 50 mcg PO DAILY 90 days clonidine HCl 0.1 mg PO BID PRN 30 days empagliflozin (Jardiance) 25 mg PO DAILY fenofibrate 120 mg PO DAILY 30 days gabapentin 300 mg PO BEDTIME PRN glucose (Dex4 Glucose) 16 grams (4 x 4 gram) PO Q15M PRN insulin degludec (Tresiba FlexTouch U-200 insulin) 84 units (0.42 mL) subcut BEDTIME 30 days insulin lispro (Humalog KwikPen (U-100) Insulin) 30 units for breakfast , 30 units for lunch, 30 units for dinner subcutaneously daily lancets (FreeStyle Lancets) Three times a day levothyroxine 50 mcg PO QAM lisinopril-hydrochlorothiazide 20-12.5 mg 2 tabs PO DAILY 90 days lorazepam 1 mg PO .QD PRN methocarbamol 500 mg PO BEDTIME PRN metoprolol succinate ER 75 mg (1.5 x 50 mg) PO DAILY 30 days mirtazapine 7.5 mg PO BEDTIME 30 days oxycodone 5 mg PO Q8H PRN pantoprazole 40 mg PO DAILY pen needle, diabetic (BD Ultra-Fine Jordana Pen Needle) As directed four times a day pen needle, diabetic As directed sertraline 50 mg PO DAILY 30 days Tobacco use date assessed: 01/25/25 Fall risk assessment: No Falls in past year Last assessed Fall Risk: 01/25/25 Dental Screening Dental Screen Date: 01/25/25 Did you have a dental visit in the last 12 months?: No Did you have a dental problem in the last 6 months where you did not have access to dental care?: No Was dental information given to patient?: No HPI 3M Med Follow Up- repeat A1C needed HPI Details Patient comes in today for her follow up visit Reports (+) on and off pain over her lower back that is often triggered by increased activity and relieved when she sits or lies down States that she feels okay otherwise She denies any headaches or dizziness Denies any chest pains, no increased SOB No nausea/vomiting, no abdominal pain No change in bowel habits noted She had her follow up labs done yesterday - to discuss her results [facility] Medical History Osteoporosis Early satiety Mixed hyperlipidemia Ganglion cyst of tendon sheath of left hand Pure hypercholesterolemia Numbness and tingling in both hands Trigger finger, left middle finger Trigger finger, right ring finger Vulvar leukoplakia Atypical chest pain Tachycardia Left knee pain Right shoulder pain Arthralgia Vulvovaginitis juani albicans Breast pain, right Obesity (BMI 30-39.9) Hypertriglyceridemia Vitamin D deficiency Loose stools Pancreatitis Poor historian Vulvar leukoplakia Vulvar itching Recurrent epigastric abdominal pain Type 2 diabetes mellitus with diabetic nephropathy Hyperlipidemia LDL goal <100 Diabetes mellitus Primary osteoarthritis of hips, bilateral Lumbar degenerative disc disease Anxiety GERD without esophagitis Gastritis GERD (gastroesophageal reflux disease) Depression Hypothyroidism Type 2 diabetes mellitus with hyperglycemia, with long-term current use of insulin Type 2 diabetes mellitus with diabetic polyneuropathy Essential hypertension Surgical History S/P cholecystectomy Hx of tubal ligation History of herniated intervertebral disc Family History Father Throat cancer Mother Diabetes mellitus CVD (cardiovascular disease) Maternal Aunt Breast cancer Social History Household Members: None Housing: Apartment Alcohol intake: never Patient Tobacco Use Status: Former Tobacco user e-Cigarette/Vaping Use: Never Used Second Hand Smoke Exposure: No service: No Current occupational status: disabled Sexual orientation: Straight/Heterosexual Gender identity: Female Cognitive needs: No Hearing needs: No Vision needs: Yes Female Reproductive History Menstrual Age of Menarche: 12 Questionnaire PHQ-9 Over the last 2 weeks, how often have you been bothered by any of the following problems? 1. Little interest or pleasure in doing things: several days 2. Feeling down, depressed, or hopeless: several days 3. Trouble falling or staying asleep, or sleeping too much: several days 4. Feeling tired or having little energy: several days 5. Poor appetite or overeating: several days 6. Feeling bad about yourself - or that you are a failure or have let yourself or your family down: not at all 7. Trouble concentrating on things, such as reading the newspaper or watching television: several days 8. Moving or speaking so slowly that other people could have noticed. Or the opposite - being so fidgety or restless that you have been moving around a lot more than usual: not at all 9. Thoughts that you would be better off or of hurting yourself in some way: not at all Total score: 6 Depression Screening Interpretation: Positive Depression Screening Follow-up: Existing condition and In treatment Depression Screening Done: Yes 47742 - PHQ-9 Billing: Yes Source: Developed by Drs. Teofilo Loredo, Radha Knight, Keagan Guzman and colleagues, with an educational alecia from [employer]. Thrive Questionnaire Date Thrive assessed: 01/25/25 I am a: Patient What is your living situation today?: I choose not to answer this question Within the past 12 months, did the food you bought not last and you didn't have the money to get more?: I choose not to answer this question Within the past 12 months, did you worry whether your food would run out before you got money to buy more?: I choose not to answer this question Do you have trouble paying for medicines?: No Do you have trouble getting transportation to medical appointments?: No Do you have trouble paying your heating and electricity bill?: No Do you have trouble taking care of your child, family member or friend?: No Do you have trouble with day-to-day activities such as bathing, preparing meals, shopping, managing finances, etc.?: No Are you currently unemployed and looking for a job?: No Are you interested in more education?: No Please select the resources that you would like help with: Food Currently or been in a relationship where the following occur: No concerns reported THRIVE Score: 0 AUDIT C Alcohol Use Questionnaire (AUDIT-C) 1. How often do you have a drink containing alcohol?: Never 3. How often do you have six or more drinks on one occasion?: Never Total Score: 0 Score Reviewed/Action Taken: Yes CARO-7 AMB Questionnaire CARO-7 Date CARO - 7 assessed: 01/25/25 Feeling nervous, anxious, or on edge: 0 = Not at all Not being able to stop or control worryin = Not at all Worrying too much about different things: 0 = Not at all Trouble relaxin = Not at all Being so restless that it is hard to sit still: 0 = Not at all Becoming easily annoyed or irritable: 0 = Not at all Feeling afraid as if something awful might happen: 0 = Not at all Total CARO-7 score (0-4 normal; 5-9 mild; 10-14 moderate; 15-21 severe): 0 Source: Developed by Drs. Teofilo Loredo, Radha Knight, Keagan Guzman and colleagues, with an educational alecia from [employer]. Review of Systems Const Denies chills, Denies fatigue, Denies fever(s) and Denies headache(s) ENT Denies dysphagia, Denies dizziness, Denies otalgia, Denies headache(s), Denies neck pain, Denies odynophagia and Denies sore throat Card Denies chest pain, Reports palpitations (occasionally) and Reports dyspnea on exertion (mild) Resp Denies chest congestion, Denies cough and Reports dyspnea on exertion (mild) GI Reports abdominal pain (on and off diffuse pain, bloating and discomfort), Denies constipation, Denies dysphagia, Denies heartburn, Denies diarrhea, Denies nausea, Denies odynophagia and Denies vomiting Denies difficulty voiding, Denies nocturia, Denies dysuria and Denies urinary urgency Musc Reports back pain (over the lower back - increasing lately), Reports arthralgias (over both hips) and Denies neck pain Skin/Breast Denies rash Neuro Denies dizziness and Denies headache(s) Psych Reports anxiety Endo Denies fatigue and Reports palpitations (occasionally) Physical exam (Primary Care) Vital Signs: Last Vital Signs Pulse 86 01/25/25 13:58 BP 120/80 01/25/25 13:58 Pulse Ox 92 01/25/25 13:58 Oxygen Delivery Method Room Air 01/25/25 13:58 BMI result Body Mass Index 33.9 Tobacco/Smoking Status: Tobacco use Status Tobacco use date assessed 01/25/25 01/25/25 14:06 Patient Tobacco Use Status Former Tobacco user 01/25/25 13:59 e-Cigarette/Vaping Use Never Used 01/25/25 13:59 PHQ-9: PHQ-9 Score PHQ-9: Total score 6 01/26/25 06:23 Depression Screening Interpretation: Positive Depression Screening Follow-up: Existing condition and In treatment Thrive Assessment: Date of Thrive Assessment Date Thrive assessed 01/25/25 01/25/25 14:06 Currently or been in a relationship where the following occur: No concerns reported Const General: no acute distress and alert HENMT Ears: TM's normal bilaterally and EAC's normal Throat: Yes posterior oropharynx normal and Yes tonsils normal (no TP congestion) Neck Neck: Yes supple and No lymphadenopathy Thyroid: Thyroid normal Resp Auscultation: clear to auscultation bilaterally, no rales and no wheezes Cardio Rate: regular rate Rhythm: regular rhythm Heart sounds: no murmurs GI Palpation (GI): Soft to palpation and nontender Auscultation: normal bowel sounds General: Yes no CVA tenderness Back/Spine/Pelvis Back: no CVA tenderness Thoracic/Lumbar Spine: lumbar spinal tenderness (mild) Skin Rashes: no rashes Extrem General: Yes no clubbing, cyanosis or edema Right lower extremity: hip/thigh Details: tenderness Location: of the hip Left lower extremity: hip/thigh Details: tenderness Location: of the hip Results Reviewed Results Reviewed: Laboratory Tests 01/24/25 01/24/25 10:32 10:44 WBC 8.7 Hgb 15.1 Hct 45.3 Plt Count 202 Sodium 141 Potassium 4.2 Creatinine 0.59 Estimated GFR > 60 Fasting Glucose 241 H Hemoglobin A1c % 9.2 H Calcium 10.1 D AST 20 ALT 20 Triglycerides 392 H Cholesterol 202 H LDL Cholesterol, Calc 93 HDL Cholesterol 31 L Vitamin B12 541 25-OH Vitamin D Total 29.0 L TSH 2.62 Free T4 0.92 Ur Specific [place] >= 1.030 H Urine Protein Negative Urine Glucose (UA) >=1000 H Urine Blood Negative Urine Nitrite Negative Ur Leukocyte Esterase Negative Microalb/Creat Ratio 133.0 H Coding Level of Care Code Est Pt Level 4 (63597) Diagnoses Type 2 diabetes mellitus with hyperglycemia, with long-term current use of insulin E11.65; Z79.4 Mixed hyperlipidemia E78.2 Degeneration of intervertebral disc of lumbar region with discogenic back pain M51.360 Disc-related pain type: discogenic back pain only Osteoporosis without current pathological fracture, unspecified osteoporosis type M81.0 Osteoporosis type: unspecified Presence of current pathological fracture: without current pathological fracture Essential hypertension I10 Acquired hypothyroidism E03.9 Hypothyroidism type: acquired Vitamin D deficiency E55.9 Obesity (BMI 30-39.9) E66.9 Additional Codes PHQ-9 - 14211 - PHQ-9 Billing: Yes ([id number]) Assessment & Plan Assessment & Plan (1) Type 2 diabetes mellitus with hyperglycemia, with long-term current use of insulin: Code(s): E11.65 - Type 2 diabetes mellitus with hyperglycemia; Z79.4 - 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) use of insulin Category: Medical Plan: Her HgbA1c was at 9.2% on her labs done yesterday (her in-office HgbA1c went up to 11.1% back in September 2024) - goal is <7.0% Reinforced diabetic diet She is currently on Tresiba 84 units QD, Humalog 30 units TID, Jardiance 25 mg QD and Glpizide ER 5 mg QD She is NOT a candidate for the GLP1s due to her Hx of pancreatitis and past GI upset with Metformin The effects of Lantus and Toujeo kept wearing off by late afternoon She continues to struggle with compliance with medications - tends to forget taking mealtime insulin doses often - but states that she has been doing better, especially since she was set up with a CGM to help her track her blood sugar readings better Follow-up with endocrinology as scheduled (2) Mixed hyperlipidemia: Code(s): E78.2 - Mixed hyperlipidemia Category: Medical Plan: Results of her labs done yesterday reviewed and discussed with patient - her serum triglyceride level has gone back up to 392 mg/dl on her recent labs (it was at 3078 mg/dl a few months ago before she got it down to under 300 mg/dl back in August 2024) Reinforced low cholesterol diet Continue Atorvastatin 80 mg QD and Fenofibrate 120 mg QD Will recheck her labs and fasting lipids in a couple of months for follow-up (3) Lumbar degenerative disc disease: Code(s): M51.36 - Other intervertebral disc degeneration, lumbar region Category: Medical Qualifiers: Disc-related pain type: discogenic back pain only Qualified Code(s): M51.360 - Other intervertebral disc degeneration, lumbar region with discogenic back pain only Plan: Reinforced activity and weight-lifting restrictions Lumbar spine x-rays done in March 2021 revealed (+) mild L2 superior endplate depression, new from CT 08/10/2018, and old degenerative disc changes at L4-L5 Due to her increasing low back pain last year, we sent her for updated lumbar spine x-rays X-rays done in January 2024 revealed (+) multilevel degenerative disc disease, similar compared to her prior examination. There is also a chronic L2 compression deformity that is also unchanged from previous As patient continues to be affected/impaired significantly by her increasing low back pain, she was referred to [facility] for further recommendations - she was seen a few months ago and sent to physical therapy, which she feels has helped somewhat (4) Osteoporosis: Code(s): M81.0 - Age-related osteoporosis without current pathological fracture Category: Medical Qualifiers: Osteoporosis type: unspecified Presence of current pathological fracture: without current pathological fracture Qualified Code(s): M81.0 - Age-related osteoporosis without current pathological fracture Plan: Her repeat BMD done in April 2024 revealed (+) osteoporosis, with the lowest T-score of -3.0 in the lft femoral neck consistent with osteoporosis Her BMD in the left hip has declined by -17.7% compared to previous and that in her left femur has declined by -20.1% Her urine NTx came back normal Have discussed Tx options with patient regarding her osteoporosis but she wishes to hold off until her diabetes is better controlled (5) Essential hypertension: Code(s): I10 - Essential (primary) hypertension Category: Medical Plan: Reinforced low-sodium diet -? goal is systolic BP of 120 mm or less Continue Lisinopril-Hydrochlorothiazide 20-12.5 mg QD (6) Hypothyroidism: Code(s): E03.9 - Hypothyroidism, unspecified Category: Medical Qualifiers: Hypothyroidism type: acquired Qualified Code(s): E03.9 - Hypothyroidism, unspecified Plan: Her TFTs were normal on her recent labs done yesterday Continue Levothyroxine 50 mcg QD Will recheck her TFTs in a couple of months for follow up (7) Vitamin D deficiency: Code(s): E55.9 - Vitamin D deficiency, unspecified Category: Medical Plan: Continue Vitamin D3 2000 units QD (8) Obesity (BMI 30-39.9): Code(s): E66.9 - Obesity, unspecified Category: Medical Plan: Reinforced diet; exercise and weight loss are impractical currently due to her increasing low back pain Plan To return as scheduled in March 2025 for her next annual physical examination Orders: Orders UA CC w/rflx Micro + Cult 03/18/25 R30.0 - Dysuria, Z00.00 - Encounter for general adult medical examination without abnormal findings Vitamin D 25-OH Total 03/18/25 E55.9 - Vitamin D deficiency, unspecified, Z00.00 - Encounter for general adult medical examination without abnormal findings Complete Blood Count Auto Diff 03/18/25 D64.9 - Anemia, unspecified, Z00.00 - Encounter for general adult medical examination without abnormal findings Comprehensive [place]. Panel Fast 03/18/25 E78.00 - Pure hypercholesterolemia, unspecified, Z00.00 - Encounter for general adult medical examination without abnormal findings Lipid Panel 03/18/25 E78.00 - Pure hypercholesterolemia, unspecified, Z00.00 - Encounter for general adult medical examination without abnormal findings Hemoglobin A1c 03/18/25 E11.9 - Type 2 diabetes mellitus without complications, Z00.00 - Encounter for general adult medical examination without abnormal findings Microalbumin, Random (w Creat) 03/18/25 E11.9 - Type 2 diabetes mellitus without complications, Z00.00 - Encounter for general adult medical examination without abnormal findings Free T4 (Free Thyroxine) 03/18/25 E03.9 - Hypothyroidism, unspecified, Z00.00 - Encounter for general adult medical examination without abnormal findings Thyroid Stimulating Hormone 03/18/25 E03.9 - Hypothyroidism, unspecified, Z00.00 - Encounter for general adult medical examination without abnormal findings Vitamin B12 and Folate 03/18/25 E53.8 - Deficiency of other specified B group vitamins, Z00.00 - Encounter for general adult medical examination without abnormal findings
--- OUTSIDE RECORDS SUMMARY | 2025-01-25 17:00 | XMS_ITS | Encounter Summary ---
Author Organization [facility] Address [address] [place] [id number] Phone Care Team Providers Care Platform Attendant Name Role Phone Pcp, Unknown Primary Care Provider Unavailabl e Encounter Details Date Type Department Care Team (Late st Contact Info) Description 05/24/2022 Procedure Pass [facility], Ct Scan - [facility] [address] [place] [address] Social History Tobacco Use Types Packs/Day Years [...] 4:54 PM EDT Radha Fong RN * [place] Suicide Severity Rating Scale (Screener/Recent Self-Report) Question Answer Date of Assessment Author 1. Wish to be (Past 1 Month) No 023 4:54 PM EDT Radha Fong RN 2. Non-Specific Active Suici clinton Thoughts (Past 1 Month) No 05/24/2022 4:54 PM EDT Rdaha Fong RN 6. Suicidal Behavior (Lifetime) No 3 4:54 PM EDT Radha Fong RN documented as of this encounter Plan of Treatment Not on file documented as of this encounter Visit Diagnoses Not on filedocumented in this encounter Additional Health Concerns Infection Onset Date Last Indicated Resolved Time CoV-Risk 05/24/2022 05/24/2022 06/04/2022 1:22 AM EDT documented as of this encounter Care Teams Platform Attendant Relationship Specialty Start Date End Date Pcp, Unknown PCP - General 05/24/22 documented as of this encounter Additional Source Comments The information contained in this document represents components of the legal health record. It is not the complete legal health record.[facility]
--- OUTSIDE RECORDS SUMMARY | 2025-01-25 17:00 | XMS_ITS | Clinical Summary ---
Author Organization [facility] Address [address] [place] [id number] Care Team Providers Care Shellfish Grower Name Role Phone Unavailable Primary Care Provider Unavailabl e Surgical History Surgery Date Site/Laterality Comments CHOLECYSTECTOMY PROCEDURE: LAPAROSCOPIC CHOLECYSTECT OTHER SURGICAL HISTORY PROCEDURE: [place] EPISIOTOMY/VAG RPR OTH/THN ATTENDING ESOPHAGOGASTRODUODENOSCOPY 03/12/15 PROCEDURE: [place] ESOPHAGOGASTRODUODENOSCOPY TRANSORAL DIAGNOSTIC; COMMENT: normal, with nl [...]
--- OUTSIDE RECORDS SUMMARY | 2025-01-25 17:00 | XMS_ITS | Encounter Summary ---
Author Organization [facility] Address [address] [place] [phone] Phone Care Team Providers Care Freight Forwarder Name Role Phone Pcp, Unknown Primary Care Provider Unavailabl e Encounter Details Date Type Department Care Team (Late st Contact Info) Description 05/24/2022 Procedure Pass [facility], Ct Scan - [facility] [address] [place] [address] Social History Tobacco Use Types Packs/Day Years [...] 4:54 PM EDT Radha Fong RN * [place] Suicide Severity Rating Scale (Screener/Recent Self-Report) Question [...] documented as of this encounter Care Teams Freight Forwarder Relationship Specialty Start Date End Date Pcp, Unknown PCP - General 05/24/22 documented as of this encounter Additional Source Comments The information contained in this document represents components of the legal health record. It is not the complete legal health record.[facility]
--- OUTSIDE RECORDS SUMMARY | 2025-01-25 17:00 | XMS_ITS | Clinical Summary ---
Author Organization [facility] Address [address] [place] [address] Phone Care Team Providers Care Laboratory Secretary Name Role Phone Pcp, Unknown Primary Care [...] file Medical Devices Not on file Insurance [facility] ACO [employer]CO [facility] Care Teams Laboratory Secretary Relationship Specialty Start Date End Date Pcp, Unknown PCP - General 05/24/22 Additional Source Comments The information contained in this document represents components of the legal health record. It is not the complete legal health record.[facility]
== END 2025-01-25 14:53 | disposition home or self-care (01) ==
LOC: HO.HMCH 13:58
PROVIDERS: PCP Internal Medicine; Visit Provider Internal Medicine
DX: E11.65 Type 2 diabetes mellitus with hyperglycemia (principal); Z79.4 Long term (current) use of insulin; E66.9 Obesity, unspecified; Z68.33 Body mass index [BMI] 33.0-33.9, adult; E78.2 Mixed hyperlipidemia; M51.360 Other intervertebral disc degeneration, lumbar region with discogenic back pain only; M81.0 Age-related osteoporosis without current pathological fracture; I10 Essential (primary) hypertension; E03.9 Hypothyroidism, unspecified; E55.9 Vitamin D deficiency, unspecified

== ENCOUNTER → 2025-01-25 13:57 | Outpatient (BNVA) | payer OTHER, SELFPAY | PROVIDERS: PCP Internal Medicine; Visit Provider Internal Medicine | DX: E11.65 Type 2 diabetes mellitus with hyperglycemia (principal); Z79.4 Long term (current) use of insulin; E78.2 Mixed hyperlipidemia; M51.360 Other intervertebral disc degeneration, lumbar region with discogenic back pain only; M81.0 Age-related osteoporosis without current pathological fracture; I10 Essential (primary) hypertension; E03.9 Hypothyroidism, unspecified; E55.9 Vitamin D deficiency, unspecified; E66.9 Obesity, unspecified; Z13.31 Encounter for screening for depression; Z13.39 Encounter for screening examination for other mental health and behavioral disorders | CPT/HCPCS: 96127; 99212 ==